=== PATIENT | male | born 1965 | race Caucasian/White ===

== ENCOUNTER → 2016-08-14 | Outpatient (CLI) | payer BC ==
[~2016-08-14] MED LIST: ALBU0.8322 IH; ALBU8.5H4 IH; ALPR1T; ALPR1T PO; ASP81CT PO; ATR20T; ATR20T PO; BUDE6HFA IH; CARV10CP PO; CITA40TA19 PO; CLOP75TA; DCS100C; ESCI20TA2; FLUT1DIS27 IH; FURO20TA4 PO; FURO40TA4; HYDR2TAB31 PO; INDO25CA PO; ISM30TCR PO; ISOS30TA74 PO; KCL10CCR; METH-313 PO; METH4TAB PO; METO25TA PO; MTP25TSR; OMEG1CAP51 PO; PHEN-633 PO; PREG150C PO; RABE20TA PO; ROSU20TA14 PO; RT-ALBUINH IH; RT-COMBINH INH; SIMV40TA2 PO; SULF1TAB35 PO; TIOT18CA IH; TRAM-42 PO; TRL300 PO; [UNRECOGNIZED DRUG - OTHER]; metoprolol; ventolin inhaler
== END ==
LOC: RAD 14:58
PROVIDERS: ATTEND Nurse Practitioner Family
DX: R20.0 Anesthesia of skin (principal); R22.43 Localized swelling, mass and lump, lower limb, bilateral
CPT/HCPCS: 93923

== ENCOUNTER 2017-06-11 11:47 | Emergency (ER) | payer BC, OTHER ==
[~2017-06-11] VITALS: Ht 175.3 cm; Wt 97.5 kg
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
[2017-06-11] MEDS ORDERED: CYCL5TAB PO (13:05)
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
[2017-06-11 13:25] VITALS: BP 140/97
== END 2017-06-11 13:25 | disposition home or self-care (01) ==
LOC: EDUNIT# 11:47 → ER 11:49
DX: S16.1XXA Strain of muscle, fascia and tendon at neck level, initial encounter (principal); S43.402A Unspecified sprain of left shoulder joint, initial encounter; J43.9 Emphysema, unspecified; I25.10 Atherosclerotic heart disease of native coronary artery without angina pectoris; I25.2 Old myocardial infarction; E78.00 Pure hypercholesterolemia, unspecified; I10 Essential (primary) hypertension; F17.200 Nicotine dependence, unspecified, uncomplicated; Z90.89 Acquired absence of other organs; Z95.1 Presence of aortocoronary bypass graft; Z79.82 Long term (current) use of aspirin; V85.6XXA Passenger of special construction vehicle injured in nontraffic accident, initial encounter; Y92.410 Unspecified street and highway as the place of occurrence of the external cause
CPT/HCPCS: 70450; 71010; 72125; 73030; 99283

== ENCOUNTER 2017-07-05 23:51 | Inpatient (IN) | payer OTHER ==
[~2017-07-05] VITALS: Ht 177.8 cm; Wt 102.1 kg
[~2017-07-05 23:51] MED LIST changes: +CYCL5TAB PO
--- OUTSIDE RECORDS SUMMARY | 2017-07-05 23:58 | XMS REPORT ---
Author Author JOSE ANTONIO BRADY eClinicalWorks Address Unknown Phone Unavailable Care Team Providers Care Manager Purchasing Name Role Phone JOSE ANTONIO BRADY CP Unavailable Allergies, Adverse Reactions, Alerts Substance Reaction Event Type Xanax XR Self Admitted Abuse Drug Allergy Oxycodone HCl Failed narcotics contract Drug Allergy Benzodiazepines Failed narcotics contract Non Drug Allergy Problems Problem Type Condition Code Onset Dates Condition Status Assessment Essential hypertension I10 Active Problem Midline low back pain with right-sided sciatica M54.41 Active Problem CAD (coronary artery disease) I25.10 Active Problem Essential hypertension I10 Active Assessment Exertional dyspnea R06.09 Active Assessment CAD (coronary artery disease) I25.10 Active Problem Hyperlipemia E78.5 Active Assessment Chest pain, unspecified type R07.9 Active Medications Medication Code System Code Instructions Start Date End Date Status Dosage Combivent Respimat [facility] [address]-05 20-100 mcg/actuation Inhalation 3 times a day October 28, 2014 1 puff Aspirin Low Dose [facility] [address]-94 November 22, 2011 by Oral route Celebrex [facility] 66218046427 200 MG Orally Once a day 1 capsule Viibryd [facility] [address]-35 40 MG Once a day, through PALS October 28, 2014 1 tablet AccuNeb ND 0 0.083% May 19, 2012 3 mL by Inhalation route 4 times per day Lopressor [facility] [address]-70 25 Orally Twice a day May 25, 2015 0.5 Cyclobenzaprine HCl [facility] 30078478559 10 MG Orally Three times a day 1 tablet Gabapentin [facility] 13200770735 300 MG TAKE ONE CAPSULE BY MOUTH THREE TIMES DAILY Viagra [facility] 36050914319 50 MG Once a day 1 tablet by Oral route 1 time per day Flomax [facility] 56766444637 0.4 MG Orally Once a day 1 capsule 30 minutes after the same meal each day Ventolin HFA [facility] [address]-91 90 mcg/actuation October 28, 2014 inhale 2 puffs by Inhalation route 4 times per day PRN Meloxicam [facility] 71644202828 15 MG TAKE ONE TABLET BY MOUTH ONCE DAILY Spiriva NDC 0 18 mcg 1 ea inhaled once a day October 28, 2014 1 ea by Inhalation route 1 time per day Advair Delmisus [facility] [address]-63 500-50 mcg/dose October 28, 2014 1 puffs by Inhalation route 2 times per day Crestor [facility] [address]-75 40 mg November 20, 2013 take 1 tablet by Oral route at bedtime 1 time per day Procedures Procedure Coding System Code Date COMPREHEN METABOLIC PANEL CPT-4 28441 May 23, 2016 LIPID PANEL CPT-4 99404 May 23, 2016 MEASURE BLOOD OXYGEN LEVEL CPT-4 27355 May 23, 2016 VENIPUNCT, ROUTINE* CPT-4 03616 May 23, 2016 Office Visit, Est Pt., Level 4 CPT-4 03940 May 23, 2016 Vital Signs Date/Time: May 23, 2016 Cardiac Monitoring Heart Rate 88 bpm Weight 212 lbs Height 70 in BMI 30.42 Index Oximetry 98 % Blood Pressure Diastolic 76 mmHg Blood Pressure Systolic 124 mmHg Results Name Result Date Reference Range Unit Abnormality Flag CMP ----Calcium, Serum 9.1 48831440 8.7-10.2 mg/dL ----Carbon Dioxide, Total 25 [id number] 18-29 mmol/L ----ALT (SGPT) 28 75134009 0-44 IU/L ----Creatinine, Serum 0.88 98577574 0.76-1.27 mg/dL ----AST (SGOT) 24 [id number] 0-40 IU/L ----eGFR If NonAfricn Am 98 [id number] >59 mL/min/1.73 ----Alkaline Phosphatase, S 70 34226035 39-117 IU/L ----eGFR If Africn Am 113 61259960 >59 mL/min/1.73 ----Bilirubin, Total 0.5 25993598 0.0-1.2 mg/dL ----BUN/Creatinine Ratio 24 20160523 9-20 H ----A/G Ratio 1.8 58589953 1.1-2.5 ----Sodium, Serum 141 56697173 134-144 mmol/L ----Globulin, Total 2.3 84212929 1.5-4.5 g/dL ----Potassium, Serum 4.2 63211421 3.5-5.2 mmol/L ----Glucose, Serum 88 38086812 65-99 mg/dL ----Chloride, Serum 100 00090881 97-108 mmol/L ----Albumin, Serum 4.2 99179720 3.5-5.5 g/dL ----BUN 21 [id number] 6-24 mg/dL ----Protein, Total, Serum 6.5 19355611 6.0-8.5 g/dL Lexiscan Stress Nuclear Test ROUTINE VENIPUNCTURE LIPID PANEL ----VLDL Cholesterol Adriano 24 83378629 5-40 mg/dL ----LDL Cholesterol Calc 130 74916953 0-99 mg/dL H ----Triglycerides 119 44045353 0-149 mg/dL ----HDL Cholesterol 42 41490005 >39 mg/dL ----Cholesterol, Total 196 40093578 100-199 mg/dL Echo 2D Summary Purpose eClinicalWorks Submission
--- OUTSIDE RECORDS SUMMARY | 2017-07-05 23:58 | XMS REPORT ---
Author RAKAN Gresham Organization e[employer] Address Unknown Phone Unavailable Care Team Providers Care Online Program Coordinator Name Role Phone RAKAN AYALA CP Unavailable Allergies, Adverse Reactions, Alerts Substance Reaction Event Type Xanax XR Self Admitted Abuse Drug Allergy Oxycodone HCl Failed narcotics contract Drug Allergy Benzodiazepines Failed narcotics contract Non Drug Allergy Problems Problem Type Condition Code Onset Dates Condition Status Problem Insomnia, unspecified 780.52 Active Problem Pain in soft tissues of limb 729.5 Active Problem Special screening for malignant neoplasm of prostate V76.44 Active Problem Special screening for malignant neoplasms, colon V76.51 Active Problem Dysfunction of Eustachian tube 381.81 Active Problem Nonsuppurative otitis media, not specified as acute or chronic 381.4 Active Problem Esophageal reflux 530.81 Active Problem Dysphagia, unspecified 787.20 Active Problem Heartburn 787.1 Active Problem Pain in joint, site unspecified 719.40 Active Problem Nausea alone 787.02 Active Problem Other chronic pain 338.29 Active Problem Major depressive disorder, recurrent episode, unspecified 296.30 Active Problem Nondependent cannabis abuse, 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 Active Problem Unspecified hearing loss 389.9 Active Problem Acute sinusitis, unspecified 461.9 Active Problem Hyperlipemia E78.5 Active Problem Wheezing 786.07 Active Problem Cough 786.2 Active Problem 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 Problem CAD (coronary artery disease) I25.10 Active Problem Major depressive disorder, recurrent episode, in full remission 296.36 Active Problem Chest pain, unspecified 786.50 Active Problem Need for prophylactic vaccination and inoculation, Influenza V04.81 Active Problem Counseling on substance use and abuse V65.42 Active Problem Other dysfunctions of sleep stages or arousal from sleep 307.47 Active Problem Dyspepsia and other specified disorders of function of stomach 536.8 Active Problem Posttraumatic stress disorder 309.81 Active Problem Other, mixed, or unspecified nondependent drug abuse, unspecified 305.90 Active Problem Unspecified sleep apnea 780.57 Active Problem Abdominal pain, unspecified site 789.00 Active Problem Other dyspnea and respiratory abnormalities 786.09 Active Problem Influenza with other respiratory manifestations 487.1 Active Problem Acute mucoid otitis media 381.02 Active Assessment Sciatica, unspecified side M54.30 Active Problem Spasm of muscle 728.85 Active Assessment Low back pain M54.5 Active Problem Unspecified epilepsy without mention of intractable epilepsy 345.90 Active Problem Mild cognitive impairment, so stated 331.83 Active Problem Acute bronchitis 466.0 Active Medications Medication Code System Code Instructions Start Date End Date Status Dosage Viagra [facility] [address]-53 50 MG Once a day February 09, 2014 1 tablet by Oral route 1 time per day Flomax [facility] [address]-64 0.4 MG Orally Once a day 1 capsule 30 minutes after the same meal each day Indomethacin [facility] [address]-41 50 MG Orally 4 times a day 1 capsule with food Ventolin HFA [facility] [address]-59 90 mcg/actuation October 28, 2014 inhale 2 puffs by Inhalation route 4 times per day PRN Lopressor [facility] [address]-06 25 Orally Twice a day May 25, 2015 0.5 Viibryd [facility] [address]-04 40 MG Once a day, through PALS October 28, 2014 1 tablet Spiriva NDC 0 18 mcg 1 ea inhaled once a day October 28, 2014 1 ea by Inhalation route 1 time per day Combivent Respimat [facility] [address]-71 20-100 mcg/actuation Inhalation 3 times a day October 28, 2014 1 puff Meloxicam [facility] [address]-04 15 MG Orally Once a day Jul 11, 2015 1 tablet Cyclobenzaprine HCl [facility] [address]-81 10 MG Orally 2 times a day Jul 11, 2015 1 tablet Advair Diskus [facility] [address]-20 500-50 mcg/dose October 28, 2014 1 puffs by Inhalation route 2 times per day Gabapentin [facility] [address]-40 300 MG Orally Three times a day Jul 11, 2015 1 capsule AccuNeb NDC 0 0.083% May 19, 2012 3 mL by Inhalation route 4 times per day Aspirin Low Dose [facility] [address]-68 November 22, 2011 by Oral route Crestor [facility] [address]-13 40 mg November 20, 2013 take 1 tablet by Oral route at bedtime 1 time per day Procedures Procedure Coding System Code Date TORADOL (IM) 60 MG/2ML (UP TO 15 MG) CPT-4 J1885 Jul 11, 2015 THER/PROPH/DIAG INJ, SC/IM CPT-4 76841 Jul 11, 2015 Office Visit, Est Pt., Level 3 CPT-4 36461 Jul 11, 2015 Vital Signs Date/Time: Jul 11, 2015 Temperature 97.1 F Weight 204 lbs Height 70 in BMI 29.27 Index Blood Pressure Diastolic 90 mmHg Blood Pressure Systolic 142 mmHg Cardiac Monitoring Heart Rate 76 bpm Results No Known Results Summary Purpose eClinicalWorks Submission
--- OUTSIDE RECORDS SUMMARY | 2017-07-05 23:58 | XMS REPORT ---
Author Author RAKAN AYALA [facility] Address [address] [place] [address] Care Team Providers Care Photo Mask Pattern Generator Name Role Phone RAKAN AYALA Unavailable PROBLEMS Type Condition ICD9-CM Code PHQ21-YC Code Onset Dates Condition Status SNOMED Code Problem CAD (coronary artery disease) I25.10 Active 03810725 Problem Polyneuropathy G62.9 Active 70301405 Problem Cellulitis of left arm L03.114 Active 34656372729972963 Problem Midline low back pain with right-sided sciatica M54.41 Active 850132941 Problem Hyperlipemia E78.5 Active 91185060 Problem COPD (chronic obstructive pulmonary disease) with acute bronchitis J44.0 Active 877543176462644 Problem Essential hypertension I10 Active 65284640 ALLERGIES Unknown Allergies SOCIAL HISTORY No smoking Hx information available PLAN OF CARE VITAL SIGNS MEDICATIONS Unknown Medications RESULTS No Results PROCEDURES No Known procedures IMMUNIZATIONS No Known Immunizations
--- OUTSIDE RECORDS SUMMARY | 2017-07-05 23:58 | XMS REPORT ---
Author RAKAN Gresham Organization [employer] Address Unknown Phone Unavailable Care Team Providers Care Sock Examiner Name Role Phone RAKAN AYALA CP Unavailable [...] Problem Acute mucoid otitis media 381.02 Active Problem Spasm of muscle 728.85 Active Assessment Arthritis M19.90 Active Problem Unspecified epilepsy without mention of intractable epilepsy 345.90 Active Problem Mild cognitive impairment, so stated 331.83 Active Problem Acute bronchitis 466.0 Active Medications Medication Code System Code Instructions Start Date End Date Status Dosage Indomethacin [facility] [address]-42 50 MG Orally 4 times a day 1 capsule with food Combivent Respimat [facility] [address]-72 20-100 mcg/actuation Inhalation 3 times a day October 28, 2014 1 puff Advair Diskus [facility] [address]-61 500-50 mcg/dose October 28, 2014 1 puffs by Inhalation route 2 times per day Lopressor [facility] [address]-61 25 Orally Twice a day May 25, 2015 0.5 Ventolin HFA [facility] [address]-04 90 mcg/actuation October 28, 2014 inhale 2 puffs by Inhalation route 4 times per day PRN Spiriva NDC 0 18 mcg 1 ea inhaled once a day October 28, 2014 1 ea by Inhalation route 1 time per day Diclofenac Sodium [facility] [address]-14 75 MG Orally Twice a day Jun 10, 2015 Oct 08, 2015 1 tablet Aspirin Low Dose [facility] [address]-52 November 22, 2011 by Oral route Viibryd [facility] [address]-28 40 mg October 28, 2014 take 1 tablet (40 mg) by oral route once daily with food AccuNeb NDC 0 0.083% May 19, 2012 3 mL by Inhalation route 4 times per day Viagra [facility] [address]-29 50 MG Once a day February 09, 2014 1 tablet by Oral route 1 time per day Flomax [facility] [address]-45 0.4 MG Orally Once a day 1 capsule 30 minutes after the same meal each day Crestor [facility] [address]-86 40 mg November 20, 2013 take 1 tablet by Oral route at bedtime 1 time per day Procedures Procedure Coding System Code Date Office Visit, Est Pt., Level 3 CPT-4 89887 Jun 10, 2015 Vital Signs Date/Time: Jun 10, 2015 Temperature 98.0 F Weight 198 lbs Height 70 in BMI 28.41 Index Blood Pressure Diastolic 74 mmHg Blood Pressure Systolic 132 mmHg Cardiac Monitoring Heart Rate 78 bpm Results No Known Results Summary Purpose eClinicalWorks Submission
--- OUTSIDE RECORDS SUMMARY | 2017-07-05 23:59 | XMS REPORT ---
Author Author SIMI MAI eClinicalWorks Address Unknown Phone Unavailable Care Team Providers Care Electric Motor Winder Name Role Phone SIMI MAI CP Unavailable Allergies, Adverse Reactions, Alerts Substance Reaction Event Type Xanax XR Self Admitted Abuse Drug Allergy Oxycodone HCl Failed narcotics contract Drug Allergy Benzodiazepines Failed narcotics contract Non Drug Allergy Problems Problem Type Condition Code Onset Dates Condition Status Problem Special screening for malignant neoplasms, colon V76.51 Active Problem Insomnia, unspecified 780.52 Active Problem Dysfunction of Eustachian tube 381.81 Active Problem Special screening for malignant neoplasm of prostate V76.44 Active Problem Nonsuppurative otitis media, not specified as acute or chronic 381.4 Active Problem Esophageal reflux 530.81 Active Problem Dysphagia, unspecified 787.20 Active Problem Heartburn 787.1 Active Problem Nausea alone 787.02 Active Problem Other chronic pain 338.29 Active Problem Major depressive disorder, recurrent episode, unspecified 296.30 Active Problem Nondependent cannabis abuse, 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 Active Problem Major depressive disorder, recurrent episode, in full remission 296.36 Active Problem Acute sinusitis, unspecified 461.9 Active Problem Need for prophylactic vaccination and inoculation, Influenza V04.81 Active Problem Unspecified hearing loss 389.9 Active Problem CAD (coronary artery disease) I25.10 Active Problem Hyperlipemia E78.5 Active Problem Other dyspnea and respiratory abnormalities 786.09 Active Problem Cough 786.2 Active Problem Midline low back pain with right-sided sciatica M54.41 Active Problem 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 Problem Other dysfunctions of sleep stages or arousal from sleep 307.47 Active Problem Chest pain, unspecified 786.50 Active Problem Wheezing 786.07 Active Problem Counseling on substance use and abuse V65.42 Active Problem Other, mixed, or unspecified nondependent drug abuse, unspecified 305.90 Active Problem Unspecified sleep apnea 780.57 Active Problem Pain in soft tissues of limb 729.5 Active Problem Mild cognitive impairment, so stated 331.83 Active Problem Influenza with other respiratory manifestations 487.1 Active Problem Acute mucoid otitis media 381.02 Active Problem Dyspepsia and other specified disorders of function of stomach 536.8 Active Problem Posttraumatic stress disorder 309.81 Active Assessment Upper respiratory tract infection, unspecified type 465.9 Active Problem Unspecified epilepsy without mention of intractable epilepsy 345.90 Active Problem Abdominal pain, unspecified site 789.00 Active Problem Pain in joint, site unspecified 719.40 Active Problem Acute bronchitis 466.0 Active Problem Spasm of muscle 728.85 Active Medications Medication Code System Code Instructions Start Date End Date Status Dosage Viagra [facility] [address]-26 50 MG Once a day February 09, 2014 1 tablet by Oral route 1 time per day Lopressor [facility] [address]-08 25 Orally Twice a day May 25, 2015 0.5 Combivent Respimat [facility] [address]-38 20-100 mcg/actuation Inhalation 3 times a day October 28, 2014 1 puff AccuNeb [facility] 0 0.083% May 19, 2012 3 mL by Inhalation route 4 times per day Albuterol Sulfate HFA [facility] [address]-34 not defined Crestor [facility] [address]-37 40 mg November 20, 2013 take 1 tablet by Oral route at bedtime 1 time per day Flomax [facility] 63261015362 0.4 MG Orally Once a day 1 capsule 30 minutes after the same meal each day Celebrex [facility] 18060244758 200 MG Orally Once a day 1 capsule Advair Diskus [facility] [address]-27 500-50 mcg/dose October 28, 2014 1 puffs by Inhalation route 2 times per day Spiriva [facility] 0 18 mcg 1 ea inhaled once a day October 28, 2014 1 ea by Inhalation route 1 time per day Gabapentin [facility] [address]-26 300 MG Orally Three times a day Jul 11, 2015 1 capsule Meloxicam [facility] [address]-94 15 MG Orally Once a day Jul 11, 2015 1 tablet Azithromycin [facility] [address]-65 250 MG Orally Once a day Aug 23, 2015 Aug 28, 2015 2 tablets on the first day, then 1 tablet daily for 4 days Viibryd [facility] [address]-98 40 MG Once a day, through PALS October 28, 2014 1 tablet Cyclobenzaprine HCl [facility] [address]-92 10 MG Orally 2 times a day Jul 11, 2015 1 tablet Aspirin Low Dose [facility] [address]-67 November 22, 2011 by Oral route Ventolin HFA [facility] [address]-37 90 mcg/actuation October 28, 2014 inhale 2 puffs by Inhalation route 4 times per day PRN Procedures Procedure Coding System Code Date Office Visit, Est Pt., Level 3 CPT-4 46891 Aug 23, 2015 Vital Signs Date/Time: Aug 23, 2015 Temperature 97.7 F Weight 204.7 lbs Height 70 in BMI 29.37 Index Blood Pressure Diastolic 80 mmHg Blood Pressure Systolic 114 mmHg Cardiac Monitoring Heart Rate 100 bpm Results No Known Results Summary Purpose eClinicalWorks Submission
--- OUTSIDE RECORDS SUMMARY | 2017-07-05 23:59 | XMS REPORT ---
Author Author LYNN TONG Organization [employer] Address Unknown Phone Unavailable Care Team Providers Care Ecommerce Analyst Name Role Phone LYNN TONG CP Unavailable Allergies, Adverse Reactions, Alerts Substance Reaction Event Type Xanax XR Self Admitted Abuse Drug Allergy Oxycodone HCl Failed narcotics contract Drug Allergy Benzodiazepines Failed narcotics contract Non Drug Allergy Problems Problem Type Condition Code Onset Dates Condition Status Problem Essential hypertension I10 Active Problem Midline low back pain with right-sided sciatica M54.41 Active Problem Cellulitis of left arm L03.114 Active Assessment Cellulitis of left arm L03.114 Active Problem CAD (coronary artery disease) I25.10 Active Problem Hyperlipemia E78.5 Active Medications Medication Code System Code Instructions Start Date End Date Status Dosage Combivent Respimat [facility] [address]-71 20-100 mcg/actuation Inhalation 3 times a day October 28, 2014 1 puff Aspirin Low Dose [facility] [address]-68 November 22, 2011 by Oral route Cyclobenzaprine HCl [facility] 97110387019 10 MG Orally Three times a day 1 tablet Bactrim DS [facility] [address]-67 800-160 MG Orally Twice a day Jun 15, 2016 Jun 25, 2016 1 tablet Meloxicam [facility] 80739276272 15 MG TAKE ONE TABLET BY MOUTH ONCE DAILY Crestor [facility] [address]-89 40 mg November 20, 2013 take 1 tablet by Oral route at bedtime 1 time per day Gabapentin [facility] 83081203642 300 MG TAKE ONE CAPSULE BY MOUTH THREE TIMES DAILY Celebrex [facility] 28967912605 200 MG Orally Once a day 1 capsule Viagra [facility] 05969986677 50 MG Once a day 1 tablet by Oral route 1 time per day PredniSONE [facility] [address]-17 20 mg Orally Once a day Jun 15, 2016 Jun 20, 2016 2 tablet AccuNeb [place] 0 0.083% May 19, 2012 3 mL by Inhalation route 4 times per day Advair Diskus [facility] [address]-44 500-50 mcg/dose October 28, 2014 1 puffs by Inhalation route 2 times per day Ventolin HFA [facility] [address]-95 90 mcg/actuation October 28, 2014 inhale 2 puffs by Inhalation route 4 times per day PRN Flomax [facility] 41905975835 0.4 MG Orally Once a day 1 capsule 30 minutes after the same meal each day Lopressor [facility] [address]-87 25 Orally Twice a day May 25, 2015 0.5 Spiriva [place] 0 18 mcg 1 ea inhaled once a day October 28, 2014 1 ea by Inhalation route 1 time per day Viibryd [facility] [address]-50 40 MG Once a day, through PALS October 28, 2014 1 tablet Procedures Procedure Coding System Code Date Office Visit, Est Pt., Level 3 CPT-4 65496 Jun 15, 2016 Vital Signs Date/Time: Jun 15, 2016 Cardiac Monitoring Heart Rate 98 bpm Weight 228.2 lbs Height 70 in BMI 32.74 Index Blood Pressure Diastolic 86 mmHg Blood Pressure Systolic 138 mmHg Results No Known Results Summary Purpose eClinicalWorks Submission
--- OUTSIDE RECORDS SUMMARY | 2017-07-05 23:59 | XMS REPORT ---
Author Author RAKAN AYALA [facility] Address [address] [place] [address] Care Team Providers Care Database Marketing Manager Name Role Phone RAKAN AYALA Unavailable PROBLEMS Type Condition ICD9-CM Code [id number] Code Onset Dates Condition Status SNOMED Code Problem CAD (coronary artery disease) I25.10 Active 46022883 Problem Polyneuropathy G62.9 Active 11467008 Problem Cellulitis of left arm L03.114 Active 74722295936096724 Problem Midline low back pain with right-sided sciatica M54.41 Active 582952349 Problem Hyperlipemia E78.5 Active 38518116 Problem COPD (chronic obstructive pulmonary disease) with acute bronchitis J44.0 Active 833473464177703 Problem Essential hypertension I10 Active 72429066 ALLERGIES Substance Reaction Event Type Date Status Xanax XR Self Admitted Abuse Drug Allergy Sep, Active Oxycodone HCl Failed narcotics contract Drug Allergy Sep, Active Benzodiazepines Failed narcotics contract Non Drug Allergy Sep, Active SOCIAL HISTORY Never Assessed PLAN OF CARE Activity Details Follow Up 4 Weeks Reason: VITAL SIGNS Height 70 in 2016-09-24 Weight 225.3 lbs 2016-09-24 Temperature 98.3 degrees Fahrenheit 2016-09-24 Heart Rate 90 bpm 2016-09-24 Respiratory Rate 20 2016-09-24 BMI 32.32 kg/m2 2016-09-24 Blood pressure systolic 136 mmHg 2016-09-24 Blood pressure diastolic 84 mmHg 2016-09-24 MEDICATIONS Medication Instructions Dosage Frequency Start Date End Date Duration Status Combivent Respimat 20-100 mcg/actuation Inhalation 3 times a day 1 puff 8h Oct, Active Cyclobenzaprine HCl 10 mg Orally Three times a day 1 tablet 8h 30 Active Aspirin Low Dose by Oral route Nov, Active Spiriva 18 mcg 1 ea by Inhalation route 1 time per day Oct, Active Meloxicam 15 MG 1 tablet 24h 30 Active Viibryd 40 MG 1 tablet Oct, Active Gabapentin 400 MG Orally 3 times a day 1 capsule 8h 30 Active Lopressor 25 Orally Twice a day 0.5 12h 14 May, 2015 30 day(s) Active Celebrex 200 mg Orally Once a day 1 capsule 24h 90 Active Viagra 100 MG Orally Once a day 1 tablet by Oral route 1 time per day 24h 10 Active Neurontin 600 MG Orally Three times a day 1 tablet 8h 13 Sep, 2016 30 day(s) Active Ventolin HFA 90 mcg/actuation inhale 2 puffs by Inhalation route 4 times per day PRN Oct, Active AccuNeb 0.083% 3 mL by Inhalation route 4 times per day 08 May, 2012 Active Crestor 40 mg 1 tablet 24h Nov, Active Flomax 0.4 MG Orally Once a day 1 capsule 30 minutes after the same meal each day 24h 30 Active RESULTS No Results PROCEDURES No Known procedures IMMUNIZATIONS No Known Immunizations MEDICAL (GENERAL) HISTORY Type Description Date Medical History 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 Medical History CAD Medical History Acid reflux Medical History Hyperlipidemia Medical History Halex rigidous Medical History seizures--EEG 11/2011 Medical History Chronic Pain-backaches Medical History Depression Medical History Arthritis Surgical History Tonsillectomy at age 3 Surgical History Back surgery 1990 & 1993 Surgical History heart cath w/ stent placed LAD 2004 Surgical History orthopedic surgery for toe crush injury Surgical History open heart, CABG 2008 Hospitalization History surgeries Hospitalization History kidney stone [facility] Hospitalization History Herniated disc/Sciatic Nerve Pain 06/2015
--- OUTSIDE RECORDS SUMMARY | 2017-07-05 23:59 | XMS REPORT ---
Author Author RAKAN AYALA Organization [facility] Address [address] [place] [address] Care Team Providers Care Supervisor Knitting Name Role Phone RAKAN AYALA Unavailable PROBLEMS Type Condition ICD9-CM Code [id number] Code Onset Dates Condition Status SNOMED Code Problem CAD (coronary artery disease) I25.10 Active 49587801 Problem Polyneuropathy G62.9 Active 01535070 Problem Cellulitis of left arm L03.114 Active 53217075507904348 Problem Midline low back pain with right-sided sciatica M54.41 Active 440524484 Problem Hyperlipemia E78.5 Active 75621648 Problem COPD (chronic obstructive pulmonary disease) with acute bronchitis J44.0 Active 710159408363386 Problem Essential hypertension I10 Active 54027847 ALLERGIES No Information SOCIAL HISTORY Never Assessed PLAN OF CARE VITAL SIGNS MEDICATIONS Unknown [...] crush injury Surgical History open heart, CABG 2009 Hospitalization History surgeries Hospitalization History kidney stone [facility] Hospitalization History Herniated disc/Sciatic Nerve Pain 06/2015
--- OUTSIDE RECORDS SUMMARY | 2017-07-05 23:59 | XMS REPORT ---
Author Author RAKAN AYALA Organization [facility] Address [address] [place] [address] Care Team Providers Care Osteopathic Physician Name Role Phone RAKAN AYALA Unavailable PROBLEMS Type Condition ICD9-CM Code [id number] Code Onset Dates Condition Status SNOMED Code Problem CAD (coronary artery disease) I25.10 Active 09438783 Problem Polyneuropathy G62.9 Active 26770453 Problem Cellulitis of left arm L03.114 Active 93782065555962283 Problem Midline low back pain with right-sided sciatica M54.41 Active 485065433 Problem Hyperlipemia E78.5 Active 88318216 Problem COPD (chronic obstructive pulmonary disease) with acute bronchitis J44.0 Active 832063006878350 Problem Essential hypertension I10 Active 89325891 ALLERGIES No Information SOCIAL HISTORY Never Assessed PLAN OF CARE VITAL SIGNS MEDICATIONS Medication Instructions Dosage Frequency Start Date End Date Duration Status Viibryd 40 MG 1 tablet Oct, Active RESULTS No Results PROCEDURES No Known [...]
--- OUTSIDE RECORDS SUMMARY | 2017-07-05 23:59 | XMS REPORT ---
Author Author RAKAN AYALA [facility] eClinicalWorks Address Unknown Phone Unavailable Care Team Providers Care Curtain Mender Name Role Phone RAKAN AYALA CP Unavailable Allergies No Known Allergies Problems Problem Type Condition ICD-9 Code Onset Dates Condition Status Problem Other, mixed, or unspecified nondependent drug abuse, unspecified 305.90 Active Problem Dyspepsia and other specified disorders of function of stomach 536.8 Active Problem Insomnia, unspecified 780.52 Active Problem Pain in soft tissues of limb 729.5 Active Problem Special screening for malignant neoplasms, colon V76.51 Active Problem Special screening for malignant neoplasm of prostate V76.44 Active Problem Dysfunction of Eustachian tube 381.81 Active Problem Nonsuppurative otitis media, not specified as acute or chronic 381.4 Active Problem Esophageal reflux 530.81 Active Problem Spasm of muscle 728.85 Active Problem Dysphagia, unspecified 787.20 Active Problem Unspecified epilepsy without mention of intractable epilepsy 345.90 Active Problem Heartburn 787.1 Active Problem Pain in joint, site unspecified 719.40 Active Problem Nondependent cannabis abuse, 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 Active Problem Other chronic pain 338.29 Active Problem Counseling on substance use and abuse V65.42 Active Problem Other dysfunctions of sleep stages or arousal from sleep 307.47 Active Problem Major depressive disorder, recurrent episode, in full remission 296.36 Active Problem Major depressive disorder, recurrent episode, unspecified 296.30 Active Problem Wheezing 786.07 Active Problem Nausea alone 787.02 Active Problem Unspecified hearing loss 389.9 Active Problem Acute sinusitis, unspecified 461.9 Active Problem Chest pain, unspecified 786.50 Active Problem Need for prophylactic vaccination and inoculation, Influenza V04.81 Active Problem Abdominal pain, unspecified site 789.00 Active Problem Other dyspnea and respiratory abnormalities 786.09 Active Problem Influenza with other respiratory manifestations 487.1 Active Problem Acute mucoid otitis media 381.02 Active Problem 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
--- OUTSIDE RECORDS SUMMARY | 2017-07-05 23:59 | XMS REPORT ---
Author RAKAN Gresham Organization eClinical[employer] Address Unknown Phone Unavailable Care Team Providers Care Marine Driller Name Role Phone RAKAN AYALA CP Unavailable Allergies No Known Allergies Problems Problem Type Condition Code Onset Dates Condition Status Problem COPD (chronic obstructive pulmonary disease) with acute bronchitis J44.0 Active Problem Essential hypertension I10 Active Problem Cellulitis of left arm L03.114 Active Problem Hyperlipemia E78.5 Active Problem Midline low back pain with right-sided sciatica M54.41 Active Problem CAD (coronary artery disease) I25.10 Active Medications Medication Code System Code Instructions Start Date End Date Status Dosage Gabapentin [facility] 22617329107 300 MG TAKE ONE CAPSULE BY MOUTH THREE TIMES DAILY Results No Known Results Summary Purpose eClinicalWorks Submission
[2017-07-06] VITALS (7 sets, daily range): BP systolic 117–141; BP diastolic 73–83
--- OUTSIDE RECORDS SUMMARY | 2017-07-06 | XMS REPORT ---
Author RAKAN Gresham Organization [employer] Address Unknown Phone Unavailable Care Team Providers Care Retail Salesman Name Role Phone RAKAN AYALA CP Unavailable [...] abnormalities 786.09 Active Problem Cough 786.2 Active Assessment Polyneuropathy G62.9 Active Problem Midline low back pain with [...] Problem Posttraumatic stress disorder 309.81 Active Assessment Bilateral low back pain with sciatica, sciatica laterality unspecified M54.40 Active Problem Unspecified epilepsy without mention of intractable epilepsy 345.90 Active Problem Abdominal pain, unspecified site 789.00 Active Problem Pain in joint, site unspecified 719.40 Active Problem Acute bronchitis 466.0 Active Problem Spasm of muscle 728.85 Active Medications Medication Code System Code Instructions Start Date End Date Status Dosage Celebrex [facility] 96482426542 200 MG Orally Once a day 1 capsule Lopressor [facility] [address]-75 25 Orally Twice a day May 25, 2015 0.5 Spiriva [facility] 0 18 mcg 1 ea inhaled once a day October 28, 2014 1 ea by Inhalation route 1 time per day Cyclobenzaprine HCl [facility] [address]-22 10 MG Orally Three times a day AugJanuary 07, 2016 1 tablet Advair Diskus [facility] [address]-93 500-50 mcg/dose October 28, 2014 1 puffs by Inhalation route 2 times per day Viagra [facility] [address]-48 50 MG Once a day February 09, 2014 1 tablet by Oral route 1 time per day AccuNeb [facility] 0 0.083% May 19, 2012 3 mL by Inhalation route 4 times per day Gabapentin [facility] 71562304243 300 MG Orally Three times a day 1 capsule Aspirin Low Dose [facility] [address]-81 November 22, 2011 by Oral route Crestor [facility] [address]-06 40 mg November 20, 2013 take 1 tablet by Oral route at bedtime 1 time per day Combivent Respimat [facility] [address]-40 20-100 mcg/actuation Inhalation 3 times a day October 28, 2014 1 puff Ventolin HFA [facility] [address]-67 90 mcg/actuation October 28, 2014 inhale 2 puffs by Inhalation route 4 times per day PRN Meloxicam [facility] 37159871752 15 MG Orally Once a day 1 tablet Viibryd [facility] [address]-13 40 MG Once a day, through PALS October 28, 2014 1 tablet Cyclobenzaprine HCl [facility] [address]-87 10 MG Orally 2 times a day Jul 11, 2015 1 tablet Flomax [facility] 81599378798 0.4 MG Orally Once a day 1 capsule 30 minutes after the same meal each day Procedures Procedure Coding System Code Date Office Visit, Est Pt., Level 3 CPT-4 43101 Sep 09, 2015 Vital Signs Date/Time: Sep 09, 2015 Temperature 98.1 F Weight 203.2 lbs Height 70 in BMI 29.15 Index Blood Pressure Diastolic 78 mmHg Blood Pressure Systolic 128 mmHg Cardiac Monitoring Heart Rate 96 bpm Results No Known Results Summary Purpose eClinicalWorks Submission
--- OUTSIDE RECORDS SUMMARY | 2017-07-06 | XMS REPORT ---
Author Author ROSITA JASSO Organization eClinicalWorks Address Unknown Phone Unavailable Care Team Providers Care Video Camera Operator Name Role Phone ROSITA JASSO CP Unavailable Allergies, Adverse Reactions, Alerts Substance [...] dysfunction with inhibited sexual excitement 302.72 Active Assessment COPD (chronic obstructive pulmonary disease) J44.9 Active Problem CAD (coronary artery disease) I25.10 [...] Acute mucoid otitis media 381.02 Active Assessment Hyperlipemia E78.5 Active Problem Spasm of muscle 728.85 Active Assessment CAD (coronary artery disease) I25.10 Active Problem Unspecified epilepsy without mention of intractable epilepsy 345.90 Active Problem Mild cognitive impairment, so stated 331.83 Active Problem Acute bronchitis 466.0 Active Medications Medication Code System Code Instructions Start Date End Date Status Dosage Viagra [facility] [address]-73 50 MG Once a day February 09, 2014 1 tablet by Oral route 1 time per day Flomax [facility] [address]-43 0.4 MG Orally Once a day 1 capsule 30 minutes after the same meal each day Indomethacin [facility] [address]-60 50 MG Orally 4 times a day 1 capsule with food Advair Diskus [facility] [address]-12 500-50 mcg/dose October 28, 2014 1 puffs by Inhalation route 2 times per day [place] [facility] [address]-19 7.5-325 MG Orally every 6 hrs May 11, 2015 1 tablet as needed Lopressor [facility] [address]-81 25 Orally Twice a day May 25, 2015 0.5 Viibryd [facility] [address]-33 40 mg October 28, 2014 take 1 tablet (40 mg) by oral route once daily with food AccuNeb [facility] 0 0.083% May 19, 2012 3 mL by Inhalation route 4 times per day Crestor [facility] [address]-42 40 mg November 20, 2013 take 1 tablet by Oral route at bedtime 1 time per day Celebrex [facility] [address]-10 200 MG Orally Once a day May 04, 2015 1 capsule Ventolin HFA [facility] [address]-92 90 mcg/actuation October 28, 2014 inhale 2 puffs by Inhalation route 4 times per day PRN Combivent Respimat [facility] [address]-43 20-100 mcg/actuation Inhalation 3 times a day October 28, 2014 1 puff Chantix [facility] [address]-89 1 MG Orally Twice a day May 11, 2015 November 07, 2015 1 tablet Aspirin Low Dose [facility] [address]-15 November 22, 2011 by Oral route Spiriva [facility] 0 18 mcg 1 ea inhaled once a day October 28, 2014 1 ea by Inhalation route 1 time per day Procedures Procedure Coding System Code Date Office Visit, Est Pt., Level 4 CPT-4 70158 May 25, 2015 ELECTROCARDIOGRAM, TRACING CPT-4 17983 May 25, 2015 MEASURE BLOOD OXYGEN LEVEL CPT-4 00138 May 25, 2015 Vital Signs Date/Time: May 25, 2015 Cardiac Monitoring Heart Rate 84 bpm Weight 198 lbs Height 70 in BMI 28.41 Index Oximetry 98 % Blood Pressure Diastolic 88 mmHg Blood Pressure Systolic 120 mmHg Results Name Result Date Reference Range Unit Abnormality Flag EKG, TRACING (IN-HOUSE) Summary Purpose eClinicalWorks Submission
--- OUTSIDE RECORDS SUMMARY | 2017-07-06 | XMS REPORT ---
Author Author RAKAN AYALA [facility] eClinicalWorks Address Unknown Phone Unavailable Care Team Providers Care Catalogue Librarian Name Role Phone RAKAN AYALA CP Unavailable [...]
--- OUTSIDE RECORDS SUMMARY | 2017-07-06 | XMS REPORT ---
Author Author RAKAN AYALA [facility] eClinicalWorks Address Unknown Phone Unavailable Care Team Providers Care Knitted Goods Shaper Name Role Phone RAKAN AYALA CP Unavailable Allergies, Adverse Reactions, Alerts Substance Reaction Event Type Xanax XR Self Admitted Abuse Drug Allergy Oxycodone HCl Failed narcotics contract Drug Allergy Benzodiazepines Failed narcotics contract Non Drug Allergy Problems Problem Type Condition Code Onset Dates Condition Status Problem Other, [...] with inhibited sexual excitement 302.72 Active Assessment Arthritis 716.90 Active Problem Cough 786.2 Active Problem Mild cognitive impairment, so stated 331.83 Active Problem Acute bronchitis 466.0 Active Problem Posttraumatic stress disorder 309.81 Active Problem Unspecified sleep apnea 780.57 Active Medications Medication Code System Code Instructions Start Date End Date Status Dosage Aspirin Low Dose [facility] [address]-53 November 22, 2011 by Oral route Celebrex [facility] [address]-27 200 MG Orally Once a day May 04, 2015 1 capsule Crestor [facility] [address]-28 40 mg November 20, 2013 take 1 tablet by Oral route at bedtime 1 time per day Indomethacin [facility] [address]-78 50 MG Orally 4 times a day 1 capsule with food AccuNeb NDC 0 0.083% May 19, 2012 3 mL by Inhalation route 4 times per day [place] [facility] [address]-92 7.5-325 MG Orally every 6 hrs May 11, 2015 1 tablet as needed Viibryd [facility] [address]-55 40 mg October 28, 2014 take 1 tablet (40 mg) by oral route once daily with food Advair Diskus [facility] [address]-78 500-50 mcg/dose October 28, 2014 1 puffs by Inhalation route 2 times per day Ventolin HFA [facility] [address]-32 90 mcg/actuation October 28, 2014 inhale 2 puffs by Inhalation route 4 times per day PRN Viagra [facility] [address]-33 50 MG Once a day February 09, 2014 1 tablet by Oral route 1 time per day Combivent Respimat [facility] [address]-43 20-100 mcg/actuation Inhalation 3 times a day October 28, 2014 1 puff Chantix [facility] [address]-93 1 MG Orally Twice a day May 11, 2015 November 07, 2015 1 tablet Flomax [facility] [address]-68 0.4 MG Orally Once a day 1 capsule 30 minutes after the same meal each day Spiriva ND 0 18 mcg 1 ea inhaled once a day October 28, 2014 1 ea by Inhalation route 1 time per day Procedures Procedure Coding System Code Date No Charge CPT-4 49777 May 11, 2015 Office Visit, Est Pt., Level 3 CPT-4 30162 May 11, 2015 Vital Signs Date/Time: May 11, 2015 Temperature 98.6 F Weight 200 lbs Height 70 in BMI 28.69 Index Blood Pressure Diastolic 85 mmHg Blood Pressure Systolic 112 mmHg Cardiac Monitoring Heart Rate 92 bpm Results No Known Results Summary Purpose eClinicalWorks Submission
--- OUTSIDE RECORDS SUMMARY | 2017-07-06 | XMS REPORT ---
Author Author RAKAN AYALA Organization [facility] Address [address] [place] [address] Care Team Providers Care Deputy Clerk Of Superior Court Name Role Phone RAKAN AYALA Unavailable PROBLEMS Type Condition ICD9-CM Code SZH56-AY Code Onset Dates Condition Status SNOMED Code Problem CAD (coronary artery disease) I25.10 Active 35379752 Problem Polyneuropathy G62.9 Active 78608656 Problem Cellulitis of left arm L03.114 Active 56048048960157487 Problem Midline low back pain with right-sided sciatica M54.41 Active 265285499 Problem Hyperlipemia E78.5 Active 58103064 Problem COPD (chronic obstructive pulmonary disease) with acute bronchitis J44.0 Active 418099913284783 Problem Essential hypertension I10 Active 87707448 ALLERGIES No Information SOCIAL HISTORY Never Assessed [...]
--- OUTSIDE RECORDS SUMMARY | 2017-07-06 | XMS REPORT ---
Author SIMI Sotelo eClinicalWorks Address Unknown Phone Unavailable Care Team Providers Care Vp Respiratory Name Role Phone SIMI MAI CP Unavailable [...] Acute mucoid otitis media 381.02 Active Assessment Knee swelling, right M25.461 Active Problem Spasm of muscle 728.85 Active Assessment Right knee pain M25.561 Active Problem Unspecified epilepsy without mention of intractable epilepsy 345.90 Active Problem Mild cognitive impairment, so stated 331.83 Active Problem Acute bronchitis 466.0 Active Medications Medication Code System Code Instructions Start Date End Date Status Dosage Cyclobenzaprine HCl [facility] [address]-20 10 MG Orally 2 times a day Jul 11, 2015 1 tablet Flomax [facility] [address]-14 0.4 MG Orally Once a day 1 capsule 30 minutes after the same meal each day Indomethacin [facility] [address]-14 50 MG Orally 4 times a day 1 capsule with food Aspirin Low Dose [facility] [address]-38 November 22, 2011 by Oral route Spiriva NDC 0 18 mcg 1 ea inhaled once a day October 28, 2014 1 ea by Inhalation route 1 time per day Lopressor [facility] [address]-11 25 Orally Twice a day May 25, 2015 0.5 Gabapentin [facility] [address]-53 300 MG Orally Three times a day Jul 11, 2015 1 capsule Combivent Respimat [facility] [address]-49 20-100 mcg/actuation Inhalation 3 times a day October 28, 2014 1 puff AccuNeb NDC 0 0.083% May 19, 2012 3 mL by Inhalation route 4 times per day Ventolin HFA [facility] [address]-41 90 mcg/actuation October 28, 2014 inhale 2 puffs by Inhalation route 4 times per day PRN Advair Diskus [facility] [address]-44 500-50 mcg/dose October 28, 2014 1 puffs by Inhalation route 2 times per day Viibryd [facility] [address]-03 40 MG Once a day, through PALS October 28, 2014 1 tablet Meloxicam [facility] [address]-31 15 MG Orally Once a day Jul 11, 2015 1 tablet Viagra [facility] [address]-42 50 MG Once a day February 09, 2014 1 tablet by Oral route 1 time per day Crestor [facility] [address]-92 40 mg November 20, 2013 take 1 tablet by Oral route at bedtime 1 time per day Procedures Procedure Coding System Code Date THER/PROPH/DIAG INJ, SC/IM CPT-4 04728 Jul 21, 2015 Office Visit, Est Pt., Level 3 CPT-4 16716 Jul 21, 2015 TORADOL (IM) 60 MG/2ML (UP TO 15 MG) CPT-4 J1885 Jul 21, 2015 Vital Signs Date/Time: Jul 21, 2015 Temperature 98.3 F Weight 205.6 lbs Height 70 in BMI 29.50 Index Blood Pressure Diastolic 90 mmHg Blood Pressure Systolic 120 mmHg Cardiac Monitoring Heart Rate 108 bpm Results No Known Results Summary Purpose eClinicalWorks Submission
--- OUTSIDE RECORDS SUMMARY | 2017-07-06 00:01 | XMS REPORT ---
Author Author RAKAN AYALA [facility] eClinicalWorks Address Unknown Phone Unavailable Care Team Providers Care Seamer Operator Name Role Phone RAKAN AYALA CP Unavailable Allergies No Known Allergies Problems Problem Type Condition Code Onset Dates Condition Status Problem Special screening for malignant neoplasm of prostate V76.44 Active Problem Special screening for malignant neoplasms, colon V76.51 Active Problem Nonsuppurative otitis media, not specified as acute or chronic 381.4 Active Problem Dysfunction of Eustachian tube 381.81 Active Problem Esophageal reflux 530.81 Active Problem Dysphagia, unspecified 787.20 Active Problem Heartburn 787.1 Active Problem Nausea alone 787.02 Active Problem Major depressive disorder, recurrent episode, unspecified 296.30 Active Problem Nondependent cannabis abuse, 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 Active Problem Major depressive disorder, recurrent episode, in full remission 296.36 Active Problem Acute sinusitis, unspecified 461.9 Active Problem 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 Problem Unspecified hearing loss 389.9 Active Problem Chest pain, unspecified 786.50 Active Problem Need for prophylactic vaccination and inoculation, Influenza V04.81 Active Problem Midline low back pain with right-sided sciatica M54.41 Active Problem CAD (coronary artery disease) I25.10 Active Problem Acute mucoid otitis media 381.02 Active Problem Other dyspnea and respiratory abnormalities 786.09 Active Problem Essential hypertension I10 Active Problem Cough 786.2 Active Problem Counseling on substance use and abuse V65.42 Active Problem Other dysfunctions of sleep stages or arousal from sleep 307.47 Active Problem Hyperlipemia E78.5 Active Problem Wheezing 786.07 Active Problem Pain in soft tissues of limb 729.5 Active Problem Mild cognitive impairment, so stated 331.83 Active Problem Insomnia, unspecified 780.52 Active Problem Acute bronchitis 466.0 Active Problem Dyspepsia and other specified disorders of function of stomach 536.8 Active Problem Posttraumatic stress disorder 309.81 Active Problem Other, mixed, or unspecified nondependent drug abuse, unspecified 305.90 Active Problem Unspecified sleep apnea 780.57 Active Problem Abdominal pain, unspecified site 789.00 Active Problem Pain in joint, site unspecified 719.40 Active Problem Influenza with other respiratory manifestations 487.1 Active Problem Other chronic pain 338.29 Active Problem Spasm of muscle 728.85 Active Problem Unspecified epilepsy without mention of intractable epilepsy 345.90 Active Medications Medication Code System Code Instructions Start Date End Date Status Dosage Cyclobenzaprine HCl [facility] [id number] 10 MG Orally Three times a day 1 tablet Results No Known Results Summary Purpose eClinicalWorks Submission
--- OUTSIDE RECORDS SUMMARY | 2017-07-06 00:01 | XMS REPORT ---
Author MICHAEL Hobbs [facility] eClinicalWorks Address Unknown Phone Unavailable Care Team Providers Care Shipfitter Name Role Phone MICHAEL GARCES CP Unavailable Allergies, Adverse Reactions, Alerts Substance [...] Problem Posttraumatic stress disorder 309.81 Active Assessment Midline low back pain with right-sided sciatica M54.41 Active Problem Unspecified epilepsy without mention of intractable epilepsy 345.90 Active Problem Abdominal pain, unspecified site 789.00 Active Problem Pain in joint, site unspecified 719.40 Active Problem Acute bronchitis 466.0 Active Problem Spasm of muscle 728.85 Active Medications Medication Code System Code Instructions Start Date End Date Status Dosage Viibryd [facility] [address]-95 40 MG Once a day, through PALS October 28, 2014 1 tablet Viagra [facility] [address]-87 50 MG Once a day February 09, 2014 1 tablet by Oral route 1 time per day Spiriva NDC 0 18 mcg 1 ea inhaled once a day October 28, 2014 1 ea by Inhalation route 1 time per day Lopressor [facility] [address]-13 25 Orally Twice a day May 25, 2015 0.5 Advair Diskus [facility] [address]-44 500-50 mcg/dose October 28, 2014 1 puffs by Inhalation route 2 times per day Cyclobenzaprine HCl [facility] [address]-22 10 MG Orally 2 times a day Jul 11, 2015 1 tablet Ventolin HFA [facility] [address]-64 90 mcg/actuation October 28, 2014 inhale 2 puffs by Inhalation route 4 times per day PRN Flomax [facility] [address]-37 0.4 MG Orally Once a day 1 capsule 30 minutes after the same meal each day Crestor [facility] [address]-82 40 mg November 20, 2013 take 1 tablet by Oral route at bedtime 1 time per day AccuNeb NDC 0 0.083% May 19, 2012 3 mL by Inhalation route 4 times per day Combivent Respimat [facility] [address]-91 20-100 mcg/actuation Inhalation 3 times a day October 28, 2014 1 puff Meloxicam [facility] [address]-99 15 MG Orally Once a day Jul 11, 2015 1 tablet Gabapentin [facility] [address]-08 300 MG Orally Three times a day Jul 11, 2015 1 capsule Aspirin Low Dose [facility] [address]-61 November 22, 2011 by Oral route Procedures Procedure Coding System Code Date TORADOL (IM) 60 MG/2ML (UP TO 15 MG) CPT-4 J1885 Jul 25, 2015 THER/PROPH/DIAG INJ, SC/IM CPT-4 07940 Jul 25, 2015 Office Visit, Est Pt., Level 3 CPT-4 46766 Jul 25, 2015 DEPO MEDROL 40 MG/ML CPT-4 J1030 Jul 25, 2015 DEXAMETHASONE 4MG/ML (PER 1 MG) CPT-4 J1100 Jul 25, 2015 Vital Signs Date/Time: Jul 25, 2015 Temperature 97.8 F Weight 206.8 lbs Height 70 in BMI 29.67 Index Blood Pressure Diastolic 80 mmHg Blood Pressure Systolic 114 mmHg Cardiac Monitoring Heart Rate 100 bpm Results No Known Results Summary Purpose eClinicalWorks Submission
--- OUTSIDE RECORDS SUMMARY | 2017-07-06 00:01 | XMS REPORT ---
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
--- OUTSIDE RECORDS SUMMARY | 2017-07-06 00:01 | XMS REPORT ---
Author Author ANAHI WHITESIDE Organization eClinicalWorks Address Unknown Phone Unavailable Care Team Providers Care Radar Operator Name Role Phone ANAHI WHITESIDE CP Unavailable Allergies, Adverse Reactions, Alerts Substance [...] Problem Spasm of muscle 728.85 Active Assessment Upper respiratory tract infection, unspecified upper respiratory infection J06.9 Active Problem Unspecified epilepsy without mention of intractable epilepsy 345.90 Active Problem Mild cognitive impairment, so stated 331.83 Active Problem Acute bronchitis 466.0 Active Medications Medication Code System Code Instructions Start Date End Date Status Dosage Viagra [facility] [address]-93 50 MG Once a day February 09, 2014 1 tablet by Oral route 1 time per day Celebrex [facility] [address]-02 200 MG Orally Once a day May 04, 2015 1 capsule Spiriva NDC 0 18 mcg 1 ea inhaled once a day October 28, 2014 1 ea by Inhalation route 1 time per day Crestor [facility] [address]-07 40 mg November 20, 2013 take 1 tablet by Oral route at bedtime 1 time per day Combivent Respimat [facility] [address]-76 20-100 mcg/actuation Inhalation 3 times a day October 28, 2014 1 puff Flomax [facility] [address]-58 0.4 MG Orally Once a day 1 capsule 30 minutes after the same meal each day Indomethacin [facility] [address]-11 50 MG Orally 4 times a day 1 capsule with food Viibryd [facility] [address]-85 40 mg October 28, 2014 take 1 tablet (40 mg) by oral route once daily with food Advair Diskus [facility] [address]-23 500-50 mcg/dose October 28, 2014 1 puffs by Inhalation route 2 times per day Ventolin HFA [facility] [address]-69 90 mcg/actuation October 28, 2014 inhale 2 puffs by Inhalation route 4 times per day PRN AccuNeb NDC 0 0.083% May 19, 2012 3 mL by Inhalation route 4 times per day Lopressor [facility] [address]-57 25 Orally Twice a day May 25, 2015 0.5 Chantix [facility] [address]-00 1 MG Orally Twice a day May 11, 2015 November 07, 2015 1 tablet Edcouch [facility] [address]-58 7.5-325 MG Orally every 6 hrs May 11, 2015 1 tablet as needed Aspirin Low Dose [facility] [address]-63 November 22, 2011 by Oral route Procedures Procedure Coding System Code Date Office Visit, Est Pt., Level 3 CPT-4 58526 May 25, 2015 INFLUENZA ASSAY W/OPTIC CPT-4 54498 May 25, 2015 Vital Signs Date/Time: May 25, 2015 Temperature 98.9 F Weight 199.0 lbs Height 70 in BMI 28.55 Index Blood Pressure Diastolic 78 mmHg Blood Pressure Systolic 128 mmHg Cardiac Monitoring Heart Rate 80 bpm Results Name Result Date Reference Range Unit Abnormality Flag INFLUENZA A & B (IN HOUSE) Summary Purpose eClinicalWorks Submission
--- OUTSIDE RECORDS SUMMARY | 2017-07-06 00:01 | XMS REPORT ---
Author Author RAKAN AYALA [facility] eClinicalWorks Address Unknown Phone Unavailable Care Team Providers Care Cash Grain Grower Name Role Phone RAKAN AYALA CP Unavailable [...] Instructions Start Date End Date Status Dosage Flomax [facility] [address]-02 0.4 MG Orally Once a day 1 capsule 30 minutes after the same meal each day Results No Known Results Summary Purpose eClinicalWorks Submission
--- OUTSIDE RECORDS SUMMARY | 2017-07-06 00:02 | XMS REPORT ---
Author Author RAKAN AYALA [facility] eClinicalWorks Address Unknown Phone Unavailable Care Team Providers Care Wardrobe Manager Name Role Phone RAKAN AYALA CP Unavailable [...]
--- OUTSIDE RECORDS SUMMARY | 2017-07-06 00:02 | XMS REPORT ---
Author Author RAKAN AYALA [facility] eClinicalWorks Address Unknown Phone Unavailable Care Team Providers Care Product Safety Technical Assistant Name Role Phone RAKAN AYALA CP Unavailable Allergies, Adverse Reactions, Alerts Substance Reaction Event Type Xanax XR Self Admitted Abuse Drug Allergy Oxycodone HCl Failed narcotics contract Drug Allergy Benzodiazepines Failed narcotics contract Non Drug Allergy Problems Problem Type Condition ICD-9 Code Onset [...] Start Date End Date Status Dosage Indomethacin [facility] [address]-10 50 MG Orally 4 times a day 1 capsule with food Crestor [facility] [address]-60 40 mg November 20, 2013 take 1 tablet by Oral route at bedtime 1 time per day AccuNeb NDC 0 0.083% May 19, 2012 3 mL by Inhalation route 4 times per day Advair Diskus [facility] [address]-30 500-50 mcg/dose October 28, 2014 1 puffs by Inhalation route 2 times per day Viibryd [facility] [address]-38 40 mg October 28, 2014 take 1 tablet (40 mg) by oral route once daily with food Ventolin HFA [facility] [address]-03 90 mcg/actuation October 28, 2014 inhale 2 puffs by Inhalation route 4 times per day PRN Combivent Respimat [facility] [address]-04 20-100 mcg/actuation Inhalation 3 times a day October 28, 2014 1 puff Aspirin Low Dose [facility] [address]-56 November 22, 2011 by Oral route [place] [facility] [address]-36 5-325 MG Orally every 6 hrs Apr 06, 2015 1 tablet as needed Coreg CR [facility] [address]-07 10 mg Sep 04, 2013 Take 1 Capsule by Oral route 1 time per day Spiriva NDC 0 18 mcg 1 ea inhaled once a day October 28, 2014 1 ea by Inhalation route 1 time per day Viagra [facility] [address]-87 50 MG Once a day February 09, 2014 1 tablet by Oral route 1 time per day Flomax [facility] [address]-95 0.4 MG Orally Once a day 1 capsule 30 minutes after the same meal each day Procedures Procedure Coding System Code Date Office Visit, Est Pt., Level 3 CPT-4 04583 Apr 06, 2015 Vital Signs Date/Time: Apr 06, 2015 Temperature 97.8 F Weight 203.2 lbs Height 70 in BMI 29.15 Index Blood Pressure Diastolic 82 mmHg Blood Pressure Systolic 112 mmHg Cardiac Monitoring Heart Rate 80 bpm Results No Known Results Summary Purpose eClinicalWorks Submission
--- OUTSIDE RECORDS SUMMARY | 2017-07-06 00:02 | XMS REPORT ---
Author Author RAKAN AYALA [facility] eClinicalWorks Address Unknown Phone Unavailable Care Team Providers Care Braille Translator Name Role Phone RAKAN AYALA CP Unavailable [...] apnea 780.57 Active Medications No Known Medications Procedures Procedure Coding System Code Date ASSAY THYROID STIM HORMONE CPT-4 62702 Apr 25, 2015 COMPREHEN METABOLIC PANEL CPT-4 66953 Apr 25, 2015 LIPID PANEL CPT-4 05109 Apr 25, 2015 VENIPUNCT, ROUTINE* CPT-4 38975 Apr 25, 2015 Results Name Result Date Reference Range Unit Abnormality Flag ROUTINE VENIPUNCTURE Summary Purpose eClinicalWorks Submission
--- OUTSIDE RECORDS SUMMARY | 2017-07-06 00:02 | XMS REPORT ---
Author Author RAKAN AYALA [facility] Address [address] [place] [address] Care Team Providers Care Dermatology Procedural Physician Name Role Phone RAKAN AYALA Unavailable PROBLEMS Type Condition ICD9-CM Code GLF99-NP Code Onset Dates Condition Status SNOMED Code Problem Hyperlipemia E78.5 Active 94507009 Problem Polyneuropathy G62.9 Active 93282854 Problem Cellulitis of left arm L03.114 Active 22534789449262050 Problem Midline low back pain with right-sided sciatica M54.41 Active 085318124 Problem CAD (coronary artery disease) I25.10 Active 08655556 Problem COPD (chronic obstructive pulmonary disease) with acute bronchitis J44.0 Active 673357466390319 Problem Essential hypertension I10 Active 83558040 ALLERGIES Substance Reaction Event Type Date Status Xanax XR Self Admitted Abuse Drug Allergy Jul, Active Oxycodone HCl Failed narcotics contract Drug Allergy Jul, Active Benzodiazepines Failed narcotics contract Non Drug Allergy Jul, Active SOCIAL HISTORY No smoking Hx information available PLAN OF CARE Activity Details Follow Up 4 Weeks Reason:neuropathy VITAL SIGNS Height 70 in 2016-07-27 Weight 220.2 lbs 2016-07-27 Temperature 98.9 degrees Fahrenheit 2016-07-27 Heart Rate 88 bpm 2016-07-27 Respiratory Rate 20 2016-07-27 BMI 31.59 kg/m2 2016-07-27 Blood pressure systolic 132 mmHg 2016-07-27 Blood pressure diastolic 88 mmHg 2016-07-27 MEDICATIONS Medication Instructions Dosage Frequency Start Date End Date Duration Status Lopressor 25 Orally Twice a day 0.5 12h 14 May, 2015 30 day(s) Active Meloxicam 15 MG 1 tablet 24h 30 Active Viagra 100 MG Orally Once a day 1 tablet by Oral route 1 time per day 24h 10 Active Crestor 40 mg 1 tablet 24h 11 Nov, 2013 Active Cyclobenzaprine HCl 10 mg Orally Three times a day 1 tablet 8h 30 Active Ventolin HFA 90 mcg/actuation inhale 2 puffs by Inhalation route 4 times per day PRN Oct, Active Viibryd 40 MG 1 tablet Oct, Active AccuNeb 0.083% 3 mL by Inhalation route 4 times per day May, Active Gabapentin 400 MG Orally 3 times a day 1 capsule 8h 30 Active Flomax 0.4 MG Orally Once a day 1 capsule 30 minutes after the same meal each day 24h 30 Active Combivent Respimat 20-100 mcg/actuation Inhalation 3 times a day 1 puff 8h Oct, Active Celebrex 200 mg Orally Once a day 1 capsule 24h 90 Active Aspirin Low Dose by Oral route Nov, Active Spiriva 18 mcg 1 ea by Inhalation route 1 time per day Oct, Active RESULTS No Results PROCEDURES Procedure Date Ordered Related Diagnosis Body Site Office Visit, Est Pt., Level 3 Jul 27, 2016 IMMUNIZATIONS No Known Immunizations
--- OUTSIDE RECORDS SUMMARY | 2017-07-06 00:08 | XMS REPORT | Continuity of Care Document ---
Author Author [facility] Address Unknown Phone Unavailable Allergies Active Description Code Type Severity Reaction Onset Reported/Identified Relationship to Patient Clinical Status Yes tramadol [id number] Drug Allergy Unknown N/A 07/04/2009 Yes oxycodone [id number] Drug Allergy Mild N/A 07/14/2009 Yes oxycodone Drug Allergy N/A N/A 10/14/2009 Yes oxycodone Drug Allergy 10/14/2009 Yes acetaminophen-oxycodone Drug Allergy 04/03/2011 Yes Benzodiazepines Drug Allergy N/A N/A 04/21/2012 Yes Benzodiazepines Drug Allergy 04/21/2012 Yes Xanax XR 1 mg tablet extended release 24 hr Drug Allergy N/A N/A 12/08/2012 Yes Xanax XR 1 mg tablet extended release 24 hr Drug Allergy 12/08/2012 Yes oxycodone [id number] Drug Allergy Mild NAUSEA 01/31/2015 Yes No Known Drug Allergies [id number] Drug Allergy Unknown N/ A 07/06/2015 Medications Problems Date Dx Coded Attending Type Code Diagnosis Diagnosed By 10/12/2008 RIKA CHURCH DO 272.4 HYPERLIPIDEMIA 10/12/2008 GONZALEZ CHURCH DOA K 300.00 anxiety 10/12/2008 RIKA CHURCH DO 414.01 CORONARY ARTERY STENOSIS MULTI-VESSEL 10/12/2008 RIKA CHURCH DO K 465.9 Upper Respiratory Infection Acute 10/12/2008 RIKA CHURCH DO K 786.2 Cough 10/12/2008 GONZALEZ CHURCH DOA Cinthya V58.69 taking high-risk medication 10/12/2008 RIKA CHURCH DO K 272.4 HYPERLIPIDEMIA 10/12/2008 GONZALEZ CHURCH DOA K 300.00 anxiety 10/12/2008 GONZALEZ CHURCH DOA K 414.01 CORONARY ARTERY STENOSIS MULTI-VESSEL 10/12/2008 GONZALEZ CHURCH DOA K 465.9 Upper Respiratory Infection Acute 10/12/2008 GONZALEZ CHURCH DOA K 786.2 Cough 10/12/2008 GONZALEZ CHURCH DOA Cinthya V58.69 taking high-risk medication 10/12/2008 DAMARISYON MENDOZA DO F 272.4 HYPERLIPIDEMIA 10/12/2008 DAMARISYON MENDOZA DO F 300.00 anxiety 10/12/2008 GERSON YON STODDARD F 414.01 CORONARY ARTERY STENOSIS MULTI-VESSEL 10/12/2008 DAMARISYON MENDOZA DO F 465.9 Upper Respiratory Infection Acute 10/12/2008 YON NIETO DO F 786.2 Cough 10/12/2008 YON NIETO DO V58.69 taking high-risk medication 10/12/2008 CHURCH DO RIKA K 272.4 HYPERLIPIDEMIA 10/12/2008 CHURCH DO RIKA K 300.00 anxiety 10/12/2008 CHURCH DO RIKA K 414.01 CORONARY ARTERY STENOSIS MULTI-VESSEL 10/12/2008 CHURCH DO RIKA K 465.9 Upper Respiratory Infection Acute 10/12/2008 LYNNETTE STODDARD RIKA K 786.2 Cough 10/12/2008 CHURCH GONZALEZ STODDARDA K V58.69 taking high-risk medication 10/12/2008 YON NIETO DO 272.4 HYPERLIPIDEMIA 10/12/2008 YON NIETO DO 300.00 anxiety 10/12/2008 DAMARISYON MENDOZA DO F 414.01 CORONARY ARTERY STENOSIS MULTI-VESSEL 10/12/2008 YON NIETO DO F 465.9 Upper Respiratory Infection Acute 10/12/2008 YON NIETO DO 786.2 Cough 10/12/2008 DAMARISYON MENDOZA DO V58.69 taking high-risk medication 10/12/2008 272.4 HYPERLIPIDEMIA 10/12/2008 300.00 anxiety 10/12/2008 414.01 CORONARY ARTERY STENOSIS MULTI-VESSEL 10/12/2008 465.9 Upper Respiratory Infection Acute 10/12/2008 786.2 Cough 10/12/2008 V58.69 taking high-risk medication 10/12/2008 272.4 HYPERLIPIDEMIA 10/12/2008 300.00 anxiety 10/12/2008 414.01 CORONARY ARTERY STENOSIS MULTI-VESSEL 10/12/2008 465.9 Upper Respiratory Infection Acute 10/12/2008 786.2 Cough 10/12/2008 V58.69 taking high-risk medication 10/12/2008 272.4 HYPERLIPIDEMIA 10/12/2008 300.00 anxiety 10/12/2008 414.01 CORONARY ARTERY STENOSIS MULTI-VESSEL 10/12/2008 465.9 Upper Respiratory Infection Acute 10/12/2008 786.2 Cough 10/12/2008 V58.69 taking high-risk medication 10/12/2008 272.4 HYPERLIPIDEMIA 10/12/2008 300.00 anxiety 10/12/2008 414.01 CORONARY ARTERY STENOSIS MULTI-VESSEL 10/12/2008 465.9 Upper Respiratory Infection Acute 10/12/2008 786.2 Cough 10/12/2008 V58.69 taking high-risk medication 10/12/2008 272.4 HYPERLIPIDEMIA 10/12/2008 300.00 anxiety 10/12/2008 414.01 CORONARY ARTERY STENOSIS MULTI-VESSEL 10/12/2008 465.9 Upper Respiratory Infection Acute 10/12/2008 786.2 Cough 10/12/2008 V58.69 taking high-risk medication 10/12/2008 272.4 HYPERLIPIDEMIA 10/12/2008 300.00 anxiety 10/12/2008 414.01 CORONARY ARTERY STENOSIS MULTI-VESSEL 10/12/2008 465.9 Upper Respiratory Infection Acute 10/12/2008 786.2 Cough 10/12/2008 V58.69 taking high-risk medication 10/12/2008 CHURCH DO, RIKA K 272.4 HYPERLIPIDEMIA 10/12/2008 CHURCH DO, RIKA K 300.00 anxiety 10/12/2008 CHURCH DO, RIKA K 414.01 CORONARY ARTERY STENOSIS MULTI-VESSEL 10/12/2008 CHURCH DO, RIKA K 465.9 Upper Respiratory Infection Acute 10/12/2008 CHURCH DO, RIKA K 786.2 Cough 10/12/2008 CHURCH DO, RIKA K V58.69 taking high-risk medication 10/12/2008 CHURCH DO, RIKA K 272.4 HYPERLIPIDEMIA 10/12/2008 CHURCH DO, RIKA K 300.00 anxiety 10/12/2008 CHURCH DO, RIKA K 414.01 CORONARY ARTERY STENOSIS MULTI-VESSEL 10/12/2008 CHURCH DO, RIKA K 465.9 Upper Respiratory Infection Acute 10/12/2008 CHURCH DO, RIKA K 786.2 Cough 10/12/2008 CHURCH DO, RIKA K V58.69 taking high-risk medication 10/12/2008 CHURCH DO, RIKA K 272.4 HYPERLIPIDEMIA 10/12/2008 CHURCH DO, RIKA K 300.00 anxiety 10/12/2008 CHURCH DO, RIKA K 414.01 CORONARY ARTERY STENOSIS MULTI-VESSEL 10/12/2008 CHURCH DO, RIKA K 465.9 Upper Respiratory Infection Acute 10/12/2008 CHURCH DO, RIKA K 786.2 Cough 10/12/2008 CHURCH DO, RIKA K V58.69 taking high-risk medication 10/12/2008 CHURCH DO, RIKA K 272.4 HYPERLIPIDEMIA 10/12/2008 CHURCH DO, RIKA K 300.00 anxiety 10/12/2008 CHURCH DO, RIKA K 414.01 CORONARY ARTERY STENOSIS MULTI-VESSEL 10/12/2008 CHURCH DO, RIKA K 465.9 Upper Respiratory Infection Acute 10/12/2008 CHURCH DO, RIKA K 786.2 Cough 10/12/2008 CHURCH DO, RIKA K V58.69 taking high-risk medication 10/12/2008 CHURCH DO, RIKA K 272.4 HYPERLIPIDEMIA 10/12/2008 CHURCH DO, RIKA K 300.00 anxiety 10/12/2008 CHURCH DO, RIKA K 414.01 CORONARY ARTERY STENOSIS MULTI-VESSEL 10/12/2008 CHURCH DO, RIKA K 465.9 Upper Respiratory Infection Acute 10/12/2008 CHURCH DO, RIKA K 786.2 Cough 10/12/2008 CHURCH DO, RIKA K V58.69 taking high-risk medication 10/12/2008 BRAVO CASHERO MANAGER FINANCE, CLARISSE N 272.4 HYPERLIPIDEMIA 10/12/2008 BRAVO CASHERO MANAGER FINANCE, CLARISSE N 300.00 anxiety 10/12/2008 BRAVO CASHERO MANAGER FINANCE, CLARISSE N 414.01 CORONARY ARTERY STENOSIS MULTI- VESSEL 10/12/2008 BRAVO CASHJIGNA MANAGER FINANCE, CLARISSE N 465.9 Upper Respiratory Infection Acute 10/12/2008 BRAVO CASHDANIELLE BENITO APRNCY N 786.2 Cough 10/12/2008 BRAVO CASHERO MANAGER FINANCE, CLARISSE N V58.69 taking high-risk medication 10/12/2008 CHURCH DO, RIKA K 272.4 HYPERLIPIDEMIA 10/12/2008 CHURCH DO, RIKA K 300.00 anxiety 10/12/2008 CHURCH DO, RIKA K 414.01 CORONARY ARTERY STENOSIS MULTI-VESSEL 10/12/2008 CHURCH DO, RIKA K 465.9 Upper Respiratory Infection Acute 10/12/2008 CHURCH DO, RIKA K 786.2 Cough 10/12/2008 CHURCH DO, RIKA K V58.69 taking high-risk medication 10/12/2008 CHURCH DO, RIKA K 272.4 HYPERLIPIDEMIA 10/12/2008 CHURCH DO, RIKA K 300.00 anxiety 10/12/2008 CHURCH DO, RIKA K 414.01 CORONARY ARTERY STENOSIS MULTI-VESSEL 10/12/2008 CHURCH DO, RIKA K 465.9 Upper Respiratory Infection Acute 10/12/2008 CHURCH DO, RIKA K 786.2 Cough 10/12/2008 CHURCH DO, RIKA K V58.69 taking high-risk medication 10/12/2008 CHURCH DO, RIKA K 272.4 HYPERLIPIDEMIA 10/12/2008 CHURCH DO, RIKA K 300.00 anxiety 10/12/2008 CHURCH DO, RIKA K 414.01 CORONARY ARTERY STENOSIS MULTI-VESSEL 10/12/2008 CHURCH DO, RIKA K 465.9 Upper Respiratory Infection Acute 10/12/2008 CHURCH DO, RIKA K 786.2 Cough 10/12/2008 CHURCH DO, RIKA K V58.69 taking high-risk medication 10/12/2008 CHURCH DO, RIKA K 272.4 HYPERLIPIDEMIA 10/12/2008 CHURCH DO, RIKA K 300.00 anxiety 10/12/2008 CHURCH DO, RIKA K 414.01 CORONARY ARTERY STENOSIS MULTI-VESSEL 10/12/2008 CHURCH DO, RIKA K 465.9 Upper Respiratory Infection Acute 10/12/2008 CHURCH DO, RIKA K 786.2 Cough 10/12/2008 CHURCH DO, RIKA K V58.69 taking high-risk medication 10/12/2008 CHURCH DO, RIKA K 272.4 HYPERLIPIDEMIA 10/12/2008 CHURCH DO, RIKA K 300.00 anxiety 10/12/2008 CHURCH DO, RIKA K 414.01 CORONARY ARTERY STENOSIS MULTI-VESSEL 10/12/2008 CHURCH DO, RIKA K 465.9 Upper Respiratory Infection Acute 10/12/2008 CHURCH DO, RIKA K 786.2 Cough 10/12/2008 CHURCH DO, RIKA K V58.69 taking high-risk medication 10/12/2008 ECHO MANAGER FINANCE, MATHEUS R 272.4 HYPERLIPIDEMIA 10/12/2008 ECHO MANAGER FINANCE, MATHEUS R 300.00 anxiety 10/12/2008 ECHO MANAGER FINANCE, MATHEUS R 414.01 CORONARY ARTERY STENOSIS MULTI-VESSEL 10/12/2008 ECHO MANAGER FINANCE, MATHEUS R 465.9 Upper Respiratory Infection Acute 10/12/2008 ECHO MANAGER FINANCE, MATHEUS R 786.2 Cough 10/12/2008 ECHO MANAGER FINANCE, MATHEUS R V58.69 taking high-risk medication 10/12/2008 CHURCH DO, RIKA K 272.4 HYPERLIPIDEMIA 10/12/2008 CHURCH DO, RIKA K 300.00 anxiety 10/12/2008 CHURCH DO, RIKA K 414.01 CORONARY ARTERY STENOSIS MULTI-VESSEL 10/12/2008 CHURCH DO, RIKA K 465.9 Upper Respiratory Infection Acute 10/12/2008 CHURCH DO, RIKA K 786.2 Cough 10/12/2008 CHURCH DO, RIKA K V58.69 taking high-risk medication 10/12/2008 ECHO MANAGER FINANCE, MATHEUS R 272.4 HYPERLIPIDEMIA 10/12/2008 ECHO MANAGER FINANCE, MATHUES R 300.00 anxiety 10/12/2008 ECHO MANAGER FINANCE, MATHEUS R 414.01 CORONARY ARTERY STENOSIS MULTI-VESSEL 10/12/2008 ECHO MANAGER FINANCE, MATHEUS R 465.9 Upper Respiratory Infection Acute 10/12/2008 ECHO MANAGER FINANCE, MATHEUS R 786.2 Cough 10/12/2008 ECHO MANAGER FINANCE, MATHEUS R V58.69 taking high-risk medication 10/12/2008 CHURCH DO, RIKA K 272.4 HYPERLIPIDEMIA 10/12/2008 CHURCH DO, RIKA K 300.00 anxiety 10/12/2008 CHURCH DO, RIKA K 414.01 CORONARY ARTERY STENOSIS MULTI-VESSEL 10/12/2008 CHURCH DO, RIKA K 465.9 Upper Respiratory Infection Acute 10/12/2008 CHURCH DO, RIKA K 786.2 Cough 10/12/2008 CHURCH DO, RIKA K V58.69 taking high-risk medication 10/12/2008 ROSALVA MANAGER FINANCE, LINH S 272.4 HYPERLIPIDEMIA 10/12/2008 ROSALVA MANAGER FINANCE, LINH S 300.00 anxiety 10/12/2008 ROSALVA MANAGER FINANCE, LINH S 414.01 CORONARY ARTERY STENOSIS MULTI-VESSEL 10/12/2008 ROSALVA MANAGER FINANCE, LINH S 465.9 Upper Respiratory Infection Acute 10/12/2008 ROSALVA MANAGER FINANCE, LINH S 786.2 Cough 10/12/2008 ROSALVA MANAGER FINANCE, LINH S V58.69 taking high-risk medication 12/15/2008 CHURCH DO, RIKA K 492.8 EMPHYSEMA OTHER 12/15/2008 CHURCH DO, RIKA K 492.8 EMPHYSEMA OTHER 12/15/2008 YON NIETO DO 492.8 EMPHYSEMA OTHER 12/15/2008 CHURCH DO, RIKA K 492.8 Emphysema Other 12/15/2008 YON NIETO DO F 492.8 Emphysema Other 12/15/2008 492.8 Emphysema Other 12/15/2008 492.8 Emphysema Other 12/15/2008 492.8 Emphysema Other 12/15/2008 492.8 Emphysema Other 12/15/2008 492.8 Emphysema Other 12/15/2008 492.8 Emphysema Other 12/15/2008 CHURCH DO, RIKA K 492.8 Emphysema Other 12/15/2008 CHURCH DO, RIKA K 492.8 Emphysema Other 12/15/2008 CHURCH DO, RIKA K 492.8 Emphysema Other 12/15/2008 CHURCH DO, RIKA K 492.8 Emphysema Other 12/15/2008 CHURCH DO, RIKA K 492.8 Emphysema Other 12/15/2008 CLARISSE BAH APRN 492.8 Emphysema Other 12/15/2008 CHURCH DO, RIKA K 492.8 Emphysema Other 12/15/2008 CHURCH DO, RIKA K 492.8 Emphysema Other 12/15/2008 CHURCH DO, RIKA K 492.8 Emphysema Other 12/15/2008 CHURCH DO, RIKA K 492.8 Emphysema Other 12/15/2008 CHURCH DO, RIKA K 492.8 Emphysema Other 12/15/2008 ECHO LIZARRAGAN, MATHEUS R 492.8 Emphysema Other 12/15/2008 CHURCH DO, RIKA K 492.8 Emphysema Other 12/15/2008 ECHO MANAGER FINANCE, MATHEUS R 492.8 Emphysema Other 12/15/2008 CHURCH DO, RIKA K 492.8 Emphysema Other 12/15/2008 LINH BLACKWELL APRN 492.8 Emphysema Other 05/03/2009 CHURCH DO, RIKA K 307.40 NONORGANIC SLEEP DISORDERS 05/03/2009 CHURCH DO, RIKA K 307.40 NONORGANIC SLEEP DISORDERS 05/03/2009 YON NIETO DO 307.40 NONORGANIC SLEEP DISORDERS 05/03/2009 CHURCH DO, RIKA K 307.40 NONORGANIC SLEEP DISORDERS 05/03/2009 YON NIETO DO 307.40 NONORGANIC SLEEP DISORDERS 05/03/2009 307.40 NONORGANIC SLEEP DISORDERS 05/03/2009 307.40 NONORGANIC SLEEP DISORDERS 05/03/2009 307.40 NONORGANIC SLEEP DISORDERS 05/03/2009 307.40 NONORGANIC SLEEP DISORDERS 05/03/2009 307.40 NONORGANIC SLEEP DISORDERS 05/03/2009 307.40 NONORGANIC SLEEP DISORDERS 05/03/2009 CHURCH DO, RIKA K 307.40 NONORGANIC SLEEP DISORDERS 05/03/2009 CHURCH DO, RIKA K 307.40 NONORGANIC SLEEP DISORDERS 05/03/2009 CHURCH DO, RIKA K 307.40 NONORGANIC SLEEP DISORDERS 05/03/2009 CUHRCH DO, RIKA K 307.40 NONORGANIC SLEEP DISORDERS 05/03/2009 CHURCH DO, RIKA K 307.40 NONORGANIC SLEEP DISORDERS 05/03/2009 CLARISSE BAH APRN N 307.40 NONORGANIC SLEEP DISORDERS 05/03/2009 CHURCH DO, RIKA K 307.40 NONORGANIC SLEEP DISORDERS 05/03/2009 CHURCH DO, RIKA K 307.40 NONORGANIC SLEEP DISORDERS 05/03/2009 CHURCH DO, RIKA K 307.40 NONORGANIC SLEEP DISORDERS 05/03/2009 CHURCH DO, RIKA K 307.40 NONORGANIC SLEEP DISORDERS 05/03/2009 CHURCH DO, RIKA K 307.40 NONORGANIC SLEEP DISORDERS 05/03/2009 ECHO SWEENEY MATHEUS R 307.40 NONORGANIC SLEEP DISORDERS 05/03/2009 CHURCH DO, RIKA K 307.40 NONORGANIC SLEEP DISORDERS 05/03/2009 ECHO SWEENEY MATHEUS R 307.40 NONORGANIC SLEEP DISORDERS 05/03/2009 CHURCH DO, RIKA K 307.40 NONORGANIC SLEEP DISORDERS 05/03/2009 LINH BLACKWELL APRN 307.40 NONORGANIC SLEEP DISORDERS 05/27/2009 CHURCH DO, RIKA K 788.64 Urinary Hesitancy 05/27/2009 CHURCH DO, RIKA K 788.64 Urinary Hesitancy 05/27/2009 YON NIETO DO F 788.64 Urinary Hesitancy 05/27/2009 CHURCH DO, RIKA K 788.64 Urinary Hesitancy 05/27/2009 YON NIETO DO F 788.64 Urinary Hesitancy 05/27/2009 788.64 Urinary Hesitancy 05/27/2009 788.64 Urinary Hesitancy 05/27/2009 788.64 Urinary Hesitancy 05/27/2009 788.64 Urinary Hesitancy 05/27/2009 788.64 Urinary Hesitancy 05/27/2009 788.64 Urinary Hesitancy 05/27/2009 CHURCH DO, RIKA K 788.64 Urinary Hesitancy 05/27/2009 CHURCH DO, RIKA K 788.64 Urinary Hesitancy 05/27/2009 CHURCH DO, RIKA K 788.64 Urinary Hesitancy 05/27/2009 CHURCH DO, RIKA K 788.64 Urinary Hesitancy 05/27/2009 CHURCH DO, RIKA K 788.64 Urinary Hesitancy 05/27/2009 SHELLY SOTELO APRN, CLARISSE N 788.64 Urinary Hesitancy 05/27/2009 CHURCH DO, RIKA K 788.64 Urinary Hesitancy 05/27/2009 CHURCH DO, RIKA K 788.64 Urinary Hesitancy 05/27/2009 CHURCH DO, RIKA K 788.64 Urinary Hesitancy 05/27/2009 CHURCH DO, RIKA K 788.64 Urinary Hesitancy 05/27/2009 CHURCH DO, RIKA K 788.64 Urinary Hesitancy 05/27/2009 ECHO MANAGER FINANCE, MATHEUS R 788.64 Urinary Hesitancy 05/27/2009 CHURCH DO, RIKA K 788.64 Urinary Hesitancy 05/27/2009 ECHO MANAGER FINANCE, MATHEUS R 788.64 Urinary Hesitancy 05/27/2009 CHURCH DO, RIKA K 788.64 Urinary Hesitancy 05/27/2009 ROSALVA SWEENEY, LINH S 788.64 Urinary Hesitancy 07/14/2009 CHURCH DO, RIKA K V15.82 OTHER SPECIFIED PERSONAL HISTORY PRESENTING HAZARDS TO HEALTH, HISTORY OF TOBACCO USE 07/14/2009 CHURCH DO, RIKA K V15.82 OTHER SPECIFIED PERSONAL HISTORY PRESENTING HAZARDS TO HEALTH, HISTORY OF TOBACCO USE 07/14/2009 YON NIETO DO V15.82 OTHER SPECIFIED PERSONAL HISTORY PRESENTING HAZARDS TO HEALTH, HISTORY OF TOBACCO USE 07/14/2009 CHURCH DO, RIKA K V15.82 OTHER SPECIFIED PERSONAL HISTORY PRESENTING HAZARDS TO HEALTH, HISTORY OF TOBACCO USE 07/14/2009 YON NIETO DO V15.82 OTHER SPECIFIED PERSONAL HISTORY PRESENTING HAZARDS TO HEALTH, HISTORY OF TOBACCO USE 07/14/2009 V15.82 OTHER SPECIFIED PERSONAL HISTORY PRESENTING HAZARDS TO HEALTH, HISTORY OF TOBACCO USE 07/14/2009 V15.82 OTHER SPECIFIED PERSONAL HISTORY PRESENTING HAZARDS TO HEALTH, HISTORY OF TOBACCO USE 07/14/2009 V15.82 OTHER SPECIFIED PERSONAL HISTORY PRESENTING HAZARDS TO HEALTH, HISTORY OF TOBACCO USE 07/14/2009 V15.82 OTHER SPECIFIED PERSONAL HISTORY PRESENTING HAZARDS TO HEALTH, HISTORY OF TOBACCO USE 07/14/2009 V15.82 OTHER SPECIFIED PERSONAL HISTORY PRESENTING HAZARDS TO HEALTH, HISTORY OF TOBACCO USE 07/14/2009 V15.82 OTHER SPECIFIED PERSONAL HISTORY PRESENTING HAZARDS TO HEALTH, HISTORY OF TOBACCO USE 07/14/2009 CHURCH DO, RIKA K V15.82 OTHER SPECIFIED PERSONAL HISTORY PRESENTING HAZARDS TO HEALTH, HISTORY OF TOBACCO USE 07/14/2009 CHURCH DO, RIKA K V15.82 OTHER SPECIFIED PERSONAL HISTORY PRESENTING HAZARDS TO HEALTH, HISTORY OF TOBACCO USE 07/14/2009 CHURCH DO, RIKA K V15.82 OTHER SPECIFIED PERSONAL HISTORY PRESENTING HAZARDS TO HEALTH, HISTORY OF TOBACCO USE 07/14/2009 CHURCH DO, RIKA K V15.82 OTHER SPECIFIED PERSONAL HISTORY PRESENTING HAZARDS TO HEALTH, HISTORY OF TOBACCO USE 07/14/2009 CHURCH DO, RIKA K V15.82 OTHER SPECIFIED PERSONAL HISTORY PRESENTING HAZARDS TO HEALTH, HISTORY OF TOBACCO USE 07/14/2009 CLARISSE BAH APRN V15.82 OTHER SPECIFIED PERSONAL HISTORY PRESENTING HAZARDS TO HEALTH, HISTORY OF TOBACCO USE 07/14/2009 CHURCH DO, RIKA K V15.82 OTHER SPECIFIED PERSONAL HISTORY PRESENTING HAZARDS TO HEALTH, HISTORY OF TOBACCO USE 07/14/2009 CHURCH DO, RIKA K V15.82 OTHER SPECIFIED PERSONAL HISTORY PRESENTING HAZARDS TO HEALTH, HISTORY OF TOBACCO USE 07/14/2009 CHURCH DO, RIKA K V15.82 OTHER SPECIFIED PERSONAL HISTORY PRESENTING HAZARDS TO HEALTH, HISTORY OF TOBACCO USE 07/14/2009 CHURCH DO, RIKA K V15.82 OTHER SPECIFIED PERSONAL HISTORY PRESENTING HAZARDS TO HEALTH, HISTORY OF TOBACCO USE 07/14/2009 CHURCH DO, RIKA K V15.82 OTHER SPECIFIED PERSONAL HISTORY PRESENTING HAZARDS TO HEALTH, HISTORY OF TOBACCO USE 07/14/2009 DARLENE DODGE APRNINA R V15.82 OTHER SPECIFIED PERSONAL HISTORY PRESENTING HAZARDS TO HEALTH, HISTORY OF TOBACCO USE 07/14/2009 CHURCH DO, RIKA K V15.82 OTHER SPECIFIED PERSONAL HISTORY PRESENTING HAZARDS TO HEALTH, HISTORY OF TOBACCO USE 07/14/2009 ECHO SWEENEY MATHEUS R V15.82 OTHER SPECIFIED PERSONAL HISTORY PRESENTING HAZARDS TO HEALTH, HISTORY OF TOBACCO USE 07/14/2009 CHRUCH DO, RIKA K V15.82 OTHER SPECIFIED PERSONAL HISTORY PRESENTING HAZARDS TO HEALTH, HISTORY OF TOBACCO USE 07/14/2009 LINH BLACKWELL APRN V15.82 OTHER SPECIFIED PERSONAL HISTORY PRESENTING HAZARDS TO HEALTH, HISTORY OF TOBACCO USE 10/14/2009 CHURCH DO, IRKA K 780.99 ANHEDONIA 10/14/2009 CHURCH DO, RIKA K 780.99 ANHEDONIA 10/14/2009 WERREJI DOYON F 780.99 ANHEDONIA 10/14/2009 CHURCH DO, RIKA K 780.99 ANHEDONIA 10/14/2009 WERDER DO, YON F 780.99 ANHEDONIA 10/14/2009 780.99 ANHEDONIA 10/14/2009 780.99 ANHEDONIA 10/14/2009 780.99 ANHEDONIA 10/14/2009 780.99 ANHEDONIA 10/14/2009 780.99 ANHEDONIA 10/14/2009 780.99 ANHEDONIA 10/14/2009 CHURCH DO, RIKA K 780.99 ANHEDONIA 10/14/2009 CHURCH DO, RIKA K 780.99 ANHEDONIA 10/14/2009 CHURCH DO, RIKA K 780.99 ANHEDONIA 10/14/2009 CHURCH DO, RIKA K 780.99 ANHEDONIA 10/14/2009 CHURCH DO, RIKA K 780.99 ANHEDONIA 10/14/2009 CLARISSE BAH APRN N 780.99 ANHEDONIA 10/14/2009 CHURCH DO, RIKA K 780.99 ANHEDONIA 10/14/2009 CHURCH DO, IRKA K 780.99 ANHEDONIA 10/14/2009 CHURCH DO, RIKA K 780.99 ANHEDONIA 10/14/2009 CHURCH DO, RIKA K 780.99 ANHEDONIA 10/14/2009 CHURCH DO, RIKA K 780.99 ANHEDONIA 10/14/2009 ECHO MANAGER FINANCE, MATHEUS R 780.99 ANHEDONIA 10/14/2009 CHURCH DO, RIKA K 780.99 ANHEDONIA 10/14/2009 ECHO MANAGER FINANCE, MATHEUS R 780.99 ANHEDONIA 10/14/2009 CHURCH DO, RIKA K 780.99 ANHEDONIA 10/14/2009 LINH BLACKWELL APRN S 780.99 ANHEDONIA 10/28/2009 CHURCH DO, RIKA K 311 MO DEPRESS NOS 10/28/2009 CHURCH DO, RIKA K 311 MO DEPRESS NOS 10/28/2009 YON NIETO DO F 311 MO DEPRESS NOS 10/28/2009 CHURCH DO, RIKA K 311 MO DEPRESS NOS 10/28/2009 WERDER DO, YON F 311 MO DEPRESS NOS 10/28/2009 311 MO DEPRESS NOS 10/28/2009 311 MO DEPRESS NOS 10/28/2009 311 MO DEPRESS NOS 10/28/2009 311 MO DEPRESS NOS 10/28/2009 311 MO DEPRESS NOS 10/28/2009 311 MO DEPRESS NOS 10/28/2009 CHURCH DO, RIKA K 311 MO DEPRESS NOS 10/28/2009 CHURCH DO, RIKA K 311 MO DEPRESS NOS 10/28/2009 CHURCH DO, RIKA K 311 MO DEPRESS NOS 10/28/2009 CHURCH DO, RIKA K 311 MO DEPRESS NOS 10/28/2009 CHURCH DO, RIKA K 311 MO DEPRESS NOS 10/28/2009 CLARISSE BAH APRN 311 MO DEPRESS NOS 10/28/2009 CHURCH DO, RIKA K 311 MO DEPRESS NOS 10/28/2009 CHURCH DO, RIKA K 311 MO DEPRESS NOS 10/28/2009 CHURCH DO, RIKA K 311 MO DEPRESS NOS 10/28/2009 CHURCH DO, RIKA K 311 MO DEPRESS NOS 10/28/2009 CHURCH DO, RIKA K 311 MO DEPRESS NOS 10/28/2009 ECHO MANAGER FINANCE, MATHEUS R 311 MO DEPRESS NOS 10/28/2009 CHURCH DO, RIKA K 311 MO DEPRESS NOS 10/28/2009 ECHO MANAGER FINANCE, MATHEUS R 311 MO DEPRESS NOS 10/28/2009 CHURCH DO, RIKA K 311 MO DEPRESS NOS 10/28/2009 LINH BLACKWELL APRN S 311 MO DEPRESS NOS 12/16/2009 CHURCH DO, RIKA K 780.8 GENERALIZED HYPERHIDROSIS 12/16/2009 CHURCH DO, RIKA K 786.05 Shortness Of Breath 12/16/2009 CHURCH DO, RIKA K 780.8 GENERALIZED HYPERHIDROSIS 12/16/2009 CHURCH DO, RIKA K 786.05 Shortness Of Breath 12/16/2009 WERDER DO, YON F 780.8 GENERALIZED HYPERHIDROSIS 12/16/2009 WERDER DO, YON F 786.05 Shortness Of Breath 12/16/2009 CHURCH DO, RIKA K 780.8 GENERALIZED HYPERHIDROSIS 12/16/2009 CHURCH DO, RIKA K 786.05 Shortness Of Breath 12/16/2009 WERDER DO, YON F 780.8 GENERALIZED HYPERHIDROSIS 12/16/2009 WERDER DO, YON Anju 786.05 Shortness Of Breath 12/16/2009 780.8 GENERALIZED HYPERHIDROSIS 12/16/2009 786.05 Shortness Of Breath 12/16/2009 780.8 GENERALIZED HYPERHIDROSIS 12/16/2009 786.05 Shortness Of Breath 12/16/2009 780.8 GENERALIZED HYPERHIDROSIS 12/16/2009 786.05 Shortness Of Breath 12/16/2009 780.8 GENERALIZED HYPERHIDROSIS 12/16/2009 786.05 Shortness Of Breath 12/16/2009 780.8 GENERALIZED HYPERHIDROSIS 12/16/2009 786.05 Shortness Of Breath 12/16/2009 780.8 GENERALIZED HYPERHIDROSIS 12/16/2009 786.05 Shortness Of Breath 12/16/2009 CHURCH DO, RIKA K 780.8 GENERALIZED HYPERHIDROSIS 12/16/2009 CHURCH DO, RIKA K 786.05 Shortness Of Breath 12/16/2009 CHURCH DO, RIKA K 780.8 GENERALIZED HYPERHIDROSIS 12/16/2009 CHURCH DO, RIKA K 786.05 Shortness Of Breath 12/16/2009 CHURCH DO, RIKA K 780.8 GENERALIZED HYPERHIDROSIS 12/16/2009 CHURCH DO, RIKA K 786.05 Shortness Of Breath 12/16/2009 CHURCH DO, RIKA K 780.8 GENERALIZED HYPERHIDROSIS 12/16/2009 CHURCH DO, RIKA K 786.05 Shortness Of Breath 12/16/2009 CHURCH DO, RIKA K 780.8 GENERALIZED HYPERHIDROSIS 12/16/2009 CHURCH DO, RIKA K 786.05 Shortness Of Breath 12/16/2009 BRAVO CASHJIGNA MANAGER FINANCE, CLARISSE N 780.8 GENERALIZED HYPERHIDROSIS 12/16/2009 BRAVO CASHERO MANAGER FINANCE, CLARISSE N 786.05 Shortness Of Breath 12/16/2009 CHURCH DO, RIKA K 780.8 GENERALIZED HYPERHIDROSIS 12/16/2009 CHURCH DO, RIKA K 786.05 Shortness Of Breath 12/16/2009 CHURCH DO, RIKA K 780.8 GENERALIZED HYPERHIDROSIS 12/16/2009 CHURCH DO, RIKA K 786.05 Shortness Of Breath 12/16/2009 CHURCH DO, RIKA K 780.8 GENERALIZED HYPERHIDROSIS 12/16/2009 CHURCH DO, RIKA K 786.05 Shortness Of Breath 12/16/2009 CHURCH DO, RIKA K 780.8 GENERALIZED HYPERHIDROSIS 12/16/2009 CHURCH DO, RIKA K 786.05 Shortness Of Breath 12/16/2009 CHURCH DO, RIKA K 780.8 GENERALIZED HYPERHIDROSIS 12/16/2009 CHURCH DO, RIKA K 786.05 Shortness Of Breath 12/16/2009 ECHO MANAGER FINANCE, MATHEUS R 780.8 GENERALIZED HYPERHIDROSIS 12/16/2009 ECHO MANAGER FINANCE, MATHEUS R 786.05 Shortness Of Breath 12/16/2009 CHURCH DO, RIKA K 780.8 GENERALIZED HYPERHIDROSIS 12/16/2009 CHURCH DO, RIKA K 786.05 Shortness Of Breath 12/16/2009 ECHO MANAGER FINANCE, MATHEUS R 780.8 GENERALIZED HYPERHIDROSIS 12/16/2009 ECHO MANAGER FINANCE, MATHEUS R 786.05 Shortness Of Breath 12/16/2009 CHURCH DO, RIKA K 780.8 GENERALIZED HYPERHIDROSIS 12/16/2009 CHURCH DO, RIKA K 786.05 Shortness Of Breath 12/16/2009 ROSALVA MANAGER FINANCE, LIHN S 780.8 GENERALIZED HYPERHIDROSIS 12/16/2009 ROSALVA MANAGER FINANCE, LINH S 786.05 Shortness Of Breath 01/04/2010 LYNNETTE DO, RIKA K 300.02 AN GEN ANXIETY 01/04/2010 CHURCH DORIKA K 300.02 AN GEN ANXIETY 01/04/2010 YON NIETO DO 300.02 AN GEN ANXIETY 01/04/2010 CHURCH DORIKA K 300.02 AN GEN ANXIETY 01/04/2010 YON NIETO DO 300.02 AN GEN ANXIETY 01/04/2010 300.02 AN GEN ANXIETY 01/04/2010 300.02 AN GEN ANXIETY 01/04/2010 300.02 AN GEN ANXIETY 01/04/2010 300.02 AN GEN ANXIETY 01/04/2010 300.02 AN GEN ANXIETY 01/04/2010 300.02 AN GEN ANXIETY 01/04/2010 CHURCH DORIKA K 300.02 AN GEN ANXIETY 01/04/2010 CHURCH DORIKA K 300.02 AN GEN ANXIETY 01/04/2010 CHURCH DORIKA K 300.02 AN GEN ANXIETY 01/04/2010 CHURCH DORIKA K 300.02 AN GEN ANXIETY 01/04/2010 CHURCH DO, RIKA K 300.02 AN GEN ANXIETY 01/04/2010 SHELLY SOTELO MANAGER FINANCE, CLARISSE N 300.02 AN GEN ANXIETY 01/04/2010 CHURCH DO, RIKA K 300.02 AN GEN ANXIETY 01/04/2010 CHURCH DO, RIKA K 300.02 AN GEN ANXIETY 01/04/2010 CHURCH DO, RIKA K 300.02 AN GEN ANXIETY 01/04/2010 CHURCH DO, RIKA K 300.02 AN GEN ANXIETY 01/04/2010 CHURCH DO, RIKA K 300.02 AN GEN ANXIETY 01/04/2010 ECHO MANAGER FINANCE, MATHEUS R 300.02 AN GEN ANXIETY 01/04/2010 CHURCH DO, RIKA K 300.02 AN GEN ANXIETY 01/04/2010 ECHO MANAGER FINANCE, MATHEUS R 300.02 AN GEN ANXIETY 01/04/2010 CHURCH DO, RIKA K 300.02 AN GEN ANXIETY 01/04/2010 LINH BLACKWELL APRN S 300.02 AN GEN ANXIETY 03/02/2010 CHURCH DO, RIKA K 709.9 Skin Lesions 03/02/2010 CHURCH DO, RIKA K 709.9 Skin Lesions 03/02/2010 WERGOMEZ MENDOZA DOEN F 709.9 Skin Lesions 03/02/2010 CHURCH DO, RIKA K 709.9 Skin Lesions 03/02/2010 GERSON DOGOMEZEN F 709.9 Skin Lesions 03/02/2010 709.9 Skin Lesions 03/02/2010 709.9 Skin Lesions 03/02/2010 709.9 Skin Lesions 03/02/2010 709.9 Skin Lesions 03/02/2010 709.9 Skin Lesions 03/02/2010 709.9 Skin Lesions 03/02/2010 CHURCH DO, RIKA K 709.9 Skin Lesions 03/02/2010 CHURCH DO, RIKA K 709.9 Skin Lesions 03/02/2010 CHURCH DO, RIKA K 709.9 Skin Lesions 03/02/2010 CHURCH DO, RIKA K 709.9 Skin Lesions 03/02/2010 CHURCH DO, RIKA K 709.9 Skin Lesions 03/02/2010 SHELLY SOTELO APRN, CLARISSE N 709.9 Skin Lesions 03/02/2010 CHURCH DO, RIKA K 709.9 Skin Lesions 03/02/2010 CHURCH DO, RIKA K 709.9 Skin Lesions 03/02/2010 CHURCH DO, RIKA K 709.9 Skin Lesions 03/02/2010 CHURCH DO, RIKA K 709.9 Skin Lesions 03/02/2010 CHURCH DO, RIKA K 709.9 Skin Lesions 03/02/2010 ECHO MANAGER FINANCE, MATHEUS R 709.9 Skin Lesions 03/02/2010 CHURCH DO, RIKA K 709.9 Skin Lesions 03/02/2010 ECHO MANAGER FINANCE, MATHEUS R 709.9 Skin Lesions 03/02/2010 CHURCH DO, RIKA K 709.9 Skin Lesions 03/02/2010 ROSALVA MANAGER FINANCE, LINH S 709.9 Skin Lesions 05/03/2010 CHURCH DO, RIKA K V68.1 Visit For: Issue Repeat Prescription 05/03/2010 CHURCH DO, RIKA K V68.1 Visit For: Issue Repeat Prescription 05/03/2010 YON NIETO DO V68.1 Visit For: Issue Repeat Prescription 05/03/2010 CHURCH DO, RIKA K V68.1 Visit For: Issue Repeat Prescription 05/03/2010 YON NIETO DO F V68.1 Visit For: Issue Repeat Prescription 05/03/2010 V68.1 Visit For: Issue Repeat Prescription 05/03/2010 V68.1 Visit For: Issue Repeat Prescription 05/03/2010 V68.1 Visit For: Issue Repeat Prescription 05/03/2010 V68.1 Visit For: Issue Repeat Prescription 05/03/2010 V68.1 Visit For: Issue Repeat Prescription 05/03/2010 V68.1 Visit For: Issue Repeat Prescription 05/03/2010 CHURCH DO, RIKA K V68.1 Visit For: Issue Repeat Prescription 05/03/2010 CHURCH DO, RIKA K V68.1 Visit For: Issue Repeat Prescription 05/03/2010 CHURCH DO, RIKA K V68.1 Visit For: Issue Repeat Prescription 05/03/2010 CHURCH DO, RIKA K V68.1 Visit For: Issue Repeat Prescription 05/03/2010 CHURCH DO, RIKA K V68.1 Visit For: Issue Repeat Prescription 05/03/2010 CLARISSE BAH APRN V68.1 Visit For: Issue Repeat Prescription 05/03/2010 CHURCH DO, RIKA K V68.1 Visit For: Issue Repeat Prescription 05/03/2010 CHURCH DO, RIKA K V68.1 Visit For: Issue Repeat Prescription 05/03/2010 CHURCH DO, RIKA K V68.1 Visit For: Issue Repeat Prescription 05/03/2010 CHURCH DO, RIKA K V68.1 Visit For: Issue Repeat Prescription 05/03/2010 CHURCH DO, RIKA K V68.1 Visit For: Issue Repeat Prescription 05/03/2010 ECHO SWEENEY, MATHEUS R V68.1 Visit For: Issue Repeat Prescription 05/03/2010 CHURCH DO, RIKA K V68.1 Visit For: Issue Repeat Prescription 05/03/2010 ECHO SWEENEY, MATHEUS R V68.1 Visit For: Issue Repeat Prescription 05/03/2010 CHURCH DO, RIKA K V68.1 Visit For: Issue Repeat Prescription 05/03/2010 LINH BLACKWELL APRN V68.1 Visit For: Issue Repeat Prescription 05/19/2010 CHURCH DO, RIKA K 724.2 Lower Back Pain 05/19/2010 CHURCH DO, RIKA K 729.5 Pain In Limb 05/19/2010 CHURCH DO, RIKA K 724.2 Lower Back Pain 05/19/2010 CHURCH DO, RIKA K 729.5 Pain In Limb 05/19/2010 WERREJI DOGOMEZEN F 724.2 Lower Back Pain 05/19/2010 GOMEZ NIETO DOEN F 729.5 Pain In Limb 05/19/2010 CHURCH DO, RIKA K 724.2 Lower Back Pain 05/19/2010 CHURCH DO, RIKA K 729.5 Pain In Limb 05/19/2010 GOMEZ NIETO DOEN F 724.2 Lower Back Pain 05/19/2010 WERDER DO, YON F 729.5 Pain In Limb 05/19/2010 724.2 Lower Back Pain 05/19/2010 729.5 Pain In Limb 05/19/2010 724.2 Lower Back Pain 05/19/2010 729.5 Pain In Limb 05/19/2010 724.2 Lower Back Pain 05/19/2010 729.5 Pain In Limb 05/19/2010 724.2 Lower Back Pain 05/19/2010 729.5 Pain In Limb 05/19/2010 724.2 Lower Back Pain 05/19/2010 729.5 Pain In Limb 05/19/2010 724.2 Lower Back Pain 05/19/2010 729.5 Pain In Limb 05/19/2010 CHURCH DO, RIKA K 724.2 Lower Back Pain 05/19/2010 CHURCH DO, RIKA K 729.5 Pain In Limb 05/19/2010 CHURCH DO, RIKA K 724.2 Lower Back Pain 05/19/2010 CHURCH DO, RIKA K 729.5 Pain In Limb 05/19/2010 CHURCH DO, RIKA K 724.2 Lower Back Pain 05/19/2010 CHURCH DO, RIKA K 729.5 Pain In Limb 05/19/2010 CHURCH DO, RIKA K 724.2 Lower Back Pain 05/19/2010 CHURCH DO, RIKA K 729.5 Pain In Limb 05/19/2010 CHURCH DO, RIKA K 724.2 Lower Back Pain 05/19/2010 CHURCH DO, RIKA K 729.5 Pain In Limb 05/19/2010 CLARISSE BAH APRN N 724.2 Lower Back Pain 05/19/2010 CLARISSE BAH APRN N 729.5 Pain In Limb 05/19/2010 CHURCH DO, RIKA K 724.2 Lower Back Pain 05/19/2010 CHURCH DO, RIKA K 729.5 Pain In Limb 05/19/2010 CHURCH DO, RIKA K 724.2 Lower Back Pain 05/19/2010 CHURCH DO, RIKA K 729.5 Pain In Limb 05/19/2010 CHURCH DO, RIKA K 724.2 Lower Back Pain 05/19/2010 CHURCH DO, RIKA K 729.5 Pain In Limb 05/19/2010 CHURCH DO, RIKA K 724.2 Lower Back Pain 05/19/2010 CHURCH DO, RIKA K 729.5 Pain In Limb 05/19/2010 CHURCH DO, RIKA K 724.2 Lower Back Pain 05/19/2010 CHURCH DO, RIKA K 729.5 Pain In Limb 05/19/2010 ECHO MANAGER FINANCE, MATHEUS R 724.2 Lower Back Pain 05/19/2010 ECHO MANAGER FINANCE, MATHEUS R 729.5 Pain In Limb 05/19/2010 CHURCH DO, RIKA K 724.2 Lower Back Pain 05/19/2010 CHURCH DO, RIKA K 729.5 Pain In Limb 05/19/2010 ECHO MANAGER FINANCE, MATHEUS R 724.2 Lower Back Pain 05/19/2010 ECHO MANAGER FINANCE, MATHEUS R 729.5 Pain In Limb 05/19/2010 CHURCH DO, RIKA K 724.2 Lower Back Pain 05/19/2010 CHURCH DO, RIKA K 729.5 Pain In Limb 05/19/2010 ROSALVA MANAGER FINANCE, LINH S 724.2 Lower Back Pain 05/19/2010 ROSALVA MANAGER FINANCE, LINH S 729.5 Pain In Limb 07/05/2010 CHURCH DO, RIKA K 294.9 OR COG DIS NOS 07/05/2010 CHURCH DO, RIKA K 294.9 OR COG DIS NOS 07/05/2010 WERDER DO YON F 294.9 OR COG DIS NOS 07/05/2010 CHURCH DO, RIKA K 294.9 OR COG DIS NOS 07/05/2010 WERDER DO, YON F 294.9 OR COG DIS NOS 07/05/2010 294.9 OR COG DIS NOS 07/05/2010 294.9 OR COG DIS NOS 07/05/2010 294.9 OR COG DIS NOS 07/05/2010 294.9 OR COG DIS NOS 07/05/2010 294.9 OR COG DIS NOS 07/05/2010 294.9 OR COG DIS NOS 07/05/2010 CHURCH DO, RIKA K 294.9 OR COG DIS NOS 07/05/2010 CHURCH DO, RIKA K 294.9 OR COG DIS NOS 07/05/2010 CHURCH DO, RIKA K 294.9 OR COG DIS NOS 07/05/2010 CHURCH DO, RIKA K 294.9 OR COG DIS NOS 07/05/2010 CHURCH DO, RIKA K 294.9 OR COG DIS NOS 07/05/2010 CLARISSE BAH APRN N 294.9 OR COG DIS NOS 07/05/2010 CHURCH DO, RIKA K 294.9 OR COG DIS NOS 07/05/2010 CHURCH DO, RIKA K 294.9 OR COG DIS NOS 07/05/2010 CHURCH DO, RIKA K 294.9 OR COG DIS NOS 07/05/2010 CHURCH DO, RIKA K 294.9 OR COG DIS NOS 07/05/2010 CHURCH DO, RIKA K 294.9 OR COG DIS NOS 07/05/2010 ECHO MANAGER FINANCE, MATHEUS R 294.9 OR COG DIS NOS 07/05/2010 CHURCH DO, RIKA K 294.9 OR COG DIS NOS 07/05/2010 ECHO MANAGER FINANCE, MATHEUS R 294.9 OR COG DIS NOS 07/05/2010 CHURCH DO, RIKA K 294.9 OR COG DIS NOS 07/05/2010 ROSALVA MANAGER FINANCE, LINH S 294.9 OR COG DIS NOS 07/19/2010 CHURCH DO, RIKA K 496 CHRONIC OBSTRUCTIVE PULMONARY DISEASE 07/19/2010 CHURCH DO, RIKA K 496 CHRONIC OBSTRUCTIVE PULMONARY DISEASE 07/19/2010 WERDER DO, YON F 496 CHRONIC OBSTRUCTIVE PULMONARY DISEASE 07/19/2010 CHURCH DO, RIKA K 496 CHRONIC OBSTRUCTIVE PULMONARY DISEASE 07/19/2010 WERDER DO, YON F 496 CHRONIC OBSTRUCTIVE PULMONARY DISEASE 07/19/2010 496 CHRONIC OBSTRUCTIVE PULMONARY DISEASE 07/19/2010 496 CHRONIC OBSTRUCTIVE PULMONARY DISEASE 07/19/2010 496 CHRONIC OBSTRUCTIVE PULMONARY DISEASE 07/19/2010 496 CHRONIC OBSTRUCTIVE PULMONARY DISEASE 07/19/2010 496 CHRONIC OBSTRUCTIVE PULMONARY DISEASE 07/19/2010 496 CHRONIC OBSTRUCTIVE PULMONARY DISEASE 07/19/2010 CHURCH DO, RIKA K 496 CHRONIC OBSTRUCTIVE PULMONARY DISEASE 07/19/2010 CHURCH DO, RIKA K 496 CHRONIC OBSTRUCTIVE PULMONARY DISEASE 07/19/2010 CHURCH DO, RIKA K 496 CHRONIC OBSTRUCTIVE PULMONARY DISEASE 07/19/2010 CHURCH DO, RIKA K 496 CHRONIC OBSTRUCTIVE PULMONARY DISEASE 07/19/2010 CHURCH DO, RIKA K 496 CHRONIC OBSTRUCTIVE PULMONARY DISEASE 07/19/2010 CLARISSE BAH APRN N 496 CHRONIC OBSTRUCTIVE PULMONARY DISEASE 07/19/2010 CHURCH DO, RIKA K 496 CHRONIC OBSTRUCTIVE PULMONARY DISEASE 07/19/2010 CHURCH DO, RIKA K 496 CHRONIC OBSTRUCTIVE PULMONARY DISEASE 07/19/2010 CHURCH DO, RIKA K 496 CHRONIC OBSTRUCTIVE PULMONARY DISEASE 07/19/2010 CHURCH DO, RIKA K 496 CHRONIC OBSTRUCTIVE PULMONARY DISEASE 07/19/2010 CHURCH DO, RIKA K 496 CHRONIC OBSTRUCTIVE PULMONARY DISEASE 07/19/2010 ECHO MANAGER FINANCEDARLENEMATHEUS R 496 CHRONIC OBSTRUCTIVE PULMONARY DISEASE 07/19/2010 CHURCH DO, RIKA K 496 CHRONIC OBSTRUCTIVE PULMONARY DISEASE 07/19/2010 ECHO MANAGER FINANCE MATHEUS R 496 CHRONIC OBSTRUCTIVE PULMONARY DISEASE 07/19/2010 CHURCH DO, RIKA K 496 CHRONIC OBSTRUCTIVE PULMONARY DISEASE 07/19/2010 LINH BLACKWELL APRN S 496 CHRONIC OBSTRUCTIVE PULMONARY DISEASE 09/20/2010 CHURCH DO, RIKA K 401.1 HYPERTENSION, BENIGN ESSENTIAL 09/20/2010 CHURCH DO, RIKA K 401.1 HYPERTENSION, BENIGN ESSENTIAL 09/20/2010 WERDER DO, YON F 401.1 HYPERTENSION, BENIGN ESSENTIAL 09/20/2010 CHURCH DO, RIKA K 401.1 HYPERTENSION, BENIGN ESSENTIAL 09/20/2010 WERDER DO, YON F 401.1 HYPERTENSION, BENIGN ESSENTIAL 09/20/2010 401.1 HYPERTENSION, BENIGN ESSENTIAL 09/20/2010 401.1 HYPERTENSION, BENIGN ESSENTIAL 09/20/2010 401.1 HYPERTENSION, BENIGN ESSENTIAL 09/20/2010 401.1 HYPERTENSION, BENIGN ESSENTIAL 09/20/2010 401.1 HYPERTENSION, BENIGN ESSENTIAL 09/20/2010 401.1 HYPERTENSION, BENIGN ESSENTIAL 09/20/2010 CHURCH DO, RIKA K 401.1 HYPERTENSION, BENIGN ESSENTIAL 09/20/2010 CHURCH DO, RIKA K 401.1 HYPERTENSION, BENIGN ESSENTIAL 09/20/2010 CHURCH DO, RIKA K 401.1 HYPERTENSION, BENIGN ESSENTIAL 09/20/2010 CHURCH DO, RIKA K 401.1 HYPERTENSION, BENIGN ESSENTIAL 09/20/2010 CHURCH DO, RIKA K 401.1 HYPERTENSION, BENIGN ESSENTIAL 09/20/2010 CLARISSE BAH APRN N 401.1 HYPERTENSION, BENIGN ESSENTIAL 09/20/2010 CHURCH DO, RIKA K 401.1 HYPERTENSION, BENIGN ESSENTIAL 09/20/2010 CHURCH DO, RIKA K 401.1 HYPERTENSION, BENIGN ESSENTIAL 09/20/2010 CHURCH DO, RIKA K 401.1 HYPERTENSION, BENIGN ESSENTIAL 09/20/2010 CHURCH DO, RIKA K 401.1 HYPERTENSION, BENIGN ESSENTIAL 09/20/2010 CHURCH DO, RIKA K 401.1 HYPERTENSION, BENIGN ESSENTIAL 09/20/2010 ECHO SWEENEY, MATHEUS R 401.1 HYPERTENSION, BENIGN ESSENTIAL 09/20/2010 CHURCH DO, RIKA K 401.1 HYPERTENSION, BENIGN ESSENTIAL 09/20/2010 ECHO LIZARRAGAN, MATHEUS R 401.1 HYPERTENSION, BENIGN ESSENTIAL 09/20/2010 CHURCH DO, RIKA K 401.1 HYPERTENSION, BENIGN ESSENTIAL 09/20/2010 LINH BLACKWELL APRN 401.1 HYPERTENSION, BENIGN ESSENTIAL 10/20/2010 CHURCH DO, RIKA K 780.39 Convulsions [as Sx] 10/20/2010 CHURCH DO, RIKA K 780.39 Convulsions [as Sx] 10/20/2010 WERDER DO, YON F 780.39 Convulsions [as Sx] 10/20/2010 CHURCH DO, RIKA K 780.39 Convulsions [as Sx] 10/20/2010 WERDER DO, YON F 780.39 Convulsions [as Sx] 10/20/2010 780.39 Convulsions [as Sx] 10/20/2010 780.39 Convulsions [as Sx] 10/20/2010 780.39 Convulsions [as Sx] 10/20/2010 780.39 Convulsions [as Sx] 10/20/2010 780.39 Convulsions [as Sx] 10/20/2010 780.39 Convulsions [as Sx] 10/20/2010 CHURCH DO, RIKA K 780.39 Convulsions [as Sx] 10/20/2010 CHURCH DO, RIKA K 780.39 Convulsions [as Sx] 10/20/2010 CHURCH DO, RIKA K 780.39 Convulsions [as Sx] 10/20/2010 CHURCH DO, RIKA K 780.39 Convulsions [as Sx] 10/20/2010 CHURCH DO, RIKA K 780.39 Convulsions [as Sx] 10/20/2010 CLARISSE BAH APRN 780.39 Convulsions [as Sx] 10/20/2010 CHURCH DO, RIKA K 780.39 Convulsions [as Sx] 10/20/2010 CHURCH DO, RIKA K 780.39 Convulsions [as Sx] 10/20/2010 CHURCH DO, RIKA K 780.39 Convulsions [as Sx] 10/20/2010 CHURCH DO, RIKA K 780.39 Convulsions [as Sx] 10/20/2010 CHURCH DO, RIKA K 780.39 Convulsions [as Sx] 10/20/2010 MATHEUS DODGE APRN 780.39 Convulsions [as Sx] 10/20/2010 CHURCH DO, RIKA K 780.39 Convulsions [as Sx] 10/20/2010 MATHEUS DODGE APRN 780.39 Convulsions [as Sx] 10/20/2010 CHURCH DO, RIKA K 780.39 Convulsions [as Sx] 10/20/2010 ROSALVA MANAGER FINANCE, LINH S 780.39 Convulsions [as Sx] 04/18/2011 CHURCH DO, RIKA K 296.32 MO DEPRESSIVE RECURRENT MODERATE 04/18/2011 CHURCH DO, RIKA K 296.32 MO DEPRESSIVE RECURRENT MODERATE 04/18/2011 WERDER DOGOMEZEN F 296.32 MO DEPRESSIVE RECURRENT MODERATE 04/18/2011 CHURCH DO, RIKA K 296.32 MO DEPRESSIVE RECURRENT MODERATE 04/18/2011 WERDER DO, YON F 296.32 MO DEPRESSIVE RECURRENT MODERATE 04/18/2011 296.32 MO DEPRESSIVE RECURRENT MODERATE 04/18/2011 296.32 MO DEPRESSIVE RECURRENT MODERATE 04/18/2011 296.32 MO DEPRESSIVE RECURRENT MODERATE 04/18/2011 296.32 MO DEPRESSIVE RECURRENT MODERATE 04/18/2011 296.32 MO DEPRESSIVE RECURRENT MODERATE 04/18/2011 296.32 MO DEPRESSIVE RECURRENT MODERATE 04/18/2011 CHURCH DO, RIKA K 296.32 MO DEPRESSIVE RECURRENT MODERATE 04/18/2011 CHURCH DO, RIKA K 296.32 MO DEPRESSIVE RECURRENT MODERATE 04/18/2011 CHURCH DO, RIKA K 296.32 MO DEPRESSIVE RECURRENT MODERATE 04/18/2011 CHURCH DO, RIKA K 296.32 MO DEPRESSIVE RECURRENT MODERATE 04/18/2011 CHURCH DO, RIKA K 296.32 MO DEPRESSIVE RECURRENT MODERATE 04/18/2011 SHELLY SOTELO APRN CLARISSE N 296.32 MO DEPRESSIVE RECURRENT MODERATE 04/18/2011 CHURCH DO, RIKA K 296.32 MO DEPRESSIVE RECURRENT MODERATE 04/18/2011 CHURCH DO, RIKA K 296.32 MO DEPRESSIVE RECURRENT MODERATE 04/18/2011 CHURCH DO, RIKA K 296.32 MO DEPRESSIVE RECURRENT MODERATE 04/18/2011 CHURCH DO, RIKA K 296.32 MO DEPRESSIVE RECURRENT MODERATE 04/18/2011 CHURCH DO, RIKA K 296.32 MO DEPRESSIVE RECURRENT MODERATE 04/18/2011 ECHO MANAGER FINANCE, MATHEUS R 296.32 MO DEPRESSIVE RECURRENT MODERATE 04/18/2011 CHURCH DO, RIKA K 296.32 MO DEPRESSIVE RECURRENT MODERATE 04/18/2011 ECHO MANAGER FINANCE, MATHEUS R 296.32 MO DEPRESSIVE RECURRENT MODERATE 04/18/2011 CHURCH DO, RIKA K 296.32 MO DEPRESSIVE RECURRENT MODERATE 04/18/2011 ROSALVA LIZARRAGAN, LINH S 296.32 MO DEPRESSIVE RECURRENT MODERATE 04/25/2011 CHURCH DO, RIKA K 296.90 Episodic Mood Disorders 04/25/2011 CHURCH DO, RIKA K 414.00 CAD 04/25/2011 RIKA CHURCH DO V45.81 POSTSURGICAL AORTOCORONARY BYPASS STATUS 04/25/2011 RIKA CHURCH DO K 296.90 Episodic Mood Disorders 04/25/2011 RIKA CHURCH DO K 414.00 CAD 04/25/2011 RIKA CHURCH DO K V45.81 POSTSURGICAL AORTOCORONARY BYPASS STATUS 04/25/2011 YON NIETO DO F 296.90 Episodic Mood Disorders 04/25/2011 YON NIETO DO F 414.00 CAD 04/25/2011 YON NIETO DO F V45.81 POSTSURGICAL AORTOCORONARY BYPASS STATUS 04/25/2011 RIKA CHURCH DO K 296.90 Episodic Mood Disorders 04/25/2011 RIKA CHURCH DO K 414.00 CAD 04/25/2011 RIKA CHURCH DO K V45.81 POSTSURGICAL AORTOCORONARY BYPASS STATUS 04/25/2011 YON NIETO DO F 296.90 Episodic Mood Disorders 04/25/2011 YON NIETO DO F 414.00 CAD 04/25/2011 YON NIETO DO F V45.81 POSTSURGICAL AORTOCORONARY BYPASS STATUS 04/25/2011 296.90 Episodic Mood Disorders 04/25/2011 414.00 CAD 04/25/2011 V45.81 POSTSURGICAL AORTOCORONARY BYPASS STATUS 04/25/2011 296.90 Episodic Mood Disorders 04/25/2011 414.00 CAD 04/25/2011 V45.81 POSTSURGICAL AORTOCORONARY BYPASS STATUS 04/25/2011 296.90 Episodic Mood Disorders 04/25/2011 414.00 CAD 04/25/2011 V45.81 POSTSURGICAL AORTOCORONARY BYPASS STATUS 04/25/2011 296.90 Episodic Mood Disorders 04/25/2011 414.00 CAD 04/25/2011 V45.81 POSTSURGICAL AORTOCORONARY BYPASS STATUS 04/25/2011 296.90 Episodic Mood Disorders 04/25/2011 414.00 CAD 04/25/2011 V45.81 POSTSURGICAL AORTOCORONARY BYPASS STATUS 04/25/2011 296.90 Episodic Mood Disorders 04/25/2011 414.00 CAD 04/25/2011 V45.81 POSTSURGICAL AORTOCORONARY BYPASS STATUS 04/25/2011 RIKA CHURCH DO 296.90 Episodic Mood Disorders 04/25/2011 CHURCH DO, RIKA K 414.00 CAD 04/25/2011 CHURCH DO, RIKA K V45.81 POSTSURGICAL AORTOCORONARY BYPASS STATUS 04/25/2011 CHURCH DO, RIKA K 296.90 Episodic Mood Disorders 04/25/2011 CHURCH DO, RIKA K 414.00 CAD 04/25/2011 CHURCH DO, RIKA K V45.81 POSTSURGICAL AORTOCORONARY BYPASS STATUS 04/25/2011 CHURCH DO, RIKA K 296.90 Episodic Mood Disorders 04/25/2011 CHURCH DO, RIKA K 414.00 CAD 04/25/2011 CHURCH DO, RIKA K V45.81 POSTSURGICAL AORTOCORONARY BYPASS STATUS 04/25/2011 CHURCH DO, RIKA K 296.90 Episodic Mood Disorders 04/25/2011 CHURCH DO, RIKA K 414.00 CAD 04/25/2011 CHURCH DO, RIKA K V45.81 POSTSURGICAL AORTOCORONARY BYPASS STATUS 04/25/2011 CHURCH DO, RIKA K 296.90 Episodic Mood Disorders 04/25/2011 CHURCH DO, RIKA K 414.00 CAD 04/25/2011 CHURCH DO, RIKA K V45.81 POSTSURGICAL AORTOCORONARY BYPASS STATUS 04/25/2011 SHELLY SOTELO APRN CLARISSE N 296.90 Episodic Mood Disorders 04/25/2011 DANIELLE BAH APRNCY N 414.00 CAD 04/25/2011 BRAVOROBERTO SOTELO APRN CLARISSE N V45.81 POSTSURGICAL AORTOCORONARY BYPASS STATUS 04/25/2011 CHURCH DO, RIKA K 296.90 Episodic Mood Disorders 04/25/2011 CHURCH DO, RIKA K 414.00 CAD 04/25/2011 CHURCH DO, RIKA K V45.81 POSTSURGICAL AORTOCORONARY BYPASS STATUS 04/25/2011 CHURCH DO, RIKA K 296.90 Episodic Mood Disorders 04/25/2011 CHURCH DO, RIKA K 414.00 CAD 04/25/2011 CHURCH DO, RIKA K V45.81 POSTSURGICAL AORTOCORONARY BYPASS STATUS 04/25/2011 CHURCH DO, RIKA K 296.90 Episodic Mood Disorders 04/25/2011 CHURCH DO, RIKA K 414.00 CAD 04/25/2011 CHURCH DO, RIKA K V45.81 POSTSURGICAL AORTOCORONARY BYPASS STATUS 04/25/2011 CHURCH DO, RIKA K 296.90 Episodic Mood Disorders 04/25/2011 CHURCH DO, RIKA K 414.00 CAD 04/25/2011 CHURCH DO, RIKA K V45.81 POSTSURGICAL AORTOCORONARY BYPASS STATUS 04/25/2011 CHURCH DO, RIKA K 296.90 Episodic Mood Disorders 04/25/2011 CHURCH DO, RIKA K 414.00 CAD 04/25/2011 CHURCH DO, RIKA K V45.81 POSTSURGICAL AORTOCORONARY BYPASS STATUS 04/25/2011 ECHO MANAGER FINANCE, MATHEUS R 296.90 Episodic Mood Disorders 04/25/2011 ECHO MANAGER FINANCE, MATHEUS R 414.00 CAD 04/25/2011 ECHO MANAGER FINANCE, MATHEUS R V45.81 POSTSURGICAL AORTOCORONARY BYPASS STATUS 04/25/2011 CHURCH DO, RIKA K 296.90 Episodic Mood Disorders 04/25/2011 CHURCH DO, RIKA K 414.00 CAD 04/25/2011 CHURCH DO, RIKA K V45.81 POSTSURGICAL AORTOCORONARY BYPASS STATUS 04/25/2011 ECHO MANAGER FINANCE, MTAHEUS R 296.90 Episodic Mood Disorders 04/25/2011 ECHO MANAGER FINANCE, MATHEUS R 414.00 CAD 04/25/2011 ECHO MANAGER FINANCE, MATHEUS R V45.81 POSTSURGICAL AORTOCORONARY BYPASS STATUS 04/25/2011 CHURCH DO, RIKA K 296.90 Episodic Mood Disorders 04/25/2011 CHURCH DO, RIKA K 414.00 CAD 04/25/2011 CHURCH DO, RIKA K V45.81 POSTSURGICAL AORTOCORONARY BYPASS STATUS 04/25/2011 ROSALVA MANAGER FINANCE, LINH S 296.90 Episodic Mood Disorders 04/25/2011 ROSALVA LIZARRAGAN, LINH S 414.00 CAD 04/25/2011 ROSALVA MANAGER FINANCE, LINH S V45.81 POSTSURGICAL AORTOCORONARY BYPASS STATUS 10/29/2011 CHURCH DO RIKA K 296.30 MO DEPRESSIVE RECURRENT UNSPECIFIED 10/29/2011 GONZALEZ CHURCH DOA K 296.30 MO DEPRESSIVE RECURRENT UNSPECIFIED 10/29/2011 YON NIETO DO 296.30 MO DEPRESSIVE RECURRENT UNSPECIFIED 10/29/2011 CHURCH DOGONZALEZA K 296.30 MO DEPRESSIVE RECURRENT UNSPECIFIED 10/29/2011 YON NIETO DO 296.30 MO DEPRESSIVE RECURRENT UNSPECIFIED 10/29/2011 296.30 MO DEPRESSIVE RECURRENT UNSPECIFIED 10/29/2011 296.30 MO DEPRESSIVE RECURRENT UNSPECIFIED 10/29/2011 296.30 MO DEPRESSIVE RECURRENT UNSPECIFIED 10/29/2011 296.30 MO DEPRESSIVE RECURRENT UNSPECIFIED 10/29/2011 296.30 MO DEPRESSIVE RECURRENT UNSPECIFIED 10/29/2011 296.30 MO DEPRESSIVE RECURRENT UNSPECIFIED 10/29/2011 CHURCH DO, RIKA K 296.30 MO DEPRESSIVE RECURRENT UNSPECIFIED 10/29/2011 CHURCH DO, RIKA K 296.30 MO DEPRESSIVE RECURRENT UNSPECIFIED 10/29/2011 CHURCH DO, RIKA K 296.30 MO DEPRESSIVE RECURRENT UNSPECIFIED 10/29/2011 CHURCH DO, RIKA K 296.30 MO DEPRESSIVE RECURRENT UNSPECIFIED 10/29/2011 CHURCH DO, RIKA K 296.30 MO DEPRESSIVE RECURRENT UNSPECIFIED 10/29/2011 CLARISSE BAH APRN 296.30 MO DEPRESSIVE RECURRENT UNSPECIFIED 10/29/2011 CHURCH DO, RIKA K 296.30 MO DEPRESSIVE RECURRENT UNSPECIFIED 10/29/2011 CHURCH DO, RIKA K 296.30 MO DEPRESSIVE RECURRENT UNSPECIFIED 10/29/2011 CHURCH DO, RIKA K 296.30 MO DEPRESSIVE RECURRENT UNSPECIFIED 10/29/2011 CHURCH DO, RIKA K 296.30 MO DEPRESSIVE RECURRENT UNSPECIFIED 10/29/2011 CHURCH DO, RIKA K 296.30 MO DEPRESSIVE RECURRENT UNSPECIFIED 10/29/2011 ECHO SWEENEY, MATHEUS R 296.30 MO DEPRESSIVE RECURRENT UNSPECIFIED 10/29/2011 CHURCH DO, RIKA K 296.30 MO DEPRESSIVE RECURRENT UNSPECIFIED 10/29/2011 ECHO LIZARRAGAN, MATHEUS R 296.30 MO DEPRESSIVE RECURRENT UNSPECIFIED 10/29/2011 CHURCH DO, RIKA K 296.30 MO DEPRESSIVE RECURRENT UNSPECIFIED 10/29/2011 ROSALVA SWEENEY LINH S 296.30 MO DEPRESSIVE RECURRENT UNSPECIFIED 11/08/2011 CHURCH DO, RIKA K 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 11/08/2011 CHURCH DO, RIKA K 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 11/08/2011 YON NIETO DO 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 11/08/2011 CHURCH DO, RIKA K 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 11/08/2011 YON NIETO DO 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 11/08/2011 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 11/08/2011 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 11/08/2011 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 11/08/2011 CHURCH DO, RIKA K 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 11/08/2011 CHURCH DO, RIKA K 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 11/08/2011 CHURCH DO, RIKA K 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 11/08/2011 ECHO SWEENEY, MATHEUS R 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 11/08/2011 CHURCH DO, RIKA K 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 11/08/2011 ECHO LIZARRAGAN, MATHEUS R 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 11/08/2011 CHURCH DO, RIKA K 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 11/08/2011 LINH BLACKWELL APRN 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 11/22/2011 CHURCH DO, RIKA K 331.83 Cognitive Functions Current Level Impaired 11/22/2011 LYNNETTE DORIKA K 331.83 Cognitive Functions Current Level Impaired 11/22/2011 WERDER DO, YON F 331.83 Cognitive Functions Current Level Impaired 11/22/2011 CHURCH DO, RIKA K 331.83 Cognitive Functions Current Level Impaired 11/22/2011 YON NIETO DO F 331.83 Cognitive Functions Current Level Impaired 11/22/2011 331.83 Cognitive Functions Current Level Impaired 11/22/2011 331.83 Cognitive Functions Current Level Impaired 11/22/2011 331.83 Cognitive Functions Current Level Impaired 11/22/2011 331.83 Cognitive Functions Current Level Impaired 11/22/2011 331.83 Cognitive Functions Current Level Impaired 11/22/2011 331.83 Cognitive Functions Current Level Impaired 11/22/2011 CHURCH DO, RIKA K 331.83 Cognitive Functions Current Level Impaired 11/22/2011 CHURCH DO, RIKA K 331.83 Cognitive Functions Current Level Impaired 11/22/2011 CHURCH DO, RIKA K 331.83 Cognitive Functions Current Level Impaired 11/22/2011 CHURCH DO, RIKA K 331.83 Cognitive Functions Current Level Impaired 11/22/2011 CHURCH DO, RIKA K 331.83 Cognitive Functions Current Level Impaired 11/22/2011 CLARISSE BAH APRN 331.83 Cognitive Functions Current Level Impaired 11/22/2011 CHURCH DO, RIKA K 331.83 Cognitive Functions Current Level Impaired 11/22/2011 CHURCH DO, RIKA K 331.83 Cognitive Functions Current Level Impaired 11/22/2011 CHURCH DO, RIKA K 331.83 Cognitive Functions Current Level Impaired 11/22/2011 CHURCH DO, RIKA K 331.83 Cognitive Functions Current Level Impaired 11/22/2011 CHURCH DO, RIKA K 331.83 Cognitive Functions Current Level Impaired 11/22/2011 DARLENE DODGE APRNINA R 331.83 Cognitive Functions Current Level Impaired 11/22/2011 CHURCH DO, RIKA K 331.83 Cognitive Functions Current Level Impaired 11/22/2011 ECHO SWEENEY MATHEUS R 331.83 Cognitive Functions Current Level Impaired 11/22/2011 CHURCH DO, RIKA K 331.83 Cognitive Functions Current Level Impaired 11/22/2011 LINH BLACKWELL APRN 331.83 Cognitive Functions Current Level Impaired 12/21/2011 CHURCH DO, RIKA K 345.90 SEIZURE DISORDER 12/21/2011 CHURCH DO, RIKA K 345.90 SEIZURE DISORDER 12/21/2011 YON NIETO DO F 345.90 SEIZURE DISORDER 12/21/2011 CHURCH DO, RIKA K 345.90 SEIZURE DISORDER 12/21/2011 YON NIETO DO 345.90 SEIZURE DISORDER 12/21/2011 345.90 SEIZURE DISORDER 12/21/2011 345.90 SEIZURE DISORDER 12/21/2011 345.90 SEIZURE DISORDER 12/21/2011 345.90 SEIZURE DISORDER 12/21/2011 345.90 SEIZURE DISORDER 12/21/2011 345.90 SEIZURE DISORDER 12/21/2011 CHURCH DO, RIKA K 345.90 SEIZURE DISORDER 12/21/2011 CHURCH DO, RIKA K 345.90 SEIZURE DISORDER 12/21/2011 CHURCH DO, RIKA K 345.90 SEIZURE DISORDER 12/21/2011 CHURCH DO, RIKA K 345.90 SEIZURE DISORDER 12/21/2011 CHURCH DO, RIKA K 345.90 SEIZURE DISORDER 12/21/2011 CLARISSE BAH APRN 345.90 SEIZURE DISORDER 12/21/2011 CHURCH DO, RIKA K 345.90 SEIZURE DISORDER 12/21/2011 CHURCH DO, RIKA K 345.90 SEIZURE DISORDER 12/21/2011 CHURCH DO, RIKA K 345.90 SEIZURE DISORDER 12/21/2011 CHURCH DO, RIKA K 345.90 SEIZURE DISORDER 12/21/2011 CHURCH DO, RIKA K 345.90 SEIZURE DISORDER 12/21/2011 ECHO MANAGER FINANCE, MATHEUS R 345.90 SEIZURE DISORDER 12/21/2011 CHURCH DO, RIKA K 345.90 SEIZURE DISORDER 12/21/2011 ECHO MANAGER FINANCE, MATHEUS R 345.90 SEIZURE DISORDER 12/21/2011 CHURCH DO, RIKA K 345.90 SEIZURE DISORDER 12/21/2011 LINH BLACKWELL APRN 345.90 SEIZURE DISORDER 01/16/2012 CHURCH DO, RIKA K 307.47 SI DYSSOMNIA NOS 01/16/2012 CHURCH DO, RIKA K 307.47 SI DYSSOMNIA NOS 01/16/2012 YON NIETO DO 307.47 SI DYSSOMNIA NOS 01/16/2012 CHURCH DO, RIKA K 307.47 SI DYSSOMNIA NOS 01/16/2012 YON NIETO DO 307.47 SI DYSSOMNIA NOS 01/16/2012 307.47 SI DYSSOMNIA NOS 01/16/2012 307.47 SI DYSSOMNIA NOS 01/16/2012 307.47 SI DYSSOMNIA NOS 01/16/2012 307.47 SI DYSSOMNIA NOS 01/16/2012 307.47 SI DYSSOMNIA NOS 01/16/2012 307.47 SI DYSSOMNIA NOS 01/16/2012 CHURCH DO, RIKA K 307.47 SI DYSSOMNIA NOS 01/16/2012 CHURCH DO, RIKA K 307.47 SI DYSSOMNIA NOS 01/16/2012 CHURCH DO, RIKA K 307.47 SI DYSSOMNIA NOS 01/16/2012 CHURCH DO, RIKA K 307.47 SI DYSSOMNIA NOS 01/16/2012 CHURCH DO, RIKA K 307.47 SI DYSSOMNIA NOS 01/16/2012 CLARISSE BAH APRN N 307.47 SI DYSSOMNIA NOS 01/16/2012 CHURCH DO, RIKA K 307.47 SI DYSSOMNIA NOS 01/16/2012 CHURCH DO, RIKA K 307.47 SI DYSSOMNIA NOS 01/16/2012 CHURCH DO, RIKA K 307.47 SI DYSSOMNIA NOS 01/16/2012 CHURCH DO, RIKA K 307.47 SI DYSSOMNIA NOS 01/16/2012 CHURCH DO, RIKA K 307.47 SI DYSSOMNIA NOS 01/16/2012 ECHO MANAGER FINANCE, MATHEUS R 307.47 SI DYSSOMNIA NOS 01/16/2012 CHURCH DO, RIKA K 307.47 SI DYSSOMNIA NOS 01/16/2012 ECHO MANAGER FINANCE, MATHEUS R 307.47 SI DYSSOMNIA NOS 01/16/2012 CHURCH DO, RIKA K 307.47 SI DYSSOMNIA NOS 01/16/2012 LINH BLACKWELL APRN S 307.47 SI DYSSOMNIA NOS 02/04/2012 CHURCH DO, RIKA K 530.81 GERD 02/04/2012 CHURCH DO, RIKA K 787.1 Heartburn 02/04/2012 CHURCH DO, RIKA K 787.20 Dysphagia, Unspecified 02/04/2012 CHURCH DO, RIKA K 530.81 GERD 02/04/2012 CHURCH DO, RIKA K 787.1 Heartburn 02/04/2012 CHURCH DO, RIKA K 787.20 Dysphagia, Unspecified 02/04/2012 WERREJI DOYON F 530.81 GERD 02/04/2012 WERDER DOYON F 787.1 Heartburn 02/04/2012 WERDER DO, YON F 787.20 Dysphagia, Unspecified 02/04/2012 CHURCH DO, RIKA K 530.81 GERD 02/04/2012 CHURCH DO, RIKA K 787.1 Heartburn 02/04/2012 CHURCH DO, RIKA K 787.20 Dysphagia, Unspecified 02/04/2012 WERDER DO, YON F 530.81 GERD 02/04/2012 WERDER DO, YON F 787.1 Heartburn 02/04/2012 WERDER DO, YON F 787.20 Dysphagia, Unspecified 02/04/2012 530.81 GERD 02/04/2012 787.1 Heartburn 02/04/2012 787.20 Dysphagia, Unspecified 02/04/2012 530.81 GERD 02/04/2012 787.1 Heartburn 02/04/2012 787.20 Dysphagia, Unspecified 02/04/2012 530.81 GERD 02/04/2012 787.1 Heartburn 02/04/2012 787.20 Dysphagia, Unspecified 02/04/2012 530.81 GERD 02/04/2012 787.1 Heartburn 02/04/2012 787.20 Dysphagia, Unspecified 02/04/2012 530.81 GERD 02/04/2012 787.1 Heartburn 02/04/2012 787.20 Dysphagia, Unspecified 02/04/2012 530.81 GERD 02/04/2012 787.1 Heartburn 02/04/2012 787.20 Dysphagia, Unspecified 02/04/2012 CHURCH DO, RIKA K 530.81 GERD 02/04/2012 CHURCH DO, RIKA K 787.1 Heartburn 02/04/2012 CHURCH DO, RIKA K 787.20 Dysphagia, Unspecified 02/04/2012 CHURCH DO, RIKA K 530.81 GERD 02/04/2012 CHURCH DO, RIKA K 787.1 Heartburn 02/04/2012 CHURCH DO, RIKA K 787.20 Dysphagia, Unspecified 02/04/2012 CHURCH DO, RIKA K 530.81 GERD 02/04/2012 CHURCH DO, RIKA K 787.1 Heartburn 02/04/2012 CHURCH DO, RIKA K 787.20 Dysphagia, Unspecified 02/04/2012 CHURCH DO, RIKA K 530.81 GERD 02/04/2012 CHURCH DO, RIKA K 787.1 Heartburn 02/04/2012 CHURCH DO, RIKA K 787.20 Dysphagia, Unspecified 02/04/2012 CHURCH DO, RIKA K 530.81 GERD 02/04/2012 CHURCH DO, RIKA K 787.1 Heartburn 02/04/2012 CHURCH DO, RIKA K 787.20 Dysphagia, Unspecified 02/04/2012 SHELLY SOTELO MANAGER FINANCE, CLARISSE N 530.81 GERD 02/04/2012 BRAVOROBERTO SOTELO MANAGER FINANCE, CLARISSE N 787.1 Heartburn 02/04/2012 BRAVO HARRIETTAERO MANAGER FINANCE, CLARISSE N 787.20 Dysphagia, Unspecified 02/04/2012 CHURCH DO, RIKA K 530.81 GERD 02/04/2012 CHURCH DO, RIKA K 787.1 Heartburn 02/04/2012 CHURCH DO, RIKA K 787.20 Dysphagia, Unspecified 02/04/2012 CHURCH DO, RIKA K 530.81 GERD 02/04/2012 HCURCH DO, RIKA K 787.1 Heartburn 02/04/2012 CHURCH DO, RIKA K 787.20 Dysphagia, Unspecified 02/04/2012 CHURCH DO, RIKA K 530.81 GERD 02/04/2012 CHURCH DO, RIKA K 787.1 Heartburn 02/04/2012 CHURCH DO, RIKA K 787.20 Dysphagia, Unspecified 02/04/2012 CHURCH DO, RIKA K 530.81 GERD 02/04/2012 CHURCH DO, RIKA K 787.1 Heartburn 02/04/2012 CHURCH DO, RIKA K 787.20 Dysphagia, Unspecified 02/04/2012 CHURCH DO, RIKA K 530.81 GERD 02/04/2012 CHURCH DO, RIKA K 787.1 Heartburn 02/04/2012 CHURCH DO, RIKA K 787.20 Dysphagia, Unspecified 02/04/2012 ECHO MANAGER FINANCE, MATHEUS R 530.81 GERD 02/04/2012 ECHO MANAGER FINANCE, MATHEUS R 787.1 Heartburn 02/04/2012 ECHO MANAGER FINANCE, MATHEUS R 787.20 Dysphagia, Unspecified 02/04/2012 CHURCH DO, RIKA K 530.81 GERD 02/04/2012 CHURCH DO, RIKA K 787.1 Heartburn 02/04/2012 CHURCH DO, RIKA K 787.20 Dysphagia, Unspecified 02/04/2012 ECHO MANAGER FINANCE, MATHEUS R 530.81 GERD 02/04/2012 ECHO MANAGER FINANCE, MATHEUS R 787.1 Heartburn 02/04/2012 ECHO MANAGER FINANCE, MATHEUS R 787.20 Dysphagia, Unspecified 02/04/2012 CHURCH DO, RIKA K 530.81 GERD 02/04/2012 CHURCH DO, RIKA K 787.1 Heartburn 02/04/2012 CHURCH DO, RIKA K 787.20 Dysphagia, Unspecified 02/04/2012 ROSALVA MANAGER FINANCE, LINH S 530.81 GERD 02/04/2012 ROSALVA MANAGER FINANCE, LINH S 787.1 Heartburn 02/04/2012 ROSALVA MANAGER FINANCE, LINH S 787.20 Dysphagia, Unspecified 04/21/2012 CHURCH DO RIKA K 305.20 NONDEPENDENT CANNABIS ABUSE UNSPECIFIED USE 04/21/2012 CHURCH DO RIKA K 338.29 OTHER CHRONIC PAIN 04/21/2012 CHURCH DO RIKA K 461.9 Sinusitis Acute 04/21/2012 CHURCH DO RIKA K 719.40 PAIN IN JOINT SITE UNSPECIFIED 04/21/2012 CHURCH DO, RIKA K 305.20 NONDEPENDENT CANNABIS ABUSE UNSPECIFIED USE 04/21/2012 CHURCH DO, RIKA K 338.29 OTHER CHRONIC PAIN 04/21/2012 CHURCH DO RIKA K 461.9 Sinusitis Acute 04/21/2012 CHURCH DO, RIKA K 719.40 PAIN IN JOINT SITE UNSPECIFIED 04/21/2012 YON NIETO DO F 305.20 NONDEPENDENT CANNABIS ABUSE UNSPECIFIED USE 04/21/2012 YON NIETO DO F 338.29 OTHER CHRONIC PAIN 04/21/2012 YON NIETO DO F 461.9 Sinusitis Acute 04/21/2012 YON NIETO DO F 719.40 PAIN IN JOINT SITE UNSPECIFIED 04/21/2012 CHURCH DO RIKA K 305.20 NONDEPENDENT CANNABIS ABUSE UNSPECIFIED USE 04/21/2012 CHURCH DO RIKA K 338.29 OTHER CHRONIC PAIN 04/21/2012 CHURCH DO RIKA K 461.9 Sinusitis Acute 04/21/2012 CHURCH DO RIKA K 719.40 Pain In Joint Site Unspecified 04/21/2012 YON NIETO DO F 305.20 NONDEPENDENT CANNABIS ABUSE UNSPECIFIED USE 04/21/2012 GERSON STODDARD YON F 338.29 OTHER CHRONIC PAIN 04/21/2012 GERSON STODDARD YON F 461.9 Sinusitis Acute 04/21/2012 GERSON YON STODDARD F 719.40 Pain In Joint Site Unspecified 04/21/2012 305.20 NONDEPENDENT CANNABIS ABUSE UNSPECIFIED USE 04/21/2012 338.29 OTHER CHRONIC PAIN 04/21/2012 461.9 Sinusitis Acute 04/21/2012 719.40 Pain In Joint Site Unspecified 04/21/2012 305.20 NONDEPENDENT CANNABIS ABUSE UNSPECIFIED USE 04/21/2012 338.29 OTHER CHRONIC PAIN 04/21/2012 461.9 Sinusitis Acute 04/21/2012 719.40 Pain In Joint Site Unspecified 04/21/2012 305.20 NONDEPENDENT CANNABIS ABUSE UNSPECIFIED USE 04/21/2012 338.29 OTHER CHRONIC PAIN 04/21/2012 461.9 Sinusitis Acute 04/21/2012 719.40 Pain In Joint Site Unspecified 04/21/2012 305.20 NONDEPENDENT CANNABIS ABUSE UNSPECIFIED USE 04/21/2012 338.29 OTHER CHRONIC PAIN 04/21/2012 461.9 Sinusitis Acute 04/21/2012 719.40 Pain In Joint Site Unspecified 04/21/2012 305.20 NONDEPENDENT CANNABIS ABUSE UNSPECIFIED USE 04/21/2012 338.29 OTHER CHRONIC PAIN 04/21/2012 461.9 Sinusitis Acute 04/21/2012 719.40 Pain In Joint Site Unspecified 04/21/2012 305.20 NONDEPENDENT CANNABIS ABUSE UNSPECIFIED USE 04/21/2012 338.29 OTHER CHRONIC PAIN 04/21/2012 461.9 Sinusitis Acute 04/21/2012 719.40 Pain In Joint Site Unspecified 04/21/2012 LYNNETTE STODDARD RIKA K 305.20 NONDEPENDENT CANNABIS ABUSE UNSPECIFIED USE 04/21/2012 GONZALEZ CHURCH DOA K 338.29 OTHER CHRONIC PAIN 04/21/2012 GONZALEZ CHURCH DOA K 461.9 Sinusitis Acute 04/21/2012 LYNNETTE STODDARD RIKA K 719.40 Pain In Joint Site Unspecified 04/21/2012 LYNNETTE STODDARD RIKA K 305.20 NONDEPENDENT CANNABIS ABUSE UNSPECIFIED USE 04/21/2012 CHURCH DO, RIKA K 338.29 OTHER CHRONIC PAIN 04/21/2012 CHURCH DO, RIKA K 461.9 Sinusitis Acute 04/21/2012 CHURCH DO, RIKA K 719.40 Pain In Joint Site Unspecified 04/21/2012 CHURCH DO, RIKA K 305.20 NONDEPENDENT CANNABIS ABUSE UNSPECIFIED USE 04/21/2012 CHURCH DO, RIKA K 338.29 OTHER CHRONIC PAIN 04/21/2012 CHURCH DO, RIKA K 461.9 Sinusitis Acute 04/21/2012 CHURCH DO, RIKA K 719.40 Pain In Joint Site Unspecified 04/21/2012 CHURCH DO, RIKA K 305.20 NONDEPENDENT CANNABIS ABUSE UNSPECIFIED USE 04/21/2012 CHURCH DO, RIKA K 338.29 OTHER CHRONIC PAIN 04/21/2012 CHURCH DO, RIKA K 461.9 Sinusitis Acute 04/21/2012 CHURCH DO, RIKA K 719.40 Pain In Joint Site Unspecified 04/21/2012 CHURCH DO, RIKA K 305.20 NONDEPENDENT CANNABIS ABUSE UNSPECIFIED USE 04/21/2012 CHURCH DO, RIKA K 338.29 OTHER CHRONIC PAIN 04/21/2012 CHURCH DO, RIKA K 461.9 Sinusitis Acute 04/21/2012 CHURCH DO, RIKA K 719.40 Pain In Joint Site Unspecified 04/21/2012 CLARISSE BAH APRN N 305.20 NONDEPENDENT CANNABIS ABUSE UNSPECIFIED USE 04/21/2012 CLARISSE BAH APRN N 338.29 OTHER CHRONIC PAIN 04/21/2012 CLARISSE BAH APRN N 461.9 Sinusitis Acute 04/21/2012 CLARISSE BAH APRN N 719.40 Pain In Joint Site Unspecified 04/21/2012 CHURCH DO, RIKA K 305.20 NONDEPENDENT CANNABIS ABUSE UNSPECIFIED USE 04/21/2012 CHURCH DO, RIKA K 338.29 OTHER CHRONIC PAIN 04/21/2012 CHURCH DO, RIKA K 461.9 Sinusitis Acute 04/21/2012 CHURCH DO, RIKA K 719.40 Pain In Joint Site Unspecified 04/21/2012 CHURCH DO, RIKA K 305.20 NONDEPENDENT CANNABIS ABUSE UNSPECIFIED USE 04/21/2012 CHURCH DO, RIKA K 338.29 OTHER CHRONIC PAIN 04/21/2012 CHURCH DO, RIKA K 461.9 Sinusitis Acute 04/21/2012 CHURCH DO, RIKA K 719.40 Pain In Joint Site Unspecified 04/21/2012 CHURCH DO, RIKA K 305.20 NONDEPENDENT CANNABIS ABUSE UNSPECIFIED USE 04/21/2012 CHURCH DO, RIKA K 338.29 OTHER CHRONIC PAIN 04/21/2012 CHURCH DO RIKA K 461.9 Sinusitis Acute 04/21/2012 CHURCH DO, RIKA K 719.40 Pain In Joint Site Unspecified 04/21/2012 CHURCH DO, RIKA K 305.20 NONDEPENDENT CANNABIS ABUSE UNSPECIFIED USE 04/21/2012 CHURCH DO, RIKA K 338.29 OTHER CHRONIC PAIN 04/21/2012 CHURCH DO, RIKA K 461.9 Sinusitis Acute 04/21/2012 CHURCH DO, RIKA K 719.40 Pain In Joint Site Unspecified 04/21/2012 CHURCH DO, RIKA K 305.20 NONDEPENDENT CANNABIS ABUSE UNSPECIFIED USE 04/21/2012 CHURCH DO RIKA K 338.29 OTHER CHRONIC PAIN 04/21/2012 CHURCH DO, RIKA K 461.9 Sinusitis Acute 04/21/2012 CHURCH DO, RIKA K 719.40 Pain In Joint Site Unspecified 04/21/2012 ECHO MANAGER FINANCE, MATHEUS R 305.20 NONDEPENDENT CANNABIS ABUSE UNSPECIFIED USE 04/21/2012 ECHO MANAGER FINANCE, MATHEUS R 338.29 OTHER CHRONIC PAIN 04/21/2012 ECHO MANAGER FINANCE, MATHEUS R 461.9 Sinusitis Acute 04/21/2012 ECHO MANAGER FINANCE, MATHEUS R 719.40 Pain In Joint Site Unspecified 04/21/2012 CHURCH DO RIKA K 305.20 NONDEPENDENT CANNABIS ABUSE UNSPECIFIED USE 04/21/2012 CHURCH DO, RIKA K 338.29 OTHER CHRONIC PAIN 04/21/2012 CHURHC DO, RIKA K 461.9 Sinusitis Acute 04/21/2012 CHURCH DO, RIKA K 719.40 Pain In Joint Site Unspecified 04/21/2012 ECHO MANAGER FINANCE, MATHEUS R 305.20 NONDEPENDENT CANNABIS ABUSE UNSPECIFIED USE 04/21/2012 ECHO MANAGER FINANCE, MATHEUS R 338.29 OTHER CHRONIC PAIN 04/21/2012 ECHO MANAGER FINANCE, MATHEUS R 461.9 Sinusitis Acute 04/21/2012 ECHO MANAGER FINANCE, MATHEUS R 719.40 Pain In Joint Site Unspecified 04/21/2012 CHURCH DO, RIKA K 305.20 NONDEPENDENT CANNABIS ABUSE UNSPECIFIED USE 04/21/2012 CHURCH DO, RIKA K 338.29 OTHER CHRONIC PAIN 04/21/2012 CHURCH DO, RIKA K 461.9 Sinusitis Acute 04/21/2012 CHURCH DO, RIKA K 719.40 Pain In Joint Site Unspecified 04/21/2012 ROSALVA MANAGER FINANCE, LINH S 305.20 NONDEPENDENT CANNABIS ABUSE UNSPECIFIED USE 04/21/2012 ROSALVA MANAGER FINANCE, LINH S 338.29 OTHER CHRONIC PAIN 04/21/2012 ROSALVA MANAGER FINANCE, LINH S 461.9 Sinusitis Acute 04/21/2012 ROSALVA MANAGER FINANCE, LINH S 719.40 Pain In Joint Site Unspecified 05/19/2012 CHURCH DO, RIKA K 389.9 HEARING LOSS 05/19/2012 CHURCH DO, RIKA K 389.9 HEARING LOSS 05/19/2012 YON NIETO DO F 389.9 HEARING LOSS 05/19/2012 CHURCH DO, RIKA K 389.9 Hearing Loss 05/19/2012 YON NIETO DO F 389.9 Hearing Loss 05/19/2012 389.9 Hearing Loss 05/19/2012 389.9 Hearing Loss 05/19/2012 389.9 Hearing Loss 05/19/2012 389.9 Hearing Loss 05/19/2012 389.9 Hearing Loss 05/19/2012 389.9 Hearing Loss 05/19/2012 CHURCH DO, RIKA K 389.9 Hearing Loss 05/19/2012 CHURCH DO, RIKA K 389.9 Hearing Loss 05/19/2012 CHURCH DO, RIKA K 389.9 Hearing Loss 05/19/2012 CHURCH DO, RIKA K 389.9 Hearing Loss 05/19/2012 CHURCH DO, RIKA K 389.9 Hearing Loss 05/19/2012 CLARISSE BAH APRN N 389.9 Hearing Loss 05/19/2012 CHURCH DO, RIKA K 389.9 Hearing Loss 05/19/2012 CHURCH DO, RIKA K 389.9 Hearing Loss 05/19/2012 CHURCH DO, RIKA K 389.9 Hearing Loss 05/19/2012 CHURCH DO, RIKA K 389.9 Hearing Loss 05/19/2012 CHURCH DO, RIKA K 389.9 Hearing Loss 05/19/2012 ECHO LIZARRAGAN, MATHEUS R 389.9 Hearing Loss 05/19/2012 CHURCH DO, RIKA K 389.9 Hearing Loss 05/19/2012 ECHO LIZARRAGAN, MATHEUS R 389.9 Hearing Loss 05/19/2012 CHURCH DO, RIKA K 389.9 Hearing Loss 05/19/2012 CLEO BLACKWELL APRNA S 389.9 Hearing Loss 05/23/2012 CHURCH DO, RIKA K 309.81 AN PTSD 05/23/2012 CHURCH DO, RIKA K 309.81 AN PTSD 05/23/2012 GERSON DOGOMEZEN F 309.81 AN PTSD 05/23/2012 CHURCH DO, RIKA K 309.81 AN PTSD 05/23/2012 GERSON DO, YON F 309.81 AN PTSD 05/23/2012 309.81 AN PTSD 05/23/2012 309.81 AN PTSD 05/23/2012 309.81 AN PTSD 05/23/2012 309.81 AN PTSD 05/23/2012 309.81 AN PTSD 05/23/2012 309.81 AN PTSD 05/23/2012 CHURCH DO, RIKA K 309.81 AN PTSD 05/23/2012 CHURCH DO, RIKA K 309.81 AN PTSD 05/23/2012 CHURCH DO, RIKA K 309.81 AN PTSD 05/23/2012 CHURCH DO, RIKA K 309.81 AN PTSD 05/23/2012 CHURCH DO, RIKA K 309.81 AN PTSD 05/23/2012 CLARISSE BAH APRN 309.81 AN PTSD 05/23/2012 CHURCH DO, RIKA K 309.81 AN PTSD 05/23/2012 CHURCH DO, RIKA K 309.81 AN PTSD 05/23/2012 CHURCH DO, RIKA K 309.81 AN PTSD 05/23/2012 CHURCH DO, RIKA K 309.81 AN PTSD 05/23/2012 CHURCH DO, RIKA K 309.81 AN PTSD 05/23/2012 ECHO SWEENEY MATHEUS R 309.81 AN PTSD 05/23/2012 CHURCH DO, RIKA K 309.81 AN PTSD 05/23/2012 ECHO MANAGER FINANCE MATHEUS R 309.81 AN PTSD 05/23/2012 CHURCH DO, RIKA K 309.81 AN PTSD 05/23/2012 LINH BLACKWELL APRN S 309.81 AN PTSD 06/06/2012 CHURCH DO, RIKA K 381.4 OTITIS MEDIA NONSUPPURATIVE SEROUS 06/06/2012 CHURCH DO RIKA K 381.81 EUSTACHIAN TUBE DYSFUNCTION 06/06/2012 CHURCH DOGONZALEZA K 381.4 OTITIS MEDIA NONSUPPURATIVE SEROUS 06/06/2012 CHURCH DO RIKA K 381.81 EUSTACHIAN TUBE DYSFUNCTION 06/06/2012 GERSON STODDARD YON F 381.4 OTITIS MEDIA NONSUPPURATIVE SEROUS 06/06/2012 YON NIETO DO F 381.81 EUSTACHIAN TUBE DYSFUNCTION 06/06/2012 CHURCH DOGONZALEZA K 381.4 Otitis Media Nonsuppurative Serous 06/06/2012 GONZALEZ CHURCH DOA K 381.81 Eustachian Tube Dysfunction 06/06/2012 GERSON STODDARD YON F 381.4 Otitis Media Nonsuppurative Serous 06/06/2012 YON NIETO DO F 381.81 Eustachian Tube Dysfunction 06/06/2012 381.4 Otitis Media Nonsuppurative Serous 06/06/2012 381.81 Eustachian Tube Dysfunction 06/06/2012 381.4 Otitis Media Nonsuppurative Serous 06/06/2012 381.81 Eustachian Tube Dysfunction 06/06/2012 381.4 Otitis Media Nonsuppurative Serous 06/06/2012 381.81 Eustachian Tube Dysfunction 06/06/2012 381.4 Otitis Media Nonsuppurative Serous 06/06/2012 381.81 Eustachian Tube Dysfunction 06/06/2012 381.4 Otitis Media Nonsuppurative Serous 06/06/2012 381.81 Eustachian Tube Dysfunction 06/06/2012 381.4 Otitis Media Nonsuppurative Serous 06/06/2012 381.81 Eustachian Tube Dysfunction 06/06/2012 CHURCH DO RIKA K 381.4 Otitis Media Nonsuppurative Serous 06/06/2012 CHURCH GONZALEZ STODDARDA K 381.81 Eustachian Tube Dysfunction 06/06/2012 CHURCH DO RIKA K 381.4 Otitis Media Nonsuppurative Serous 06/06/2012 CHURCH GONZALEZ STODDARDA K 381.81 Eustachian Tube Dysfunction 06/06/2012 CHURCH GONZALEZ STODDARDA K 381.4 Otitis Media Nonsuppurative Serous 06/06/2012 CHURCH DO, RIKA K 381.81 Eustachian Tube Dysfunction 06/06/2012 CHURCH DO, RIKA K 381.4 Otitis Media Nonsuppurative Serous 06/06/2012 CHURCH DO, RIKA K 381.81 Eustachian Tube Dysfunction 06/06/2012 CHURCH DO, RIKA K 381.4 Otitis Media Nonsuppurative Serous 06/06/2012 CHURCH DO, RIKA K 381.81 Eustachian Tube Dysfunction 06/06/2012 SHELLY SOTELO MANAGER FINANCE, CLARISSE N 381.4 Otitis Media Nonsuppurative Serous 06/06/2012 BRAVO CASHERO MANAGER FINANCE, CLARISSE N 381.81 Eustachian Tube Dysfunction 06/06/2012 CHURCH DO, RIKA K 381.4 Otitis Media Nonsuppurative Serous 06/06/2012 CHURCH DO, RIKA K 381.81 Eustachian Tube Dysfunction 06/06/2012 CHURCH DO, RIKA K 381.4 Otitis Media Nonsuppurative Serous 06/06/2012 CHURCH DO, RIKA K 381.81 Eustachian Tube Dysfunction 06/06/2012 CHURCH DO, RIKA K 381.4 Otitis Media Nonsuppurative Serous 06/06/2012 CHURCH DO, RIKA K 381.81 Eustachian Tube Dysfunction 06/06/2012 CHURCH DO, RIKA K 381.4 Otitis Media Nonsuppurative Serous 06/06/2012 CHURCH DO, RIKA K 381.81 Eustachian Tube Dysfunction 06/06/2012 CHURCH DO, RIKA K 381.4 Otitis Media Nonsuppurative Serous 06/06/2012 CHURCH DO, RIKA K 381.81 Eustachian Tube Dysfunction 06/06/2012 ECHO MANAGER FINANCE, MATHEUS R 381.4 Otitis Media Nonsuppurative Serous 06/06/2012 ECHO MANAGER FINANCE, MATHEUS R 381.81 Eustachian Tube Dysfunction 06/06/2012 CHURCH DO, RIKA K 381.4 Otitis Media Nonsuppurative Serous 06/06/2012 CHURCH DO, RIKA K 381.81 Eustachian Tube Dysfunction 06/06/2012 ECHO MANAGER FINANCE, MATHEUS R 381.4 Otitis Media Nonsuppurative Serous 06/06/2012 ECHO MANAGER FINANCE, MATHEUS R 381.81 Eustachian Tube Dysfunction 06/06/2012 CHURCH DO, RIKA K 381.4 Otitis Media Nonsuppurative Serous 06/06/2012 CHURCH DO, RIKA K 381.81 Eustachian Tube Dysfunction 06/06/2012 LINH BLACKWELL APRN S 381.4 Otitis Media Nonsuppurative Serous 06/06/2012 LINH BLACKWELL APRN S 381.81 Eustachian Tube Dysfunction 08/23/2012 YON NIETO DO F 780.57 SLEEP APNEA 08/23/2012 LYNNETTE STODDARD RIKA K 780.57 SLEEP APNEA 08/23/2012 YON NIETO DO F 780.57 SLEEP APNEA 08/23/2012 780.57 SLEEP APNEA 08/23/2012 780.57 SLEEP APNEA 08/23/2012 780.57 SLEEP APNEA 08/23/2012 780.57 SLEEP APNEA 08/23/2012 780.57 SLEEP APNEA 08/23/2012 780.57 SLEEP APNEA 08/23/2012 CHURCH DO RIKA K 780.57 SLEEP APNEA 08/23/2012 CHURCH DO RIKA K 780.57 SLEEP APNEA 08/23/2012 LYNNETTE STODDARD RIKA K 780.57 SLEEP APNEA 08/23/2012 CHURCH DO RIKA K 780.57 SLEEP APNEA 08/23/2012 CHURCH DO, RIKA K 780.57 SLEEP APNEA 08/23/2012 CLARISSE BAH APRN 780.57 SLEEP APNEA 08/23/2012 CHURCH DO RIKA K 780.57 SLEEP APNEA 08/23/2012 CHURCH DO, RIKA K 780.57 SLEEP APNEA 08/23/2012 CHURCH DO, RIKA K 780.57 SLEEP APNEA 08/23/2012 CHURCH DO RIKA K 780.57 SLEEP APNEA 08/23/2012 CHURCH DO RIKA K 780.57 SLEEP APNEA 08/23/2012 ECHO MANAGER FINANCE, MATHEUS R 780.57 SLEEP APNEA 08/23/2012 CHURCH DO, RIKA K 780.57 SLEEP APNEA 08/23/2012 ECHO MANAGER FINANCE, MATHEUS R 780.57 SLEEP APNEA 08/23/2012 CHURCH DO RIKA K 780.57 SLEEP APNEA 08/23/2012 LINH BLACKWELL APRN S 780.57 SLEEP APNEA 09/25/2012 CHURCH DO RIKA K 302.72 PSYCHOSEXUAL DYSFUNCTION WITH INHIBITED SEXUAL EXCITEMENT 09/25/2012 YON NIETO DO 302.72 PSYCHOSEXUAL DYSFUNCTION WITH INHIBITED SEXUAL EXCITEMENT 09/25/2012 302.72 PSYCHOSEXUAL DYSFUNCTION WITH INHIBITED SEXUAL EXCITEMENT 09/25/2012 302.72 PSYCHOSEXUAL DYSFUNCTION WITH INHIBITED SEXUAL EXCITEMENT 09/25/2012 302.72 PSYCHOSEXUAL DYSFUNCTION WITH INHIBITED SEXUAL EXCITEMENT 09/25/2012 302.72 PSYCHOSEXUAL DYSFUNCTION WITH INHIBITED SEXUAL EXCITEMENT 09/25/2012 302.72 PSYCHOSEXUAL DYSFUNCTION WITH INHIBITED SEXUAL EXCITEMENT 09/25/2012 302.72 PSYCHOSEXUAL DYSFUNCTION WITH INHIBITED SEXUAL EXCITEMENT 09/25/2012 CHURCH DO, RIKA K 302.72 PSYCHOSEXUAL DYSFUNCTION WITH INHIBITED SEXUAL EXCITEMENT 09/25/2012 CHURCH DO, RIKA K 302.72 PSYCHOSEXUAL DYSFUNCTION WITH INHIBITED SEXUAL EXCITEMENT 09/25/2012 CHURCH DO, RIKA K 302.72 PSYCHOSEXUAL DYSFUNCTION WITH INHIBITED SEXUAL EXCITEMENT 09/25/2012 CHURCH DO, RIKA K 302.72 PSYCHOSEXUAL DYSFUNCTION WITH INHIBITED SEXUAL EXCITEMENT 09/25/2012 CHURCH DO, RIKA K 302.72 PSYCHOSEXUAL DYSFUNCTION WITH INHIBITED SEXUAL EXCITEMENT 09/25/2012 CLARISSE BAH APRN 302.72 PSYCHOSEXUAL DYSFUNCTION WITH INHIBITED SEXUAL EXCITEMENT 09/25/2012 CHURCH DO, RIKA K 302.72 PSYCHOSEXUAL DYSFUNCTION WITH INHIBITED SEXUAL EXCITEMENT 09/25/2012 CHURCH DO, RIKA K 302.72 PSYCHOSEXUAL DYSFUNCTION WITH INHIBITED SEXUAL EXCITEMENT 09/25/2012 CHURCH DO, RIKA K 302.72 PSYCHOSEXUAL DYSFUNCTION WITH INHIBITED SEXUAL EXCITEMENT 09/25/2012 CHURCH DO, RIKA K 302.72 PSYCHOSEXUAL DYSFUNCTION WITH INHIBITED SEXUAL EXCITEMENT 09/25/2012 CHURCH DO, RIKA K 302.72 PSYCHOSEXUAL DYSFUNCTION WITH INHIBITED SEXUAL EXCITEMENT 09/25/2012 MATHEUS DODGE APRN R 302.72 PSYCHOSEXUAL DYSFUNCTION WITH INHIBITED SEXUAL EXCITEMENT 09/25/2012 CHURCH DO, RIKA K 302.72 PSYCHOSEXUAL DYSFUNCTION WITH INHIBITED SEXUAL EXCITEMENT 09/25/2012 MATHEUS DODGE APRN R 302.72 PSYCHOSEXUAL DYSFUNCTION WITH INHIBITED SEXUAL EXCITEMENT 09/25/2012 CHURCH DO, RIKA K 302.72 PSYCHOSEXUAL DYSFUNCTION WITH INHIBITED SEXUAL EXCITEMENT 09/25/2012 LINH BLACKWELL APRN 302.72 PSYCHOSEXUAL DYSFUNCTION WITH INHIBITED SEXUAL EXCITEMENT 11/24/2012 296.36 MO DEPRESSIVE RECURRENT IN FULL REMISSION 11/24/2012 296.36 MO DEPRESSIVE RECURRENT IN FULL REMISSION 11/24/2012 296.36 MO DEPRESSIVE RECURRENT IN FULL REMISSION 11/24/2012 296.36 MO DEPRESSIVE RECURRENT IN FULL REMISSION 11/24/2012 296.36 MO DEPRESSIVE RECURRENT IN FULL REMISSION 11/24/2012 296.36 MO DEPRESSIVE RECURRENT IN FULL REMISSION 11/24/2012 CHURCH DO RIKA K 296.36 MO DEPRESSIVE RECURRENT IN FULL REMISSION 11/24/2012 CHURCH DO, RIKA K 296.36 MO DEPRESSIVE RECURRENT IN FULL REMISSION 11/24/2012 CHURCH DO, RIKA K 296.36 MO DEPRESSIVE RECURRENT IN FULL REMISSION 11/24/2012 CHURCH DO, RIKA K 296.36 MO DEPRESSIVE RECURRENT IN FULL REMISSION 11/24/2012 CHURCH DO, RIKA K 296.36 MO DEPRESSIVE RECURRENT IN FULL REMISSION 11/24/2012 CLARISSE BAH APRN 296.36 MO DEPRESSIVE RECURRENT IN FULL REMISSION 11/24/2012 CHURCH DO RIKA K 296.36 MO DEPRESSIVE RECURRENT IN FULL REMISSION 11/24/2012 CHURCH DO, RIKA K 296.36 MO DEPRESSIVE RECURRENT IN FULL REMISSION 11/24/2012 CHURCH DO RIKA K 296.36 MO DEPRESSIVE RECURRENT IN FULL REMISSION 11/24/2012 CHURCH DO RIKA K 296.36 MO DEPRESSIVE RECURRENT IN FULL REMISSION 11/24/2012 CHURCH DO, RIKA K 296.36 MO DEPRESSIVE RECURRENT IN FULL REMISSION 11/24/2012 DARLENE DODGE APRNINA R 296.36 MO DEPRESSIVE RECURRENT IN FULL REMISSION 11/24/2012 CHURCH DO RIKA K 296.36 MO DEPRESSIVE RECURRENT IN FULL REMISSION 11/24/2012 ECHO SWEENEY, MATHEUS R 296.36 MO DEPRESSIVE RECURRENT IN FULL REMISSION 11/24/2012 CHURCH DO RIKA K 296.36 MO DEPRESSIVE RECURRENT IN FULL REMISSION 11/24/2012 LINH BLACKWELL APRN S 296.36 MO DEPRESSIVE RECURRENT IN FULL REMISSION 12/08/2012 305.90 OTHER MIXED OR UNSPECIFIED DRUG ABUSE UNSPECIFIED USE 12/08/2012 305.90 OTHER MIXED OR UNSPECIFIED DRUG ABUSE UNSPECIFIED USE 12/08/2012 305.90 OTHER MIXED OR UNSPECIFIED DRUG ABUSE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
[2017-07-06] MEDS ORDERED: RT-ALBUTEROL/IPRATROPIUM 3 ML (DUONEB) VIAL INH ONE (02:00)
[2017-07-06] MEDS ORDERED: NS IV 1000 ML 1,000 ML IV ONE (02:00)
--- NOTE | 2017-07-06 02:09 | ED Respiratory ---
General Chief Complaint: Respiratory Problems Stated Complaint: SOB,LUNGS HURT Nursing Triage Note: The pt reports some SOB and pain when breathing. Also reports having a "cold" since June 10 this year. Source: patient Exam Limitations: no limitations History of Present Illness Time seen by provider: 01:45 Initial Comments Here with increasing shortness of air over the last few days and having an illness either diarrheal or respiratory for the last several weeks. Reports fever and chills. Breathing has worsened recently and feels tight in the chest overall. Denies specific chest pain just reports chest tightness. Vomiting and diarrhea have resolved. Timing/Duration: week, getting worse Severity: moderate Prior Episodes/Possible Cause: occasional episodes Modifying Factors: Worse With Activity, Improves With Rest Associated Symptoms: No chest pain/soreness, cough, fever/chills, nasal congestion, nasal drainage, shortness of breath, wheezing Allergies and Home Medications Allergies Coded Allergies: No Known Drug Allergies (Unverified , 07/06/15) Home Medications Albuterol Sulfate 1 Puff Puff, 2 PUFF IH QID PRN, (Reported) NEEDED FOR SHORTNESS OF BREATH Albuterol Sulfate 2.5 Mg/3 Ml Solution, 2.5 MG IH TID PRN, (Reported) NEEDED FOR WHEEZING Albuterol/Ipratropium 1 Puff Puff, 1 PUFF INH QID, (Reported) Aspirin 81 Mg Chew, 81 MG PO DAILY, (Reported) Budesonide/Formoterol Fumarate 10.2 Gm Hfa.aer.ad, 2 PUFF IH BID, (Reported) Cyclobenzaprine HCl 5 Mg Tablet, 5 MG PO TID PRN for PAIN-MODERATE TO SEVERE, # 20 Prescribed by: LAURA SÁNCHEZ on 06/11/17 1305 Fluticasone/Salmeterol 1 Disk Inhp, 1 PUFF IH BID, (Reported) Indomethacin 25 Mg Capsule, 25 MG PO TID, (Reported) Methocarbamol 750 Mg Tablet, 750 MG PO BID, #20 Prescribed by: LUIS CARLOS BOYKIN on 07/06/15 0523 Methylprednisolone 4 Mg Tab.ds.pk, 4 MG PO UD, #1 Prescribed by: LUIS CARLOS BOYKIN on 07/06/15 0523 Rosuvastatin Calcium 20 Mg Tablet, 20 MG PO HS, (Reported) Tiotropium Angier 18 Mcg Cap.w.dev, 1 CAP IH DAILY, (Reported) Tramadol HCl 50 Mg Tablet, 50 MG PO Q4H, #20 Prescribed by: LUIS CARLOS BOYKIN on 07/06/15 0557 [metoprolol] , (Reported) [vibride] , (Reported) Constitutional: see HPI, chills, fever EENTM: see HPI Respiratory: see HPI, cough, short of breath, wheezing Cardiovascular: no symptoms reported Gastrointestinal: No abdominal pain, diarrhea, No nausea, No vomiting Genitourinary: no symptoms reported Musculoskeletal: no symptoms reported Skin: no symptoms reported All Other Systems Reviewed Negative Unless Noted: Yes Past Oorrtng-Lydhow-Qapdqh Hx Patient Social History Alcohol Use: Occasionally Uses Recreational Drug Use: Yes (occasional marijuana) Smoking Status: Never a Smoker Recent Foreign Travel: No Contact w/Someone Who Travel: No Recent Infectious Disease Expo: No Recent Hopitalizations: Yes (NUMEROUS) Immunizations Up To Date Tetanus Booster (TDap): Unknown Surgeries History of Surgeries: Yes (BACK SURGERY) Surgeries: CABG, Orthopedic, Tonsillectomy Respiratory History of Respiratory Disorde: Yes Respiratory Disorders: COPD, Emphysema Cardiovascular History of Cardiac Disorders: Yes (CABG) Cardiac Disorders: Coronary Artery Disease, Heart Attack, High Cholesterol, Hypertension Neurological History of Neurological Disord: No Reproductive System Hx Reproductive Disorders: No Sexually Transmitted Disease: Yes (GENITAL HERPES) Gastrointestinal History of Gastrointestinal Di: No Musculoskeletal History of Musculoskeletal Dis: Yes (SCIATICA, CHRONIC FOOT PAIN ) Musculoskeletal Disorders: Arthritis, Chronic Back Pain Endocrine History of Endocrine Disorders: No Cancer History of Cancer: No Psychosocial History of Psychiatric Problem: No Integumentary History of Skin or Integumenta: No Blood Transfusions History of Blood Disorders: No Reviewed Nursing Assessment Reviewed/Agree w Nursing PMH: Yes Family Medical History Significant Family History: No Pertinent Family Hx Physical Exam Vital Signs Vital Sign - Last 12Hours 07/06/17 00:29 Temp 98.1 Pulse 106 Resp 22 B/P (MAP) 139/83 Pulse Ox 97 O2 Delivery Room Air Capillary Refill : Less Than 3 Seconds General Appearance: WD/WN, no apparent distress HEENT: PERRL/EOMI, pharynx normal Neck: full range of motion, supple Respiratory: no accessory muscle use, decreased breath sounds, wheezing, expiration Cardiovascular: no murmur, tachycardia Gastrointestinal: non tender, soft Extremities: non-tender, normal inspection Neurologic/Psychiatric: alert, oriented x 3 Skin: normal color, warm/dry Progress/Results/Core Measures Suspected Sepsis Recent Fever Within 48 Hours: Yes Infection Criteria Present: Suspected New Infection New/Unexplained Altered Menta: No Sepsis Screen: Possible Sepsis Risk Sepsis Diagnosis: SIRS Temperature:98.1 Pulse: 106 Respiratory Rate: 22 Laboratory Tests 07/06/17 02:57: White Blood Count 18.6H Blood Pressure 139 /83 Mean: 101 Laboratory Tests 07/06/17 02:57: Creatinine 0.81, Platelet Count 241, Total Bilirubin 0.4 Results/Orders Lab Results Laboratory Tests Test 07/06/17 02:57 Range/Units White Blood Count 18.6 H 4.3-11.0 10^3/uL Red Blood Count 4.46 4.35-5.85 10^6/uL Hemoglobin 14.2 13.3-17.7 G/DL Hematocrit 42 40-54 % Mean Corpuscular Volume 93 80-99 FL Mean Corpuscular Hemoglobin 32 25-34 PG Mean Corpuscular Hemoglobin Concent 34 32-36 G/DL Red Cell Distribution Width 13.5 10.0-14.5 % Platelet Count 241 130-400 10^3/uL Mean Platelet Volume 9.1 7.4-10.4 FL Neutrophils (%) (Auto) 83 H 42-75 % Lymphocytes (%) (Auto) 9 L 12-44 % Monocytes (%) (Auto) 8 0-12 % Eosinophils (%) (Auto) 0 0-10 % Basophils (%) (Auto) 0 0-10 % Neutrophils # (Auto) 15.4 H 1.8-7.8 X 10^3 Lymphocytes # (Auto) 1.6 1.0-4.0 X 10^3 Monocytes # (Auto) 1.4 H 0.0-1.0 X 10^3 Eosinophils # (Auto) 0.1 0.0-0.3 10^3/uL Basophils # (Auto) 0.0 0.0-0.1 10^3/uL Neutrophils % (Manual) 84 % Lymphocytes % (Manual) 10 % Monocytes % (Manual) 5 % Eosinophils % (Manual) 1 % Blood Morphology Comment NORMAL Sodium Level 138 135-145 MMOL/L Potassium Level 4.3 3.6-5.0 MMOL/L Chloride Level 103 98-107 MMOL/L Carbon Dioxide Level 24 21-32 MMOL/L Anion Gap 11 5-14 MMOL/L Blood Urea Nitrogen 20 H 7-18 MG/DL Creatinine 0.81 0.60-1.30 MG/DL Estimat Glomerular Filtration Rate > 60 BUN/Creatinine Ratio 25 Glucose Level 131 H 70-105 MG/DL Calcium Level 9.8 8.5-10.1 MG/DL Total Bilirubin 0.4 0.1-1.0 MG/DL Aspartate Amino Transf (AST/SGOT) 20 5-34 U/L Alanine Aminotransferase (ALT/SGPT) 25 0-55 U/L Alkaline Phosphatase 76 40-136 U/L Troponin I < 0.30 <0.30 NG/ML Total Protein 7.6 6.4-8.2 GM/DL Albumin 3.9 3.2-4.5 GM/DL My Orders Orders - HAMZAH MARTINEZ MD Chest Pa/Lat (2 View) (07/06/17 01:23) Cbc With Automated Diff (07/06/17 02:00) Comprehensive Metabolic Panel (07/06/17 02:00) Troponin I (07/06/17 02:00) Saline Lock/Iv-Start (07/06/17 02:00) Ns Iv 1000 Ml (Sodium Chloride 0.9%) (07/06/17 02:00) Albuterol/Ipra Inhalation Soln (Duoneb I (07/06/17 02:00) Svn Sm Volume Nebulizer Rt-Rfs (07/06/17 02:00) Manual Differential (07/06/17 02:57) Lactic Acid Analyzer (07/06/17 04:08) Blood Culture (07/06/17 04:08) Ceftriaxone Injection (Rocephin Injectio (07/06/17 04:15) Medications Given in ED Current Medications Medications Dose Ordered Sig/Elizabeth Route Start Time Stop Time Status Last Admin Dose Admin Albuterol/ Ipratropium 3 ml ONCE ONCE INH 07/06/17 02:00 07/06/17 02:02 DC 07/06/17 02:08 3 ML Sodium Chloride 1,000 ml @ 0 mls/hr Q0M ONCE IV 07/06/17 02:00 07/06/17 02:02 DC 07/06/17 02:58 1,000 MLS/HR Vital Signs/I&O Vital Sign - Last 12Hours 07/06/17 07/06/17 00:29 02:08 Temp 98.1 Pulse 106 Resp 22 B/P (MAP) 139/83 Pulse Ox 97 94 O2 Delivery Room Air Room Air Capillary Refill : Less Than 3 Seconds Blood Pressure Mean: 101 Progress Note : Progress Note Seen and evaluated. EKG and chest x-ray ordered. IV, labs, normal saline 1 L bolus and DuoNeb ordered. Monitor patient. Improved somewhat after DuoNeb. 0400: Labs noted to be significantly elevated with white blood cell count. There is question of retrocardiac pneumonia. Given the patient's diarrhea and respiratory distress as well as the need for oxygen currently, inpatient treatment is indicated. This was discussed with the patient and family who agree. I did discuss the case with Dr. Pilar Gardiner at [phone] and she accepts patient for admission, inpatient status. Blood cultures and lactic acid have been ordered and we will initiate Rocephin treatment for Rocephin and azithromycin community acquired pneumonia protocol. Patient is on O2 to keep sats greater than 92 percent. We will initiate RT mat protocol. ECG Initial ECG Impression Date: Jul 06, 2017 Initial ECG Impression Time: 01:09 Initial ECG Rate: 106 Diagnostic Imaging Diagonstic Imaging: Xray Plain Films/CT/US/NM/MRI: chest Comments Left lower lobe pneumonia. Reviewed: Reviewed by Me Departure Communication (Admissions) Time/Spoke to Admitting Phy: 04:08 Impression Impression: Primary Impression: Left lower lobe pneumonia Qualified Codes: J18.1 - Lobar pneumonia, unspecified organism Disposition: ADMITTED INPATIENT Condition: Stable Admissions Decision to Admit Reason: Admit from ER (General) Decision to Admit/Date: Jul 06, 2017 Time/Decision to Admit Time: 04:08 Departure-Patient Inst. Referrals: [facility] [place] (PCP/Family) Primary Care Physician HAMZAH MARTINEZ MD Jul 06, 2017 02:09
[2017-07-06 03:11] LABS: BASOPHILS % (AUTO) 0 % (0-10); EOSINOPHILS # (AUTO) 0.1 10^3/uL (0.0-0.3); EOSINOPHILS % (AUTO) 0 % (0-10); LYMPHOCYTES # (AUTO) 1.6 X 10^3 (1.0-4.0); LYMPHOCYTES % (AUTO) 9 % (12-44); MEAN CORPUSCULAR HEMOGLOBIN 32 PG (25-34); MEAN CORPUSCULAR HGB CONC 34 G/DL (32-36); MEAN CORPUSCULAR VOLUME 93 FL (80-99); MEAN PLATELET VOLUME 9.1 FL (7.4-10.4); MONOCYTES # (AUTO) 1.4 X 10^3 (0.0-1.0); MONOCYTES % (AUTO) 8 % (0-12); NEUTROPHILS # (AUTO) 15.4 X 10^3 (1.8-7.8); NEUTROPHILS % (AUTO) 83 % (42-75); PLATELET COUNT 241 10^3/uL (130-400); RED BLOOD COUNT 4.46 10^6/uL (4.35-5.85); RED CELL DISTRIBUTION WIDTH 13.5 % (10.0-14.5); WHITE BLOOD COUNT 18.6 10^3/uL (4.3-11.0)
[2017-07-06 03:28] LABS: ALANINE AMINOTRANSFERASE 25 U/L (0-55); ALBUMIN 3.9 GM/DL (3.2-4.5); ANION GAP 11 MMOL/L (5-14); ASPARTATE AMINO TRANSFERASE 20 U/L (5-34); BILIRUBIN,TOTAL 0.4 MG/DL (0.1-1.0); BLOOD UREA NITROGEN 20 MG/DL (7-18); BUN/CREATININE RATIO 25; CALCIUM 9.8 MG/DL (8.5-10.1); CARBON DIOXIDE 24 MMOL/L (21-32); CHLORIDE 103 MMOL/L (98-107); CREATININE SERUM 0.81 MG/DL (0.60-1.30); GFR ESTIMATED > 60; GLUCOSE 131 MG/DL (70-105); POTASSIUM 4.3 MMOL/L (3.6-5.0); SODIUM 138 MMOL/L (135-145); TOTAL PROTEIN 7.6 GM/DL (6.4-8.2)
[2017-07-06 03:29] LABS: EOSINOPHILS % (MANUAL) 1 %; LYMPHOCYTES % (MANUAL) 10 %; NEUTROPHILS % (MANUAL) 84 %
[2017-07-06 03:34] LABS: TROPONIN I < 0.30 NG/ML (<0.30)
[2017-07-06] MEDS ORDERED: cefTRIAXone INJECTION 1,000 MG in NS (IVPB) 50 ML IV ONE (04:15)
--- OUTSIDE RECORDS SUMMARY | 2017-07-06 05:01 | XMS REPORT | Continuity of Care Document ---
Author Author [facility] Address Unknown Phone Unavailable Allergies Active Description Code Type Severity Reaction Onset Reported/Identified Relationship to Patient Clinical Status Yes tramadol [id number] Drug Allergy Unknown N/A 07/04/2009 Yes oxycodone [id number] Drug Allergy Mild N/A 07/14/2009 Yes oxycodone [...] 24 hr Drug Allergy 12/08/2012 Yes oxycodone [id number] Drug Allergy Mild NAUSEA 01/31/2015 Yes No Known Drug Allergies [id number] Drug Allergy Unknown N/ A 07/06/2015 Medications [...] V58.69 taking high-risk medication 10/12/2008 BRAVO CASHERO SURGICAL SCRUB TECHNICIAN, CLARISSE N 272.4 HYPERLIPIDEMIA 10/12/2008 BRAVO CASHERO SURGICAL SCRUB TECHNICIAN, CLARISSE N 300.00 anxiety 10/12/2008 BRAVO CASHERO SURGICAL SCRUB TECHNICIAN, CLARISSE N 414.01 CORONARY ARTERY STENOSIS MULTI- VESSEL 10/12/2008 BRAVO CASHJIGNA SURGICAL SCRUB TECHNICIAN, CLARISSE N 465.9 Upper Respiratory Infection Acute 10/12/2008 BRAVO CASHDANIELLE BENITO APRNCY N 786.2 Cough 10/12/2008 BRAVO CASHERO SURGICAL SCRUB TECHNICIAN, CLARISSE N V58.69 taking high-risk medication 10/12/2008 [...] K V58.69 taking high-risk medication 10/12/2008 ECHO SURGICAL SCRUB TECHNICIAN, MATHEUS R 272.4 HYPERLIPIDEMIA 10/12/2008 ECHO SURGICAL SCRUB TECHNICIAN, MATHEUS R 300.00 anxiety 10/12/2008 ECHO SURGICAL SCRUB TECHNICIAN, MATHEUS R 414.01 CORONARY ARTERY STENOSIS MULTI-VESSEL 10/12/2008 ECHO SURGICAL SCRUB TECHNICIAN, MATHEUS R 465.9 Upper Respiratory Infection Acute 10/12/2008 ECHO SURGICAL SCRUB TECHNICIAN, MATHEUS R 786.2 Cough 10/12/2008 ECHO SURGICAL SCRUB TECHNICIAN, MATHEUS R V58.69 taking high-risk medication 10/12/2008 CHURCH DO, RIKA K 272.4 HYPERLIPIDEMIA 10/12/2008 CHURCH DO, RIKA K 300.00 anxiety 10/12/2008 CHURCH DO, RIKA K 414.01 CORONARY ARTERY STENOSIS MULTI-VESSEL 10/12/2008 CHURCH DO, RIKA K 465.9 Upper Respiratory Infection Acute 10/12/2008 CHURCH DO, RIKA K 786.2 Cough 10/12/2008 CHURCH DO, RIKA K V58.69 taking high-risk medication 10/12/2008 ECHO SURGICAL SCRUB TECHNICIAN, MATHEUS R 272.4 HYPERLIPIDEMIA 10/12/2008 ECHO SURGICAL SCRUB TECHNICIAN, MATHEUS R 300.00 anxiety 10/12/2008 ECHO SURGICAL SCRUB TECHNICIAN, MATHEUS R 414.01 CORONARY ARTERY STENOSIS MULTI-VESSEL 10/12/2008 ECHO SURGICAL SCRUB TECHNICIAN, MATHEUS R 465.9 Upper Respiratory Infection Acute 10/12/2008 ECHO SURGICAL SCRUB TECHNICIAN, MATHEUS R 786.2 Cough 10/12/2008 ECHO SURGICAL SCRUB TECHNICIAN, MATHEUS R V58.69 taking high-risk medication 10/12/2008 CHURCH DO, RIKA K 272.4 HYPERLIPIDEMIA 10/12/2008 CHURCH DO, RIKA K 300.00 anxiety 10/12/2008 CHURCH DO, RIKA K 414.01 CORONARY ARTERY STENOSIS MULTI-VESSEL 10/12/2008 CHURCH DO, RIKA K 465.9 Upper Respiratory Infection Acute 10/12/2008 CHURCH DO, RIKA K 786.2 Cough 10/12/2008 CHURCH DO, RIKA K V58.69 taking high-risk medication 10/12/2008 ROASLVA SURGICAL SCRUB TECHNICIAN, LINH S 272.4 HYPERLIPIDEMIA 10/12/2008 ROSALVA SURGICAL SCRUB TECHNICIAN, LINH S 300.00 anxiety 10/12/2008 ROSALVA SURGICAL SCRUB TECHNICIAN, LINH S 414.01 CORONARY ARTERY STENOSIS MULTI-VESSEL 10/12/2008 ROSALVA SURGICAL SCRUB TECHNICIAN, LINH S 465.9 Upper Respiratory Infection Acute 10/12/2008 ROSALVA SURGICAL SCRUB TECHNICIAN, LINH S 786.2 Cough 10/12/2008 ROSALVA SURGICAL SCRUB TECHNICIAN, LINH S V58.69 taking high-risk medication 12/15/2008 CHURCH DO, RIKA K 492.8 EMPHYSEMA OTHER 12/15/2008 CHURCH DO, RIKA K 492.8 EMPHYSEMA OTHER 12/15/2008 YON NIETO DO 492.8 EMPHYSEMA OTHER 12/15/2008 CUHRCH DO, RIKA K 492.8 Emphysema Other 12/15/2008 [...] RIKA K 492.8 Emphysema Other 12/15/2008 ECHO SURGICAL SCRUB TECHNICIAN, MATHEUS R 492.8 Emphysema Other 12/15/2008 CHURCH [...] RIKA K 788.64 Urinary Hesitancy 05/27/2009 ECHO SURGICAL SCRUB TECHNICIAN, MATHEUS R 788.64 Urinary Hesitancy 05/27/2009 CHURCH DO, RIKA K 788.64 Urinary Hesitancy 05/27/2009 ECHO SURGICAL SCRUB TECHNICIAN, MATHEUS R 788.64 Urinary Hesitancy 05/27/2009 CHURCH [...] HISTORY OF TOBACCO USE 10/14/2009 CHURCH DO, RIKA K 780.99 ANHEDONIA [...] DO, RIKA K 780.99 ANHEDONIA 10/14/2009 ECHO SURGICAL SCRUB TECHNICIAN, MATHEUS R 780.99 ANHEDONIA 10/14/2009 CHURCH DO, RIKA K 780.99 ANHEDONIA 10/14/2009 ECHO SURGICAL SCRUB TECHNICIAN, MATHEUS R 780.99 ANHEDONIA 10/14/2009 CHURCH DO, [...] K 311 MO DEPRESS NOS 10/28/2009 ECHO SURGICAL SCRUB TECHNICIAN, MATHEUS R 311 MO DEPRESS NOS 10/28/2009 CHURCH DO, RIKA K 311 MO DEPRESS NOS 10/28/2009 ECHO SURGICAL SCRUB TECHNICIAN, AMTHEUS R 311 MO DEPRESS NOS 10/28/2009 CHURCH [...] 786.05 Shortness Of Breath 12/16/2009 BRAVO CASHJIGNA SURGICAL SCRUB TECHNICIAN, CLARISSE N 780.8 GENERALIZED HYPERHIDROSIS 12/16/2009 BRAVO CASHERO SURGICAL SCRUB TECHNICIAN, CLARISSE N 786.05 Shortness Of Breath 12/16/2009 [...] K 786.05 Shortness Of Breath 12/16/2009 ECHO SURGICAL SCRUB TECHNICIAN, MATHEUS R 780.8 GENERALIZED HYPERHIDROSIS 12/16/2009 ECHO SURGICAL SCRUB TECHNICIAN, MATHEUS R 786.05 Shortness Of Breath 12/16/2009 CHURCH DO, RIKA K 780.8 GENERALIZED HYPERHIDROSIS 12/16/2009 CHURCH DO, RIKA K 786.05 Shortness Of Breath 12/16/2009 ECHO SURGICAL SCRUB TECHNICIAN, MATHEUS R 780.8 GENERALIZED HYPERHIDROSIS 12/16/2009 ECHO SURGICAL SCRUB TECHNICIAN, MATHEUS R 786.05 Shortness Of Breath 12/16/2009 CHURCH DO, RIKA K 780.8 GENERALIZED HYPERHIDROSIS 12/16/2009 CHURCH DO, RIKA K 786.05 Shortness Of Breath 12/16/2009 ROSALVA SURGICAL SCRUB TECHNICIAN, LINH S 780.8 GENERALIZED HYPERHIDROSIS 12/16/2009 ROSALVA SURGICAL SCRUB TECHNICIAN, LINH S 786.05 Shortness Of Breath 01/04/2010 [...] K 300.02 AN GEN ANXIETY 01/04/2010 CHURCH DOIRKA K 300.02 AN GEN ANXIETY 01/04/2010 CHURCH DORIKA K 300.02 AN GEN ANXIETY 01/04/2010 CHURCH DO, RIKA K 300.02 AN GEN ANXIETY 01/04/2010 SHELLY SOTELO SURGICAL SCRUB TECHNICIAN, CLARISSE N 300.02 AN GEN ANXIETY 01/04/2010 CHURCH DO, RIKA K 300.02 AN GEN ANXIETY 01/04/2010 CHURCH DO, RIKA K 300.02 AN GEN ANXIETY 01/04/2010 CHURCH DO, RIKA K 300.02 AN GEN ANXIETY 01/04/2010 CHURCH DO, RIKA K 300.02 AN GEN ANXIETY 01/04/2010 CHURCH DO, RIKA K 300.02 AN GEN ANXIETY 01/04/2010 ECHO SURGICAL SCRUB TECHNICIAN, MATHEUS R 300.02 AN GEN ANXIETY 01/04/2010 CHURCH DO, RIKA K 300.02 AN GEN ANXIETY 01/04/2010 ECHO SURGICAL SCRUB TECHNICIAN, MATHEUS R 300.02 AN GEN ANXIETY 01/04/2010 [...] RIKA K 709.9 Skin Lesions 03/02/2010 ECHO SURGICAL SCRUB TECHNICIAN, MATHEUS R 709.9 Skin Lesions 03/02/2010 CHURCH DO, RIKA K 709.9 Skin Lesions 03/02/2010 ECHO SURGICAL SCRUB TECHNICIAN, MATHEUS R 709.9 Skin Lesions 03/02/2010 CHURCH DO, RIKA K 709.9 Skin Lesions 03/02/2010 ROSALVA SURGICAL SCRUB TECHNICIAN, LINH S 709.9 Skin Lesions 05/03/2010 CHURCH [...] APRN N 724.2 Lower Back Pain 05/19/2010 CLRAISSE BAH APRN N 729.5 Pain In Limb [...] K 729.5 Pain In Limb 05/19/2010 ECHO SURGICAL SCRUB TECHNICIAN, MATHEUS R 724.2 Lower Back Pain 05/19/2010 ECHO SURGICAL SCRUB TECHNICIAN, MATHEUS R 729.5 Pain In Limb 05/19/2010 CHURCH DO, RIKA K 724.2 Lower Back Pain 05/19/2010 CHURCH DO, RIKA K 729.5 Pain In Limb 05/19/2010 ECHO SURGICAL SCRUB TECHNICIAN, MATHEUS R 724.2 Lower Back Pain 05/19/2010 ECHO SURGICAL SCRUB TECHNICIAN, MATHEUS R 729.5 Pain In Limb 05/19/2010 CHURCH DO, RIKA K 724.2 Lower Back Pain 05/19/2010 CHURCH DO, RIKA K 729.5 Pain In Limb 05/19/2010 ROSALVA SURGICAL SCRUB TECHNICIAN, LINH S 724.2 Lower Back Pain 05/19/2010 ROSALVA SURGICAL SCRUB TECHNICIAN, LINH S 729.5 Pain In Limb 07/05/2010 [...] 294.9 OR COG DIS NOS 07/05/2010 ECHO SURGICAL SCRUB TECHNICIAN, MATHEUS R 294.9 OR COG DIS NOS 07/05/2010 CHURCH DO, RIKA K 294.9 OR COG DIS NOS 07/05/2010 ECHO SURGICAL SCRUB TECHNICIAN, MATHEUS R 294.9 OR COG DIS NOS 07/05/2010 CHURCH DO, RIKA K 294.9 OR COG DIS NOS 07/05/2010 ROSALVA SURGICAL SCRUB TECHNICIAN, LINH S 294.9 OR COG DIS NOS [...] 496 CHRONIC OBSTRUCTIVE PULMONARY DISEASE 07/19/2010 ECHO SURGICAL SCRUB TECHNICIANDARLENEMATHEUS R 496 CHRONIC OBSTRUCTIVE PULMONARY DISEASE 07/19/2010 CHURCH DO, RIKA K 496 CHRONIC OBSTRUCTIVE PULMONARY DISEASE 07/19/2010 ECHO SURGICAL SCRUB TECHNICIAN MATHEUS R 496 CHRONIC OBSTRUCTIVE PULMONARY DISEASE [...] RIKA K 401.1 HYPERTENSION, BENIGN ESSENTIAL 09/20/2010 CUHRCH DO, RIKA K 401.1 HYPERTENSION, BENIGN ESSENTIAL [...] K 780.39 Convulsions [as Sx] 10/20/2010 ROSALVA SURGICAL SCRUB TECHNICIAN, LINH S 780.39 Convulsions [as Sx] 04/18/2011 [...] 296.32 MO DEPRESSIVE RECURRENT MODERATE 04/18/2011 ECHO SURGICAL SCRUB TECHNICIAN, MATHEUS R 296.32 MO DEPRESSIVE RECURRENT MODERATE 04/18/2011 CHURCH DO, RIKA K 296.32 MO DEPRESSIVE RECURRENT MODERATE 04/18/2011 ECHO SURGICAL SCRUB TECHNICIAN, MATHEUS R 296.32 MO DEPRESSIVE RECURRENT MODERATE [...] V45.81 POSTSURGICAL AORTOCORONARY BYPASS STATUS 04/25/2011 ECHO SURGICAL SCRUB TECHNICIAN, MATHEUS R 296.90 Episodic Mood Disorders 04/25/2011 ECHO SURGICAL SCRUB TECHNICIAN, MATHEUS R 414.00 CAD 04/25/2011 ECHO SURGICAL SCRUB TECHNICIAN, MATHEUS R V45.81 POSTSURGICAL AORTOCORONARY BYPASS STATUS 04/25/2011 CHURCH DO, RIKA K 296.90 Episodic Mood Disorders 04/25/2011 CHURCH DO, RIKA K 414.00 CAD 04/25/2011 CHURCH DO, RIKA K V45.81 POSTSURGICAL AORTOCORONARY BYPASS STATUS 04/25/2011 ECHO SURGICAL SCRUB TECHNICIAN, MATHEUS R 296.90 Episodic Mood Disorders 04/25/2011 ECHO SURGICAL SCRUB TECHNICIAN, MATHEUS R 414.00 CAD 04/25/2011 ECHO SURGICAL SCRUB TECHNICIAN, MATHEUS R V45.81 POSTSURGICAL AORTOCORONARY BYPASS STATUS 04/25/2011 CHURCH DO, RIKA K 296.90 Episodic Mood Disorders 04/25/2011 CHURCH DO, RIKA K 414.00 CAD 04/25/2011 CHURCH DO, RIKA K V45.81 POSTSURGICAL AORTOCORONARY BYPASS STATUS 04/25/2011 ROSALVA SURGICAL SCRUB TECHNICIAN, LINH S 296.90 Episodic Mood Disorders 04/25/2011 ROSALVA LIZARRAGAN, LINH S 414.00 CAD 04/25/2011 ROSALVA SURGICAL SCRUB TECHNICIAN, LINH S V45.81 POSTSURGICAL AORTOCORONARY BYPASS STATUS [...] DO, RIKA K 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 11/08/2011 CEHO LIZARRAGAN, MATHEUS R 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 11/08/2011 [...] 331.83 Cognitive Functions Current Level Impaired 11/22/2011 LIHN BLACKWELL APRN 331.83 Cognitive Functions Current Level [...] RIKA K 345.90 SEIZURE DISORDER 12/21/2011 ECHO SURGICAL SCRUB TECHNICIAN, MATHEUS R 345.90 SEIZURE DISORDER 12/21/2011 CHURCH DO, RIKA K 345.90 SEIZURE DISORDER 12/21/2011 ECHO SURGICAL SCRUB TECHNICIAN, MATHEUS R 345.90 SEIZURE DISORDER 12/21/2011 CHURCH [...] K 307.47 SI DYSSOMNIA NOS 01/16/2012 ECHO SURGICAL SCRUB TECHNICIAN, MATHEUS R 307.47 SI DYSSOMNIA NOS 01/16/2012 CHURCH DO, RIKA K 307.47 SI DYSSOMNIA NOS 01/16/2012 ECHO SURGICAL SCRUB TECHNICIAN, MATHEUS R 307.47 SI DYSSOMNIA NOS 01/16/2012 [...] K 787.20 Dysphagia, Unspecified 02/04/2012 SHELLY SOTELO SURGICAL SCRUB TECHNICIAN, CLARISSE N 530.81 GERD 02/04/2012 BRAVOROBERTO SOTELO SURGICAL SCRUB TECHNICIAN, CLARISSE N 787.1 Heartburn 02/04/2012 BRAVO MASSAPEQUA PARKERO SURGICAL SCRUB TECHNICIAN, CLARISSE N 787.20 Dysphagia, Unspecified 02/04/2012 CHURCH [...] RIKA K 787.20 Dysphagia, Unspecified 02/04/2012 ECHO SURGICAL SCRUB TECHNICIAN, MATHEUS R 530.81 GERD 02/04/2012 ECHO SURGICAL SCRUB TECHNICIAN, MATHEUS R 787.1 Heartburn 02/04/2012 ECHO SURGICAL SCRUB TECHNICIAN, MATHEUS R 787.20 Dysphagia, Unspecified 02/04/2012 CHURCH DO, RIKA K 530.81 GERD 02/04/2012 CHURCH DO, RIKA K 787.1 Heartburn 02/04/2012 CHURCH DO, RIKA K 787.20 Dysphagia, Unspecified 02/04/2012 ECHO SURGICAL SCRUB TECHNICIAN, MATHEUS R 530.81 GERD 02/04/2012 ECHO SURGICAL SCRUB TECHNICIAN, MATHEUS R 787.1 Heartburn 02/04/2012 ECHO SURGICAL SCRUB TECHNICIAN, MATHEUS R 787.20 Dysphagia, Unspecified 02/04/2012 CHURCH DO, RIKA K 530.81 GERD 02/04/2012 CHURCH DO, RIKA K 787.1 Heartburn 02/04/2012 CHURCH DO, RIKA K 787.20 Dysphagia, Unspecified 02/04/2012 ROSALVA SURGICAL SCRUB TECHNICIAN, LINH S 530.81 GERD 02/04/2012 ROSALVA SURGICAL SCRUB TECHNICIAN, LINH S 787.1 Heartburn 02/04/2012 ROSALVA SURGICAL SCRUB TECHNICIAN, LINH S 787.20 Dysphagia, Unspecified 04/21/2012 CHURCH [...] In Joint Site Unspecified 04/21/2012 CHURCH DO, RKIA K 305.20 NONDEPENDENT CANNABIS ABUSE UNSPECIFIED USE [...] Pain In Joint Site Unspecified 04/21/2012 ECHO SURGICAL SCRUB TECHNICIAN, MATHEUS R 305.20 NONDEPENDENT CANNABIS ABUSE UNSPECIFIED USE 04/21/2012 ECHO SURGICAL SCRUB TECHNICIAN, MATHEUS R 338.29 OTHER CHRONIC PAIN 04/21/2012 ECHO SURGICAL SCRUB TECHNICIAN, MATHEUS R 461.9 Sinusitis Acute 04/21/2012 ECHO SURGICAL SCRUB TECHNICIAN, MATHEUS R 719.40 Pain In Joint Site Unspecified 04/21/2012 CHURCH DO RIKA K 305.20 NONDEPENDENT CANNABIS ABUSE UNSPECIFIED USE 04/21/2012 CHURCH DO, RIKA K 338.29 OTHER CHRONIC PAIN 04/21/2012 CHURCH DO, RIKA K 461.9 Sinusitis Acute 04/21/2012 CHURCH DO, RIKA K 719.40 Pain In Joint Site Unspecified 04/21/2012 ECHO SURGICAL SCRUB TECHNICIAN, MATHEUS R 305.20 NONDEPENDENT CANNABIS ABUSE UNSPECIFIED USE 04/21/2012 ECHO SURGICAL SCRUB TECHNICIAN, MATHEUS R 338.29 OTHER CHRONIC PAIN 04/21/2012 ECHO SURGICAL SCRUB TECHNICIAN, MATHEUS R 461.9 Sinusitis Acute 04/21/2012 ECHO SURGICAL SCRUB TECHNICIAN, MATHEUS R 719.40 Pain In Joint Site Unspecified 04/21/2012 CHURCH DO, RIKA K 305.20 NONDEPENDENT CANNABIS ABUSE UNSPECIFIED USE 04/21/2012 CHURCH DO, RIKA K 338.29 OTHER CHRONIC PAIN 04/21/2012 CHURCH DO, RIKA K 461.9 Sinusitis Acute 04/21/2012 CHURCH DO, RIKA K 719.40 Pain In Joint Site Unspecified 04/21/2012 ROSALVA SURGICAL SCRUB TECHNICIAN, LINH S 305.20 NONDEPENDENT CANNABIS ABUSE UNSPECIFIED USE 04/21/2012 ROSALVA SURGICAL SCRUB TECHNICIAN, LINH S 338.29 OTHER CHRONIC PAIN 04/21/2012 ROSALVA SURGICAL SCRUB TECHNICIAN, LINH S 461.9 Sinusitis Acute 04/21/2012 ROSALVA SURGICAL SCRUB TECHNICIAN, LINH S 719.40 Pain In Joint Site [...] RIKA K 309.81 AN PTSD 05/23/2012 ECHO SURGICAL SCRUB TECHNICIAN MATHEUS R 309.81 AN PTSD 05/23/2012 CHURCH [...] 381.81 Eustachian Tube Dysfunction 06/06/2012 SHELLY SOTELO SURGICAL SCRUB TECHNICIAN, CLARISSE N 381.4 Otitis Media Nonsuppurative Serous 06/06/2012 BRAVO CASHERO SURGICAL SCRUB TECHNICIAN, CLARISSE N 381.81 Eustachian Tube Dysfunction 06/06/2012 [...] K 381.81 Eustachian Tube Dysfunction 06/06/2012 ECHO SURGICAL SCRUB TECHNICIAN, MATHEUS R 381.4 Otitis Media Nonsuppurative Serous 06/06/2012 ECHO SURGICAL SCRUB TECHNICIAN, MATHEUS R 381.81 Eustachian Tube Dysfunction 06/06/2012 CHURCH DO, RIKA K 381.4 Otitis Media Nonsuppurative Serous 06/06/2012 CHURCH DO, RIKA K 381.81 Eustachian Tube Dysfunction 06/06/2012 ECHO SURGICAL SCRUB TECHNICIAN, MATHEUS R 381.4 Otitis Media Nonsuppurative Serous 06/06/2012 ECHO SURGICAL SCRUB TECHNICIAN, MATHEUS R 381.81 Eustachian Tube Dysfunction 06/06/2012 [...] K 780.57 SLEEP APNEA 08/23/2012 CHURCH DO RIAK K 780.57 SLEEP APNEA 08/23/2012 CHURCH DO, RIKA K 780.57 SLEEP APNEA 08/23/2012 CLARISSE BAH APRN 780.57 SLEEP APNEA 08/23/2012 CHURCH DO RIKA K 780.57 SLEEP APNEA 08/23/2012 CHURCH DO, RIKA K 780.57 SLEEP APNEA 08/23/2012 CHURCH DO, RIKA K 780.57 SLEEP APNEA 08/23/2012 CHURCH DO RIKA K 780.57 SLEEP APNEA 08/23/2012 CHURCH DO RIKA K 780.57 SLEEP APNEA 08/23/2012 ECHO SURGICAL SCRUB TECHNICIAN, MATHEUS R 780.57 SLEEP APNEA 08/23/2012 CHURCH DO, RIKA K 780.57 SLEEP APNEA 08/23/2012 ECHO SURGICAL SCRUB TECHNICIAN, MATHEUS R 780.57 SLEEP APNEA 08/23/2012 CHURCH [...] RIKA K 786.07 WHEEZING 01/12/2013 SHELLY SOTELO SURGICAL SCRUB TECHNICIANCLARISSE Phillips N 786.07 WHEEZING 01/12/2013 CHURCH DO, [...] K 786.50 CHEST PAIN 03/18/2013 CHURCH DO, IRKA K 786.50 CHEST PAIN 03/18/2013 CHURCH DO, [...] FACCP CCDS Ot 414.01 CORONARY ATHEROSCLEROSIS OF [place] CORON 03/31/2013 LOUISA RUIZ FACC, RONDA FACP [...] OF ASPIRIN 03/31/2013 RONDA ARREOLA MD, [facility] V58.69 OT MED,LT,CURRENT USE [...] 728.85 SPASM OF MUSCLE 04/22/2013 BRAVO CASHERO SURGICAL SCRUB TECHNICIAN, CLARISSE N 466.0 BRONCHITIS, ACUTE 04/22/2013 BRAVO CASHERO SURGICAL SCRUB TECHNICIAN, CLARISSE N 728.85 SPASM OF MUSCLE 04/22/2013 [...] K 728.85 SPASM OF MUSCLE 04/22/2013 ECHO SURGICAL SCRUB TECHNICIAN, MATHEUS R 466.0 BRONCHITIS, ACUTE 04/22/2013 ECHO SURGICAL SCRUB TECHNICIAN, MATHEUS R 728.85 SPASM OF MUSCLE 04/22/2013 CHURCH DO, RIKA K 466.0 BRONCHITIS, ACUTE 04/22/2013 CHURCH DO, RIKA K 728.85 SPASM OF MUSCLE 04/22/2013 ECHO SURGICAL SCRUB TECHNICIAN, MATHEUS R 466.0 BRONCHITIS, ACUTE 04/22/2013 ECHO SURGICAL SCRUB TECHNICIAN, MATHEUS R 728.85 SPASM OF MUSCLE 04/22/2013 CHURCH DO, RIKA K 466.0 BRONCHITIS, ACUTE 04/22/2013 CHURCH DO, RIKA K 728.85 SPASM OF MUSCLE 04/22/2013 ROSALVA SURGICAL SCRUB TECHNICIAN, LINH S 466.0 BRONCHITIS, ACUTE 04/22/2013 ROSALVA SURGICAL SCRUB TECHNICIAN, LINH S 728.85 SPASM OF MUSCLE 06/15/2013 [...] V65.42 COUNSELING - SMOKING CESSATION 06/15/2013 ECHO SURGICAL SCRUB TECHNICIAN MATHEUS R V65.42 COUNSELING - SMOKING CESSATION [...] 789.00 ABDOMINAL PAIN UNSPECIFIED SITE 09/10/2013 ECHO SURGICAL SCRUB TECHNICIAN, MATHEUS R 487.1 INFLUENZA WITH OTHER RESPIRATORY MANIFESTATIONS 09/10/2013 ECHO SURGICAL SCRUB TECHNICIAN, MATHEUS R 789.00 ABDOMINAL PAIN UNSPECIFIED SITE 09/10/2013 CHURCH DO, RIKA K 487.1 INFLUENZA WITH OTHER RESPIRATORY MANIFESTATIONS 09/10/2013 CHURCH DO, RIKA K 789.00 ABDOMINAL PAIN UNSPECIFIED SITE 09/10/2013 ECHO SURGICAL SCRUB TECHNICIAN, MATHEUS R 487.1 INFLUENZA WITH OTHER RESPIRATORY MANIFESTATIONS 09/10/2013 ECHO SURGICAL SCRUB TECHNICIAN, MATHEUS R 789.00 ABDOMINAL PAIN UNSPECIFIED SITE 09/10/2013 CHURCH DO, RIKA K 487.1 INFLUENZA WITH OTHER RESPIRATORY MANIFESTATIONS 09/10/2013 CHURCH DO, RIKA K 789.00 ABDOMINAL PAIN UNSPECIFIED SITE 09/10/2013 ROSALVA SWEENEY, LINH S 487.1 INFLUENZA WITH OTHER RESPIRATORY MANIFESTATIONS 09/10/2013 ROSALVA SURGICAL SCRUB TECHNICIAN, LINH S 789.00 ABDOMINAL PAIN UNSPECIFIED SITE 12/04/2013 CHURCH DO, RIKA K 466.0 BRONCHITIS, ACUTE 12/04/2013 CHURCH DO, RIKA K 466.0 BRONCHITIS, ACUTE 12/04/2013 ECHO SURGICAL SCRUB TECHNICIAN, MATHEUS R 466.0 BRONCHITIS, ACUTE 12/04/2013 CHURCH DO, RIKA K 466.0 BRONCHITIS, ACUTE 12/04/2013 ECHO SURGICAL SCRUB TECHNICIAN, MATHEUS R 466.0 BRONCHITIS, ACUTE 12/04/2013 CHURCH DO, RIKA K 466.0 BRONCHITIS, ACUTE 12/04/2013 ROSALVA SURGICAL SCRUB TECHNICIAN, LINH S 466.0 BRONCHITIS, ACUTE 12/07/2013 CHURCH DO, RIKA K 729.5 PAIN IN LIMB 12/07/2013 CHURCH DO, RIKA K 780.52 INSOMNIA UNSPECIFIED 12/07/2013 CHURCH DO, RIKA K V76.44 SCREENING FOR MALIGNANT NEOPLASMS OF THE PROSTATE 12/07/2013 CHURCH DO, RIKA K V76.51 COLON CANCER SCREENING 12/07/2013 ECHO SURGICAL SCRUB TECHNICIAN, MATHEUS R 729.5 PAIN IN LIMB 12/07/2013 ECHO SURGICAL SCRUB TECHNICIAN, MATHEUS R 780.52 INSOMNIA UNSPECIFIED 12/07/2013 ECHO SURGICAL SCRUB TECHNICIAN, MATHEUS R V76.44 SCREENING FOR MALIGNANT NEOPLASMS OF THE PROSTATE 12/07/2013 ECHO SURGICAL SCRUB TECHNICIAN, MATHEUS R V76.51 COLON CANCER SCREENING 12/07/2013 CHURCH DO, RIKA K 729.5 PAIN IN LIMB 12/07/2013 CHURCH DO, RIKA K 780.52 INSOMNIA UNSPECIFIED 12/07/2013 CHURCH DO, RIKA K V76.44 SCREENING FOR MALIGNANT NEOPLASMS OF THE PROSTATE 12/07/2013 CHURCH DO, RIKA K V76.51 COLON CANCER SCREENING 12/07/2013 ECHO SURGICAL SCRUB TECHNICIAN, MATHEUS R 729.5 PAIN IN LIMB 12/07/2013 ECHO SURGICAL SCRUB TECHNICIAN, MATHEUS R 780.52 INSOMNIA UNSPECIFIED 12/07/2013 ECHO SURGICAL SCRUB TECHNICIAN, MATHEUS R V76.44 SCREENING FOR MALIGNANT NEOPLASMS OF THE PROSTATE 12/07/2013 ECHO SURGICAL SCRUB TECHNICIAN, MATHEUS R V76.51 COLON CANCER SCREENING 12/07/2013 [...] LINH S 780.52 INSOMNIA UNSPECIFIED 12/07/2013 ROSALVA SURGICAL SCRUB TECHNICIAN, LINH S V76.44 SCREENING FOR MALIGNANT NEOPLASMS OF THE PROSTATE 12/07/2013 ROSALVA SWEENEY LINH S V76.51 COLON CANCER SCREENING 12/22/2013 ECHO LIZARRAGAN, MATHEUS R 786.09 RESPIRATORY ABNORMALITY OTHER 12/22/2013 ECHO LIZARRAGAN, MATHEUS R 786.2 COUGH 12/22/2013 CHURCH DO, RIKA K 786.09 RESPIRATORY ABNORMALITY OTHER 12/22/2013 CHURCH DO, RIKA K 786.2 COUGH 12/22/2013 ECHO LIZARRAGAN, MATHEUS R 786.09 RESPIRATORY ABNORMALITY OTHER 12/22/2013 ECHO SURGICAL SCRUB TECHNICIAN, MATHEUS R 786.2 COUGH 12/22/2013 CHURCH DO, [...] GATES PA, CARLENE M Ot V58.69 01/31/2015 ROSALINO RUIZ, CARLENE Vasquez Ot 729.5 PAIN IN LIMB 01/31/2015 ROSALINO RUIZ, CARLENE Vasquez Ot 845.00 SPRAIN OF ANKLE NOS [...] 07/06/2015 Ot V58.66 07/06/2015 Ot V58.69 07/06/2015 OKDY DORMAN, CARLENE M Ot 272.4 07/06/2015 OKDY PA, CARLENE M Ot 401.1 07/06/2015 KODY [...] DISEASE 05/24/2016 Ot 414.01 CORONARY ATHEROSCLEROSIS OF [place] CORON 05/24/2016 Ot 416.8 CHR PULMON HEART DIS NEC 05/24/2016 Ot 424.0 MITRAL VALVE DISORDER 05/24/2016 Ot 786.50 CHEST PAIN NOS 05/24/2016 Ot V45.81 AORTOCORONARY BYPASS 05/24/2016 Ot V58.66 LONG-TERM (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 05/24/2016 Ot V58.69 OTH MED,LT,CURRENT USE 05/24/2016 CARLENE ORTA Ot 272.4 HYPERLIPIDEMIA NEC/NOS 05/24/2016 CARLENE ORTA Ot 401.1 BENIGN HYPERTENSION 05/24/2016 CARLENE ORTA Ot 414.01 CORONARY ATHEROSCLEROSIS OF [place] CORON 05/24/2016 CARLENE ORTA Ot 496 CHR [...] DISEASE 05/29/2016 Ot 414.01 CORONARY ATHEROSCLEROSIS OF [place] CORON 05/29/2016 Ot 416.8 CHR PULMON HEART DIS NEC 05/29/2016 Ot 424.0 MITRAL VALVE DISORDER 05/29/2016 Ot 786.50 CHEST PAIN NOS 05/29/2016 Ot V45.81 AORTOCORONARY BYPASS 05/29/2016 Ot V58.66 LONG-TERM (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 05/29/2016 Ot V58.69 OTH MED,LT,CURRENT USE 05/29/2016 CARLENE ORTA Ot 272.4 HYPERLIPIDEMIA NEC/NOS 05/29/2016 CARLENE ORTA Ot 401.1 BENIGN HYPERTENSION 05/29/2016 CARLENE ORTA Ot 414.01 CORONARY ATHEROSCLEROSIS OF [place] CORON 05/29/2016 CARLENE ORTA Ot 496 CHR [...] DISEASE 05/29/2016 Ot 414.01 CORONARY ATHEROSCLEROSIS OF [place] CORON 05/29/2016 Ot 416.8 CHR PULMON HEART DIS NEC 05/29/2016 Ot 424.0 MITRAL VALVE DISORDER 05/29/2016 Ot 786.50 CHEST PAIN NOS 05/29/2016 Ot V45.81 AORTOCORONARY BYPASS 05/29/2016 Ot V58.66 LONG-TERM (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 05/29/2016 Ot V58.69 OTH MED,LT,CURRENT USE 05/29/2016 CARLENE ORTA Ot 272.4 HYPERLIPIDEMIA NEC/NOS 05/29/2016 CARLENE ORTA Ot 401.1 BENIGN HYPERTENSION 05/29/2016 CARLENE ORTA Ot 414.01 CORONARY ATHEROSCLEROSIS OF [place] CORON 05/29/2016 CARLENE ORTA Ot 496 CHR [...] DISEASE 05/30/2016 Ot 414.01 CORONARY ATHEROSCLEROSIS OF [place] CORON 05/30/2016 Ot 416.8 CHR PULMON HEART DIS NEC 05/30/2016 Ot 424.0 MITRAL VALVE DISORDER 05/30/2016 Ot 786.50 CHEST PAIN NOS 05/30/2016 Ot V45.81 AORTOCORONARY BYPASS 05/30/2016 Ot V58.66 LONG-TERM (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 05/30/2016 Ot V58.69 OTH MED,LT,CURRENT USE 05/30/2016 CARLENE ORTA Ot 272.4 HYPERLIPIDEMIA NEC/NOS 05/30/2016 CARLENE ORTA Ot 401.1 BENIGN HYPERTENSION 05/30/2016 CARLENE ORTA Ot 414.01 CORONARY ATHEROSCLEROSIS OF [place] CORON 05/30/2016 CARLENE ORTA Ot 496 CHR AIRWAY OBSTRUCT NEC 05/30/2016 CARLENE ORTA Ot 530.81 ESOPHAGEAL REFLUX 05/30/2016 CARLENE ORTA Ot V58.69 OTH MED,LT,CURRENT USE 05/30/2016 BAIMA, JOSE ANTONIO L QUALITY ASSURANCE LAB TECHNICIAN Ot R07.9 CHEST PAIN, UNSPECIFIED 06/05/2016 BAIMA, JOSE ANTONIO L QUALITY ASSURANCE LAB TECHNICIAN Ot R07.9 CHEST PAIN, UNSPECIFIED 06/06/2016 BAIMA, JOSE ANTONIO L QUALITY ASSURANCE LAB TECHNICIAN Ot R07.9 CHEST PAIN, UNSPECIFIED 06/06/2016 BAIMA, JOSE ANTONIO L QUALITY ASSURANCE LAB TECHNICIAN Ot R07.9 CHEST PAIN, UNSPECIFIED 06/13/2016 BAIMA, JOSE ANTONIO L QUALITY ASSURANCE LAB TECHNICIAN Ot R07.9 CHEST PAIN, UNSPECIFIED 08/15/2016 BAIMA, JOSE ANTONIO L QUALITY ASSURANCE LAB TECHNICIAN Ot R20.0 ANESTHESIA OF SKIN 08/15/2016 BAIMA, JOSE ANTONIO L QUALITY ASSURANCE LAB TECHNICIAN Ot R22.43 LOCALIZED SWELLING, MASS AND LUMP, [...] DISEASE 08/30/2016 Ot 414.01 CORONARY ATHEROSCLEROSIS OF [place] CORON 08/30/2016 Ot 416.8 CHR PULMON HEART DIS NEC 08/30/2016 Ot 424.0 MITRAL VALVE DISORDER 08/30/2016 Ot 786.50 CHEST PAIN NOS 08/30/2016 Ot V45.81 AORTOCORONARY BYPASS 08/30/2016 Ot V58.66 LONG-TERM (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 08/30/2016 Ot V58.69 OTH MED,LT,CURRENT USE 08/30/2016 CARLENE ORTA Ot 272.4 HYPERLIPIDEMIA NEC/NOS 08/30/2016 CARLENE ORTA Ot 401.1 BENIGN HYPERTENSION 08/30/2016 CARLENE ORTA Ot 414.01 CORONARY ATHEROSCLEROSIS OF [place] CORON 08/30/2016 CARLENE ORTA Ot 496 CHR AIRWAY OBSTRUCT NEC 08/30/2016 CARLENE ORTA Ot 530.81 ESOPHAGEAL REFLUX 08/30/2016 CARLENE ORTA Ot V58.69 OTH MED,LT,CURRENT USE 08/30/2016 BAIMA, JOSE ANTONIO L QUALITY ASSURANCE LAB TECHNICIAN Ot R07.9 CHEST PAIN, UNSPECIFIED 08/30/2016 BAIMA, JOSE ANTONIO L QUALITY ASSURANCE LAB TECHNICIAN Ot R07.9 CHEST PAIN, UNSPECIFIED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
[2017-07-06] MEDS ORDERED: NS IV 1000 ML 1,000 ML ONE (05:11)
[2017-07-06] MEDS ORDERED: HYDROcodone/APAP 5 MG/325 MG (LORTAB) TAB PO ONE (05:30)
[2017-07-06] MEDS ORDERED: AZITHROMYCIN 500 MG/NS 250 ML IVPB IV ONE ×2 (06:15)
[2017-07-06] MEDS ORDERED: NS IV 1000 ML 1,000 ML IV SCH (06:15)
[2017-07-06] MEDS ORDERED: ONDANSETRON 4 MG/2 ML (SDV) Z0FRAN IV PRN (06:15)
[2017-07-06] MEDS ORDERED: CATHETER FLUSH 10 ML SYR IV PRN (06:15)
[2017-07-06] MEDS: morphine INJ 4 MG/ML 1 ML (VIAL/SYRINGE) IVP PRN ×3 (07:13→13:54)
[2017-07-06] MEDS ORDERED: INFLUENZA TRIvalent 2017-2018 0.5 ML/45 MCG SYR IM ONE (08:00)
[2017-07-06] MEDS ORDERED: RT-ALBUTEROL/IPRATROPIUM 3 ML (DUONEB) VIAL INH PRN (08:45)
--- NOTE | 2017-07-06 10:04 | Diagnostic Imaging Report ---
INDICATION: Shortness of breath. COMPARISON: 06/11/2017. FINDINGS: Sternal wires are midline. There is partial atelectasis in the left lower lobe. There is flattening of the diaphragms and chronic air trapping. The heart size is within normal limits. Sternal wires are midline. No overt vascular congestion. IMPRESSION: Mild left basilar atelectasis with chronic COPD. Dictated by: Dictated on workstation # [id number]
[2017-07-06] MEDS: RT-ALBUTEROL/IPRATROPIUM 3 ML (DUONEB) VIAL INH SCH ×4 (10:39→22:21)
[2017-07-06] MEDS: CATHETER FLUSH 10 ML SYR IV SCH ×2 (14:40→22:48)
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
[2017-07-06] MEDS: IBUPROFEN 800 MG (MOTRIN) TAB PO PRN (15:40)
[2017-07-06] MEDS: methylPREDNISolone 40 MG/ML (Solu-MEDROL) VIAL IV SCH ×2 (15:40→22:48)
[2017-07-06] MEDS: HYDROcodone/APAP 5 MG/325 MG (LORTAB) TAB PO PRN ×2 (15:40→21:14)
[2017-07-06] MEDS ORDERED: ROSUVASTATIN 20 MG (CRESTOR) TABLET PO SCH (21:00)
[2017-07-07] MEDS: RT-ALBUTEROL/IPRATROPIUM 3 ML (DUONEB) VIAL INH SCH ×4 (02:24→14:13)
[2017-07-07] MEDS: IBUPROFEN 800 MG (MOTRIN) TAB PO PRN (02:34)
[2017-07-07 04:15] VITALS: BP 135/58
[2017-07-07] MEDS ORDERED: cefTRIAXone INJECTION 1,000 MG in NS (IVPB) 50 ML IV SCH (05:00)
[2017-07-07] MEDS: CATHETER FLUSH 10 ML SYR IV SCH ×2 (05:53→10:35)
[2017-07-07] MEDS: methylPREDNISolone 40 MG/ML (Solu-MEDROL) VIAL IV SCH ×2 (05:53→12:26)
[2017-07-07 05:57] LABS: MEAN PLATELET VOLUME 8.9 FL (7.4-10.4); RED BLOOD COUNT 3.96 10^6/uL (4.35-5.85); RED CELL DISTRIBUTION WIDTH 13.3 % (10.0-14.5); WHITE BLOOD COUNT 16.1 10^3/uL (4.3-11.0)
[2017-07-07 06:19] LABS: ANION GAP 9 MMOL/L (5-14); BLOOD UREA NITROGEN 15 MG/DL (7-18); BUN/CREATININE RATIO 21; CALCIUM 8.8 MG/DL (8.5-10.1); CARBON DIOXIDE 23 MMOL/L (21-32); CHLORIDE 105 MMOL/L (98-107); CREATININE SERUM 0.72 MG/DL (0.60-1.30); GFR ESTIMATED > 60; GLUCOSE 171 MG/DL (70-105); POTASSIUM 3.9 MMOL/L (3.6-5.0); SODIUM 137 MMOL/L (135-145)
[2017-07-07 08:00] VITALS: BP 108/58
[2017-07-07] MEDS ORDERED: AZITHROMYCIN 250 MG TAB (ZITHROMAX) PO SCH (09:00)
[2017-07-07] MEDS ORDERED: HYDR-3820 PO (11:40)
[2017-07-07] MEDS ORDERED: TIZA4TAB3 PO (11:40)
[2017-07-07] MEDS ORDERED: GABA600T2 PO (11:40)
[2017-07-07] MEDS ORDERED: CYCL10TA9 PO (11:40)
[2017-07-07] MEDS ORDERED: CELE-63 PO (11:40)
[2017-07-07] MEDS ORDERED: MELO15TA39 PO (11:40)
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
[2017-07-07] MEDS ORDERED: VILA40TA PO (11:56)
[2017-07-07] MEDS ORDERED: METO-333 PO (11:56)
[2017-07-07] MEDS ORDERED: ROSU40TA20 PO (11:56)
[2017-07-07] MEDS ORDERED: TAMS0.4C2 PO (11:59)
[2017-07-07] MEDS ORDERED: ASPI-983 PO (11:59)
[2017-07-07] MEDS ORDERED: PRD20T PO (12:34)
[2017-07-07] MEDS ORDERED: AZIT250T12 PO (12:37)
[2017-07-07] MEDS ORDERED: CEFP200T2 PO (12:39)
--- NOTE | 2017-07-07 14:40 | Discharge Instructions ---
Discharge [facility] Discharge Medications New, Converted or Re-Newed RX: Transmitted to Pharmacy New Medications: Azithromycin (Azithromycin) 250 Mg Tablet 250 MG PO DAILY for 5 Days, #5 TAB Cefpodoxime Proxetil (Cefpodoxime Proxetil) 200 Mg Tablet 200 MG PO BID for 7 Days, #14 TAB Prednisone (Prednisone) 20 Mg Tab 40 MG PO DAILY for 5 Days, #10 TAB Continued Medications: Aspirin (Aspirin EC) 81 Mg Tablet.dr 81 MG PO DAILY, TAB Celecoxib (Celecoxib) 200 Mg Capsule 200 MG PO DAILY Cyclobenzaprine HCl (Cyclobenzaprine HCl) 10 Mg Tablet 10 MG PO TID LAST FILLED 05/06/17 #90 Gabapentin (Gabapentin) 600 Mg Tablet 1200 MG PO TID TAKES 2 (600 MG) TABLETS Hydrocodone/Acetaminophen (Hydrocodon-Acetaminophn 10-325) 1 Each Tablet 1 TAB PO Q6H PRN for PAIN-MODERATE Metoprolol Tartrate (Metoprolol Tartrate) 25 Mg Tablet 12.5 MG PO BID TAKES 1/2 OF A (25 MG) TABLET / LAST FILLED 01/17/17 #30 Rosuvastatin Calcium (Rosuvastatin Calcium) 40 Mg Tablet 40 MG PO HS LAST FILLED 01/17/17 #30 Tamsulosin HCl (Tamsulosin HCl) 0.4 Mg Cap.er.24h 0.4 MG PO DAILY LAST FILLED 04/08/17 #30 Tizanidine HCl (Tizanidine HCl) 4 Mg Tablet 4 MG PO TID PRN for MUSCLE SPASMS Vilazodone Hydrochloride (Viibryd) 40 Mg Tablet 40 MG PO DAILY, TAB Discontinued Medications: Meloxicam (Meloxicam) 15 Mg Tablet 15 MG PO DAILY Patient Instructions Goal/Follow Up Appt: A [facility] NURSE WILL CALL YOU ON SATURDAY WITH AN APPOINTMENT WITH [facility] FOR HOSPITAL FOLLOW UP. Patient Instructions: PLEASE TAKE ALL ANTIBIOTICS AND STEROIDS PRESCRIBED. STOP SMOKING ENTIRELY THIS IS CONTINUING TO WORSEN YOUR LUNG FUNCTION. DO NOT TAKE BOTH CELECOXIB (CELEBREX) AND MELOXICAM - THESE ARE BOTH ANTI-INFLAMMATORIES AND CAN HURT YOUR KIDNEYS WHEN TAKEN TOGETHER. Return to [facility] For: FEVER, SHORTNESS OF BREATH Activity & Diet Discharge Diet: No Restrictions Activity as Tolerated: Yes Orders-Post D/C & Referrals Pneu Vac Indicated: Yes Copy Copies To 1: KAYLA GREGORY APRN, MD Jul 07, 2017 11:43 am
[2017-07-07 15:05] VITALS: BP 108/58
== END 2017-07-07 15:05 | disposition home or self-care (01) | DRG 872 ==
LOC: EDUNIT# 23:51 → ER 23:53 → 4TH 07-06 04:08
PROVIDERS: ADMIT Pediatrics; ATTEND Pediatrics
DX: A41.9 Sepsis, unspecified organism (principal); J43.9 Emphysema, unspecified; I25.10 Atherosclerotic heart disease of native coronary artery without angina pectoris; E78.00 Pure hypercholesterolemia, unspecified; I10 Essential (primary) hypertension; F17.210 Nicotine dependence, cigarettes, uncomplicated; G89.29 Other chronic pain; Z95.1 Presence of aortocoronary bypass graft
CPT/HCPCS: 36415; 71020; 80048; 80053; 80306; 83605; 84484; 85007; 85027; 87040; 94640; 94760

== ENCOUNTER 2018-04-25 14:03 | Inpatient (IN) | payer OTHER ==
[~2018-04-25] VITALS: Ht 175.3 cm; Wt 98.4 kg
[~2018-04-25 14:03] MED LIST changes: +ASPI-983 PO; +AZIT250T12 PO; +CEFP200T2 PO; +CELE-63 PO; +CYCL10TA9 PO; +GABA600T2 PO; +HYDR-3820 PO; +MELO15TA39 PO; +METO-333 PO; +PRD20T PO; +ROSU40TA22 PO; +TAMS0.4C2 PO; +TIZA4TAB3 PO; +VILA40TA PO
--- OUTSIDE RECORDS SUMMARY | 2018-04-25 14:08 | XMS REPORT ---
Author Author RAKAN AYALA Organization [facility] Address [address] [place] [address] Care Team Providers Care Bank Vault Custodian Name Role Phone RAKAN AYALA Unavailable PROBLEMS Type Condition ICD9-CM Code FIP59-RP Code Onset Dates Condition Status SNOMED Code Problem Essential hypertension I10 Active 56077438 Problem Cellulitis of left arm L03.114 Active [id number] Problem COPD (chronic obstructive pulmonary disease) with acute bronchitis J44.0 Active [id number] Problem CAD (coronary artery disease) I25.10 Active 02097530 Problem Hyperlipemia E78.5 Active 25646239 Problem Midline low back pain with right-sided sciatica M54.41 Active 040503025 Problem COPD (chronic obstructive pulmonary disease) J44.9 Active 77510441 Problem Panlobular emphysema J43.1 Active 8794623 Problem Nocturnal leg cramps G47.62 Active 796005121 Problem Polyneuropathy G62.9 Active 60701813 Problem Neuropathy G62.9 Active 979613662 Problem Arthritis M19.90 Active 4256629 ALLERGIES No Information ENCOUNTERS Encounter Location Date Diagnosis [place] [id number] [address] Jun, [facility] [id number] [place] [address] 00291- 8125 Apr, Arthritis M19.90 [facility] [address] [place] [address] 98697- 7541 Mar, Boil, leg L02.429 ; Back muscle spasm M62.830 and Muscle spasms of both lower extremities M62.838 [facility] [address], [place] [address] 79[address] Feb, [facility] [id number] [place] [address] 66897- 6152 Feb, [place] [address] [address] [id number] [place] [address] 61906- 9658 Jan, Arthritis M19.90 [place] [address] [id number] [place] [address] 35249- 0421 December, Right leg swelling M79.89 ; Left leg swelling M79.89 ; CAD ( coronary artery disease) I25.10 ; Essential hypertension I10 ; Bilateral leg numbness R20.0 and Exertional dyspnea R06.09 [place] [address] [id number] [place] [address] 46567- 2996 Oct, [place] [address] [id number] [place] [address] 43302- 3596 Oct, [place] [address] [id number] [place] [address] 26535- 8391 Sep, Pain in right hip M25.551 ; Pain in left hip M25.552 and Suprapubic pain R10.2 [place] [address] [id number] [place] [address] 04758- 7079 Sep, Midline low back pain with right-sided sciatica M54.41 [place] [address] [id number] [place] [address] 79288- 3766 Aug, Midline low back pain with right-sided sciatica M54.41 and Arthritis M19.90 [place] [address] [id number] [place] [address] 84140- 7032 Jul, Impingement syndrome, shoulder, left M75.42 and Sprain of ligament of cervical spine region S13.4XXA [place] [address] [id number] [place] [address] 69332- 6520 Jul, COPD (chronic obstructive pulmonary disease) J44.9 [place] [address] [place] [id number] [place] [address] 76041- 4444 Jul, [place] [address] [place] [id number] [place] [address]- 7207 Jul, [facility] [id number] [place] [address] 73400- 6996 Jun, Elbow pain, right M25.521 ; Pain of left clavicle M89.8X1 ; Panlobular emphysema J43.1 and Encounter for immunization Z23 [facility] [address] [id number] Jun, [facility] [address] 55537- 8326 Jun, Clavicle pain M89.8X1 [place] [address] 08398- 7982 Jun, [place] [address] 83452- 8005 May, Neuropathy G62.9 ; Arthritis M19.90 and Nocturnal leg cramps G47.62 [facility] JENNY CLIFFORDE [id number] [place] [address] Apr [facility] [id number] [place] [address] 38105- 0100 December, [facility] [id number] [place] [address] 17308 -0141 Nov, Gastroenteritis and colitis, viral A08.4 [facility] [address] [id number] [place] [address] 81841- 0339 Oct, [facility] [id number] [place] [address] 59276- 5591 Sep, [facility] [address] 79276- 4290 Sep, Low back pain M54.5 and Other chronic pain G89.29 [facility] [address] [place] [id number] [place] [address] 68573- 1321 Sep, [facility] [address] [address] [id number] [place] [address] 04628- 5059 Aug, [place] [address] 12695- 4879 Jul, Vision changes H53.9 and Polyneuropathy G62.9 [place] [address] 71677- 1083 Jun, [place] [address] 89251- 2166 Jun, Left leg swelling M79.89 ; Right leg swelling M79.89 ; Bilateral leg numbness R20.0 ; CAD (coronary artery disease) I25.10 ; Essential hypertension I10 and Exertional dyspnea R06.09 [facility] [place] [address] 05243 -3936 Jun, Cellulitis of left arm L03.114 [place] [address] 07481- 3861 Jun, [place] [address] [place] [id number] [place] [address] 47234- 9446 May, Chest pain, unspecified type R07.9 ; Exertional dyspnea R06.09 ; CAD (coronary artery disease) I25.10 and Essential hypertension I10 [facility] [place] [address] [id number] [place] [address] 11412 -4563 December, Acute right-sided low back pain without sciatica M54.5 [place] [address] [place] [id number] [place] [address] 20405- 2411 Sep, Low back pain M54.5 [place] [address] 11102- 4748 Aug, Bilateral low back pain with sciatica, sciatica laterality unspecified M54.40 and Polyneuropathy G62.9 [place] [address] [place] [id number] [place] [address] 27425- 5905 Aug, Upper respiratory tract infection, unspecified type 465.9 [place] [address] [place] [id number] [place] [address] 98033- 2734 14 Jul, 2015 Midline low back pain with right-sided sciatica M54.41 [place] [address] [place] [id number] [place] [address] 04707- 2308 10 Jul, 2015 Right knee pain M25.561 and Knee swelling, right M25.461 [place] [address] [place] [id number] [place] [address] 30197- 4137 30 Jun, 2015 Low back pain M54.5 and Sciatica, unspecified side M54.30 [place] [address] [place] [id number] [place] [address] 40017- 3584 30 May, 2015 Arthritis M19.90 [place] [address] [place] [id number] [place] [address] 80333- 0876 14 May, 2015 Upper respiratory tract infection, unspecified upper respiratory infection J06.9 [place] [address] [id number] [place] [address] 43471- 2993 14 May, 2015 CAD (coronary artery disease) I25.10 ; Hyperlipemia E78.5 and COPD (chronic obstructive pulmonary disease) J44.9 [place] [address] [place] [id number] [place] [address] 51970- 3433 30 Apr, 2015 Arthritis 716.90 [place] [address] [place] [id number] [place] [address] 70404- 6491 Apr, [place] [address] [place] [id number] [place] [address] 45530- 5748 Apr, [place] [address] [place] [id number] [place] [address] 81832- 2962 14 Apr, 2015 [place] [address] [place] [id number] [place] [address] 85593- 2596 14 Apr, 2015 Hypertension 401.9 and Hyperlipidemia 272.4 [place] [address] [place] [id number] [place] [address] 62967- 2912 14 Apr, 2015 [facility] [address] [facility] [id number] [place] [address]- 6466 14 Apr, 2015 Hypertension 401.9 and Hyperlipidemia 272.4 [facility] [address] [id number] [place] [address]- 3496 08 Apr, 2015 [facility] [address] [facility] [id number] [place] [address]- 5203 Mar, Arthritis 716.90 [facility] [address] [id number] [place] [address]- 2657 Feb, [facility] [address] [id number] [place] [address], [place] [address]- 8663 Nov, [facility] [address] [facility] [id number] [place] [address]- 7689 Nov, [facility] [address] [place] [id number] [place] [address]- 6134 Oct, [facility] [address] [facility] [id number] [place] [address]- 3377 Oct, [facility] [address] [facility] [id number] [place] [address]- 3535 Jul, [facility] [address] [facility] [id number] [place] [address]- 1904 Jul, [facility] [address] [facility] [id number] [place] [address]- 4467 Jun, [facility] [address] [facility] [id number] [address]- 8734 Jun, [facility] [place] [facility] [address] [facility] [id number] [place] [address]- 2088 Jun, [facility] [place] [facility] [address] [facility] [id number] [place] 6221 Jun, [facility] [address] [facility] [id number] [address]- 3906 May, [facility] [place] [facility] [address] [id number] [place] [address]- 0738 May, [facility] [place] [facility] [address] [id number] [place] [address]- 5159 May, [facility] [place] [facility] [address] [id number] [place] [address]- 8244 May, [facility] [place] [facility] [address] [id number] [place] [address]- 5891 May, [facility] [place] [facility] [address] [id number] [place] [address]- 8313 Mar, [facility] [place] [facility] [address] [id number] [place] [address]- 8155 Mar, [facility] [place] [facility] [address] [id number] [place] [address]- 7013 Mar, [facility] [place] [facility] [address] [id number] [place] [address]- 4419 Mar, [facility] [place] [facility] [address] [id number] [place] [address]- 9223 Feb, [facility] [place] [facility] [address] [id number] [place] [address]- 1225 Feb, [facility] [place] [facility] [address] [id number] [place] [address]- 9630 Feb, [facility] [place] [facility] [address] [id number] [place] [address]- 0358 Feb, [facility] [place] [facility] [address] [id number] [place] [address]- 2522 Feb, [facility] [place] [facility] [address] [id number] [place] [address]- 1006 Feb, [facility] [place] [facility] [address] [id number] [place] [address]- 9470 Feb, [facility] [place] [facility] [address] [id number] [place] [address]- 5010 December, [facility] [place] [facility] [address] [id number] [place] [address]- 8222 December, [facility] [place] [facility] [address] [id number] [place] [address]- 0535 December, [facility] [place] [facility] [address] [id number] [place] [address]- 7387 December, [facility] [place] [facility] [address] [id number] [place] [address]- 0175 December, [facility] [place] [facility] [address] [id number] [place] [address]- 8900 December, [facility] [place] [facility] [address] [id number] [place] [address]- 7405 December, [facility] [place] [facility] [address] [id number] [place] [address]- 7170 December, [facility] [place] [facility] [address] [id number] [place] [address]- 8793 December, [facility] [place] [facility] [address] [id number] [place] [address]- 2768 December, [facility] [place] [facility] [address] [id number] [place] [address]- 3301 December, [facility] [place] [facility] [address] [id number] [place] [address]- 5114 Nov, [facility] [place] [facility] [address] [id number] [place] [address]- 8119 Nov, [facility] [place] [facility] [address] [id number] [place] [address]- 5511 Nov, [facility] [place] [facility] [address] [id number] [place] [address]- 9494 Nov, [facility] [place] [facility] [address] [id number] [place] [address]- 0790 Nov, [facility] [place] [facility] [address] [id number] [place] [address]- 4823 21 Nov, 2013 [facility] [place] [facility] [address] [id number] [place] [address]- 9065 21 Nov, 2013 [facility] [place] [facility] [address] [id number] [place] [address]- 8676 18 Nov, 2013 [facility] [place] [facility] [address] [id number] [place] [address]- 7156 15 Nov, 2013 [facility] [place] [facility] [address] [id number] [place] [address]- 5413 15 Nov, 2013 [facility] [place] [facility] [address] [id number] [place] [address]- 6936 14 Nov, 2013 [facility] [place] [facility] [address] [id number] [place] [address]- 5885 14 Nov, 2013 [facility] [place] [facility] [address] [id number] [place] [address]- 9684 11 Nov, 2013 [facility] [address] [id number] [place] [address]- 3160 11 Nov, 2013 [facility] [place] [facility] [address] [id number] [place] [address]- 5584 10 Oct, 2013 [facility] [place] [facility] [address] [id number] [place] [address]- 7302 10 Oct, 2013 [facility] [place] [facility] [address] [id number] [place] [address]- 7965 10 Oct, 2013 [facility] [place] [facility] [address] [id number] [place] [address]- 1361 10 Oct, 2013 [facility] [place] [facility] [address] [id number] [place] [address]- 7792 07 Oct, 2013 [facility] [place] [facility] [address] [id number] [place] [address]- 2316 07 Oct, 2013 [facility] [place] [facility] [address] [id number] [place] [address]- 1117 Oct, [facility] [place] [facility] [address] [id number] [place] [address]- 1404 Oct, [facility] [place] [facility] [address] [id number] [place] [address]- 2483 Oct, [facility] [place] [facility] [address] [id number] [place] [address]- 1148 Oct, [facility] [place] [facility] [address] [id number] [place] [address]- 9141 Oct, [facility] [place] [facility] [address] [id number] [place] [address]- 1257 Sep, [facility] [place] [facility] [address] [id number] [place] [address]- 0388 Sep, [facility] [place] [facility] [address] [id number] [place] [address]- 8854 Sep, [facility] [place] [facility] [address] [id number] [place] [address]- 1021 Sep, [facility] [place] [facility] [address] [id number] [place] [address]- 4062 Aug, [facility] [place] [facility] [address] [id number] [place] [address]- 8572 Aug, [facility] [place] [facility] [address] [id number] [place] [address]- 1798 Aug, [facility] [place] [facility] [address] [id number] [place] [address]- 2794 Aug, [facility] [place] [facility] [address] [id number] [place] [address]- 8086 Aug, [facility] [place] [facility] [address] [id number] [place] [address]- 5062 Aug, [facility] [place] [facility] [address] [id number] [place] [address]- 8935 Aug, [facility] [place] [facility] [address] [id number] [place] [address]- 9589 Aug, [facility] [address] [id number] [place] [address]- 3724 Jul, [facility] [place] [facility] [address] [id number] [place] 0905 Jul, [facility] [address] [id number] [place] [address]- 4487 Jul, [facility] [place] [facility] [address] [id number] [place] [address]- 6631 Jul, [facility] [address] [id number] [place] [address]- 1086 Jul, [facility] [place] [facility] [address] [id number] [place] [address]- 1875 Jul, [facility] [address] [id number] [place] [address]- 8120 Jun, [facility] [place] [facility] [address] [id number] [place] [address]- 3829 Jun, [facility] [place] [facility] [address] [id number] [place] [address]- 2634 Jun, [facility] [place] [facility] [address] [facility] [id number] [place] [address]- 3651 Jun, [facility] [place] [facility] [address] [id number] [place] [address]- 1383 May, [facility] [place] [facility] [address] [id number] [place] [address]- 7911 May, [facility] [place] [facility] [address] [id number] [place] [address]- 2684 02 May, 2013 [facility] [place] [facility] [address] [id number] [place] [address]- 5857 30 Apr, 2013 [facility] [place] [facility] [address] [id number] [place] [address]- 8446 24 Apr, 2013 [facility] [place] [facility] [address] [id number] [place] [address]- 2136 Apr, [facility] [address] [id number] [place] [address]- 8376 Apr, [facility] [address] [id number] [place] [address] 2544 Apr, [facility] [address] [id number] [place] [address]- 5341 Mar, [facility] [address] [id number] [place] [address]- 2750 Mar, [facility] [address] [id number] [place] [address]- 4980 Mar, [facility] [address] [id number] [place] [address]- 6861 Mar, [facility] [address] [id number] [place] [address]- 9139 Feb, [facility] [address] [id number] [place] [address]- 9345 Jan, [facility] [address] [id number] [place] [address]- 6143 December, [facility] [address] [id number] [place] [address]- 7000 December, [facility] [address] [id number] [place] [address]- 3144 December, [facility] [address] [id number] [place] [address]- 3596 December, [facility] [place] [facility] [address] [id number] [place] [address]- 4236 December, [facility] [address] [id number] [place] [address]- 2546 December, [facility] [address] [id number], [place] [address]- 2034 December, [facility] [address] [id number] [place] [address]- 1359 29 Nov, 2012 [facility] [address] [id number] [place] [address]- 6939 25 Nov, 2012 [facility] [address] [id number] [place] [address]- 6237 16 Nov, 2012 [facility] [address] [id number] [place] [address]- 5538 15 Nov, 2012 [facility] [address] [id number] [place] [address] 15 Nov, 2012 [facility] [address] [id number] [place] [address] 14 Oct, 2012 [facility] [address] [facility] [id number] [place] [address] Oct, [facility] [address] [id number] [place] [address] 07 Oct, 2012 [facility] [address] [id number] [place] [address] 04 Oct, 2012 [facility] [address] [facility] [id number] [place] [address] 20 Sep, 2012 [facility] [address] [id number] [place] [address] 14 Sep, 2012 [facility] [place] [facility] [address] [id number] [place] [address] 14 Sep, 2012 [facility] [place] [facility] [address] [id number] [place] [address] Sep, [facility] [place] [facility] [address] [id number] [place] [address] 08 Sep, 2012 [facility] [place] [facility] [address] [facility] [id number] [address] Sep, [facility] [place] [facility] [address] [id number] [place] [address] Aug, [facility] [address] [id number] [place] [address] Aug, [facility] [place] [facility] [address] [id number] [place] [address] Aug, [facility] [address] [id number] [place] [address] Aug, [facility] [address] [id number] [place] [address] Aug, [facility] [address] [id number] [place] [address] Jul, [facility] [address] [id number] [place] [address] Jul, [facility] [address] [id number] [place] [address] Jul, [facility] [address] [id number] [place] [address] Jul, [facility] [address] [id number] [place] [address] Jul, [facility] [address] [id number] [place] [address] Jul, [facility] [address] [id number] [place] [address] Jul, [facility] [place] [facility] [address] [id number] [place] [address] Jul, [facility] [place] [facility] [address] [id number] [place] [address] Jun, [facility] [place] [facility] [address] [id number] [place] [address] Jun, [facility] [place] [facility] [address] [id number], [place] [address] Jun, [facility] [place] [facility] [address] [id number] [place] [address] Jun, [facility] [place] [facility] [address] [id number] [place] [address] Jun, [facility] [place] [facility] [address] [facility] [id number] [place] [address] Jun, [facility] [place] [facility] [address] [id number], [place] [address] Jun, [facility] [place] [facility] [address] [id number] [place] [address] Jun, [facility] [place] [facility] [address] [id number] [place] [address]- [address] Jun, [facility] [place] [facility] [address] [id number], [place] [address] Jun, [facility] [place] [facility] [address] [id number], [place] [address] Jun, [facility] [place] [facility] [address] [id number], [place] [address] Jun, [facility] [place] [facility] [address] [id number][place] [address] Jun, [facility] [place] [facility] [address] [id number], [place] [address] Jun, [facility] [place] [facility] [address] [id number], [place] [address] Jun, [facility] [place] [facility] [address] [id number], [place] [address] Jun, [facility] [place] [facility] [address] [facility] [id number], [place] [address] May, [facility] [place] [facility] [address] [id number], [place] [address] May, [facility] [place] [facility] [address] [id number] [place] [address] 12 May, 2012 [facility] [place] [facility] [address] [id number] [place] [address] May, [facility] [place] [facility] [address] [id number] [place] [address]- [address] 08 May, 2012 [facility] [place] [facility] [address] [id number] [place] [address] 02 May, 2012 [facility] [place] [facility] [address] [id number] [place] [address]- [address] 28 Apr, 2012 [facility] [place] [facility] [address] [id number] [place] [address]- [address] 27 Apr, 2012 [facility] [place] [facility] [address] [id number] [place] [address] 15 Apr, 2012 [facility] [place] [facility] [address] [id number] [place] [address] 11 Apr, 2012 [facility] [place] [facility] [address] [id number] [place] [address] 10 Apr, 2012 [facility] [place] [facility] [address] [id number] [place] [address] 29 Mar, 2012 [facility] [place] [facility] [address] [id number] [place] [address] Mar, [facility] [place] [facility] [address] [id number] [place] [address] 2547 Mar, [facility] [place] [facility] [address] [id number] [place] [address] Mar, [facility] [place] [facility] [address] [id number] [place] [address] Mar, [facility] [place] [facility] [address] [id number] [place] [address] Mar, [facility] [place] [facility] [address] [id number] [place] [address]100 Mar, [facility] [place] [facility] [address] [id number] [place] [address] Feb, [facility] [place] [facility] [address] [id number] [place] [address] Feb, [facility] [place] [facility] [address] [id number] [place] [address] 48[address] Feb, [facility] [place] [facility] [address] [id number] [place] [address] Feb, [facility] [place] [facility] [address] [id number] [place] [address] Jan, [facility] [place] [facility] [address] [id number] [place] [address] Jan, [facility] [place] [facility] [address] [id number] [place] [address] Jan, [facility] [place] [facility] [address] [id number] [place] [address] 4027 Jan, [facility] [place] [facility] [address] [id number] [place] [address] 1053 Jan, [facility] [place] [facility] [address] [id number] [place] [address]- 07[address] Jan, [facility] [place] [facility] [address] [id number] [place] [address] 37[address] December, [facility] [place] [facility] [address] [id number] [place] [address] 4[address] December, [facility] [place] [facility] [address] [id number] [place] [address] 8[address] December, [facility] [place] [facility] [address] [id number] [place] [address]6 December, [facility] [place] [facility] [address] [id number] [place] [address]- 289[address] December, [facility] [place] [facility] [address] [id number] [place] [address]- 70[address] December, [facility] [address] [id number] [place] [address] 98[address] December, [facility] [place] [facility] [address] [id number] [place] [address] Nov, [facility] [address] [id number] [place] [address] 4689 Nov, [facility] [place] [facility] [address] [id number] [place] [address] Nov, [facility] [address] [id number] [place] [address] 16[address] Nov, [facility] [place] [facility] [address] [id number] [place] [address] 67[address] Nov, [facility] [address] [id number] [place] [address] Nov, [facility] [place] [facility] [address] [id number] [place] [address]- 6397 Nov, [facility] [address] [id number] [place] [address]147 Oct, [facility] [place] [facility] [address] [facility] [id number] [place] [address] Oct, [facility] [place] [facility] [address] [id number] [place] [address] 2764 Oct, [facility] [place] [facility] [address] [facility] [id number] [place] [address] Oct, [facility] [place] [facility] [address] [id number] [place] [address] 0604 Sep, [facility] [place] [facility] [address] [id number] [place] [address] 6137 Sep, [facility] [place] [facility] [address] [id number] [place] [address]- [address] 14 Sep, 2011 [facility] [place] [facility] [address] [id number] [place] [address]- [address]36 07 Sep, 2011 [facility] [place] [facility] [address] [id number] [place] [address]- 5046 Sep, [facility] [place] [facility] [address] [id number] [place] [address]- 4626 Sep, [facility] [place] [facility] [address] [id number] [place] [address]- [address]256 Sep, [facility] [address] [id number] [place] [address]- 2295 Aug, [facility] [place] [facility] [address] [id number] [place] [address] 7704 Aug, [facility] [address] [id number] [place] [address]- [address]64 Aug, [facility] [address] [id number] [place] [address]- 8573 Jul, [facility] [place] [facility] [address] [id number] [place] [address]- 7040 Jul, [facility] [place] [facility] [address] [id number] [place] [address]- 6067 Jul, [facility] [place] [facility] [address] [id number] [place] [address]- [address] Jul, [facility] [place] [facility] [address] [id number] [place] [address]- 6495 Jul, [facility] [place] [facility] [address] [id number] [place] [address]- [address]336 Jul, [facility] [place] [facility] [address] [id number] [place] [address]- 7207 Jun, [facility] [place] [facility] [address] [id number] [place] [address]- 1076 Jun, [facility] [place] [facility] [address] [id number] [address]- [address]70 14 May, 2011 [facility] [address] [id number] [place] [address]- 1172 10 May, 2011 [facility] [place] [facility] [address] [id number] [place] [address]- 9985 14 Apr, 2011 [facility] [place] [facility] [address] [id number] [place] [address]- 9807 11 Oct, 2010 [facility] [place] [facility] [address] [id number] [place] [address]- 5917 22 Jul, 2010 [facility] [place] [facility] [address] [id number] [place] [address]- 3259 14 Jul, 2010 [facility] [place] [facility] [address] [id number] [place] [address]- 6423 08 Jul, 2010 [facility] [place] [facility] [address] [id number] [place] [address]- 2234 24 Jun, 2010 [facility] [place] [facility] [address] [id number] [place] [address]- 4329 15 Jun, 2010 [facility] [place] [facility] [address] [id number] [place] [address]- 0578 09 Jun, 2010 [facility] [place] [facility] [address] [id number] [place] [address]- 3903 11 May, 2010 [facility] [place] [facility] [address] [id number], [place] [address] 15 Jan, 2010 [facility] [place] [facility] [address] [id number], [place] [address]- [address] December, [facility] [place] [facility] [address] [id number] [place] [address]- [address] 29 Jul, 2009 [facility] [place] [facility] [address] [id number] [place] [address]- 6309 17 Jul, 2009 [facility] [place] [facility] [address] [id number] [place] [address] Jul, [facility] [place] [facility] [address] [facility] [id number] [place] [address]- [address] May, [facility] [address] [facility] [id number] [place] [address]- 6921 May, [facility] [address] [facility] [id number] [place] [address] 4061 May, IMMUNIZATIONS No Known Immunizations SOCIAL HISTORY Never Assessed REASON FOR VISIT Medication question PLAN OF CARE VITAL SIGNS MEDICATIONS Unknown Medications RESULTS No Results PROCEDURES No Known procedures INSTRUCTIONS MEDICATIONS ADMINISTERED No Known Medications MEDICAL (GENERAL) HISTORY Type Description Date Medical [...] History surgeries Hospitalization History kidney stone ER Hospitalization History Herniated disc/Sciatic Nerve Pain 06/2015 Hospitalization History sepsis, Acute bacterial exac of bronchitis-[facility]
--- OUTSIDE RECORDS SUMMARY | 2018-04-25 14:09 | XMS REPORT ---
Author Author DANNI CHING [facility] [address] Address [address] [place] [address] Care Team Providers Care Wood Floor Layer Name Role Phone DANNI CHING Unavailable PROBLEMS Type Condition ICD9-CM Code SIX17-DY Code Onset Dates Condition Status SNOMED Code Problem Essential hypertension I10 Active 10052735 Problem Cellulitis of left arm L03.114 Active [id number] Problem COPD (chronic obstructive pulmonary disease) with acute bronchitis J44.0 Active 242617057107123 Problem CAD (coronary artery disease) I25.10 Active 74803268 Problem Hyperlipemia E78.5 Active 61388685 Problem Midline low back pain with right-sided sciatica M54.41 Active 111022258 Problem COPD (chronic obstructive pulmonary disease) J44.9 Active 11691106 Problem Panlobular emphysema J43.1 Active 7286414 Problem Nocturnal leg cramps G47.62 Active 566615830 Problem Polyneuropathy G62.9 Active 79549384 Problem Neuropathy G62.9 Active 413686908 Problem Arthritis M19.90 Active 8557383 ALLERGIES No Information ENCOUNTERS Encounter Location Date Diagnosis [facility] [address] [address] Jun, [facility] [id number] [place] [address] 98414- 3026 Apr, [facility] [id number] [place] [address] 48348- 4348 Mar, Boil, leg L02.429 ; Back muscle spasm M62.830 and Muscle spasms of both lower extremities M62.838 [facility] [address], [place] [address] Feb, [facility] [id number] [place] [address] 56257- 5510 Feb, [place] [id number] [place] [address] 75097- 3004 Jan, Arthritis M19.90 [facility] [place] [id number] [place] [address] 71939- 7885 December, Right leg swelling M79.89 ; Left leg swelling M79.89 ; CAD ( coronary artery disease) I25.10 ; Essential hypertension I10 ; Bilateral leg numbness R20.0 and Exertional dyspnea R06.09 [place] [id number] [place] [address] 88243- 1326 Oct, [place] [id number] [place] [address] 28978- 0375 Oct, [place] [id number] [place] [address] 56089- 9076 Sep, Pain in right hip M25.551 ; Pain in left hip M25.552 and Suprapubic pain R10.2 [place] [id number] [place] [address] 73936- 1756 Sep, Midline low back pain with right-sided sciatica M54.41 [facility] [id number] [place] [address] 41301- 2954 Aug, Midline low back pain with right-sided sciatica M54.41 and Arthritis M19.90 [facility] [id number] [place] [address] 58873- 4688 Jul, Impingement syndrome, shoulder, left M75.42 and Sprain of ligament of cervical spine region S13.4XXA [place] [id number] [place] [address] 23195- 6829 Jul, COPD (chronic obstructive pulmonary disease) J44.9 [place] [id number] [place] [address] 98334- 0221 Jul, [place] [address] [place] [address] Jul, [facility] [id number] [place] [address] 97279- 3740 Jun, Elbow pain, right M25.521 ; Pain of left clavicle M89.8X1 ; Panlobular emphysema J43.1 and Encounter for immunization Z23 [facility] [address] [id number] Jun, [facility] [address] 95926- 1226 Jun, Clavicle pain M89.8X1 [place] [address] 80764- 7385 Jun, [place] [address] 65180- 3745 May, Neuropathy G62.9 ; Arthritis M19.90 and Nocturnal leg cramps G47.62 [facility] [id number] [place] [address] [facility] [address] 18912- 4182 December, [facility] [id number] [place] [address] 20762 -3520 Nov, Gastroenteritis and colitis, viral A08.4 [facility] [id number] [place] [address] 72048- 4828 Oct, [facility] [id number] [place] [address] 41198- 5259 Sep, [facility] [address] 57175- 7409 Sep, Low back pain M54.5 and Other chronic pain G89.29 [facility] [id number] [place] [address] 42469- 5851 Sep, [facility] [id number] [place] [address] 19331- 0441 Aug, [place] [address] 49058- 9426 Jul, Vision changes H53.9 and Polyneuropathy G62.9 [place] [address] 78514- 8232 Jun, [place] [address] 00963- 1998 Jun, Left leg swelling M79.89 ; Right leg swelling M79.89 ; Bilateral leg numbness R20.0 ; CAD (coronary artery disease) I25.10 ; Essential hypertension I10 and Exertional dyspnea R06.09 [facility] [place] [id number] [place] [address] 94221 -1341 Jun, Cellulitis of left arm L03.114 [place] [address] 07988- 7780 Jun, [place] [id number] [place] [address] 31385- 3532 May, Chest pain, unspecified type R07.9 ; Exertional dyspnea R06.09 ; CAD (coronary artery disease) I25.10 and Essential hypertension I10 [facility] [place] [id number] [place] [address] 63846 -4061 December, Acute right-sided low back pain without sciatica M54.5 [facility] [id number] [place] [address] 03499- 5994 Sep, Low back pain M54.5 [place] [address] 75329- 7894 Aug, Bilateral low back pain with sciatica, sciatica laterality unspecified M54.40 and Polyneuropathy G62.9 [facility] [place] [id number] [place] [address] 60268- 2644 Aug, Upper respiratory tract infection, unspecified type 465.9 [facility] [id number] [place] [address] 65057- 1565 14 Jul, 2015 Midline low back pain with right-sided sciatica M54.41 [place] [id number] [place] [address] 50953- 3754 10 Jul, 2015 Right knee pain M25.561 and Knee swelling, right M25.461 [place] [id number] [place] [address] 39338- 6933 30 Jun, 2015 Low back pain M54.5 and Sciatica, unspecified side M54.30 [place] [address] 28351- 5016 30 May, 2015 Arthritis M19.90 [facility] [id number] [place] [address] 78821- 7816 May, Upper respiratory tract infection, unspecified upper respiratory infection J06.9 [place] [id number] [place] [address] 15925- 4762 14 May, 2015 CAD (coronary artery disease) I25.10 ; Hyperlipemia E78.5 and COPD (chronic obstructive pulmonary disease) J44.9 [place] [id number] [place] [address] 70772- 6302 30 Apr, 2015 Arthritis 716.90 [place] [id number] [place] [address] 61477- 7102 Apr, [place] [id number] [place] [address] 71565- 1179 Apr, [place] [id number] [place] [address] 70756- 5526 14 Apr, 2015 [place] [id number] [place] [address] 70383- 1708 14 Apr, 2015 Hypertension 401.9 and Hyperlipidemia 272.4 [place] [id number] [place] [address] 71847- 6065 Apr, [facility] [address] [facility] [id number] [place] [address]- 0273 14 Apr, 2015 Hypertension 401.9 and Hyperlipidemia 272.4 [facility] [address] [id number] [place] [address]- 7510 08 Apr, 2015 [facility] [address] [facility] [id number] [place] [address]- 9627 Mar, Arthritis 716.90 [facility] [place] [facility] [address] [id number] [place] [address]- 2524 Feb, [facility] [address] [facility] [id number] [place] [address], [place] [address]- 7758 Nov, [facility] [address] [facility] [id number] [place] [address]- 1911 Nov, [facility] [id number] [place] [address]- 7763 Oct, [facility] [address] [facility] [id number] [place] [address]- 0101 Oct, [facility] [id number] [place] [address]- 2868 Jul, [facility] [address] [facility] [id number] [place] [address]- 6701 Jul, [facility] [place] [facility] [id number] [place] [address]- 4555 Jun, [facility] [place] [facility] [address] [facility] [id number] [address]- 4600 Jun, [facility] [place] [facility] [address] [facility] [id number] [place] [address]- 1185 Jun, [facility] [place] [facility] [address] [facility] [id number] [place] 0115 Jun, [facility] [address] [facility] [id number], [place] [address]- 4992 May, [facility] [place] [facility] [address] [id number] [place] [address]- 4806 May, [facility] [place] [facility] [address] [id number] [place] [address]- 2298 May, [facility] [place] [facility] [address] [id number] [place] 1662 May, [facility] [place] [facility] [address] [id number] [place] [address]- 0216 May, [facility] [place] [facility] [address] [id number] [place] [address]- 7453 Mar, [facility] [place] [facility] [address] [id number] [place] [address]- 6257 Mar, [facility] [place] [facility] [address] [id number] [place] [address]- 8993 Mar, [facility] [place] [facility] [address] [id number] [place] [address]- 6644 Mar, [facility] [place] [facility] [address] [id number] [place] [address]- 7429 Feb, [facility] [place] [facility] [address] [id number] [place] [address]- 9789 Feb, [facility] [place] [facility] [address] [id number] [place] [address]- 3255 Feb, [facility] [place] [facility] [address] [id number] [place] [address]- 0597 Feb, [facility] [place] [facility] [address] [id number] [place] [address]- 5711 Feb, [facility] [place] [facility] [address] [id number] [place] [address]- 8935 Feb, [facility] [place] [facility] [address] [id number] [place] [address]- 3217 Feb, [facility] [place] [facility] [address] [id number] [place] [address]- 1030 December, [facility] [place] [facility] [address] [id number] [place] [address]- 0225 December, [facility] [place] [facility] [address] [id number] [place] [address]- 2599 December, [facility] [place] [facility] [address] [id number] [place] [address]- 9749 December, [facility] [place] [facility] [address] [id number] [place] [address]- 3950 December, [facility] [place] [facility] [address] [id number] [place] [address]- 7905 December, [facility] [place] [facility] [address] [id number] [place] [address]- 7868 December, [facility] [place] [facility] [address] [id number] [place] [address]- 4467 December, [facility] [place] [facility] [address] [id number] [place] [address]- 4995 December, [facility] [place] [facility] [address] [id number] [place] [address]- 3375 December, [facility] [place] [facility] [address] [id number] [place] [address]- 2807 December, [facility] [place] [facility] [address] [id number] [place] [address]- 3935 Nov, [facility] [place] [facility] [address] [id number] [place] [address]- 0393 Nov, [facility] [place] [facility] [address] [id number] [place] [address]- 1939 Nov, [facility] [place] [facility] [address] [id number] [place] [address]- 3431 Nov, [facility] [place] [facility] [address] [id number] [place] [address]- 4500 Nov, [facility] [place] [facility] [address] [id number] [place] [address]- 3197 21 Nov, 2013 [facility] [address] [id number] [place] [address]- 6724 21 Nov, 2013 [facility] [place] [facility] [address] [id number] [place] [address]- 9896 18 Nov, 2013 [facility] [address] [id number] [place] [address]- 1916 15 Nov, 2013 [facility] [place] [facility] [address] [id number] [place] [address]- 9624 15 Nov, 2013 [facility] [address] [id number] [place] [address]- 5378 14 Nov, 2013 [facility] [place] [facility] [address] [id number] [place] [address]- 3942 14 Nov, 2013 [facility] [place] [facility] [address] [id number] [place] [address]- 6615 11 Nov, 2013 [facility] [address] [id number] [place] [address]- 0921 11 Nov, 2013 [facility] [place] [facility] [address] [id number] [place] [address]- 3647 10 Oct, 2013 [facility] [address] [id number] [place] [address]- 7160 10 Oct, 2013 [facility] [place] [facility] [address] [id number] [place] [address]- 3927 10 Oct, 2013 [facility] [place] [facility] [address] [id number] [place] [address]- 7401 10 Oct, 2013 [facility] [place] [facility] [address] [id number] [place] [address]- 9907 07 Oct, 2013 [facility] [place] [facility] [address] [id number] [place] [address]- 5572 07 Oct, 2013 [facility] [place] [facility] [address] [id number] [place] [address]- 9659 Oct, [facility] [place] [facility] [address] [id number] [place] [address]- 5612 Oct, [facility] [place] [facility] [address] [id number] [place] [address]- 2497 Oct, [facility] [place] [facility] [address] [id number] [place] [address]- 2019 Oct, [facility] [place] [facility] [address] [id number] [place] [address]- 7295 Oct, [facility] [place] [facility] [address] [id number] [place] [address]- 9668 Sep, [facility] [place] [facility] [address] [id number] [place] [address]- 3690 Sep, [facility] [place] [facility] [address] [id number] [place] [address]- 6305 Sep, [facility] [place] [facility] [address] [id number] [place] [address]- 3542 Sep, [facility] [place] [facility] [address] [id number] [place] [address]- 8791 Aug, [facility] [place] [facility] [address] [id number] [place] [address]- 2240 Aug, [facility] [place] [facility] [address] [id number] [place] [address]- 9114 Aug, [facility] [place] [facility] [address] [id number] [place] [address]- 1987 Aug, [facility] [place] [facility] [address] [id number] [place] [address]- 0160 Aug, [facility] [place] [facility] [address] [id number] [place] [address]- 2057 Aug, [facility] [place] [facility] [address] [id number] [place] [address]- 7667 Aug, [facility] [place] [facility] [address] [id number] [place] [address]- 4645 Aug, [facility] [address] [id number] [place] [address]- 8105 Jul, [facility] [place] [facility] [address] [id number] [place] 3055 Jul, [facility] [address] [id number] [place] [address]- 4362 Jul, [facility] [place] [facility] [address] [id number] [place] [address]- 1569 Jul, [facility] [address] [id number] [place] [address]- 5632 Jul, [facility] [place] [facility] [address] [id number] [place] [address]- 0920 Jul, [facility] [address] [id number] [place] [address]- 3524 Jun, [facility] [place] [facility] [address] [id number] [place] [address]- 7564 Jun, [facility] [place] [facility] [address] [id number] [place] [address]- 8150 Jun, [facility] [place] [facility] [address] [facility] [id number] [place] [address]- 8876 Jun, [facility] [place] [facility] [address] [id number] [place] [address]- 3900 May, [facility] [place] [facility] [address] [id number] [place] [address]- 6712 May, [facility] [place] [facility] [address] [id number] [place] [address]- 0613 02 May, 2013 [facility] [place] [facility] [address] [id number] [place] [address]- 0975 30 Apr, 2013 [facility] [place] [facility] [address] [id number], [place] [address]- 6920 Apr, [facility] [place] [facility] [address] [id number] [place] [address]- 3963 Apr, [facility] [address] [id number] [place] [address]- 7907 Apr, [facility] [address] [id number] [place] [address] 2544 Apr, [facility] [address] [id number] [place] [address]- 6531 Mar, [facility] [address] [id number] [place] [address]- 5766 Mar, [facility] [address] [id number] [place] [address]- 9795 Mar, [facility] [address] [id number] [place] [address]- 3206 Mar, [facility] [address] [id number] [place] [address]- 7841 Feb, [facility] [address] [id number] [place] [address]- 6603 Jan, [facility] [address] [id number] [place] [address]- 8969 December, [facility] [address] [id number] [place] [address]- 0253 December, [facility] [address] [id number] [place] [address]- 5899 December, [facility] [address] [id number] [place] [address]- 7496 December, [facility] [place] [facility] [address] [id number] [place] [address]- 6396 December, [facility] [address] [id number] [place] [address]- 9289 December, [facility] [address] [id number] [place] [address]- 7625 December, [facility] [address] [id number] [place] [address]- 4564 29 Nov, 2012 [facility] [address] [id number] [place] 1271 25 Nov, 2012 [facility] [address] [id number] [place] [address]- 5906 16 Nov, 2012 [facility] [place] [facility] [address] [id number] [place] [address] 15 Nov, 2012 [facility] [address] [id number] [place] [address] 15 Nov, 2012 [facility] [address] [id number] [place] [address] 14 Oct, 2012 [facility] [address] [id number] [place] [address] Oct, [facility] [place] [facility] [address] [id number] [place] [address] 07 Oct, 2012 [facility] [address] [id number] [place] [address] 04 Oct, 2012 [facility] [address] [facility] [id number] [place] [address] 20 Sep, 2012 [facility] [address] [id number], [place] [address] 14 Sep, 2012 [facility] [place] [facility] [address] [id number] [place] [address] 14 Sep, 2012 [facility] [place] [facility] [address] [id number] [place] [address] 11 Sep, 2012 [facility] [place] [facility] [address] [id number] [place] [address] 08 Sep, 2012 [facility] [place] [facility] [address] [facility] [id number][place] [address] Sep, [facility] [place] [facility] [address] [id number] [place] [address] Aug, [facility] [address] [id number] [place] [address] Aug, [facility] [place] [facility] [address] [id number] [place] [address] Aug, [facility] [address] [id number] [place] [address] Aug, [facility] [place] [facility] [address] [id number] [place] [address] 69[address] Aug, [facility] [place] [facility] [address] [id number] [place] [address]- [address] Jul, [facility] [address] [id number] [place] Jul, [facility] [address] [id number] [place] [address] Jul, [facility] [address] [id number] [place] [address]141 Jul, [facility] [address] [id number] [place] [address] Jul, [facility] [place] [facility] [address] [id number] [place] [address] Jul, [facility] [place] [facility] [address] [id number] [place] [address] Jul, [facility] [place] [facility] [address] [id number] [place] [address] Jul, [facility] [place] [facility] [address] [id number] [place] [address]- 8877 Jun, [facility] [place] [facility] [address] [id number] [place] [address] Jun, [facility] [place] [facility] [address] [id number] [place] [address]- [address] Jun, [facility] [place] [facility] [address] [id number] [place] [address]- [address] Jun, [facility] [place] [facility] [address] [id number] [place] [address]140 Jun, [facility] [place] [facility] [address] [facility] [id number] [place] [address]- [address] Jun, [facility] [place] [facility] [address] [id number] [place] [address]- 3820 Jun, [facility] [place] [facility] [address] [id number] [place] [address]- [address] Jun, [facility] [place] [facility] [address] [id number] [place] [address]- 8394 Jun, [facility] [place] [facility] [address] [id number] [place] [address]- [address]161 Jun, [facility] [place] [facility] [address] [id number], [place] [address] Jun, [facility] [place] [facility] [address] [id number], [place] [address] Jun, [facility] [place] [facility] [address] [id number], [place] [address]- [address] Jun, [facility] [place] [facility] [address] [id number], [place] [address] Jun, [facility] [place] [facility] [address] [id number], [place] [address]- [address] Jun, [facility] [place] [facility] [address] [id number], [place] [address] Jun, [facility] [place] [facility] [address] [facility] [id number], [place] [address] May, [facility] [place] [facility] [address] [id number], [place] [address] May, [facility] [place] [facility] [address] [id number] [place] [address]- 8635 12 May, 2012 [facility] [place] [facility] [address] [id number] [place] [address]- [address]168 May, [facility] [place] [facility] [address] [id number] [place] [address]- [address] 08 May, 2012 [facility] [place] [facility] [address] [id number] [place] [address] 02 May, 2012 [facility] [place] [facility] [address] [id number] [place] [address] 28 Apr, 2012 [facility] [place] [facility] [address] [id number] [place] [address] 27 Apr, 2012 [facility] [place] [facility] [address] [id number] [place] [address] 9118 15 Apr, 2012 [facility] [place] [facility] [address] [id number] [place] [address] 2858 11 Apr, 2012 [facility] [place] [facility] [address] [id number] [place] [address] 2398 10 Apr, 2012 [facility] [place] [facility] [address] [id number] [place] [address] 29 Mar, 2012 [facility] [place] [facility] [address] [id number] [place] [address] 2769 29 Mar, 2012 [facility] [place] [facility] [address] [id number] [place] [address] 2541 Mar, [facility] [place] [facility] [address] [id number] [place] [address] 0468 Mar, [facility] [place] [facility] [address] [id number] [place] [address] 8759 Mar, [facility] [place] [facility] [address] [id number] [place] [address] Mar, [facility] [place] [facility] [address] [id number] [place] [address] 3885 Mar, [facility] [place] [facility] [address] [id number] [place] [address] 64[address] Feb, [facility] [place] [facility] [address] [id number] [place] [address]270 Feb, [facility] [place] [facility] [address] [id number] [place] [address] Feb, [facility] [place] [facility] [address] [id number] [place] [address] 0[address] Feb, [facility] [place] [facility] [address] [id number] [place] [address] Jan, [facility] [place] [facility] [address] [id number] [place] [address] 4146 Jan, [facility] [place] [facility] [address] [id number] [place] [address] 7784 Jan, [facility] [place] [facility] [address] [id number] [place] [address] 2093 Jan, [facility] [place] [facility] [address] [id number] [place] [address] Jan, [facility] [place] [facility] [address] [id number] [place] [address] 6688 Jan, [facility] [place] [facility] [address] [id number] [place] [address] 8918 December, [facility] [place] [facility] [address] [id number] [place] [address] 6827 December, [facility] [place] [facility] [address] [id number] [place] [address]- 62[address] December, [facility] [place] [facility] [address] [id number] [place] [address] 7732 December, [facility] [place] [facility] [address] [id number] [place] [address]- 4220 December, [facility] [place] [facility] [address] [id number] [place] [address] 4100 December, [facility] [address] [id number] [place] [address] 4048 December, [facility] [address] [id number] [place] [address] 30 Nov, 2011 [facility] [address] [id number] [place] [address] 6212 Nov, [facility] [place] [facility] [address] [id number] [place] [address] 8406 Nov, [facility] [address] [id number] [place] [address]- 4233 Nov, [facility] [address] [id number] [place] [address] 4512 Nov, [facility] [id number] [place] [address] Nov, [facility] [place] [facility] [address] [id number] [place] [address] 3706 Nov, [facility] [address] [id number] [place] [address] 8040 Oct, [facility] [place] [facility] [address] [id number] [place] [address] 0841 Oct, [facility] [address] [id number] [place] [address] 2775 Oct, [facility] [place] [facility] [address] [facility] [id number] [place] [address] 9091 Oct, [facility] [place] [facility] [address] [id number] [place] [address] 2805 Sep, [facility] [place] [facility] [address] [id number] [place] [address] 5693 Sep, [facility] [place] [facility] [address] [facility] [id number] [place] [address] 0514 14 Sep, 2011 [facility] [place] [facility] [address] [id number] [place] [address] 2804 07 Sep, 2011 [facility] [place] [facility] [address] [id number] [place] [address]- 9166 Sep, [facility] [place] [facility] [address] [id number] [place] [address]- 9776 06 Sep, 2011 [facility] [place] [facility] [address] [id number] [place] [address] 9036 Sep, [facility] [place] [facility] [address] [id number] [place] [address]- 2069 Aug, [facility] [place] [facility] [address] [id number] [place] [address] 6323 Aug, [facility] [address] [id number] [place] [address]- 3985 Aug, [facility] [address] [id number] [place] [address]- [address]235 Jul, [facility] [place] [facility] [address] [id number] [place] [address]- 8413 Jul, [facility] [place] [facility] [address] [id number] [place] [address]- 5558 Jul, [facility] [place] [facility] [address] [id number] [place] [address]- 1669 Jul, [facility] [place] [facility] [address] [id number] [place] [address]- 7413 Jul, [facility] [place] [facility] [address] [id number] [place] [address]- 1594 Jul, [facility] [place] [facility] [address] [id number] [place] [address]- 6203 Jun, [facility] [place] [facility] [address] [id number] [place] [address]- 0891 Jun, [facility] [place] [facility] [address] [id number], [place] [address] 8780 14 May, 2011 [facility] [place] [facility] [address] [id number] [place] [address]- 7116 10 May, 2011 [facility] [place] [facility] [address] [id number] [place] [address] 14 Apr, 2011 [facility] [place] [facility] [address] [id number] [place] [address]- 9976 11 Oct, 2010 [facility] [place] [facility] [address] [id number] [place] [address]- 8967 22 Jul, 2010 [facility] [place] [facility] [address] [id number] [place] [address]- 3911 14 Jul, 2010 [facility] [place] [facility] [address] [id number] [place] [address]- 7234 08 Jul, 2010 [facility] [place] [facility] [address] [id number] [place] [address]- 1899 24 Jun, 2010 [facility] [place] [facility] [address] [id number] [place] [address]- 8338 15 Jun, 2010 [facility] [place] [facility] [address] [id number] [place] [address]- 8914 Jun, [facility] [place] [facility] [address] [id number] [place] [address]- 4089 May, [facility] [place] [facility] [address] [id number], [place] [address] 0972 15 Jan, 2010 [facility] [place] [facility] [address] [id number] [place] [address]- 3091 December, [facility] [place] [facility] [address] [id number] [place] [address] 29 Jul, 2009 [facility] [place] [facility] [address] [id number] [place] [address]- 8998 17 Jul, 2009 [facility] [place] [facility] [address] [id number] [place] [address]- 7954 Jul, [facility] [place] [facility] [address] [facility] [id number] [place] [address] May, [facility] [address] [facility] [id number] [place] [address] May, [facility] [address] [facility] [id number] [place] [address]- [address]24 May, IMMUNIZATIONS No Known Immunizations SOCIAL HISTORY Never Assessed REASON FOR VISIT PALS IN-[place] PLAN OF CARE VITAL SIGNS MEDICATIONS Unknown [...] Hospitalization History sepsis, Acute bacterial exac of bronchitis-[facility]
--- OUTSIDE RECORDS SUMMARY | 2018-04-25 14:10 | XMS REPORT ---
Author Author RAKAN AYALA Organization [facility] Address [address] [place] [address] Care Team Providers Care [employer] Name Role Phone RAKAN AYALA Unavailable PROBLEMS Type Condition ICD9-CM Code BHG29-MF Code Onset Dates Condition Status SNOMED Code Problem Essential hypertension I10 Active 83972031 Problem Cellulitis of left arm L03.114 Active 99335371230999211 Problem COPD (chronic obstructive pulmonary disease) with acute bronchitis J44.0 Active 147390273730475 Problem CAD (coronary artery disease) I25.10 Active 49251819 Problem Hyperlipemia E78.5 Active 15122936 Problem Midline low back pain with right-sided sciatica M54.41 Active 349066268 Problem COPD (chronic obstructive pulmonary disease) J44.9 Active 90830324 Problem Panlobular emphysema J43.1 Active 1992802 Problem Nocturnal leg cramps G47.62 Active 154354722 Problem Polyneuropathy G62.9 Active 32652717 Problem Neuropathy G62.9 Active 145503416 Problem Arthritis M19.90 Active 5611236 ALLERGIES Substance Reaction Event Type Date Status Xanax XR Self Admitted Abuse Drug Allergy Jan, Active Oxycodone HCl Failed narcotics contract Drug Allergy Jan, Active Benzodiazepines Failed narcotics contract Non Drug Allergy Jan, Active ENCOUNTERS Encounter Location Date Diagnosis [facility] [id number] [address] Jun, [facility] [address], [place] [address] Apr, [facility] [address], [place] [address] Mar, Boil, leg L02.429 ; Back muscle spasm M62.830 and Muscle spasms of both lower extremities M62.838 [facility] [id number] [place] [address] 22858- 7476 Feb, [place] [address] [address]- 8610 Feb, [place] [id number] [place] [address] 50259- 2639 Jan, Arthritis M19.90 [place] [address] 63572- 1674 December, Right leg swelling M79.89 ; Left leg swelling M79.89 ; CAD ( coronary artery disease) I25.10 ; Essential hypertension I10 ; Bilateral leg numbness R20.0 and Exertional dyspnea R06.09 [place] [id number] [place] [address] 63108- 5987 Oct, [place] [address] 73178- 7559 Oct, [place] [address] 34524- 8023 Sep, Pain in right hip M25.551 ; Pain in left hip M25.552 and Suprapubic pain R10.2 [place] [id number] [place] [address] 16330- 9345 Sep, Midline low back pain with right-sided sciatica M54.41 [place] [id number] [place] [address] 16765- 6406 Aug, Midline low back pain with right-sided sciatica M54.41 and Arthritis M19.90 [place] [id number] [place] [address] 10717- 0218 Jul, Impingement syndrome, shoulder, left M75.42 and Sprain of ligament of cervical spine region S13.4XXA [place] [id number] [place] [address] 09427- 4359 Jul, COPD (chronic obstructive pulmonary disease) J44.9 [facility] [id number] [place] [address] 01786- 3511 Jul, [facility] [address] 43282- 8137 Jul, [facility] [id number] [place] [address] 32561- 1491 Jun, Elbow pain, right M25.521 ; Pain of left clavicle M89.8X1 ; Panlobular emphysema J43.1 and Encounter for immunization Z23 [facility] [id number] [place] [address] [id number] Jun, [facility] [id number] [place] [address] 65404- 7570 Jun, Clavicle pain M89.8X1 [facility] [id number] [place] [address] 68451- 7477 Jun, [facility] [id number] [place] [address] 56787- 0007 May, Neuropathy G62.9 ; Arthritis M19.90 and Nocturnal leg cramps G47.62 [facility] [address] [id number] [place] [address] Apr [facility] [id number] [place] [address] 42009- 5686 December, [facility] [id number] [place] [address] 66160 -4175 Nov, Gastroenteritis and colitis, viral A08.4 [facility] [id number] [place] [address] 51562- 0236 Oct, [facility] [id number] [place] [address] 75091- 1851 Sep, [facility] [id number] [place] [address] 86638- 1986 Sep, Low back pain M54.5 and Other chronic pain G89.29 [place] [id number] [place] [address] 97113- 1618 Sep, [place] [id number] [place] [address] 04357- 3454 Aug, [place] [id number] [place] [address] 17820- 7479 Jul, Vision changes H53.9 and Polyneuropathy G62.9 [place] [id number] [place] [address] 09131- 1593 Jun, [place] [id number] [place] [address] 64542- 3439 Jun, Left leg swelling M79.89 ; Right leg swelling M79.89 ; Bilateral leg numbness R20.0 ; CAD (coronary artery disease) I25.10 ; Essential hypertension I10 and Exertional dyspnea R06.09 [facility] [place] [address] [address]35 Jun, Cellulitis of left arm L03.114 [place] [id number] [place] [address] 94809- 2914 Jun, [place] [id number] [place] [address] 37129- 2447 May, Chest pain, unspecified type R07.9 ; Exertional dyspnea R06.09 ; CAD (coronary artery disease) I25.10 and Essential hypertension I10 [facility] [place] [id number] [place] [address] 30223 -5343 December, Acute right-sided low back pain without sciatica M54.5 [place] [id number] [place] [address] 47917- 9486 Sep, Low back pain M54.5 [place] [id number] [place] [address] 56814- 2748 Aug, Bilateral low back pain with sciatica, sciatica laterality unspecified M54.40 and Polyneuropathy G62.9 [place] [id number] [place] [address] 01106- 9065 12 Aug, 2015 Upper respiratory tract infection, unspecified type 465.9 [facility] [id number] [place] [address] 32988- 5703 14 Jul, 2015 Midline low back pain with right-sided sciatica M54.41 [place] [id number] [place] [address] 00194- 9933 Jul, Right knee pain M25.561 and Knee swelling, right M25.461 [place] [address] 32798- 4901 30 Jun, 2015 Low back pain M54.5 and Sciatica, unspecified side M54.30 [place] [id number] [place] [address] 56873- 6145 30 May, 2015 Arthritis M19.90 [place] [id number] [place] [address] 88370- 3729 May, Upper respiratory tract infection, unspecified upper respiratory infection J06.9 [place] [id number] [place] [address] 33531- 4275 14 May, 2015 CAD (coronary artery disease) I25.10 ; Hyperlipemia E78.5 and COPD (chronic obstructive pulmonary disease) J44.9 [place] [id number] [place] [address] 34688- 0991 30 Apr, 2015 Arthritis 716.90 [place] [id number] [place] [address] 04938- 3901 Apr, [place] [id number] [place] [address] 84413- 4459 Apr, [place] [id number] [place] [address] 02382- 4456 14 Apr, 2015 [place] [id number] [place] [address] 88816- 6090 14 Apr, 2015 Hypertension 401.9 and Hyperlipidemia 272.4 [facility] [place] [address] [facility] [id number] [place] [address] 65174- 7812 14 Apr, 2015 [facility] [address] [place] [address] 39277- 6775 14 Apr, 2015 Hypertension 401.9 and Hyperlipidemia 272.4 [facility] [place] [id number] [place] [address] 14958- 6192 08 Apr, 2015 [facility] [id number] [place] [address] 69218- 9425 Mar, Arthritis 716.90 [facility] [place] [id number] [place] [address] 41223- 4735 Feb, [facility] [place] [id number] [place] [address] 67487- 1409 Nov, [facility] [place] [id number] [place] [address] 46819- 7795 Nov, [facility] [place] [address] [place] [address] 48202- 3722 Oct, [facility] [place] [id number] [place] [address] 16792- 2629 Oct, [facility] [place] [address] [address]- 8030 Jul, [facility] [place] [address] [address]- 1365 Jul, [facility] [address], [place] [address]- 0865 Jun, [facility] [id number] [place] [address] 75557- 6720 Jun, [facility] [address], [place] [address]- 1246 Jun, [facility] [address] [place] [address] 93272- 7916 Jun, [facility] [place] [facility] [address] [id number] [place] [address]- 4473 May, [facility] [place] [facility] [address] [id number] [place] [address]- 2952 May, [facility] [place] [facility] [address] [id number] [place] 5023 May, [facility] [place] [facility] [address] [id number] [place] 1451 May, [facility] [place] [facility] [address] [id number] [place] [address]- 7331 May, [facility] [place] [facility] [address] [id number] [place] [address]- 0927 Mar, [facility] [place] [facility] [address] [id number] [place] [address]- 7390 Mar, [facility] [place] [facility] [address] [id number] [place] [address]- 8896 Mar, [facility] [place] [facility] [address] [id number] [place] [address]- 5208 Mar, [facility] [place] [facility] [address] [id number] [place] [address]- 6418 Feb, [facility] [place] [facility] [address] [id number] [place] [address]- 5047 Feb, [facility] [place] [facility] [address] [id number] [place] [address]- 3640 Feb, [facility] [place] [facility] [address] [id number] [place] [address]- 9068 Feb, [facility] [place] [facility] [address] [id number] [place] [address]- 6029 Feb, [facility] [place] [facility] [address] [id number] [place] [address]- 8263 Feb, [facility] [place] [facility] [address] [id number] [place] [address]- 5296 Feb, [facility] [address] [id number] [place] [address]- 7823 December, [facility] [address] [id number] [place] [address]- 8950 December, [facility] [address] [id number] [place] [address]- 2509 December, [facility] [address] [id number] [place] [address]- 4234 December, [facility] [address] [id number] [place] [address]- 0174 December, [facility] [address] [id number] [place] [address]- 0133 December, [facility] [address] [id number] [place] [address]- 7470 December, [facility] [address] [id number] [place] [address]- 9474 December, [facility] [address] [id number] [place] [address]- 9837 December, [facility] [address] [id number] [place] [address]- 3185 December, [facility] [address] [id number] [place] [address]- 9338 December, [facility] [address] [id number] [place] [address]- 8821 Nov, [facility] [place] [facility] [address] [id number] [place] [address]- 4435 Nov, [facility] [place] [facility] [address] [id number] [place] [address]- 8535 Nov, [facility] [address] [id number] [place] [address]- 9874 Nov, [facility] [place] [facility] [address] [id number] [place] [address]- 8140 Nov, [facility] [place] [facility] [address] [id number] [place] [address]- 8589 Nov, [facility] [place] [facility] [address] [id number] [place] [address]- 1766 Nov, [facility] [place] [facility] [address] [id number] [place] [address]- 1756 18 Nov, 2013 [facility] [place] [facility] [address] [id number] [place] [address]- 4824 Nov, [facility] [place] [facility] [address] [id number] [place] [address]- 3956 Nov, [facility] [place] [facility] [address] [id number] [place] [address]- 8220 Nov, [facility] [place] [facility] [address] [id number] [place] [address]- 7222 Nov, [facility] [place] [facility] [address] [id number] [place] [address]- 0463 Nov, [facility] [place] [facility] [address] [id number] [place] [address]- 5690 Nov, [facility] [place] [facility] [address] [id number] [place] [address]- 7393 10 Oct, 2013 [facility] [place] [facility] [address] [id number] [place] [address]- 4663 10 Oct, 2013 [facility] [place] [facility] [address] [id number] [place] [address]- 5862 Oct, [facility] [place] [facility] [address] [id number] [place] [address]- 3103 10 Oct, 2013 [facility] [place] [facility] [address] [id number] [place] [address]- 6467 07 Oct, 2013 [facility] [place] [facility] [address] [id number] [place] [address]- 1725 Oct, [facility] [place] [facility] [address] [id number] [place] [address]- 3240 Oct, [facility] [place] [facility] [address] [id number] [place] [address]- 8550 Oct, [facility] [place] [facility] [address] [id number] [place] [address]- 3683 Oct, [facility] [place] [facility] [address] [id number] [place] [address]- 3528 Oct, [facility] [place] [facility] [address] [id number] [place] [address]- 1167 Oct, [facility] [place] [facility] [address] [id number] [place] [address]- 3052 Sep, [facility] [place] [facility] [address] [id number] [place] [address]- 2294 Sep, [facility] [place] [facility] [address] [id number] [place] [address]- 9133 Sep, [facility] [place] [facility] [address] [id number] [place] [address]- 7854 Sep, [facility] [place] [facility] [address] [id number] [place] [address]- 5233 Aug, [facility] [place] [facility] [address] [id number] [place] [address]- 9649 Aug, [facility] [place] [facility] [address] [id number] [place] [address]- 3771 Aug, [facility] [place] [facility] [address] [id number] [place] [address]- 2261 Aug, [facility] [place] [facility] [address] [id number] [place] [address]- 0047 Aug, [facility] [place] [facility] [address] [id number] [place] [address]- 3534 Aug, [facility] [place] [facility] [address] [id number] [place] [address]- 5432 Aug, [facility] [place] [facility] [address] [id number] [place] [address]- 4899 Aug, [facility] [place] [facility] [address] [id number] [place] [address]- 6086 Jul, [facility] [place] [facility] [address] [id number] [place] [address]- 3195 Jul, [facility] [place] [facility] [address] [id number] [place] [address]- 1082 Jul, [facility] [place] [facility] [address] [id number] [place] [address]- 6246 Jul, [facility] [place] [facility] [address] [id number] [place] 8654 Jul, [facility] [place] [facility] [address] [id number] [place] [address]- 6983 Jul, [facility] [place] [facility] [address] [id number] [place] [address]- 9344 Jun, [facility] [place] [facility] [address] [id number] [place] [address]- 1267 Jun, [facility] [place] [facility] [address] [id number] [place] [address]- 1591 Jun, [facility] [place] [facility] [address] [id number] [place] [address]- 3121 Jun, [facility] [place] [facility] [address] [id number] [place] [address]- 5211 May, [facility] [place] [facility] [address] [id number] [place] [address]- 2438 May, [facility] [place] [facility] [address] [id number] [place] [address]- 3565 May, [facility] [place] [facility] [address] [id number] [place] [address]- 1746 30 Apr, 2013 [facility] [address] [id number] [place] [address]- 6447 24 Apr, 2013 [facility] [place] [facility] [address] [id number] [place] [address]- 6743 Apr, [facility] [place] [facility] [address] [id number] [place] [address]- 9070 Apr, [facility] [place] [facility] [address] [id number] [place] [address]- 5455 06 Apr, 2013 [facility] [place] [facility] [address] [id number] [place] [address]- 5246 Mar, [facility] [place] [facility] [address] [id number] [place] [address]- 4354 Mar, [facility] [place] [facility] [address] [id number] [place] [address]- 3846 Mar, [facility] [place] [facility] [address] [id number] [place] [address]- 1476 Mar, [facility] [place] [facility] [address] [id number] [place] [address]- 7125 Feb, [facility] [place] [facility] [address] [id number] [place] [address]- 8384 Jan, [facility] [place] [facility] [address] [id number] [place] [address]- 5766 December, [facility] [place] [facility] [address] [id number] [place] [address]- 3711 December, [facility] [place] [facility] [address] [id number] [place] [address]- 9940 December, [facility] [place] [facility] [address] [id number] [place] [address]- 4727 December, [facility] [place] [facility] [address] [id number] [place] [address]- 7156 December, [facility] [place] [facility] [address] [id number] [place] [address]- 4379 December, [facility] [address] [id number] [place] [address]- 0200 December, [facility] [address] [id number] [place] [address]- 0889 29 Nov, 2012 [facility] [address] [id number] [place] [address]- 2688 25 Nov, 2012 [facility] [address] [id number] [place] [address]- 6199 16 Nov, 2012 [facility] [address] [id number] [place] [address]- 4000 15 Nov, 2012 [facility] [address] [id number] [place] [address]- 9435 15 Nov, 2012 [facility] [address] [id number] [place] [address] 14 Oct, 2012 [facility] [address] [id number] [place] [address] 12 Oct, 2012 [facility] [address] [id number] [place] [address] 07 Oct, 2012 [facility] [address] [id number] [place] [address] 9400 04 Oct, 2012 [facility] [address] [id number] [place] [address] 4318 20 Sep, 2012 [facility] [address] [id number] [place] [address] 93[address] 14 Sep, 2012 [facility] [address] [id number] [place] [address] 14 Sep, 2012 [facility] [address] [id number] [place] [address]96 11 Sep, 2012 [facility] [address] [id number] [place] [address] Sep, [facility] [address] [id number] [place] [address] Sep, [facility] [place] [facility] [address] [id number] [place] [address] 79[address] Aug, [facility] [place] [facility] [address] [id number] [place] [address] 2546 Aug, [facility] [place] [facility] [address] [id number] [place] [address] 77[address] Aug, [facility] [place] [facility] [address] [id number] [place] [address] 7342 Aug, [facility] [place] [facility] [address] [id number] [place] [address]- [address]286 Aug, [facility] [place] [facility] [address] [id number] [place] [address] Jul, [facility] [place] [facility] [address] [id number] [place] [address]758 Jul, [facility] [place] [facility] [address] [id number] [place] [address] Jul, [facility] [place] [facility] [address] [id number] [place] [address] 58[address] Jul, [facility] [place] [facility] [address] [id number] [place] [address] Jul, [facility] [place] [facility] [address] [id number], [place] [address] Jul, [facility] [place] [facility] [address] [id number] [place] [address] Jul, [facility] [place] [facility] [address] [id number] [place] [address] 1656 Jul, [facility] [place] [facility] [address] [id number] [place] [address]- 2541 Jun, [facility] [place] [facility] [address] [id number] [place] [address] 30 Jun, 2012 [facility] [place] [facility] [address] [id number] [place] [address]- 7575 28 Jun, 2012 [facility] [place] [facility] [address] [id number] [place] [address]- [address]291 28 Jun, 2012 [facility] [place] [facility] [address] [id number] [place] [address]- 2566 14 Jun, 2012 [facility] [place] [facility] [address] [id number] [place] [address]- [address]129 14 Jun, 2012 [facility] [place] [facility] [address] [id number] [place] [address]- 0068 08 Jun, 2012 [facility] [place] [facility] [address] [id number] [place] [address]- 2860 08 Jun, 2012 [facility] [place] [facility] [address] [id number] [place] [address]- 0925 Jun, [facility] [place] [facility] [address] [id number] [place] [address] Jun, [facility] [place] [facility] [address] [id number] [place] [address] Jun, [facility] [place] [facility] [address] [facility] [id number] [place] [address]- [address]187 Jun, [facility] [place] [facility] [address] [id number] [place] [address]- 72[address] Jun, [facility] [place] [facility] [address] [id number] [place] [address]- 5315 Jun, [facility] [place] [facility] [address] [id number] [place] [address]- [address]205 Jun, [facility] [place] [facility] [address] [id number] [place] [address]- 6151 Jun, [facility] [place] [facility] [address] [id number] [place] [address]- [address] May, [facility] [place] [facility] [address] [id number] [place] [address]- 7024 May, [facility] [place] [facility] [address] [id number] [place] [address]- 7964 May, [facility] [place] [facility] [address] [id number] [place] [address]- 95[address] May, [facility] [place] [facility] [address] [id number] [place] [address]- 270[address] May, [facility] [place] [facility] [address] [id number] [place] [address]- 3980 May, [facility] [place] [facility] [address] [id number] [place] [address]- 3381 28 Apr, 2012 [facility] [place] [facility] [address] [id number] [place] [address]- 5669 27 Apr, 2012 [facility] [place] [facility] [address] [id number] [place] [address] 15 Apr, 2012 [facility] [place] [facility] [address] [id number] [place] [address] 11 Apr, 2012 [facility] [place] [facility] [address] [id number] [place] [address] 10 Apr, 2012 [facility] [place] [facility] [address] [id number] [place] [address] Mar, [facility] [place] [facility] [address] [id number] [place] [address] Mar, [facility] [place] [facility] [address] [id number] [place] [address] Mar, [facility] [place] [facility] [address] [id number] [place] [address] Mar, [facility] [place] [facility] [address] [id number] [place] [address]73 Mar, [facility] [place] [facility] [address] [id number] [place] [address] Mar, [facility] [place] [facility] [address] [id number] [place] [address] Mar, [facility] [place] [facility] [address] [id number] [place] [address] Feb, [facility] [place] [facility] [address] [id number] [place] [address] Feb, [facility] [place] [facility] [address] [id number] [place] [address] Feb, [facility] [place] [facility] [address] [id number] [place] [address] Feb, [facility] [place] [facility] [address] [id number] [place] [address]266 Jan, [facility] [place] [facility] [address] [id number] [place] [address] Jan, [facility] [place] [facility] [address] [id number] [place] [address] Jan, [facility] [place] [facility] [address] [id number] [place] [address] 1673 Jan, [facility] [place] [facility] [address] [id number] [place] [address] Jan, [facility] [place] [facility] [address] [id number] [place] [address] 7434 Jan, [facility] [place] [facility] [address] [id number] [place] [address] December, [facility] [place] [facility] [address] [id number] [place] [address] December, [facility] [place] [facility] [address] [id number] [place] [address] December, [facility] [place] [facility] [address] [id number] [place] [address]14 December, [facility] [place] [facility] [address] [id number] [place] [address] 8948 December, [facility] [address] [id number] [place] [address] December, [facility] [address] [id number] [place] [address] December, [facility] [address] [id number] [place] [address] Nov, [facility] [address] [id number] [place] [address]338 Nov, [facility] [address] [id number] [place] [address]269 Nov, [facility] [address] [id number] [place] [address]35 Nov, [facility] [address] [id number] [place] [address]88 Nov, [facility] [address] [id number] [place] [address] Nov, [facility] [address] [id number] [place] [address] 37[address] Nov, [facility] [address] [id number] [place] [address] 7329 Oct, [facility] [address] [id number] [place] [address] 2028 Oct, [facility] [address] [id number] [place] [address] Oct, [facility] [place] [facility] [address] [id number] [place] [address] Oct, [facility] [address] [id number] [place] [address] Sep[place] [facility] [place] [facility] [address] [id number] [place] [address]71 23 Sep, 2011 [facility] [place] [facility] [address] [id number] [place] [address] 9831 14 Sep, 2011 [facility] [place] [facility] [address] [id number] [place] [address] 1456 07 Sep, 2011 [facility] [place] [facility] [address] [id number] [place] [address]56 Sep, [facility] [place] [facility] [address] [id number] [place] [address] 06 Sep, 2011 [facility] [place] [facility] [address] [id number] [place] [address] 0890 Sep, [facility] [place] [facility] [address] [id number] [place] [address] 7316 Aug, [facility] [place] [facility] [address] [id number] [place] [address]- [address]690 Aug, [facility] [place] [facility] [address] [id number] [place] [address]- 5779 Aug, [facility] [place] [facility] [address] [id number] [place] [address] 4338 Jul, [facility] [place] [facility] [address] [id number] [place] [address]- [address]276 Jul, [facility] [place] [facility] [address] [id number] [place] [address] 8318 Jul, [facility] [place] [facility] [address] [id number] [place] [address] 8408 Jul, [facility] [place] [facility] [address] [id number] [place] [address] 9181 Jul, [facility] [place] [facility] [address] [id number] [place] [address]- 7718 Jul, [facility] [place] [facility] [address] [id number] [place] [address]- 3243 15 Jun, 2011 [facility] [place] [facility] [address] [id number] [place] [address] 2546 03 Jun, 2011 [facility] [address] [id number] [place] [address]153 14 May, 2011 [facility] [address] [id number] [place] [address]- 9566 10 May, 2011 [facility] [address] [id number] [place] [address] 8019 14 Apr, 2011 [facility] [address] [id number] [place] [address]- 4841 11 Oct, 2010 [facility] [address] [id number] [place] [address]- 6721 22 Jul, 2010 [facility] [address] [id number] [place] [address]- 9620 14 Jul, 2010 [facility] [address] [id number] [place] [address]- 2922 08 Jul, 2010 [facility] [address] [id number] [place] [address]- 9904 24 Jun, 2010 [facility] [address] [id number] [place] [address]- 1256 15 Jun, 2010 [facility] [address] [id number] [place] [address]- 0180 09 Jun, 2010 [facility] [address] [id number] [place] [address]- 4514 11 May, 2010 [facility] [address] [id number] [place] [address]- 5685 15 Jan, 2010 [facility] [place] [facility] [address] [id number] [place] [address]- 8104 December, [facility] [place] [facility] [address] [id number] [place] [address]- 4236 29 Jul, 2009 [facility] [address] [id number] [place] [address]- 1706 Jul, [facility] [address] [facility] [id number], [place] [address] Jul, [facility] [address] [facility] [id number], [place] [address] May, [facility] [address] [facility] [id number], [place] [address] May, [facility] [address] [facility] [id number], [place] [address] May, IMMUNIZATIONS No Known Immunizations SOCIAL HISTORY Never Assessed REASON FOR VISIT Pain management (chronic), medication f/u and review CBrumbackRN PLAN OF CARE VITAL SIGNS Height 70 in 2018-02-07 Weight 214.9 lbs 2018-02-07 Temperature 98.9 degrees Fahrenheit 2018-02-07 Heart Rate 86 bpm 2018-02-07 Respiratory Rate 18 2018-02-07 BMI 30.83 kg/m2 2018-02-07 Blood pressure systolic 122 mmHg 2018-02-07 Blood pressure diastolic 82 mmHg 2018-02-07 MEDICATIONS Medication Instructions Dosage Frequency Start Date End Date Duration Status Neurontin 600 MG Orally Three times a day 2 tablets 8h Active Gabapentin 600 MG TAKE 2 TABLETS BY MOUTH THREE TIMES DAILY 30 Active Tizanidine HCl 4 MG TAKE ONE TABLET BY MOUTH THREE TIMES DAILY NEEDED 30 Active Metoprolol Tartrate 25 MG Orally Twice a day 1/2 tablet with food 12h Active Combivent Respimat 20-100 mcg/actuation Inhalation 3 times a day 1 puff 8h Oct, Active Crestor 40 mg 1 tablet 24h Nov, Active Viibryd 40 mg Orally Once a day 1 tablet 24h Oct, 90 days Active Aspirin Low Dose 81 MG Orally Once a day 1 tablet 24h Nov, Active Spiriva 18 mcg 1 ea by Inhalation route 1 time per day Oct, Not-Taking Nabumetone 500 mg Orally Twice a day 1 tablet 12h 30 Active Ventolin HFA 90 mcg/actuation inhale 2 puffs by Inhalation route 4 times per day PRN Oct, Active Cyclobenzaprine HCl 10 MG TAKE ONE TABLET BY MOUTH THREE TIMES DAILY 30 Active RESULTS No Results PROCEDURES No [...] Hospitalization History sepsis, Acute bacterial exac of bronchitis-[facility]
--- OUTSIDE RECORDS SUMMARY | 2018-04-25 14:10 | XMS REPORT ---
Author Author JOSE ANTONIO BRADY [facility] Address [address] [place] [address] Care Team Providers Care Radiological Technician Name Role Phone JOSE ANTONIO BRADY Unavailable PROBLEMS Type Condition ICD9-CM Code ZFN68-RY Code Onset Dates Condition Status SNOMED Code Problem Essential hypertension I10 Active 76742000 Problem Cellulitis of left arm L03.114 Active 69420910401244147 Problem COPD (chronic obstructive pulmonary disease) with acute bronchitis J44.0 Active 372345734221230 Problem CAD (coronary artery disease) I25.10 Active 67711656 Problem Hyperlipemia E78.5 Active 48381524 Problem Midline low back pain with right-sided sciatica M54.41 Active 389753601 Problem COPD (chronic obstructive pulmonary disease) J44.9 Active 86341562 Problem Panlobular emphysema J43.1 Active 6680087 Problem Nocturnal leg cramps G47.62 Active 039683630 Problem Polyneuropathy G62.9 Active 67605532 Problem Neuropathy G62.9 Active 317956757 Problem Arthritis M19.90 Active 0226388 ALLERGIES Substance Reaction Event Type Date Status Xanax XR Self Admitted Abuse Drug Allergy December, Active Oxycodone HCl Failed narcotics contract Drug Allergy December, Active Benzodiazepines Failed narcotics contract Non Drug Allergy December, Active ENCOUNTERS Encounter Location Date Diagnosis [facility] [address] [facility] [id number] [address] Jun, [facility] [address] [id number] [address] Apr, [facility] [address] [id number] [address] 750[address] Mar, Boil, leg L02.429 ; Back muscle spasm M62.830 and Muscle spasms of both lower extremities M62.838 [place] [address] [place] [id number] [place] [address] 52571- 4549 Feb, [place] [address] [address] [id number] [place] [address] 07151- 2162 Feb, [place] [id number] [place] [address] 11413- 5267 Jan, Arthritis M19.90 [place] [address] [address]76- 2544 December, Right leg swelling M79.89 ; Left leg swelling M79.89 ; CAD ( coronary artery disease) I25.10 ; Essential hypertension I10 ; Bilateral leg numbness R20.0 and Exertional dyspnea R06.09 [place] [id number] [place] [address] 09423- 5364 Oct, [place] [id number] [place] [address] 92762- 2625 Oct, [place] [id number] [place] [address] 42938- 6467 Sep, Pain in right hip M25.551 ; Pain in left hip M25.552 and Suprapubic pain R10.2 [place] [id number] [place] [address] 92856- 8409 Sep, Midline low back pain with right-sided sciatica M54.41 [place] [id number] [place] [address] 06057- 8431 Aug, Midline low back pain with right-sided sciatica M54.41 and Arthritis M19.90 [place] [id number] [place] [address] 02713- 9231 Jul, Impingement syndrome, shoulder, left M75.42 and Sprain of ligament of cervical spine region S13.4XXA [place] [id number] [place] [address] 97041- 2481 Jul, COPD (chronic obstructive pulmonary disease) J44.9 [facility] [id number] [place] [address] 48757- 2386 Jul, [facility] [address] 23674- 9900 Jul, [facility] [id number] [place] [address] 61978- 8892 Jun, Elbow pain, right M25.521 ; Pain of left clavicle M89.8X1 ; Panlobular emphysema J43.1 and Encounter for immunization Z23 [facility] [id number] [place] [address] [id number] Jun, [place] [address] 33987- 9616 Jun, Clavicle pain M89.8X1 [place] [id number] [place] [address] 70495- 2926 Jun, [facility] [id number] [place] [address] 44613- 8599 May, Neuropathy G62.9 ; Arthritis M19.90 and Nocturnal leg cramps G47.62 [facility] [address] [id number] [place] [address] Apr [facility] [id number] [place] [address] 78542- 9255 December, [facility] [id number] [place] [address] 82486 -2436 Nov, Gastroenteritis and colitis, viral A08.4 [facility] [id number] [place] [address] 41079- 3548 Oct, [facility] [id number] [place] [address] 78050- 4958 Sep, [facility] [id number] [place] [address] 96358- 6168 Sep, Low back pain M54.5 and Other chronic pain G89.29 [place] [id number] [place] [address] 39465- 5394 Sep, [place] [address] 00610- 5369 Aug, [place] [address] 82009- 1106 Jul, Vision changes H53.9 and Polyneuropathy G62.9 [place] [address] 05553- 2158 Jun, [place] [address] 48493- 2279 Jun, Left leg swelling M79.89 ; Right leg swelling M79.89 ; Bilateral leg numbness R20.0 ; CAD (coronary artery disease) I25.10 ; Essential hypertension I10 and Exertional dyspnea R06.09 [facility] [place] [address] 71914 -7216 Jun, Cellulitis of left arm L03.114 [place] [address] 98341- 7673 Jun, [place] [address] 70932- 1497 May, Chest pain, unspecified type R07.9 ; Exertional dyspnea R06.09 ; CAD (coronary artery disease) I25.10 and Essential hypertension I10 [facility] [place] [id number] [place] [address] 01300 -6015 December, Acute right-sided low back pain without sciatica M54.5 [place] [address] 77356- 0255 Sep, Low back pain M54.5 [place] [address] 87095- 6232 Aug, Bilateral low back pain with sciatica, sciatica laterality unspecified M54.40 and Polyneuropathy G62.9 [place] [id number] [place] [address] 69371- 6664 Aug, Upper respiratory tract infection, unspecified type 465.9 [facility] [id number] [place] [address] 61951- 3431 14 Jul, 2015 Midline low back pain with right-sided sciatica M54.41 [place] [address] 55591- 5589 Jul, Right knee pain M25.561 and Knee swelling, right M25.461 [place] [address] 98527- 8288 Jun, Low back pain M54.5 and Sciatica, unspecified side M54.30 [place] [id number] [place] [address] 32232- 3631 May, Arthritis M19.90 [place] [address] 50487- 3325 May, Upper respiratory tract infection, unspecified upper respiratory infection J06.9 [place] [id number] [place] [address] 42807- 7042 May, CAD (coronary artery disease) I25.10 ; Hyperlipemia E78.5 and COPD (chronic obstructive pulmonary disease) J44.9 [place] [id number] [place] [address] 29866- 8114 30 Apr, 2015 Arthritis 716.90 [place] [id number] [place] [address] 36394- 0186 Apr, [place] [address] 91958- 2015 Apr, [place] [id number] [place] [address] 20684- 7057 Apr, [place] [address] 53564- 4648 14 Apr, 2015 Hypertension 401.9 and Hyperlipidemia 272.4 [facility] [address] [id number] 3888 14 Apr, 2015 [facility] [address] [facility] [id number] [address] 2549 14 Apr, 2015 Hypertension 401.9 and Hyperlipidemia 272.4 [facility] [address] [facility] [id number] [place] [address] 89261- 2037 08 Apr, 2015 [facility] [address] [facility] [id number] [place] [address] 33714- 4315 Mar, Arthritis 716.90 [facility] [address] [facility] [id number] [place] [address] 09160- 5970 Feb, [facility] [address] [place] [address] 25796- 5958 14 Nov, 2014 [facility] [id number] [place] [address] 20623- 5792 Nov, [facility] [address] [address]- 2073 Oct, [facility] [address] [address]- 9105 Oct, [facility] [address] [address]- 1231 Jul, [facility] [id number] 2035 Jul, [facility] [address] [facility] [id number] [place] [address]- 4051 Jun, [facility] [address] [facility] [id number] [address]- 5206 Jun, [facility] [id number] [address]- 0056 Jun, [facility] [address] [address]- 2773 Jun, [facility] [place] [facility] [address] [id number] [place] [address]- 5310 May, [facility] [place] [facility] [address] [id number] [place] [address]- 8865 May, [facility] [place] [facility] [address] [id number] [place] [address]- 5646 May, [facility] [place] [facility] [address] [id number] [place] [address]- 6093 May, [facility] [place] [facility] [address] [id number] [place] [address]- 2260 May, [facility] [place] [facility] [address] [id number] [place] [address]- 2273 Mar, [facility] [place] [facility] [address] [id number] [place] [address]- 1327 Mar, [facility] [place] [facility] [address] [id number] [place] [address]- 3309 Mar, [facility] [place] [facility] [address] [id number] [place] [address]- 6592 Mar, [facility] [place] [facility] [address] [id number] [place] [address]- 5196 Feb, [facility] [place] [facility] [address] [id number] [place] [address]- 5568 Feb, [facility] [place] [facility] [address] [id number] [place] [address]- 5338 Feb, [facility] [place] [facility] [address] [id number] [place] [address]- 9476 Feb, [facility] [place] [facility] [address] [id number] [place] [address]- 9054 Feb, [facility] [place] [facility] [address] [id number] [place] [address]- 9888 Feb, [facility] [place] [facility] [address] [id number] [place] [address]- 5806 Feb, [facility] [place] [facility] [address] [id number] [place] [address]- 0267 December, [facility] [place] [facility] [address] [id number] [place] [address]- 1806 December, [facility] [place] [facility] [address] [id number] [place] [address]- 8386 December, [facility] [place] [facility] [address] [id number] [place] [address]- 4531 December, [facility] [place] [facility] [address] [id number] [place] [address]- 8549 December, [facility] [place] [facility] [address] [id number] [place] [address]- 1399 December, [facility] [place] [facility] [address] [id number] [place] [address]- 1761 December, [facility] [place] [facility] [address] [id number] [place] [address]- 1933 December, [facility] [place] [facility] [address] [id number] [place] [address]- 4383 December, [facility] [place] [facility] [address] [id number] [place] [address]- 3578 December, [facility] [place] [facility] [address] [id number] [place] [address]- 8202 December, [facility] [place] [facility] [address] [id number] [place] [address]- 3453 Nov, [facility] [place] [facility] [address] [id number] [place] [address]- 6346 Nov, [facility] [place] [facility] [address] [id number] [place] [address]- 1707 Nov, [facility] [place] [facility] [address] [id number] [place] [address]- 5475 Nov, [facility] [place] [facility] [address] [id number] [place] [address]- 6719 Nov, [facility] [place] [facility] [address] [id number] [place] [address]- 3047 Nov, [facility] [place] [facility] [address] [id number] [place] [address]- 2291 Nov, [facility] [place] [facility] [address] [id number] [place] [address]- 8101 18 Nov, 2013 [facility] [place] [facility] [address] [id number] [place] [address]- 4295 15 Nov, 2013 [facility] [place] [facility] [address] [id number] [place] [address]- 3462 15 Nov, 2013 [facility] [place] [facility] [address] [id number] [place] [address]- 7181 Nov, [facility] [place] [facility] [address] [id number] [place] [address]- 8601 14 Nov, 2013 [facility] [place] [facility] [address] [id number] [place] [address]- 1545 11 Nov, 2013 [facility] [place] [facility] [address] [id number] [place] [address]- 3190 Nov, [facility] [place] [facility] [address] [id number] [place] [address]- 7520 10 Oct, 2013 [facility] [place] [facility] [address] [id number] [place] [address]- 2968 10 Oct, 2013 [facility] [place] [facility] [address] [id number] [place] [address]- 2574 10 Oct, 2013 [facility] [place] [facility] [address] [id number] [place] [address]- 8374 10 Oct, 2013 [facility] [place] [facility] [address] [id number] [place] [address]- 6922 07 Oct, 2013 [facility] [place] [facility] [address] [id number] [place] [address]- 5948 Oct, [facility] [place] [facility] [address] [id number] [place] [address]- 8860 Oct, [facility] [place] [facility] [address] [id number] [place] 8611 Oct, [facility] [place] [facility] [address] [id number] [place] [address]- 8453 Oct, [facility] [place] [facility] [address] [id number] [place] [address]- 9344 Oct, [facility] [place] [facility] [address] [id number] [place] [address]- 4439 Oct, [facility] [place] [facility] [address] [id number] [place] [address]- 4605 Sep, [facility] [place] [facility] [address] [id number] [place] [address]- 7323 Sep, [facility] [place] [facility] [address] [id number] [place] [address]- 4627 Sep, [facility] [place] [facility] [address] [id number] [place] [address]- 5900 Sep, [facility] [place] [facility] [address] [id number] [place] [address]- 8568 Aug, [facility] [place] [facility] [address] [id number] [place] [address]- 9871 Aug, [facility] [place] [facility] [address] [id number] [place] [address]- 6752 Aug, [facility] [place] [facility] [address] [id number] [place] [address]- 1396 Aug, [facility] [place] [facility] [address] [id number] [place] [address]- 3252 Aug, [facility] [place] [facility] [address] [id number] [place] [address]- 4773 Aug, [facility] [address] [id number] [place] [address]- 3996 Aug, [facility] [place] [facility] [address] [id number] [place] [address]- 0996 Aug, [facility] [place] [facility] [address] [id number] [place] [address]- 7500 Jul, [facility] [place] [facility] [address] [id number] [place] [address]- 0676 Jul, [facility] [address] [id number] [place] [address]- 4947 Jul, [facility] [place] [facility] [address] [id number] [place] [address]- 0648 Jul, [facility] [place] [facility] [address] [facility] [id number] [place] [address]- 0475 Jul, [facility] [place] [facility] [address] [id number] [address]- 4110 Jul, [facility] [place] [facility] [address] [id number] [place] [address]- 8917 Jun, [facility] [place] [facility] [address] [id number] [place] [address]- 3386 Jun, [facility] [place] [facility] [address] [id number] [place] [address]- 2459 Jun, [facility] [place] [facility] [address] [id number] [place] [address]- 4285 Jun, [facility] [place] [facility] [address] [id number] [place] [address]- 0584 May, [facility] [place] [facility] [address] [id number] [place] [address]- 6172 May, [facility] [place] [facility] [address] [facility] [id number] [place] [address]- 7965 May, [facility] [place] [facility] [address] [id number] [place] [address]- 5814 30 Apr, 2013 [facility] [address] [id number] [place] [address]- 6350 24 Apr, 2013 [facility] [place] [facility] [address] [id number] [place] [address]- 5895 20 Apr, 2013 [facility] [address] [id number] [place] [address]- 9101 11 Apr, 2013 [facility] [place] [facility] [address] [id number] [place] [address]- 8999 06 Apr, 2013 [facility] [address] [id number] [place] [address]- 3281 Mar, [facility] [address] [id number] [place] [address]- 3170 Mar, [facility] [address] [id number] [place] [address]- 0155 Mar, [facility] [place] [facility] [address] [id number] [place] [address]- 8591 Mar, [facility] [address] [id number] [place] [address]- 2515 Feb, [facility] [address] [id number] [place] [address]- 8591 Jan, [facility] [address] [id number] [place] [address]- 5704 December, [facility] [place] [facility] [address] [id number] [place] [address]- 1880 December, [facility] [place] [facility] [address] [id number] [place] [address]- 0014 December, [facility] [place] [facility] [address] [id number] [place] [address]- 0884 December, [facility] [place] [facility] [address] [id number] [place] [address]- 3378 December, [facility] [place] [facility] [address] [id number] [place] [address]- 9639 December, [facility] [address] [id number] [place] [address]- 0192 December, [facility] [place] [facility] [address] [id number] [place] [address]- 7243 29 Nov, 2012 [facility] [address] [id number] [place] [address]- 4140 25 Nov, 2012 [facility] [place] [facility] [address] [id number] [place] [address]- 4833 16 Nov, 2012 [facility] [address] [id number] [place] [address]- 4940 15 Nov, 2012 [facility] [address] [id number] [place] [address]- 5010 15 Nov, 2012 [facility] [address] [id number] [place] [address]- 6831 14 Oct, 2012 [facility] [address] [id number] [place] [address]- 3707 12 Oct, 2012 [facility] [address] [id number] [place] [address]- 7325 07 Oct, 2012 [facility] [address] [id number] [place] [address] 04 Oct, 2012 [facility] [place] [facility] [address] [id number] [place] [address] 20 Sep, 2012 [facility] [place] [facility] [address] [id number] [place] [address] 14 Sep, 2012 [facility] [place] [facility] [address] [id number] [place] [address]- 3547 14 Sep, 2012 [facility] [place] [facility] [address] [id number] [place] [address] 11 Sep, 2012 [facility] [place] [facility] [address] [id number] [place] [address] Sep, [facility] [address] [id number] [place] [address] Sep, [facility] [address] [id number] [place] [address]258 Aug, [facility] [address] [id number] [place] [address]351 Aug, [facility] [address] [id number] [place] [address] Aug, [facility] [address] [id number] [place] [address]677 Aug, [facility] [address] [id number] [place] [address]679 Aug, [facility] [address] [id number] [place] [address] Jul, [facility] [address] [id number] [place] [address] 45[address] Jul, [facility] [address] [id number] [place] [address]200 Jul, [facility] [address] [id number] [place] [address]- 286[address] Jul, [facility] [address] [id number] [place] [address]- [address]189 Jul, [facility] [place] [facility] [address] [id number] [place] [address] Jul, [facility] [place] [facility] [address] [id number] [place] [address]- [address] Jul, [facility] [place] [facility] [address] [id number] [place] [address] Jul, [facility] [place] [facility] [address] [id number] [place] [address]- [address]88 Jun, [facility] [place] [facility] [address] [id number] [place] [address]- 8883 30 Jun, 2012 [facility] [place] [facility] [address] [id number] [place] [address]- [address] Jun, [facility] [place] [facility] [address] [id number] [place] [address]- 7947 Jun, [facility] [place] [facility] [address] [id number] [place] [address]- 9837 14 Jun, 2012 [facility] [place] [facility] [address] [id number] [place] [address]- 1778 14 Jun, 2012 [facility] [place] [facility] [address] [id number] [place] [address]- 9826 Jun, [facility] [place] [facility] [address] [id number] [place] [address]- 9318 Jun, [facility] [place] [facility] [address] [id number] [place] [address]- [address] Jun, [facility] [place] [facility] [address] [id number] [place] [address]- 1064 Jun, [facility] [place] [facility] [address] [id number] [place] [address]- [address]777 Jun, [facility] [place] [facility] [address] [id number] [place] [address]- [address]247 Jun, [facility] [place] [facility] [address] [id number] [place] [address]- 3270 Jun, [facility] [place] [facility] [address] [id number] [place] [address]- 0753 Jun, [facility] [place] [facility] [address] [id number] [place] [address]- 1104 Jun, [facility] [place] [facility] [address] [id number] [place] [address]- 9406 Jun, [facility] [place] [facility] [address] [id number] [place] [address]- 39[address] May, [facility] [place] [facility] [address] [id number] [place] [address]- 7720 May, [facility] [place] [facility] [address] [id number] [place] [address]- 9859 May, [facility] [place] [facility] [address] [id number] [place] [address]- 0470 May, [facility] [place] [facility] [address] [id number] [place] [address]- 1846 May, [facility] [place] [facility] [address] [id number] [place] [address]- 0811 May, [facility] [place] [facility] [address] [id number] [place] [address]- 1081 28 Apr, 2012 [facility] [place] [facility] [address] [id number] [place] [address]- 4290 27 Apr, 2012 [facility] [place] [facility] [address] [id number] [place] [address]- 0742 15 Apr, 2012 [facility] [place] [facility] [address] [id number] [place] [address]- 2914 11 Apr, 2012 [facility] [place] [facility] [address] [id number] [place] [address]- 9173 10 Apr, 2012 [facility] [place] [facility] [address] [id number] [place] [address]- [address]307 Mar, [facility] [place] [facility] [address] [id number] [place] [address]- 4614 Mar, [facility] [place] [facility] [address] [id number] [place] [address] Mar, [facility] [place] [facility] [address] [id number] [place] [address] Mar, [facility] [place] [facility] [address] [id number] [place] [address] Mar, [facility] [place] [facility] [address] [id number] [place] [address] Mar, [facility] [place] [facility] [address] [id number] [place] [address] Mar, [facility] [place] [facility] [address] [id number] [place] [address] Feb, [facility] [place] [facility] [address] [id number] [place] [address] Feb, [facility] [place] [facility] [address] [id number] [place] [address] Feb, [facility] [place] [facility] [address] [id number] [place] [address] Feb, [facility] [place] [facility] [address] [id number] [place] [address] Jan, [facility] [place] [facility] [address] [id number] [place] [address] Jan, [facility] [place] [facility] [address] [id number] [place] [address] Jan, [facility] [place] [facility] [address] [id number] [place] [address] Jan, [facility] [place] [facility] [address] [id number] [place] [address] Jan, [facility] [place] [facility] [address] [id number] [place] [address] Jan, [facility] [place] [facility] [address] [id number] [place] [address] December, [facility] [place] [facility] [address] [id number] [place] [address] 69[address] December, [facility] [place] [facility] [address] [id number] [place] [address] December, [facility] [place] [facility] [address] [id number] [place] [address] December, [facility] [place] [facility] [address] [id number] [place] [address] December, [facility] [place] [facility] [address] [id number] [place] [address] December, [facility] [place] [facility] [address] [id number] [place] [address] December, [facility] [place] [facility] [address] [id number] [place] [address] Nov, [facility] [place] [facility] [address] [id number] [place] [address] Nov, [facility] [place] [facility] [address] [id number] [place] [address] Nov, [facility] [place] [facility] [address] [id number] [place] [address] Nov, [facility] [place] [facility] [address] [id number] [place] [address] 1306 Nov, [facility] [place] [facility] [address] [id number] [place] [address] Nov, [facility] [place] [facility] [address] [id number] [place] [address] Nov, [facility] [place] [facility] [address] [id number] [place] [address] Oct, [facility] [place] [facility] [address] [id number] [place] [address] Oct, [facility] [place] [facility] [address] [id number] [place] [address]49 Oct, [facility] [place] [facility] [address] [id number] [place] [address] Oct, [facility] [place] [facility] [address] [id number] [place] [address] Sep, [facility] [place] [facility] [address] [id number] [place] [address] 23 Sep, 2011 [facility] [address] [id number] [place] [address] 14 Sep, 2011 [facility] [address] [id number] [place] [address] 07 Sep, 2011 [facility] [address] [id number] [place] [address] 07 Sep, 2011 [facility] [address] [id number] [place] [address] 06 Sep, 2011 [facility] [address] [id number] [place] [address]- 8786 02 Sep, 2011 [facility] [address] [id number] [place] [address] Aug, [facility] [address] [facility] [id number] [place] [address] Aug, [facility] [address] [facility] [id number] [place] [address] Aug, [facility] [address] [facility] [id number] [place] [address] Jul[facility] [address] [facility] [id number] [place] [address] Jul, [facility] [address] [facility] [id number] [place] [address] Jul, [facility] [place] [facility] [address] [id number] [address] Jul, [facility] [place] [facility] [address] [facility] [id number] [place] [address] Jul, [facility] [place] [facility] [address] [facility] [id number] [place] [address]- [address] 06 Jul, 2011 [facility] [address] [facility] [id number] [place] [address]- [address]64 15 Jun, 2011 [facility] [place] [facility] [address] [id number] [place] [address]- [address] 03 Jun, 2011 [facility] [place] [facility] [address] [id number] [place] [address]- [address]270 14 May, 2011 [facility] [place] [facility] [address] [id number] [place] [address]- 9316 10 May, 2011 [facility] [place] [facility] [address] [id number] [place] [address]- 64[address] 14 Apr, 2011 [facility] [place] [facility] [address] [id number] [place] [address]86 11 Oct, 2010 [facility] [place] [facility] [address] [id number] [place] [address]- 7922 22 Jul, 2010 [facility] [place] [facility] [address] [id number] [place] [address]- [address] 14 Jul, 2010 [facility] [place] [facility] [address] [id number] [place] [address] 56[address] 08 Jul, 2010 [facility] [place] [facility] [address] [id number] [place] [address]- [address] 24 Jun, 2010 [facility] [place] [facility] [address] [id number] [place] [address]- 9559 15 Jun, 2010 [facility] [place] [facility] [address] [id number] [place] [address]- [address]644 09 Jun, 2010 [facility] [place] [facility] [address] [id number] [place] [address]707 11 May, 2010 [facility] [place] [facility] [address] [id number] [place] [address]- [address]55 15 Jan, 2010 [facility] [place] [facility] [address] [id number] [place] [address]- 295[address] December, [facility] [place] [facility] [address] [id number] [place] [address]- 3446 29 Jul, 2009 [facility] [place] [facility] [address] [id number] [place] [address] Jul, [facility] [address] [facility] [id number] [place] [address] Jul, [facility] [address] [facility] [id number] [place] [address] May, [facility] [address] [facility] [id number] [place] [address] May, [facility] [address] [facility] [id number] [address] May, IMMUNIZATIONS No Known Immunizations SOCIAL HISTORY Never Assessed REASON FOR VISIT f/u PLAN OF CARE Activity Details Follow Up 6 Months Reason: VITAL SIGNS Height 70 in 2017-12-18 Weight 216 lbs 2017-12-18 Heart Rate 70 bpm 2017-12-18 Respiratory Rate 18 2017-12-18 Oximetry 95 % 2017-12-18 BMI 30.99 kg/m2 2017-12-18 Blood pressure systolic 122 mmHg 2017-12-18 Blood pressure diastolic 74 mmHg 2017-12-18 MEDICATIONS Medication Instructions Dosage Frequency Start Date End Date Duration Status Nabumetone 500 mg Orally Twice a day 1 tablet 12h 30 Active Spiriva 18 mcg 1 ea by Inhalation route 1 time per day Oct, Not-Taking Viibryd 40 mg Orally Once a day 1 tablet 24h Oct, 90 days Active Neurontin 600 MG Orally Three times a day 2 tablets 8h Active Metoprolol Tartrate 25 MG Orally Twice a day 1/2 tablet with food 12h Active Gabapentin 600 MG TAKE 2 TABLETS BY MOUTH THREE TIMES DAILY 30 Active Tizanidine HCl 4 MG TAKE ONE TABLET BY MOUTH THREE TIMES DAILY NEEDED 30 Active Ventolin HFA 90 mcg/actuation inhale 2 puffs by Inhalation route 4 times per day PRN Oct, Active Aspirin Low Dose 81 MG Orally Once a day 1 tablet 24h Nov, Active Combivent Respimat 20-100 mcg/actuation Inhalation 3 times a day 1 puff 8h Oct, Active Crestor 40 mg 1 tablet 24h Nov, Active Cyclobenzaprine HCl 10 mg Orally Three times a day 1 tablet 8h 30 Active RESULTS No Results PROCEDURES No [...] Hospitalization History sepsis, Acute bacterial exac of bronchitis-[facility]
--- OUTSIDE RECORDS SUMMARY | 2018-04-25 14:11 | XMS REPORT ---
Author Author DANNI CHING [facility] Address [address] [place] [address] Care Team Providers Care Divemaster Name Role Phone DANNI CHING Unavailable PROBLEMS Type Condition ICD9-CM Code NOI70-DY Code Onset Dates Condition Status SNOMED Code Problem Essential hypertension I10 Active 82643200 Problem Cellulitis of left arm L03.114 Active 13327563110402681 Problem COPD (chronic obstructive pulmonary disease) with acute bronchitis J44.0 Active [id number] Problem CAD (coronary artery disease) I25.10 Active 81592934 Problem Hyperlipemia E78.5 Active 57079464 Problem Midline low back pain with right-sided sciatica M54.41 Active 347406416 Problem COPD (chronic obstructive pulmonary disease) J44.9 Active 18857750 Problem Panlobular emphysema J43.1 Active 5460000 Problem Nocturnal leg cramps G47.62 Active 082471463 Problem Polyneuropathy G62.9 Active 25259013 Problem Neuropathy G62.9 Active 603241993 Problem Arthritis M19.90 Active 8468400 ALLERGIES No Information ENCOUNTERS Encounter Location Date Diagnosis [facility] [address] [id number], [place] [address] Jun, [facility] [address], [place] [address] Mar, [facility] [address] [address] Feb, [facility] [address] [address] Feb, [facility] [address] [id number], [place] [address]659 Jan, Arthritis M19.90 [facility] [id number] [place] [address]304- 0949 December, Right leg swelling M79.89 ; Left leg swelling M79.89 ; CAD ( coronary artery disease) I25.10 ; Essential hypertension I10 ; Bilateral leg numbness R20.0 and Exertional dyspnea R06.09 [place] [id number] [place] [address] 34379- 9578 Oct, [place] [address] [address]- 1352 Oct, [place] [address] [address]- 2878 Sep, Pain in right hip M25.551 ; Pain in left hip M25.552 and Suprapubic pain R10.2 [place] [address] [address]- 0488 Sep, Midline low back pain with right-sided sciatica M54.41 [place] [address] [address]85- 8584 Aug, Midline low back pain with right-sided sciatica M54.41 and Arthritis M19.90 [place] [address] 81644- 7109 Jul, Impingement syndrome, shoulder, left M75.42 and Sprain of ligament of cervical spine region S13.4XXA [place] [id number] [place] [address] 85930- 4071 Jul, COPD (chronic obstructive pulmonary disease) J44.9 [place] [id number] [place] [address] 97217- 1699 Jul, [place] [address] 47335- 6136 Jul, [place] [id number] [place] [address] 95985- 3620 Jun, Elbow pain, right M25.521 ; Pain of left clavicle M89.8X1 ; Panlobular emphysema J43.1 and Encounter for immunization Z23 [facility] [address] [id number] Jun, [facility] [address] [address]- 9714 Jun, Clavicle pain M89.8X1 [facility] [address] [address]- 1486 Jun, [place] [address] 12704- 9299 May, Neuropathy G62.9 ; Arthritis M19.90 and Nocturnal leg cramps G47.62 [facility] [address] [id number] [place] [address] Apr [place] [address] [address]- 5530 December, [facility] [id number] [place] [address] 74870 -8657 Nov, Gastroenteritis and colitis, viral A08.4 [place] [address] 44354- 6183 Oct, [facility] [id number] [place] [address] 24354- 8740 Sep, [facility] [address] 39587- 0939 Sep, Low back pain M54.5 and Other chronic pain G89.29 [place] [address] 35709- 1492 Sep, [facility] [address] 82881- 9565 Aug, [facility] [id number] [place] [address] 61845- 8263 Jul, Vision changes H53.9 and Polyneuropathy G62.9 [place] [id number] [place] [address] 86860- 9114 Jun, [place] [address] 08634- 9702 Jun, Left leg swelling M79.89 ; Right leg swelling M79.89 ; Bilateral leg numbness R20.0 ; CAD (coronary artery disease) I25.10 ; Essential hypertension I10 and Exertional dyspnea R06.09 [facility] [id number] [place] [address] 25670 -8[address] Jun, Cellulitis of left arm L03.114 [place] [address] 59[address]- 5926 Jun, [place] [address] 73771- 2855 May, Chest pain, unspecified type R07.9 ; Exertional dyspnea R06.09 ; CAD (coronary artery disease) I25.10 and Essential hypertension I10 [facility] [id number] [place] [address] 78584 -9111 December, Acute right-sided low back pain without sciatica M54.5 [place] [id number] [place] [address] 73400- 3933 Sep, Low back pain M54.5 [place] [address] 98336- 5600 Aug, Bilateral low back pain with sciatica, sciatica laterality unspecified M54.40 and Polyneuropathy G62.9 [place] [address] 68011- 9566 Aug, Upper respiratory tract infection, unspecified type 465.9 [place] [address] 89403- 1436 14 Jul, 2015 Midline low back pain with right-sided sciatica M54.41 [place] [id number] [place] [address] 35233- 0275 10 Jul, 2015 Right knee pain M25.561 and Knee swelling, right M25.461 [facility] [id number] [place] [address] 23410- 7655 30 Jun, 2015 Low back pain M54.5 and Sciatica, unspecified side M54.30 [place] [id number] [place] [address] 10346- 3413 30 May, 2015 Arthritis M19.90 [facility] [id number] [place] [address] 21600- 9021 May, Upper respiratory tract infection, unspecified upper respiratory infection J06.9 [place] [id number] [place] [address] 67973- 5552 14 May, 2015 CAD (coronary artery disease) I25.10 ; Hyperlipemia E78.5 and COPD (chronic obstructive pulmonary disease) J44.9 [place] [id number] [place] [address] 35626- 6365 30 Apr, 2015 Arthritis 716.90 [place] [id number] [place] [address] 63236- 9003 23 Apr, 2015 [facility] [id number] [place] [address] 10114- 7886 21 Apr, 2015 [place] [id number] [place] [address] 56985- 2995 14 Apr, 2015 [facility] [id number] [place] [address] 65751- 2544 14 Apr, 2015 Hypertension 401.9 and Hyperlipidemia 272.4 [place] [id number] [place] [address] 81145- 2545 14 Apr, 2015 [facility] [id number] [place] [address] 99862- 2547 14 Apr, 2015 Hypertension 401.9 and Hyperlipidemia 272.4 [facility] [id number] [place] [address] [place] [address]- 8198 Apr, [facility] [address] [id number] [place] [address]- 9051 Mar, Arthritis 716.90 [facility] [place] [facility] [address] [id number] [place] [address]- 3546 Feb, [facility] [place] [facility] [address] [id number] [place] [address]- 4917 14 Nov, 2014 [facility] [place] [facility] [address] [id number] [place] [address]- 2524 Nov, [facility] [place] [address] [id number] [place] [address], [place] [address]- 5085 Oct, [facility] [place] [facility] [address] [id number] [place] [address]- 0944 Oct, [facility] [address] [facility] [id number] [place] [address], [place] [address]- 3302 Jul, [facility] [address] [id number] [place] [address]- 2044 Jul, [facility] [place] [facility] [address] [facility] [id number] [place] [address]- 6226 Jun, [facility] [address] [facility] [id number] [address]- 9346 Jun, [facility] [place] [facility] [address] [id number] [place] [address]- 7662 Jun, [facility] [place] [facility] [address] [id number] [place] [address]- 9132 Jun, [facility] [place] [facility] [address] [id number] [place] [address]- 2338 May, [facility] [place] [facility] [address] [id number] [place] [address]- 4130 May, [facility] [place] [facility] [address] [id number] [place] [address]- 4544 May, [facility] [place] [facility] [address] [id number] [place] [address]- 5453 May, [facility] [place] [facility] [address] [id number] [place] [address]- 6439 May, [facility] [place] [facility] [address] [id number] [place] [address]- 8713 Mar, [facility] [place] [facility] [address] [id number] [place] [address]- 5108 Mar, [facility] [place] [facility] [address] [id number] [place] [address]- 2901 Mar, [facility] [place] [facility] [address] [id number] [place] [address]- 9823 Mar, [facility] [place] [facility] [address] [id number] [place] [address]- 8383 Feb, [facility] [place] [facility] [address] [id number] [place] [address]- 8887 Feb, [facility] [place] [facility] [address] [id number] [place] [address]- 7889 Feb, [facility] [place] [facility] [address] [id number] [place] [address]- 8598 Feb, [facility] [place] [facility] [address] [id number] [place] [address]- 7649 Feb, [facility] [place] [facility] [address] [id number] [place] [address]- 5135 Feb, [facility] [place] [facility] [address] [id number] [place] [address]- 4549 Feb, [facility] [place] [facility] [address] [id number] [place] [address]- 0592 December, [facility] [place] [facility] [address] [id number] [place] [address]- 4904 December, [facility] [place] [facility] [address] [id number] [place] [address]- 3624 December, [facility] [address] [id number] [place] [address]- 7170 December, [facility] [place] [facility] [address] [id number] [place] [address]- 5434 December, [facility] [place] [facility] [address] [id number] [place] [address]- 4318 December, [facility] [place] [facility] [address] [id number] [place] [address]- 5157 December, [facility] [place] [facility] [address] [id number] [place] [address]- 7567 December, [facility] [place] [facility] [address] [id number] [place] [address]- 3815 December, [facility] [place] [facility] [address] [id number] [place] [address]- 1126 December, [facility] [place] [facility] [address] [id number] [place] [address]- 7098 December, [facility] [place] [facility] [address] [id number] [place] [address]- 2835 Nov, [facility] [place] [facility] [address] [id number] [place] [address]- 3246 Nov, [facility] [place] [facility] [address] [id number] [place] [address]- 9105 Nov, [facility] [place] [facility] [address] [id number] [place] [address]- 6996 Nov, [facility] [place] [facility] [address] [id number] [place] [address]- 1873 Nov, [facility] [place] [facility] [address] [id number] [place] [address]- 9969 Nov, [facility] [place] [facility] [address] [id number] [place] [address]- 4299 Nov, [facility] [place] [facility] [address] [id number] [place] [address]- 2342 18 Nov, 2013 [facility] [place] [facility] [address] [id number] [place] [address]- 7271 15 Nov, 2013 [facility] [place] [facility] [address] [id number] [place] [address]- 2546 15 Nov, 2013 [facility] [place] [facility] [address] [id number] [place] [address]- 7050 14 Nov, 2013 [facility] [place] [facility] [address] [id number] [place] [address]- 2602 14 Nov, 2013 [facility] [place] [facility] [address] [id number] [place] [address]- 6419 11 Nov, 2013 [facility] [place] [facility] [address] [id number] [place] [address]- 3790 11 Nov, 2013 [facility] [place] [facility] [address] [id number] [place] [address]- 2179 10 Oct, 2013 [facility] [place] [facility] [address] [id number] [place] [address]- 0727 10 Oct, 2013 [facility] [place] [facility] [address] [id number] [place] [address]- 4328 10 Oct, 2013 [facility] [place] [facility] [address] [id number] [place] [address]- 1352 10 Oct, 2013 [facility] [place] [facility] [address] [id number] [place] [address]- 8467 07 Oct, 2013 [facility] [place] [facility] [address] [id number] [place] [address]- 2154 07 Oct, 2013 [facility] [place] [facility] [address] [id number] [place] [address]- 0527 05 Oct, 2013 [facility] [place] [facility] [address] [id number] [place] [address]- 5056 04 Oct, 2013 [facility] [place] [facility] [address] [id number] [place] [address]- 6459 Oct, [facility] [place] [facility] [address] [id number] [place] [address]- 1271 Oct, [facility] [place] [facility] [address] [id number] [place] [address]- 2381 Oct, [facility] [place] [facility] [address] [id number] [place] [address]- 2699 Sep, [facility] [place] [facility] [address] [id number] [place] [address]- 7258 Sep, [facility] [place] [facility] [address] [id number] [place] [address]- 3445 Sep, [facility] [place] [facility] [address] [id number] [place] [address]- 7183 Sep, [facility] [place] [facility] [address] [id number] [place] [address]- 8096 Aug, [facility] [place] [facility] [address] [id number] [place] [address]- 0495 Aug, [facility] [place] [facility] [address] [id number] [place] [address]- 7491 Aug, [facility] [place] [facility] [address] [id number] [place] [address]- 2712 Aug, [facility] [place] [facility] [address] [id number] [place] [address]- 7780 Aug, [facility] [place] [facility] [address] [id number] [place] [address]- 3600 Aug, [facility] [place] [facility] [address] [id number] [place] [address]- 5839 Aug, [facility] [place] [facility] [address] [id number] [place] [address]- 3809 Aug, [facility] [place] [facility] [address] [id number] [place] [address]- 0368 Jul, [facility] [place] [facility] [address] [id number] [place] [address]- 1062 Jul, [facility] [address] [id number] [place] [address]- 5565 Jul, [facility] [place] [facility] [address] [id number] [place] [address]- 4426 Jul, [facility] [place] [facility] [address] [id number] [place] [address]- 3682 Jul, [facility] [place] [facility] [address] [id number] [place] [address]- 0109 Jul, [facility] [place] [facility] [address] [id number] [place] [address]- 8750 Jun, [facility] [place] [facility] [address] [id number] [place] [address]- 6846 Jun, [facility] [address] [id number] [place] [address]- 2118 Jun, [facility] [address] [id number] [place] [address]- 2670 Jun, [facility] [place] [facility] [address] [id number] [place] [address]- 2921 May, [facility] [address] [id number] [place] [address]- 0896 May, [facility] [address] [id number] [place] [address]- 2214 02 May, 2013 [facility] [place] [facility] [address] [id number] [place] [address]- 9896 30 Apr, 2013 [facility] [place] [facility] [address] [id number] [place] [address]- 9462 24 Apr, 2013 [facility] [place] [facility] [address] [id number] [place] [address]- 2542 20 Apr, 2013 [facility] [place] [facility] [address] [id number] [place] [address]- 8366 Apr, [facility] [address] [id number] [place] [address]- 0741 Apr, [facility] [place] [facility] [address] [id number] [place] [address]- 4807 Mar, [facility] [place] [address] [id number] [place] [address] 2545 Mar, [facility] [place] [facility] [address] [id number] [place] [address] 2546 Mar, [facility] [place] [facility] [address] [id number] [place] [address]- 9432 Mar, [facility] [place] [facility] [address] [id number] [place] [address]- 6337 Feb, [facility] [address] [id number] [place] [address]- 2738 Jan, [facility] [address] [id number] [place] [address]- 5756 December, [facility] [address] [id number] [place] [address]- 4747 December, [facility] [address] [id number] [place] [address]- 5558 December, [facility] [address] [id number] [place] [address]- 3856 December, [facility] [address] [id number] [place] [address]- 2892 December, [facility] [place] [facility] [address] [id number] [place] [address]- 9550 December, [facility] [place] [facility] [address] [id number] [place] [address]- 8276 December, [facility] [place] [facility] [address] [id number] [place] [address]- 2706 Nov, [facility] [place] [facility] [address] [id number], [place] [address]- 7142 25 Nov, 2012 [facility] [place] [facility] [address] [id number] [place] [address]- 3278 16 Nov, 2012 [facility] [place] [facility] [address] [id number] [place] 5932 15 Nov, 2012 [facility] [address] [facility] [id number] [place] [address]- 2621 15 Nov, 2012 [facility] [place] [facility] [address] [id number] [place] [address]- 2768 14 Oct, 2012 [facility] [place] [facility] [address] [id number] [place] [address]- 8580 12 Oct, 2012 [facility] [address] [facility] [id number] [place] [address]- 6733 07 Oct, 2012 [facility] [place] [facility] [address] [id number] [address]- 7273 04 Oct, 2012 [facility] [place] [facility] [address] [facility] [id number] [place] [address]- 3219 20 Sep, 2012 [facility] [place] [facility] [address] [id number] [address]- 5654 14 Sep, 2012 [facility] [place] [facility] [address] [id number] [address] 14 Sep, 2012 [facility] [address] [id number] [address] Sep, [facility] [place] [facility] [address] [facility] [id number], [place] [address] 08 Sep, 2012 [facility] [place] [facility] [address] [facility] [id number] [id number] Sep, [facility] [place] [facility] [address] [facility] [id number], [place] [address] 24 Aug, 2012 [facility] [place] [facility] [address] [facility] [id number], [place] [address] Aug, [facility] [place] [facility] [address] [id number] [place] [address] Aug, [facility] [address] [id number] [place] [address] Aug, [facility] [place] [facility] [address] [id number] [place] [address] Aug, [facility] [address] [id number] [place] [address] Jul, [facility] [address] [id number] [place] [address] Jul, [facility] [address] [id number] [place] [address] Jul, [facility] [address] [id number] [place] [address] Jul, [facility] [address] [id number] [place] [address] Jul, [facility] [address] [id number] [place] [address]69 Jul, [facility] [address] [id number] [place] [address] Jul, [facility] [address] [id number] [place] [address] 2796 Jul, [facility] [address] [id number] [place] [address]259 Jun, [facility] [place] [facility] [address] [id number] [place] [address] 8040 Jun, [facility] [place] [facility] [address] [id number] [place] [address]- 5667 Jun, [facility] [place] [facility] [address] [id number] [place] [address]- 4[address] Jun, [facility] [place] [facility] [address] [id number] [place] [address]- 9013 14 Jun, 2012 [facility] [place] [facility] [address] [id number] [place] [address]- 1339 14 Jun, 2012 [facility] [place] [facility] [address] [id number] [place] [address] 8977 08 Jun, 2012 [facility] [place] [facility] [address] [id number] [place] [address]- [address]41 Jun, [facility] [place] [facility] [address] [id number] [place] [address]- 1585 Jun, [facility] [place] [facility] [address] [id number] [place] [address]- [address] Jun, [facility] [place] [facility] [address] [id number] [place] [address]- 8598 Jun, [facility] [place] [facility] [address] [id number] [place] [address]- 6293 Jun, [facility] [place] [facility] [address] [id number] [place] [address]- 3[address] Jun, [facility] [place] [facility] [address] [id number] [place] [address]- 7652 Jun, [facility] [place] [facility] [address] [id number] [place] [address]- [address]90 Jun, [facility] [place] [facility] [address] [id number], [place] [address] Jun, [facility] [place] [facility] [address] [id number], [place] [address] May, [facility] [place] [facility] [address] [id number] [place] [address]- [address]902 May, [facility] [place] [facility] [address] [id number] [place] [address]- [address] May, [facility] [place] [facility] [address] [id number] [place] [address]- [address]861 May, [facility] [place] [facility] [address] [id number] [place] [address] 08 May, 2012 [facility] [place] [facility] [address] [id number] [place] [address]- [address]88 May, [facility] [place] [facility] [address] [id number] [place] [address]- [address]106 28 Apr, 2012 [facility] [place] [facility] [address] [id number] [place] [address]- [address] 27 Apr, 2012 [facility] [place] [facility] [address] [id number] [place] [address] 15 Apr, 2012 [facility] [place] [facility] [address] [id number] [place] [address]- 9366 11 Apr, 2012 [facility] [place] [facility] [address] [id number] [place] [address]- [address]379 10 Apr, 2012 [facility] [place] [facility] [address] [id number] [place] [address]- [address] Mar, [facility] [place] [facility] [address] [id number] [place] [address]- [address] Mar, [facility] [place] [facility] [address] [id number] [place] [address]- [address] Mar, [facility] [place] [facility] [address] [id number] [place] [address]- 2965 Mar, [facility] [place] [facility] [address] [id number] [place] [address] Mar, [facility] [place] [facility] [address] [id number] [place] [address] 254 Mar, [facility] [place] [facility] [address] [id number] [place] [address] Mar, [facility] [place] [facility] [address] [id number] [place] [address] Feb, [facility] [place] [facility] [address] [id number] [place] [address] Feb, [facility] [place] [facility] [address] [id number] [place] [address] Feb, [facility] [place] [facility] [address] [id number] [place] [address] Feb, [facility] [place] [facility] [address] [id number] [place] [address] Jan, [facility] [place] [facility] [address] [id number] [place] [address] Jan, [facility] [place] [facility] [address] [id number] [place] [address] Jan, [facility] [place] [facility] [address] [id number] [place] [address] Jan, [facility] [place] [facility] [address] [id number] [place] [address] Jan, [facility] [place] [facility] [address] [id number] [place] [address] Jan, [facility] [place] [facility] [address] [id number] [place] [address] December, [facility] [place] [facility] [address] [id number] [place] [address] December, [facility] [place] [facility] [address] [id number] [place] [address] December, [facility] [place] [facility] [address] [id number] [place] [address] December, [facility] [place] [facility] [address] [id number] [place] [address]- 2968 December, [facility] [place] [facility] [address] [id number] [place] [address]- 116[address] December, [facility] [place] [facility] [address] [id number] [place] [address] December, [facility] [place] [facility] [address] [id number], [place] [address] 30 Nov, 2011 [facility] [place] [facility] [address] [id number] [place] [address] 27 Nov, 2011 [facility] [place] [facility] [address] [id number] [place] [address]- [address] 26 Nov, 2011 [facility] [place] [facility] [address] [facility] [id number] [place] [address]- [address] 25 Nov, 2011 [facility] [place] [facility] [address] [id number] [place] [address]- 98[address] 16 Nov, 2011 [facility] [address] [id number] [place] [address]275 Nov, [facility] [place] [facility] [address] [facility] [id number] [place] [address] 8380 Nov, [facility] [id number] [address] 29 Oct, 2011 [facility] [place] [facility] [address] [facility] [id number] [place] [address]- [address]80 Oct, [facility] [place] [facility] [address] [id number] [address]679 Oct, [facility] [place] [facility] [address] [id number] [address] Oct, [facility] [place] [facility] [address] [facility] [id number] [place] [address] Sep, [facility] [place] [facility] [address] [facility] [id number] [place] [address] 6842 Sep, [facility] [place] [facility] [address] [id number] [place] [address] 7904 14 Sep, 2011 [facility] [place] [facility] [address] [facility] [id number] [place] [address] 8542 07 Sep, 2011 [facility] [place] [facility] [address] [id number], [place] [address] 07 Sep, 2011 [facility] [place] [facility] [address] [id number] [place] [address] Sep, [facility] [place] [facility] [address] [id number] [place] [address]- [address] Sep, [facility] [place] [facility] [address] [id number] [place] [address] Aug, [facility] [place] [facility] [address] [id number] [place] [address]- 1798 Aug, [facility] [place] [facility] [address] [id number] [place] [address] 6868 Aug, [facility] [place] [facility] [address] [id number] [place] [address]- 6570 Jul, [facility] [place] [facility] [address] [id number] [place] [address] Jul, [facility] [place] [facility] [address] [id number] [place] [address]- [address] Jul, [facility] [place] [facility] [address] [id number] [place] [address]- 1391 Jul, [facility] [place] [facility] [address] [facility] [id number] [place] [address]- 9896 Jul, [facility] [place] [facility] [address] [facility] [id number], [place] [address]- [address]562 Jul, [facility] [place] [facility] [address] [id number], [place] [address] 2709 15 Jun, 2011 [facility] [place] [facility] [address] [id number] [place] [address]- 2986 Jun, [facility] [place] [facility] [address] [id number], [place] [address] 14 May, 2011 [facility] [place] [facility] [address] [id number] [address] 10 May, 2011 [facility] [place] [facility] [address] [id number], [place] [address] 3986 14 Apr, 2011 [facility] [facility] [address] [id number] [place] [address]- 9142 11 Oct, 2010 [facility] [place] [facility] [address] [id number] [place] [address]- 5205 22 Jul, 2010 [facility] [place] [facility] [address] [facility] [id number] [place] [address]- 5050 14 Jul, 2010 [facility] [place] [facility] [address] [id number] [place] [address]- 2819 08 Jul, 2010 [facility] [place] [facility] [address] [id number] [place] [address]- 6075 24 Jun, 2010 [facility] [place] [facility] [address] [id number] [place] [address]- 2494 15 Jun, 2010 [facility] [address] [facility] [id number] [place] [address]- 3685 Jun, [facility] [place] [facility] [address] [facility] [id number] [place] [address]- 4074 May, [facility] [place] [facility] [address] [facility] [id number], [place] [address]- 78[address] 15 Jan, 2010 [facility] [place] [facility] [address] [facility] [id number] [place] [address]- 5381 December, [facility] [place] [facility] [address] [facility] [id number], [place] [address]- [address] 29 Jul, 2009 [facility] [place] [facility] [address] [id number], [place] [address]- [address]287 17 Jul, 2009 [facility] [place] [facility] [address] [id number], [place] [address]- 2735 03 Jul, 2009 [facility] [place] [facility] [address] [facility] [id number], [place] [address]- [address]245 23 May, 2009 [facility] [place] [facility] [address] [facility] [id number], [place] [address]- 0132 16 May, 2009 [facility] [place] [facility] [address] [facility] [id number] [place] [address]- 1278 16 May, 2009 IMMUNIZATIONS No Known Immunizations SOCIAL HISTORY Never Assessed REASON FOR VISIT PALS IN- Viibryd PLAN OF CARE VITAL SIGNS MEDICATIONS Unknown [...] Hospitalization History sepsis, Acute bacterial exac of bronchitis-[facility]
--- OUTSIDE RECORDS SUMMARY | 2018-04-25 14:11 | XMS REPORT ---
Author Author DANNI CHING [facility] Address [address] [place] [address] Care Team Providers Care Production Broacher Name Role Phone DANNI CHING Unavailable PROBLEMS Type Condition ICD9-CM Code ALD93-EL Code Onset Dates Condition Status SNOMED Code Problem Essential hypertension I10 Active 76618520 Problem Cellulitis of left arm L03.114 Active [id number] Problem COPD (chronic obstructive pulmonary disease) with acute bronchitis J44.0 Active 442014744391374 Problem CAD (coronary artery disease) I25.10 Active 16836018 Problem Hyperlipemia E78.5 Active 78062270 Problem Midline low back pain with right-sided sciatica M54.41 Active 961828379 Problem COPD (chronic obstructive pulmonary disease) J44.9 Active 09537469 Problem Panlobular emphysema J43.1 Active 0619548 Problem Nocturnal leg cramps G47.62 Active 739035769 Problem Polyneuropathy G62.9 Active 44867439 Problem Neuropathy G62.9 Active 638888239 Problem Arthritis M19.90 Active 0121239 ALLERGIES Substance Reaction Event Type Date Status Xanax XR Self Admitted Abuse Drug Allergy Oct, Active Oxycodone HCl Failed narcotics contract Drug Allergy Oct, Active Benzodiazepines Failed narcotics contract Non Drug Allergy Oct, Active ENCOUNTERS Encounter Location Date Diagnosis [facility] [address] [facility] [id number] [address] Jun, [facility] [address] [id number] [address] Feb, [facility] [address] [id number] [address] Feb, [facility] [address] [facility] [id number] [address] Jan, Arthritis M19.90 [place] [id number] [place] [address] 90641- 6700 December, Right leg swelling M79.89 ; Left leg swelling M79.89 ; CAD ( coronary artery disease) I25.10 ; Essential hypertension I10 ; Bilateral leg numbness R20.0 and Exertional dyspnea R06.09 [facility] [id number] [place] [address] 01691- 3280 Oct, [facility] [id number] [place] [address] 15314- 6138 Oct, [facility] [place] [address] [address] Sep, Pain in right hip M25.551 ; Pain in left hip M25.552 and Suprapubic pain R10.[address] [address]- [address] Sep, Midline low back pain with right-sided sciatica M54.41 [place] [id number] [place] [address] 97159- 0812 Aug, Midline low back pain with right-sided sciatica M54.41 and Arthritis M19.90 [place] [id number] [place] [address] 30783- 3971 Jul, Impingement syndrome, shoulder, left M75.42 and Sprain of ligament of cervical spine region S13.4XXA [place] [place] [id number] [place] [address] 71082- 0639 Jul, COPD (chronic obstructive pulmonary disease) J44.9 [place] [address] [address]- 0935 Jul, [facility] [place] [id number] [place] [address] 54887- 9262 Jul, [facility] [place] [id number] [place] [address] 42098- 1536 Jun, Elbow pain, right M25.521 ; Pain of left clavicle M89.8X1 ; Panlobular emphysema J43.1 and Encounter for immunization Z23 [facility] [id number] [place] [address] [id number] Jun, [facility] [address] [address]210- 1711 Jun, Clavicle pain M89.8X1 [facility] [address] 22794- 5586 Jun, [facility] [address] 00082- 2483 May, Neuropathy G62.9 ; Arthritis M19.90 and Nocturnal leg cramps G47.62 [facility] [address] [id number] [address] Apr [facility] [address] [address]- 6[address] December, [facility] [id number] [place] [address] 01628 -8619 Nov, Gastroenteritis and colitis, viral A08.4 [facility] [id number] [place] [address] 76127- 9894 Oct, [facility] [id number] [place] [address] 63220- 2564 Sep, [facility] [id number] [place] [address] 41047- 8797 Sep, Low back pain M54.5 and Other chronic pain G89.29 [facility] [address] 77234- 7487 Sep, [facility] [id number] [place] [address] 08561- 8455 Aug, [facility] [address] 54680- 8493 Jul, Vision changes H53.9 and Polyneuropathy G62.9 [place] [id number] [place] [address] 55737- 5714 Jun, [place] [id number] [place] [address] 20983- 0185 Jun, Left leg swelling M79.89 ; Right leg swelling M79.89 ; Bilateral leg numbness R20.0 ; CAD (coronary artery disease) I25.10 ; Essential hypertension I10 and Exertional dyspnea R06.09 [facility] [address] 16[address]8457 Jun, Cellulitis of left arm L03.114 [place] [address] 54142- 0100 Jun, [place] [address] 23936- 0758 May, Chest pain, unspecified type R07.9 ; Exertional dyspnea R06.09 ; CAD (coronary artery disease) I25.10 and Essential hypertension I10 [facility] [address] [address] December, Acute right-sided low back pain without sciatica M54.5 [place] [id number] [place] [address] 40700- 8768 Sep, Low back pain M54.5 [place] [address] 81989- 2239 Aug, Bilateral low back pain with sciatica, sciatica laterality unspecified M54.40 and Polyneuropathy G62.9 [place] [address] 83635- 3683 Aug, Upper respiratory tract infection, unspecified type 465.9 [place] [id number] [place] [address] 17060- 5250 Jul, Midline low back pain with right-sided sciatica M54.41 [facility] [address] [address] 5840 10 Jul, 2015 Right knee pain M25.561 and Knee swelling, right M25.461 [facility] [id number] [place] [address] 36090- 5238 30 Jun, 2015 Low back pain M54.5 and Sciatica, unspecified side M54.30 [facility] [id number] [place] [address] 70377- 0237 30 May, 2015 Arthritis M19.90 [place] [id number] [place] [address] 63625- 4929 May, Upper respiratory tract infection, unspecified upper respiratory infection J06.9 [place] [id number] [place] [address] 42289- 3583 May, CAD (coronary artery disease) I25.10 ; Hyperlipemia E78.5 and COPD (chronic obstructive pulmonary disease) J44.9 [facility] [id number] [place] [address] 99090- 0603 30 Apr, 2015 Arthritis 716.90 [facility] [id number] [place] [address] 12961- 6968 23 Apr, 2015 [facility] [id number] [place] [address] 20202- 1130 Apr, [facility] [id number] [place] [address] 57862- 3709 14 Apr, 2015 [facility] [id number] [place] [address] 40910- 7847 14 Apr, 2015 Hypertension 401.9 and Hyperlipidemia 272.4 [facility] [id number] [place] [address] 56917- 4708 14 Apr, 2015 [facility] [id number] [place] [address] 67437- 5831 14 Apr, 2015 Hypertension 401.9 and Hyperlipidemia 272.4 [facility] [place] [facility] [address] [id number] [place] [address]- 7296 08 Apr, 2015 [facility] [place] [facility] [address] [id number] [place] [address]- 0769 Mar, Arthritis 716.90 [facility] [place] [facility] [address] [id number] [place] [address]- 2365 Feb, [facility] [place] [facility] [address] [id number] [place] [address]- 7577 Nov, [facility] [place] [facility] [address] [id number] [place] [address]- 1766 Nov, [facility] [place] [facility] [address] [id number] [place] [address]- 0457 Oct, [facility] [place] [facility] [address] [id number] [place] [address]- 0248 Oct, [facility] [place] [facility] [address] [id number] [address]- 4787 Jul, [facility] [place] [facility] [address] [id number] [place] [address]- 3408 Jul, [facility] [place] [facility] [address] [id number] [address]- 9565 Jun, [facility] [place] [facility] [address] [id number] [address]- 0052 Jun, [facility] [place] [facility] [address] [id number] [address]- 2096 Jun, [facility] [place] [facility] [address] [id number] [place] [address]- 1426 Jun, [facility] [place] [facility] [address] [id number] 0473 May, [facility] [place] [facility] [address] [id number] 9602 May, [facility] [place] [facility] [address] [id number] [place] [address]- 0459 May, [facility] [place] [facility] [address] [id number] [place] [address]- 9219 May, [facility] [place] [facility] [address] [id number] [place] [address]- 6153 May, [facility] [place] [facility] [address] [id number] [place] [address]- 3505 Mar, [facility] [place] [facility] [address] [id number] [place] [address]- 8603 Mar, [facility] [place] [facility] [address] [id number] [place] [address]- 4216 Mar, [facility] [place] [facility] [address] [id number] [place] [address]- 4614 Mar, [facility] [place] [facility] [address] [id number] [place] [address]- 8366 Feb, [facility] [place] [facility] [address] [id number] [place] [address]- 9547 Feb, [facility] [place] [facility] [address] [id number] [place] [address]- 0173 Feb, [facility] [place] [facility] [address] [id number] [place] [address]- 1757 Feb, [facility] [place] [facility] [address] [id number] [place] [address]- 2937 Feb, [facility] [place] [facility] [address] [id number] [place] [address]- 1638 Feb, [facility] [place] [facility] [address] [id number] [place] [address]- 9145 Feb, [facility] [place] [facility] [address] [id number] [place] [address]- 7892 December, [facility] [place] [facility] [address] [id number] [place] [address]- 0059 December, [facility] [place] [facility] [address] [id number] [place] [address]- 4770 December, [facility] [place] [facility] [address] [id number] [place] [address]- 9138 December, [facility] [place] [facility] [address] [id number] [place] [address]- 5481 December, [facility] [place] [facility] [address] [id number] [place] [address]- 1737 December, [facility] [place] [facility] [address] [id number] [place] [address]- 5790 December, [facility] [place] [facility] [address] [id number] [place] [address]- 5681 December, [facility] [place] [facility] [address] [id number] [place] [address]- 8405 December, [facility] [place] [facility] [address] [id number] [place] [address]- 7125 December, [facility] [place] [facility] [address] [id number] [place] [address]- 8719 December, [facility] [place] [facility] [address] [id number] [place] [address]- 6239 Nov, [facility] [place] [facility] [address] [id number] [place] [address]- 1783 Nov, [facility] [place] [facility] [address] [id number] [place] [address]- 4584 Nov, [facility] [place] [facility] [address] [id number] [place] [address]- 0312 Nov, [facility] [place] [facility] [address] [id number] [place] [address]- 9312 Nov, [facility] [place] [facility] [address] [id number] [place] [address]- 4301 Nov, [facility] [place] [facility] [address] [id number] [place] [address]- 5436 Nov, 2013 [facility] [place] [facility] [address] [id number] [place] [address]- 0821 18 Nov, 2013 [facility] [place] [facility] [address] [id number] [place] [address]- 8059 15 Nov, 2013 [facility] [place] [facility] [address] [id number] [place] [address]- 8128 15 Nov, 2013 [facility] [place] [facility] [address] [id number] [place] [address]- 8380 14 Nov, 2013 [facility] [place] [facility] [address] [id number] [place] [address]- 4253 14 Nov, 2013 [facility] [place] [facility] [address] [id number] [place] [address]- 7233 11 Nov, 2013 [facility] [place] [facility] [address] [id number] [place] [address]- 7696 Nov, [facility] [place] [facility] [address] [id number] [place] [address]- 5184 10 Oct, 2013 [facility] [place] [facility] [address] [id number] [place] [address]- 5324 10 Oct, 2013 [facility] [place] [facility] [address] [id number] [place] [address]- 3748 10 Oct, 2013 [facility] [place] [facility] [address] [id number] [place] [address]- 3962 10 Oct, 2013 [facility] [place] [facility] [address] [id number] [place] [address]- 6296 07 Oct, 2013 [facility] [place] [facility] [address] [id number] [place] [address]- 4455 07 Oct, 2013 [facility] [place] [facility] [address] [id number] [place] [address]- 3863 05 Oct, 2013 [facility] [place] [facility] [address] [id number] [place] [address]- 0802 04 Oct, 2013 [facility] [place] [facility] [address] [id number] [place] [address]- 3652 Oct, [facility] [place] [facility] [address] [id number] [place] [address]- 3696 Oct, [facility] [place] [facility] [address] [id number] [place] [address]- 8556 Oct, [facility] [place] [facility] [address] [id number] [place] [address]- 8596 Sep, [facility] [place] [facility] [address] [id number] [place] [address]- 1499 Sep, [facility] [place] [facility] [address] [id number] [place] [address]- 8227 Sep, [facility] [place] [facility] [address] [id number] [place] [address]- 9156 Sep, [facility] [place] [facility] [address] [id number] [place] [address]- 8773 Aug, [facility] [place] [facility] [address] [id number] [place] [address]- 0771 Aug, [facility] [place] [facility] [address] [id number] [place] [address]- 5690 Aug, [facility] [place] [facility] [address] [id number] [place] [address]- 3513 Aug, [facility] [place] [facility] [address] [id number] [place] [address]- 0050 Aug, [facility] [place] [facility] [address] [id number] [place] [address]- 0765 Aug, [facility] [place] [facility] [address] [id number] [place] 6678 Aug, [facility] [place] [facility] [address] [id number] [place] [address]- 0389 Aug, [facility] [place] [facility] [address] [id number] [place] [address]- 1831 Jul, [facility] [place] [facility] [address] [id number] [place] [address]- 5350 Jul, [facility] [place] [facility] [address] [id number] [place] [address]- 4988 Jul, [facility] [place] [facility] [address] [id number] [place] [address]- 3277 Jul, [facility] [place] [facility] [address] [id number] [place] [address]- 1280 Jul, [facility] [place] [facility] [address] [id number] [place] [address]- 0769 Jul, [facility] [place] [facility] [address] [id number] [place] [address]- 1491 Jun, [facility] [place] [facility] [address] [id number] [place] [address]- 4451 Jun, [facility] [place] [facility] [address] [id number] [place] [address]- 6307 Jun, [facility] [place] [facility] [address] [id number] [place] [address]- 2384 Jun, [facility] [place] [facility] [address] [id number] [address]- 7366 May, [facility] [place] [facility] [address] [id number] [place] [address]- 6916 May, [facility] [place] [facility] [address] [id number] [address]- 7027 May, [facility] [place] [facility] [address] [id number] [place] [address]- 6272 30 Apr, 2013 [facility] [place] [facility] [address] [id number] [place] [address]- 8516 24 Apr, 2013 [facility] [place] [facility] [address] [id number] [place] [address]- 1011 20 Apr, 2013 [facility] [place] [facility] [address] [id number] [place] [address]- 8998 Apr, [facility] [address] [id number] [place] [address]- 7602 Apr, [facility] [address] [id number] [place] [address]- 9398 Mar, [facility] [address] [id number] [place] [address]- 5700 Mar, [facility] [address] [id number] [place] [address]- 7269 Mar, [facility] [address] [id number] [place] [address]- 7239 Mar, [facility] [address] [id number] [place] [address]- 9426 Feb, [facility] [address] [id number] [place] [address]- 2838 Jan, [facility] [address] [id number] [place] [address]- 8533 December, [facility] [address] [id number] [place] [address]- 6014 December, [facility] [address] [id number] [place] [address]- 8568 December, [facility] [address] [id number] [place] [address]- 6041 December, [facility] [address] [id number] [place] [address]- 5980 December, [facility] [address] [id number] [place] [address]- 4233 December, [facility] [address] [id number] [place] [address]- 1595 December, [facility] [address] [id number] [place] [address]- 1692 Nov, [facility] [address] [id number] [place] [address]- 0161 25 Nov, 2012 [facility] [place] [facility] [address] [id number] [place] [address]- 0288 16 Nov, 2012 [facility] [place] [facility] [address] [id number] [place] [address]- 0856 15 Nov, 2012 [facility] [place] [facility] [address] [id number] [place] [address]- 3136 15 Nov, 2012 [facility] [place] [facility] [address] [id number] [place] [address]- 6878 14 Oct, 2012 [facility] [place] [facility] [address] [id number] [place] [address]- 7265 12 Oct, 2012 [facility] [place] [facility] [address] [facility] [id number] [place] [address]- 1779 07 Oct, 2012 [facility] [place] [facility] [address] [id number] [place] [address]- 0030 04 Oct, 2012 [facility] [place] [facility] [address] [id number] [place] [address]- 6027 20 Sep, 2012 [facility] [place] [facility] [address] [facility] [id number] [place] [address]- 2373 14 Sep, 2012 [facility] [place] [facility] [address] [facility] [id number] [place] [address]- 8050 14 Sep, 2012 [facility] [place] [facility] [address] [id number] [address]- 1558 11 Sep, 2012 [facility] [place] [facility] [address] [id number] [place] [address]- 3127 08 Sep, 2012 [facility] [place] [facility] [address] [id number] [place] [address]- 9599 Sep, [facility] [place] [facility] [address] [id number] [place] [address]- 7258 24 Aug, 2012 [facility] [place] [facility] [address] [id number] [place] [address]- 0995 Aug, [facility] [address] [id number] [place] [address]- 8743 Aug, [facility] [place] [facility] [address] [id number] [place] [address]- 7028 Aug, [facility] [place] [facility] [address] [facility] [id number] [place] [address]- 4649 Aug, [facility] [place] [facility] [address] [id number] [place] [address]- 0007 Jul, [facility] [place] [facility] [address] [id number] [place] [address] Jul, [facility] [place] [facility] [address] [id number] [place] [address] Jul, [facility] [address] [facility] [id number] [place] [address] Jul, [facility] [place] [facility] [address] [id number] [place] [address] Jul, [facility] [place] [facility] [address] [id number] [place] [address] Jul, [facility] [place] [facility] [address] [facility] [id number] [place] [address] Jul, [facility] [place] [facility] [address] [id number] [place] [address] Jul, [facility] [place] [facility] [address] [id number] [place] [address] Jun, [facility] [place] [facility] [address] [id number] [place] [address] Jun, [facility] [place] [facility] [address] [id number] [place] [address] Jun, [facility] [place] [facility] [address] [facility] [id number] [place] [address] Jun, [facility] [place] [facility] [address] [id number] [place] [address] 14 Jun, 2012 [facility] [place] [facility] [address] [id number] [place] [address] 14 Jun, 2012 [facility] [place] [facility] [address] [id number] [place] [address] 08 Jun, 2012 [facility] [place] [facility] [address] [id number] [place] [address] 08 Jun, 2012 [facility] [place] [facility] [address] [id number] [place] [address] 07 Jun, 2012 [facility] [place] [facility] [address] [id number] [place] [address] Jun, [facility] [place] [facility] [address] [id number] [place] [address] Jun, [facility] [place] [facility] [address] [id number] [place] [address] Jun, [facility] [place] [facility] [address] [id number] [place] [address] Jun, [facility] [place] [facility] [address] [id number] [place] [address] Jun, [facility] [place] [facility] [address] [facility] [id number] [place] [address] Jun, [facility] [place] [facility] [address] [id number] [place] [address]- [address] Jun, [facility] [place] [facility] [address] [id number] [place] [address] May, [facility] [place] [facility] [address] [id number] [place] [address] May, [facility] [place] [facility] [address] [id number] [place] [address] May, [facility] [place] [facility] [address] [id number] [place] [address] May, [facility] [place] [facility] [address] [id number] [place] [address] 08 May, 2012 [facility] [place] [facility] [address] [id number] [place] [address] May, [facility] [place] [facility] [address] [id number] [place] [address] 28 Apr, 2012 [facility] [place] [facility] [address] [id number] [place] [address] 27 Apr, 2012 [facility] [place] [facility] [address] [id number] [place] [address] 15 Apr, 2012 [facility] [place] [facility] [address] [id number] [place] [address] 11 Apr, 2012 [facility] [place] [facility] [address] [id number] [place] [address] 10 Apr, 2012 [facility] [place] [facility] [address] [id number] [place] [address] Mar, [facility] [place] [facility] [address] [id number] [place] [address] Mar, [facility] [place] [facility] [address] [id number] [place] [address]- [address] Mar, [facility] [place] [facility] [address] [id number] [place] [address] Mar, [facility] [place] [facility] [address] [id number] [address] Mar, [facility] [place] [facility] [address] [id number] [place] [address] Mar, [facility] [place] [facility] [address] [id number] [place] [address]- [address] Mar, [facility] [place] [facility] [address] [id number] [place] [address]- [address] Feb, [facility] [place] [facility] [address] [id number] [place] [address] Feb, [facility] [address] [id number] [place] [address]- [address] Feb, [facility] [place] [facility] [address] [id number] [place] [address] Feb, [facility] [place] [facility] [address] [id number] [place] [address] Jan, [facility] [place] [facility] [address] [id number] [place] [address]- [address] Jan, [facility] [place] [facility] [address] [id number] [place] [address] Jan, [facility] [place] [facility] [address] [id number] [place] [address] Jan, [facility] [place] [facility] [address] [id number] [place] [address]- [address] Jan, [facility] [place] [facility] [address] [id number] [place] [address]- [address] Jan, [facility] [place] [facility] [address] [id number] [place] [address]- [address] December, [facility] [place] [facility] [address] [id number] [place] [address] December, [facility] [place] [facility] [address] [id number] [place] [address] December, [facility] [place] [facility] [address] [id number] [place] [address] December, [facility] [place] [facility] [address] [id number] [place] [address] December, [facility] [place] [facility] [address] [id number] [place] [address] December, [facility] [place] [facility] [address] [id number] [place] [address] December, [facility] [place] [facility] [address] [id number] [place] [address] 30 Nov, 2011 [facility] [place] [facility] [address] [id number] [place] [address] 27 Nov, 2011 [facility] [place] [facility] [address] [id number] [place] [address] Nov, [facility] [place] [facility] [address] [id number] [place] [address] 25 Nov, 2011 [facility] [place] [facility] [address] [id number] [place] [address] 16 Nov, 2011 [facility] [place] [facility] [address] [id number] [place] [address] Nov, [facility] [place] [facility] [address] [id number] [place] [address] Nov, [facility] [place] [facility] [address] [id number] [place] [address] 29 Oct, 2011 [facility] [place] [facility] [address] [id number] [place] [address] Oct, [facility] [place] [facility] [address] [id number] [place] [address] Oct, [facility] [place] [facility] [address] [id number] [place] [address] Oct, [facility] [place] [facility] [address] [id number] [place] [address] Sep, [facility] [place] [facility] [address] [id number] [place] [address] Sep, [facility] [place] [facility] [address] [id number] [place] [address] 14 Sep, 2011 [facility] [place] [facility] [address] [id number] [place] [address] 07 Sep, 2011 [facility] [place] [facility] [address] [id number] [place] [address] 07 Sep, 2011 [facility] [address] [id number] [place] [address] 06 Sep, 2011 [facility] [place] [facility] [address] [id number] [place] [address] Sep, [facility] [address] [id number] [place] [address] Aug, [facility] [place] [facility] [address] [id number] [place] [address] Aug, [facility] [address] [id number] [place] [address] Aug, [facility] [place] [facility] [address] [id number] [place] [address] Jul, [facility] [address] [facility] [id number] [place] [address] Jul, [facility] [place] [facility] [address] [id number] [place] [address] Jul, [facility] [address] [id number] [place] [address] Jul, [facility] [place] [facility] [address] [facility] [id number] [place] [address] Jul, [facility] [place] [facility] [address] [facility] [id number] [place] [address] Jul, [facility] [place] [facility] [address] [id number] [place] [address] 15 Jun, 2011 [facility] [place] [facility] [address] [id number] [place] [address] 03 Jun, 2011 [facility] [place] [facility] [address] [facility] [id number] [place] [address] 14 May, 2011 [facility] [place] [facility] [address] [facility] [id number] [address] 10 May, 2011 [facility] [place] [facility] [address] [id number] [place] [address] 14 Apr, 2011 [facility] [address] [id number] [place] [address] 11 Oct, 2010 [facility] [place] [facility] [address] [id number] [place] [address] 22 Jul, 2010 [facility] [place] [facility] [address] [id number] [place] [address] 14 Jul, 2010 [facility] [place] [facility] [address] [id number] [place] [address] 08 Jul, 2010 [facility] [place] [facility] [address] [id number] [place] [address] 24 Jun, 2010 [facility] [address] [id number] [place] [address] 15 Jun, 2010 [facility] [place] [facility] [address] [id number] [place] [address] Jun, [facility] [address] [id number] [place] [address] May, [facility] [place] [facility] [address] [id number] [place] [address] Jan, [facility] [place] [facility] [address] [id number] [place] [address] December[facility] [address] [id number] [place] [address] 29 Jul, 2009 [facility] [place] [facility] [address] [id number] [place] [address] 17 Jul, 2009 [facility] [place] [facility] [address] [id number] [place] [address]- [address] 03 Jul, 2009 [facility] [place] [facility] [address] [id number] [place] [address] 136[address] 23 May, 2009 [facility] [place] [facility] [address] [id number] [place] [address] May, [facility] [address] [facility] [id number] [place] [address] May, IMMUNIZATIONS No Known Immunizations SOCIAL HISTORY Never Assessed REASON FOR VISIT PALS -Viibryd PLAN OF CARE VITAL SIGNS MEDICATIONS Medication Instructions Dosage Frequency Start Date End Date Duration Status Viibryd 40 mg Orally Once a day 1 tablet 24h Oct, 90 days Active RESULTS No Results PROCEDURES No Known [...] Hospitalization History sepsis, Acute bacterial exac of bronchitis-[facility]
--- OUTSIDE RECORDS SUMMARY | 2018-04-25 14:12 | XMS REPORT ---
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 Name Role Phone LUCY RAKAN Unavailable PROBLEMS Type Condition ICD9-CM Code IUT04-LR Code Onset Dates Condition Status SNOMED Code Problem Essential hypertension I10 Active 23030250 Problem Cellulitis of left arm L03.114 Active 14908343411275265 Problem COPD (chronic obstructive pulmonary disease) with acute bronchitis J44.0 Active 781065153470207 Problem CAD (coronary artery disease) I25.10 Active 53557723 Problem Hyperlipemia E78.5 Active 70973531 Problem Midline low back pain with right-sided sciatica M54.41 Active 648641891 Problem COPD (chronic obstructive pulmonary disease) J44.9 Active 38358869 Problem Panlobular emphysema J43.1 Active 1847575 Problem Nocturnal leg cramps G47.62 Active 219150486 Problem Polyneuropathy G62.9 Active 14816931 Problem Neuropathy G62.9 Active 557217748 Problem Arthritis M19.90 Active 9417481 ALLERGIES No Information ENCOUNTERS Encounter Location Date Diagnosis [place] [address] [address] Jun, [place] [address] [place] [id number] [place] [address] 19180- 9243 Jan, [place] [address] [place] [id number] [place] [address] 13124- 6349 December, Right leg swelling M79.89 ; Left leg swelling M79.89 ; CAD ( coronary artery disease) I25.10 ; Essential hypertension I10 ; Bilateral leg numbness R20.0 and Exertional dyspnea R06.09 [place] [address] [address] Oct, [place] [address] [place] [id number] [place] [address] 65472- 5289 Oct, [place] [address] [address]- 9100 Sep, Pain in right hip M25.551 ; Pain in left hip M25.552 and Suprapubic pain R10.2 [place] [address] 70286- 9483 09 Sep, 2017 Midline low back pain with right-sided sciatica M54.41 [place] [address] 25705- 4081 Aug, Midline low back pain with right-sided sciatica M54.41 and Arthritis M19.90 [place] [address] 63948- 7229 Jul, Impingement syndrome, shoulder, left M75.42 and Sprain of ligament of cervical spine region S13.4XXA [place] [address] 89355- 3241 Jul, COPD (chronic obstructive pulmonary disease) J44.9 [place] [address] 11596- 6050 Jul, [place] [address] 7[address]48- 1978 Jul, [place] [address] 95510- 2887 30 Jun, 2017 Elbow pain, right M25.521 ; Pain of left clavicle M89.8X1 ; Panlobular emphysema J43.1 and Encounter for immunization Z23 [place] [address] [id number] Jun, [place] [address] [place] [id number] [place] [address] 80955- 2490 Jun, Clavicle pain M89.8X1 [place] [id number] [place] [address] 62185- 2245 Jun, [facility] [id number] [place] [address] 33013- 8415 May, Neuropathy G62.9 ; Arthritis M19.90 and Nocturnal leg cramps G47.62 [facility] [address] [id number] [place] [address] Apr [facility] [address] [place] [id number] [place] [address] 74773- 0071 December, [facility] [id number] [place] [address] 28910 -8735 Nov, Gastroenteritis and colitis, viral A08.4 [place] [address] [place] [id number] [place] [address] 01771- 7725 Oct, [place] [address] 14981- 1797 Sep, [place] [address] [place] [id number] [place] [address] 38984- 7492 Sep, Low back pain M54.5 and Other chronic pain G89.29 [place] [address] [place] [id number] [place] [address] 99280- 1998 Sep, [place] [address] [place] [id number] [place] [address] 43879- 3612 Aug, [facility] [id number] [place] [address] 97904- 8369 Jul, Vision changes H53.9 and Polyneuropathy G62.9 [place] [address] [place] [id number] [place] [address] 63082- 8997 Jun, [facility] [address] [address] [id number] [place] [address] 45210- 0348 Jun, Left leg swelling M79.89 ; Right leg swelling M79.89 ; Bilateral leg numbness R20.0 ; CAD (coronary artery disease) I25.10 ; Essential hypertension I10 and Exertional dyspnea R06.09 [facility] [id number] [place] [address] 71297 -9231 Jun, Cellulitis of left arm L03.114 [place] [address] [place] [id number] [place] [address] 64995- 3768 Jun, [place] [address] 94281- 8145 May, Chest pain, unspecified type R07.9 ; Exertional dyspnea R06.09 ; CAD (coronary artery disease) I25.10 and Essential hypertension I10 [facility] [address] 24936 -5233 December, Acute right-sided low back pain without sciatica M54.5 [place] [address] 77963- 4260 Sep, Low back pain M54.5 [place] [address] [place] [id number] [place] [address] 58118- 4059 Aug, Bilateral low back pain with sciatica, sciatica laterality unspecified M54.40 and Polyneuropathy G62.9 [place] [address] [place] [id number] [place] [address] 19756- 8480 Aug, Upper respiratory tract infection, unspecified type 465.9 [place] [address] [place] [id number] [place] [address] 20424- 8453 14 Jul, 2015 Midline low back pain with right-sided sciatica M54.41 [place] [address] [place] [id number] [place] [address] 55612- 0153 10 Jul, 2015 Right knee pain M25.561 and Knee swelling, right M25.461 [place] [address] [place] [id number] [place] [address] 43705- 0944 30 Jun, 2015 Low back pain M54.5 and Sciatica, unspecified side M54.30 [place] [address] [place] [address]- 3460 30 May, 2015 Arthritis M19.90 [facility] [id number] [place] [address] 02281- 3394 14 May, 2015 Upper respiratory tract infection, unspecified upper respiratory infection J06.9 [facility] [id number] [place] [address] 72047- 8284 14 May, 2015 CAD (coronary artery disease) I25.10 ; Hyperlipemia E78.5 and COPD (chronic obstructive pulmonary disease) J44.9 [facility] [id number] [place] [address] 80443- 7361 30 Apr, 2015 Arthritis 716.90 [facility] [address] [id number] [place] [address] 95205- 8495 23 Apr, 2015 [facility] [id number] [place] [address] 00079- 7497 Apr, [facility] [id number] [place] [address] 93318- 2326 14 Apr, 2015 [facility] [id number] [place] [address] 65289- 3899 14 Apr, 2015 Hypertension 401.9 and Hyperlipidemia 272.4 [facility] [id number] [place] [address] 80091- 2549 14 Apr, 2015 [facility] [id number] [place] [address] 63165 254 14 Apr, 2015 Hypertension 401.9 and Hyperlipidemia 272.4 [facility] [id number] [place] [address] 02244- 2545 08 Apr, 2015 [facility] [id number] [place] [address] 11896- 2543 Mar, Arthritis 716.90 [facility] [id number] [place] [address] 27064- 3928 Feb, [facility] [address] [id number] [place] [address] 28682- 8528 14 Nov, 2014 [facility] [place] [facility] [address] [id number] [place] [address]- 5292 13 Nov, 2014 [facility] [place] [facility] [address] [id number] [place] 2120 Oct, [facility] [place] [facility] [address] [id number] [place] [address]- 1094 Oct, [facility] [place] [facility] [address] [id number] [place] [address]- 7662 Jul, [facility] [place] [facility] [address] [id number] [place] [address]- 9307 Jul, [facility] [place] [facility] [address] [id number] [place] [address]- 2246 Jun, [facility] [place] [facility] [address] [id number] [place] [address]- 7613 Jun, [facility] [place] [facility] [address] [id number] [place] [address]- 0826 Jun, [facility] [place] [facility] [address] [id number] [place] [address]- 7090 Jun, [facility] [place] [facility] [address] [id number] [place] [address]- 3698 May, [facility] [place] [facility] [address] [id number] [address]- 8315 May, [facility] [place] [facility] [address] [id number], [place] [address]- 4187 15 May, 2014 [facility] [place] [facility] [address] [id number] [address]- 2033 May, [facility] [place] [facility] [address] [id number] [address]- 9000 May, [facility] [place] [facility] [address] [id number] [place] [address]- 4250 Mar, [facility] [place] [facility] [address] [id number] [place] [address]- 5866 Mar, [facility] [place] [facility] [address] [id number] [place] [address]- 6857 Mar, [facility] [place] [facility] [address] [id number] [place] [address]- 4799 Mar, [facility] [place] [facility] [address] [id number] [place] [address]- 5774 Feb, [facility] [place] [facility] [address] [id number] [place] [address]- 9381 Feb, [facility] [place] [facility] [address] [id number] [place] [address]- 5974 Feb, [facility] [place] [facility] [address] [id number] [place] [address]- 2155 Feb, [facility] [place] [facility] [address] [id number] [place] [address]- 5442 Feb, [facility] [place] [facility] [address] [id number] [place] [address]- 8056 Feb, [facility] [place] [facility] [address] [id number] [place] [address]- 8762 Feb, [facility] [place] [facility] [address] [id number] [place] [address]- 9864 December, [facility] [place] [facility] [address] [id number] [place] [address]- 7186 December, [facility] [place] [facility] [address] [id number] [place] [address]- 9690 December, [facility] [place] [facility] [address] [id number] [place] [address]- 2303 December, [facility] [place] [facility] [address] [id number] [place] [address]- 1358 December, [facility] [place] [facility] [address] [id number] [id number] 7451 December, [facility] [place] [facility] [address] [id number] [place] [address]- 1531 December, [facility] [place] [facility] [address] [id number] [place] [address]- 4475 December, [facility] [place] [facility] [address] [id number] [place] [address]- 6024 December, [facility] [place] [facility] [address] [id number] [place] [address]- 3620 December, [facility] [place] [facility] [address] [id number] [place] [address]- 6285 December, [facility] [place] [facility] [address] [id number] [place] [address]- 1831 Nov, [facility] [place] [facility] [address] [id number] [place] [address]- 0696 Nov, [facility] [place] [facility] [address] [id number] [place] [address]- 1792 Nov, [facility] [place] [facility] [address] [id number] [place] [address]- 9230 Nov, [facility] [place] [facility] [address] [id number] [place] [address]- 6750 Nov, [facility] [place] [facility] [address] [id number] [place] [address]- 1779 Nov, [facility] [place] [facility] [address] [id number] [place] [address]- 6185 Nov, [facility] [place] [facility] [address] [id number] [place] [address]- 7742 Nov, [facility] [place] [facility] [address] [id number] [place] [address]- 6039 Nov, [facility] [place] [facility] [address] [id number] [place] [address]- 4792 Nov, [facility] [place] [facility] [address] [id number] [place] [address]- 0168 14 Nov, 2013 [facility] [place] [facility] [address] [id number] [place] [address]- 1219 14 Nov, 2013 [facility] [place] [facility] [address] [id number] [place] [address]- 3774 11 Nov, 2013 [facility] [place] [facility] [address] [id number] [place] [address]- 9866 11 Nov, 2013 [facility] [place] [facility] [address] [id number] [place] [address]- 7168 10 Oct, 2013 [facility] [place] [facility] [address] [id number] [place] [address]- 9400 10 Oct, 2013 [facility] [place] [facility] [address] [id number] [place] [address]- 5122 10 Oct, 2013 [facility] [place] [facility] [address] [id number] [place] [address]- 3223 10 Oct, 2013 [facility] [place] [facility] [address] [id number] [place] [address]- 8359 07 Oct, 2013 [facility] [place] [facility] [address] [id number] [place] [address]- 8789 07 Oct, 2013 [facility] [place] [facility] [address] [id number] [place] [address]- 3539 05 Oct, 2013 [facility] [place] [facility] [address] [id number] [place] [address]- 1091 04 Oct, 2013 [facility] [place] [facility] [address] [id number] [place] [address]- 1832 Oct, [facility] [place] [facility] [address] [id number] [place] [address]- 5031 Oct, [facility] [place] [facility] [address] [id number] [place] [address]- 9067 Oct, [facility] [place] [facility] [address] [id number] [place] [address]- 8669 Sep, [facility] [place] [facility] [address] [id number] [place] [address]- 2375 Sep, [facility] [place] [facility] [address] [id number] [place] [address]- 4247 Sep, [facility] [place] [facility] [address] [id number] [place] [address]- 2696 Sep, [facility] [place] [facility] [address] [id number] [place] [address]- 4408 Aug, [facility] [place] [facility] [address] [id number] [place] [address]- 9879 Aug, [facility] [place] [facility] [address] [id number] [place] [address]- 6086 Aug, [facility] [address] [id number] [place] [address]- 1567 Aug, [facility] [address] [id number] [place] [address]- 9965 Aug, [facility] [place] [facility] [address] [id number] [place] [address]- 3438 Aug, [facility] [address] [id number] [place] [address]- 6400 Aug, [facility] [place] [facility] [address] [id number] [place] [address]- 8863 Aug, [facility] [place] [facility] [address] [id number] [place] [address]- 6720 Jul, [facility] [place] [facility] [address] [id number] [place] [address]- 7505 Jul, [facility] [place] [facility] [address] [id number] [place] [address]- 7062 Jul, [facility] [place] [facility] [address] [id number] [place] 4519 Jul, [facility] [place] [facility] [address] [id number] [place] [address]- 4569 Jul, [facility] [place] [facility] [address] [id number] [place] [address]- 8217 Jul, [facility] [place] [facility] [address] [id number] [place] [address]- 8929 Jun, [facility] [place] [facility] [address] [id number] [place] [address]- 0745 Jun, [facility] [place] [facility] [address] [id number] [place] [address]- 3698 Jun, [facility] [place] [facility] [address] [id number] [place] [address]- 9824 Jun, [facility] [place] [facility] [address] [id number] [place] 6694 May, [facility] [place] [facility] [address] [id number] [place] [address]- 1046 May, [facility] [place] [facility] [address] [id number] [place] [address]- 9053 May, [facility] [place] [facility] [address] [id number] [place] [address]- 3444 30 Apr, 2013 [facility] [place] [facility] [address] [id number] [place] [address]- 8483 24 Apr, 2013 [facility] [place] [facility] [address] [id number] [address]- 4650 20 Apr, 2013 [facility] [place] [facility] [address] [id number] [place] [address]- 2833 11 Apr, 2013 [facility] [place] [facility] [address] [id number] [place] [address]- 9108 06 Apr, 2013 [facility] [place] [facility] [address] [id number] [place] 3533 28 Mar, 2013 [facility] [place] [facility] [address] [id number] [place] [address]- 7361 16 Mar, 2013 [facility] [place] [facility] [address] [id number] [place] [address]- 3330 Mar, [facility] [address] [id number] [place] [address]- 6271 Mar, [facility] [address] [id number] [place] [address]- 7582 Feb, [facility] [address] [id number] [place] [address]- 4081 Jan, [facility] [address] [id number] [place] [address]- 3995 December, [facility] [address] [id number] [place] [address]- 6790 December, [facility] [address] [id number] [place] [address]- 2382 December, [facility] [address] [id number] [place] [address]- 8141 December, [facility] [address] [id number] [place] [address]- 4298 December, [facility] [address] [id number] [place] [address]- 4082 December, [facility] [address] [id number] [place] [address]- 0097 December, [facility] [address] [id number] [place] [address]- 1988 Nov, [facility] [address] [id number] [place] [address]- 4159 Nov, [facility] [address] [id number] [place] [address]- 7551 16 Nov, 2012 [facility] [address] [id number] [place] [address]- 9776 Nov, [facility] [address] [id number] [place] [address]- 3048 Nov, [facility] [address] [id number] [place] [address]- 1608 Oct, [facility] [place] [facility] [address] [id number] [place] [address]- 0162 Oct, [facility] [place] [facility] [address] [id number] [place] [address]- 0343 Oct, [facility] [place] [facility] [address] [id number] [place] [address]- 5302 Oct, [facility] [place] [facility] [address] [id number] [place] [address]- 1260 Sep, [facility] [place] [facility] [address] [id number] [place] [address]- 1965 Sep, [facility] [place] [facility] [address] [id number] [place] [address]- 4776 Sep, [facility] [place] [facility] [address] [id number] [place] [address]- 2883 Sep, [facility] [place] [facility] [address] [id number] [place] [address]- 0914 Sep, [facility] [place] [facility] [address] [id number] [place] [address]- 4665 Sep, [facility] [place] [facility] [address] [id number] [place] [address] Aug, [facility] [place] [facility] [address] [id number] [place] [address] Aug, [facility] [place] [facility] [address] [id number] [place] [address] Aug, [facility] [place] [facility] [address] [id number] [place] [address] Aug, [facility] [place] [facility] [address] [id number] [place] [address] Aug, [facility] [place] [facility] [address] [id number] [place] [address] 31 Jul, 2012 [facility] [address] [id number] [place] [address] Jul, [facility] [place] [facility] [address] [id number] [place] [address] Jul, [facility] [address] [id number] [place] [address] Jul, [facility] [place] [facility] [address] [id number] [place] [address] Jul, [facility] [address] [id number] [place] [address] Jul, [facility] [address] [id number] [place] [address] Jul, [facility] [address] [id number] [place] [address] Jul, [facility] [address] [id number] [place] [address] Jun, [facility] [place] [facility] [address] [id number] [place] [address] Jun, [facility] [address] [id number] [place] [address] Jun, [facility] [place] [facility] [address] [id number] [place] [address] Jun, [facility] [place] [facility] [address] [id number] [place] [address] Jun, [facility] [place] [facility] [address] [id number] [place] [address] Jun, [facility] [place] [facility] [address] [id number] [place] [address] Jun, [facility] [place] [facility] [address] [id number] [place] [address] Jun, [facility] [place] [facility] [address] [id number] [place] [address] Jun, [facility] [place] [facility] [address] [id number] [place] [address]- [address] Jun, [facility] [place] [facility] [address] [id number] [place] [address] Jun, [facility] [place] [facility] [address] [id number] [place] [address] Jun, [facility] [place] [facility] [address] [id number] [place] [address]- [address] Jun, [facility] [place] [facility] [address] [id number] [place] [address] Jun, [facility] [place] [facility] [address] [facility] [id number] [place] [address] Jun, [facility] [place] [facility] [address] [id number], [place] [address] Jun, [facility] [place] [facility] [address] [facility] [id number], [place] [address] May, [facility] [place] [facility] [address] [facility] [id number], [place] [address] May, [facility] [place] [facility] [address] [facility] [id number], [place] [address] May, [facility] [place] [facility] [address] [id number], [place] [address] May, [facility] [place] [facility] [address] [id number], [place] [address] May, [facility] [place] [facility] [address] [facility] [id number], [place] [address] May, [facility] [place] [facility] [address] [facility] [id number], [place] [address] Apr, [facility] [place] [facility] [address] [id number], [place] [address] 27 Apr, 2012 [facility] [place] [facility] [address] [id number] [place] [address] 15 Apr, 2012 [facility] [place] [facility] [address] [id number] [place] [address]- 1996 11 Apr, 2012 [facility] [place] [facility] [address] [id number] [place] [address] 10 Apr, 2012 [facility] [place] [facility] [address] [id number] [place] [address] 29 Mar, 2012 [facility] [place] [facility] [address] [id number] [place] [address] Mar, [facility] [place] [facility] [address] [id number] [place] [address]- [address] Mar, [facility] [place] [facility] [address] [id number] [place] [address]- [address] Mar, [facility] [place] [facility] [address] [id number] [place] [address] Mar, [facility] [place] [facility] [address] [id number] [place] [address]- [address] Mar, [facility] [place] [facility] [address] [id number] [place] [address]- [address] Mar, [facility] [place] [facility] [address] [id number] [place] [address] Feb, [facility] [place] [facility] [address] [id number] [place] [address] Feb, [facility] [place] [facility] [address] [id number] [place] [address] Feb, [facility] [place] [facility] [address] [id number] [place] [address] Feb, [facility] [place] [facility] [address] [id number] [place] [address] Jan, [facility] [place] [facility] [address] [id number] [place] [address] Jan, [facility] [place] [facility] [address] [id number] [place] [address] Jan, [facility] [place] [facility] [address] [id number] [place] [address] Jan, [facility] [place] [facility] [address] [id number] [place] [address] Jan, [facility] [place] [facility] [address] [id number] [place] [address] Jan, [facility] [place] [facility] [address] [id number] [place] [address] December, [facility] [place] [facility] [address] [id number] [place] [address] December, [facility] [place] [facility] [address] [id number] [place] [address] December, [facility] [place] [facility] [address] [id number] [place] [address] December, [facility] [place] [facility] [address] [id number] [place] [address] December, [facility] [place] [facility] [address] [id number] [place] [address] December, [facility] [place] [facility] [address] [id number] [place] [address] 9[address] December, [facility] [place] [facility] [address] [id number] [place] [address] Nov, [facility] [place] [facility] [address] [id number] [place] [address] Nov, [facility] [place] [facility] [address] [id number] [place] [address] Nov, [facility] [place] [facility] [address] [id number] [place] [address] 25 Nov, 2011 [facility] [place] [facility] [address] [id number] [place] [address] 7880 16 Nov, 2011 [facility] [place] [facility] [address] [id number] [place] [address]- 3926 12 Nov, 2011 [facility] [place] [facility] [address] [id number] [place] [address]- [address]28 12 Nov, 2011 [facility] [place] [facility] [address] [id number] [place] [address] 29 Oct, 2011 [facility] [place] [facility] [address] [id number] [place] [address]- [address]187 21 Oct, 2011 [facility] [place] [facility] [address] [id number] [place] [address]- [address]293 19 Oct, 2011 [facility] [place] [facility] [id number] [place] [address] Oct, [facility] [place] [facility] [address] [id number] [place] [address] Sep, [facility] [place] [facility] [address] [id number] [place] [address] 23 Sep, 2011 [facility] [place] [facility] [address] [id number] [place] [address] 6749 14 Sep, 2011 [facility] [place] [facility] [address] [id number] [place] [address]- 3461 07 Sep, 2011 [facility] [place] [facility] [address] [id number] [place] [address] 07 Sep, 2011 [facility] [place] [facility] [address] [id number] [place] [address]- [address]11 06 Sep, 2011 [facility] [place] [facility] [address] [facility] [id number] [place] [address]303 02 Sep, 2011 [facility] [place] [facility] [address] [facility] [id number] [place] [address]- 8420 30 Aug, 2011 [facility] [place] [facility] [address] [id number] [place] [address] 2935 12 Aug, 2011 [facility] [address] [id number] [place] [address] 5140 Aug, [facility] [place] [facility] [address] [id number] [place] [address]- 7451 29 Jul, 2011 [facility] [address] [id number] [place] [address] 3430 Jul, [facility] [place] [facility] [address] [id number] [place] [address]- 9658 Jul, [facility] [address] [id number] [place] [address] 7929 Jul, [facility] [place] [facility] [address] [id number] [place] [address]- 6285 Jul, [facility] [address] [id number] [place] [address] 2064 Jul, [facility] [address] [id number] [place] [address] 0415 15 Jun, 2011 [facility] [place] [facility] [address] [id number] [place] [address]- 2484 03 Jun, 2011 [facility] [address] [id number] [place] [address]- 2789 14 May, 2011 [facility] [place] [facility] [address] [id number] [place] [address]- 5398 10 May, 2011 [facility] [place] [facility] [address] [id number] [place] [address]- 6252 14 Apr, 2011 [facility] [place] [facility] [address] [id number] [place] [address]- 4882 11 Oct, 2010 [facility] [place] [facility] [address] [id number] [place] [address]- 1486 22 Jul, 2010 [facility] [place] [facility] [address] [id number] [place] [address]- 7099 14 Jul, 2010 [facility] [id number] [address] 08 Jul, 2010 [facility] [id number] [address] Jun, [facility] [id number] [address] 15 Jun, 2010 [facility] [id number] [place] [address]140 Jun, [facility] [id number] [place] [address]- 2583 May, [facility] [id number] [place] [address]- 8193 Jan, [facility] [id number] [place] [address]- 0856 December, [facility] [id number] [place] [address]- 3037 Jul, [facility] [id number] [place] [address]- 7780 Jul, [facility] [id number] [place] [address]- 2772 Jul, [facility] [id number] [address] 9[address] May, [facility] [id number] [address] 3968 May, [facility] [id number] [address] May, IMMUNIZATIONS No Known Immunizations SOCIAL HISTORY [...] Hospitalization History sepsis, Acute bacterial exac of bronchitis-[facility]
--- OUTSIDE RECORDS SUMMARY | 2018-04-25 14:13 | XMS REPORT ---
Author Author RAKAN AYALA Organization [facility] Address [address] [place] [address] Care Team Providers Care Academic Coordinator Name Role Phone RAKAN AYALA Unavailable PROBLEMS Type Condition ICD9-CM Code DYN13-JL Code Onset Dates Condition Status SNOMED Code Problem Essential hypertension I10 Active 55033643 Problem Cellulitis of left arm L03.114 Active 76904013453430311 Problem COPD (chronic obstructive pulmonary disease) with acute bronchitis J44.0 Active [id number] Problem CAD (coronary artery disease) I25.10 Active 77407745 Problem Hyperlipemia E78.5 Active 13734771 Problem Midline low back pain with right-sided sciatica M54.41 Active 708131662 Problem COPD (chronic obstructive pulmonary disease) J44.9 Active 42598475 Problem Panlobular emphysema J43.1 Active 7002964 Problem Nocturnal leg cramps G47.62 Active 476457219 Problem Polyneuropathy G62.9 Active 63834599 Problem Neuropathy G62.9 Active 404698291 Problem Arthritis M19.90 Active 4400414 ALLERGIES No Information ENCOUNTERS Encounter Location Date Diagnosis [place] [id number] [place] [address] 43897- 6016 December, [facility] [address] [address] [id number] [place] [address] 13565- 9120 Nov, [facility] [id number] [place] [address] 78833- 6630 Oct, [facility] [id number] [place] [address] 55679- 1250 Oct, [place] [address] [place] [address] [id number] [place] [address] 12360- 7685 Sep, Pain in right hip M25.551 ; Pain in left hip M25.552 and Suprapubic pain R10.2 [place] [address] 50149- 7299 Sep, Midline low back pain with right-sided sciatica M54.41 [place] [address] 20971- 8461 Aug, Midline low back pain with right-sided sciatica M54.41 and Arthritis M19.90 [place] [address] 01760- 3270 Jul, Impingement syndrome, shoulder, left M75.42 and Sprain of ligament of cervical spine region S13.4XXA [place] [address] 52723- 2944 Jul, COPD (chronic obstructive pulmonary disease) J44.[address] 67378- 4228 Jul, [place] [address] 26857- 2275 Jul, [place] [address] 06750- 2312 Jun, Elbow pain, right M25.521 ; Pain of left clavicle M89.8X1 ; Panlobular emphysema J43.1 and Encounter for immunization Z23 [place] [address] [id number] Jun, [place] [address] 76550- 4932 Jun, Clavicle pain M89.8X1 [place] [address] 97946- 4126 Jun, [place] [address] 39534- 9601 May, Neuropathy G62.9 ; Arthritis M19.90 and Nocturnal leg cramps G47.62 [facility] [address] [id number] [place] [address] 05 Apr [facility] [id number] [place] [address] 06169- 4843 December, [facility] [id number] [place] [address] 82632 -7750 Nov, Gastroenteritis and colitis, viral A08.4 [facility] [id number] [place] [address] 94138- 2609 Oct, [facility] [id number] [place] [address] 28487- 0439 Sep, [place] [address] [place] [address] [id number] [place] [address] 90201- 3859 Sep, Low back pain M54.5 and Other chronic pain G89.29 [place] [address] [id number] [place] [address] 93902- 3433 Sep, [facility] [id number] [place] [address] 52326- 8624 Aug, [place] [address] [id number] [place] [address] 51089- 2094 Jul, Vision changes H53.9 and Polyneuropathy G62.9 [place] [address] [id number] [place] [address] 91996- 0208 Jun, [facility] [id number] [place] [address] 46629- 8595 Jun, Left leg swelling M79.89 ; Right leg swelling M79.89 ; Bilateral leg numbness R20.0 ; CAD (coronary artery disease) I25.10 ; Essential hypertension I10 and Exertional dyspnea R06.09 [facility] [address] [address] Jun, Cellulitis of left arm L03.114 [facility] [address] [id number] [place] [address] 96055- 3613 Jun, [place] [address] [place] [id number] [place] [address] 97017- 1092 May, Chest pain, unspecified type R07.9 ; Exertional dyspnea R06.09 ; CAD (coronary artery disease) I25.10 and Essential hypertension I10 [facility] [id number] [place] [address] 04324 -9872 December, Acute right-sided low back pain without sciatica M54.5 [place] [address] [id number] [place] [address] 22510- 5127 Sep, Low back pain M54.5 [place] [address] [address] [id number] [place] [address] 83085- 6837 Aug, Bilateral low back pain with sciatica, sciatica laterality unspecified M54.40 and Polyneuropathy G62.9 [place] [address] 24801- 8139 Aug, Upper respiratory tract infection, unspecified type 465.9 [place] [address] [place] [id number] [place] [address] 88855- 7036 Jul, Midline low back pain with right-sided sciatica M54.41 [place] [address] [place] [id number] [place] [address] 57072- 4811 Jul, Right knee pain M25.561 and Knee swelling, right M25.461 [place] [address] [place] [id number] [place] [address] 14419- 5971 30 Jun, 2015 Low back pain M54.5 and Sciatica, unspecified side M54.30 [place] [address] [place] [id number] [place] [address] 54109- 2783 30 May, 2015 Arthritis M19.90 [place] [address] [place] [id number] [place] [address] 78966- 4499 14 May, 2015 Upper respiratory tract infection, unspecified upper respiratory infection J06.9 [place] [address] [place] [id number] [address]- 7023 14 May, 2015 CAD (coronary artery disease) I25.10 ; Hyperlipemia E78.5 and COPD (chronic obstructive pulmonary disease) J44.9 [facility] [address] [address]- 9290 30 Apr, 2015 Arthritis 716.90 [facility] [address] [address] 2546 23 Apr, 2015 [facility] [address] [address] 2548 21 Apr, 2015 [facility] [address] [address]- 5866 14 Apr, 2015 [facility] [address] [address] 2544 14 Apr, 2015 Hypertension 401.9 and Hyperlipidemia 272.4 [facility] [address] [address]- 0298 14 Apr, 2015 [facility] [address] [address] 2540 14 Apr, 2015 Hypertension 401.9 and Hyperlipidemia 272.4 [facility] [address] [address]- 254 08 Apr, 2015 [facility] [address] [address]- 7371 Mar, Arthritis 716.90 [facility] [address] [address]- 1692 Feb, [facility] [address] [address]- 2946 Nov, [facility] [address] [address]- 0487 Nov, [facility] [address] [address]- 0415 Oct, [facility] [place] [facility] [address] [id number] [place] [address]- 7520 Oct, [facility] [place] [facility] [address] [id number] [place] [address]- 7440 Jul, [facility] [place] [facility] [address] [id number] [place] 5644 Jul, [facility] [place] [facility] [address] [id number] [place] 5541 Jun, [facility] [place] [facility] [address] [id number] [place] [address]- 9722 Jun, [facility] [place] [facility] [address] [id number] [place] [address]- 1151 Jun, [facility] [place] [facility] [address] [id number] [place] [address]- 2663 Jun, [facility] [place] [facility] [address] [id number] [place] [address]- 9414 May, [facility] [place] [facility] [address] [id number] [place] [address]- 1912 May, [facility] [place] [facility] [address] [id number] [place] [address]- 3472 May, [facility] [place] [facility] [address] [id number] [place] [address]- 9350 May, [facility] [place] [facility] [address] [id number] [place] [address]- 0407 May, [facility] [place] [facility] [address] [id number] [place] [address]- 4830 Mar, [facility] [place] [facility] [address] [id number] [place] [address]- 4118 Mar, [facility] [place] [facility] [address] [id number] [place] [address]- 5705 Mar, [facility] [place] [facility] [address] [id number] [place] [address]- 7515 Mar, [facility] [place] [facility] [address] [id number] [place] 0102 Feb, [facility] [place] [facility] [address] [id number] [place] [address]- 7851 Feb, [facility] [place] [facility] [address] [id number] [place] [address]- 3682 Feb, [facility] [place] [facility] [address] [id number] [place] [address]- 8639 Feb, [facility] [place] [facility] [address] [id number] [place] [address]- 7254 Feb, [facility] [place] [facility] [address] [id number] [place] [address]- 5852 Feb, [facility] [place] [facility] [address] [id number] [place] [address]- 6119 Feb, [facility] [place] [facility] [address] [id number] [place] [address]- 3329 December, [facility] [place] [facility] [address] [id number] [place] [address]- 9898 December, [facility] [place] [facility] [address] [id number] [place] [address]- 4647 December, [facility] [place] [facility] [address] [id number] [place] [address]- 3849 December, [facility] [place] [facility] [address] [id number] [place] [address]- 7452 December, [facility] [place] [facility] [address] [id number] [place] [address]- 0946 December, [facility] [place] [facility] [address] [id number] [place] [address]- 3384 December, [facility] [place] [facility] [address] [id number] [place] [address]- 1971 December, [facility] [place] [facility] [address] [id number] [place] [address]- 0553 December, [facility] [place] [facility] [address] [id number] [place] [address]- 2341 December, [facility] [place] [facility] [address] [id number] [place] [address]- 3951 December, [facility] [place] [facility] [address] [id number] [place] [address]- 6820 Nov, [facility] [place] [facility] [address] [id number] [place] [address]- 0438 Nov, [facility] [place] [facility] [address] [id number] [place] [address]- 7397 Nov, [facility] [place] [facility] [address] [id number] [place] [address]- 1906 Nov, [facility] [place] [facility] [address] [id number] [place] [address]- 7361 Nov, [facility] [place] [facility] [address] [id number] [place] [address]- 6621 Nov, [facility] [place] [facility] [address] [id number] [place] [address]- 5653 Nov, [facility] [place] [facility] [address] [id number] [place] [address]- 0340 Nov, [facility] [place] [facility] [address] [id number] [place] [address]- 0544 Nov, [facility] [place] [facility] [address] [id number] [place] [address]- 1685 15 Nov, 2013 [facility] [place] [facility] [address] [id number] [place] [address]- 3212 Nov, [facility] [place] [facility] [address] [id number] [place] [address]- 2096 Nov, [facility] [place] [facility] [address] [id number] [place] [address]- 4926 Nov, [facility] [place] [facility] [address] [id number] [place] [address]- 2744 Nov, [facility] [place] [facility] [address] [id number] [place] [address]- 6047 Oct, [facility] [place] [facility] [address] [id number] [place] [address]- 4168 Oct, [facility] [place] [facility] [address] [id number] [place] [address]- 2028 Oct, [facility] [place] [facility] [address] [id number] [place] [address]- 6645 Oct, [facility] [place] [facility] [address] [id number] [place] [address]- 5734 Oct, [facility] [place] [facility] [address] [id number] [place] [address]- 6547 Oct, [facility] [place] [facility] [address] [id number] [place] [address]- 3776 Oct, [facility] [place] [facility] [address] [id number] [place] [address]- 8780 Oct, [facility] [place] [facility] [address] [id number] [place] [address]- 1042 Oct, [facility] [place] [facility] [address] [id number] [place] [address]- 5932 Oct, [facility] [place] [facility] [address] [id number] [place] [address]- 3289 Oct, [facility] [place] [facility] [address] [id number] [place] [address]- 8799 Sep, [facility] [place] [facility] [address] [id number] [place] [address]- 4759 Sep, [facility] [place] [facility] [address] [id number] [place] [address]- 1583 05 Sep, 2013 [facility] [place] [facility] [address] [id number] [address]- 6788 Sep, [facility] [address] [id number] [place] [address]- 4494 Aug, [facility] [address] [id number] [place] [address]- 7476 Aug, [facility] [address] [id number] [place] [address]- 4870 Aug, [facility] [place] [facility] [address] [id number] [place] [address]- 3128 Aug, [facility] [address] [id number] [place] [address]- 2334 Aug, [facility] [address] [id number] [place] [address]- 4168 Aug, [facility] [address] [id number] [place] [address]- 1658 Aug, [facility] [address] [id number] [place] [address]- 3654 Aug, [facility] [address] [id number] [place] [address]- 9477 Jul, [facility] [address] [facility] [id number] [place] [address]- 2353 Jul, [facility] [address] [id number] [place] [address]- 6558 Jul, [facility] [place] [facility] [address] [id number] [address]- 9207 Jul, [facility] [place] [facility] [address] [id number] [place] [address]- 1722 Jul, [facility] [place] [facility] [address] [id number] [place] 6825 Jul, [facility] [place] [facility] [address] [facility] [id number] [place] [address]- 6174 Jun, [facility] [place] [facility] [address] [id number] [place] [address]- 5979 Jun, [facility] [place] [facility] [address] [id number] [place] [address]- 4916 Jun, [facility] [place] [facility] [address] [id number] [place] [address] 254 Jun, [facility] [place] [facility] [address] [id number] [place] [address]- 6536 May, [facility] [place] [facility] [address] [id number] [place] [address]- 0864 May, [facility] [place] [facility] [address] [id number] [place] [address]- 5859 May, [facility] [place] [facility] [address] [id number] [place] [address]- 3235 30 Apr, 2013 [facility] [place] [facility] [address] [id number] [place] [address]- 8026 24 Apr, 2013 [facility] [place] [facility] [address] [id number] [place] [address]- 0875 20 Apr, 2013 [facility] [place] [facility] [address] [id number] [place] [address]- 2100 11 Apr, 2013 [facility] [place] [facility] [address] [id number] [place] [address]- 5499 Apr, [facility] [place] [facility] [address] [id number] [place] [address]- 2547 Mar, [facility] [place] [facility] [address] [id number] [place] [address] 2541 16 Mar, 2013 [facility] [place] [facility] [address] [id number] [place] [address] 2546 Mar, [facility] [place] [facility] [address] [id number] [place] [address] 2547 Mar, [facility] [place] [facility] [address] [id number] [place] [address]- 2802 Feb, [facility] [address] [id number] [place] [address]- 8700 Jan, [facility] [address] [id number] [place] [address]- 5212 December, [facility] [address] [id number] [place] [address]- 9157 December, [facility] [address] [id number] [place] [address]- 5755 December, [facility] [address] [id number] [place] [address]- 6361 December, [facility] [address] [id number] [place] [address]- 1939 December, [facility] [address] [id number] [place] [address]- 8026 December, [facility] [address] [id number] [place] [address]- 7324 December, [facility] [address] [id number] [place] [address]- 0535 29 Nov, 2012 [facility] [address] [id number] [place] [address]- 2345 25 Nov, 2012 [facility] [address] [id number] [place] [address]- 0309 16 Nov, 2012 [facility] [place] [facility] [address] [id number] [address]- 8940 15 Nov, 2012 [facility] [place] [facility] [address] [id number] [place] [address]- 3810 15 Nov, 2012 [facility] [place] [facility] [address] [id number] [place] [address]- 7671 14 Oct, 2012 [facility] [place] [facility] [address] [id number] [place] [address]- 6806 Oct, [facility] [address] [id number] [place] [address] 2546 07 Oct, 2012 [facility] [address] [id number] [place] [address]- 2766 04 Oct, 2012 [facility] [place] [facility] [address] [id number] [place] [address] 2546 20 Sep, 2012 [facility] [place] [facility] [address] [id number] [place] [address]- 8686 14 Sep, 2012 [facility] [place] [facility] [address] [id number] [place] [address] 2546 14 Sep, 2012 [facility] [address] [id number] [place] [address]- 5546 Sep, [facility] [address] [id number] [place] [address] 2546 08 Sep, 2012 [facility] [place] [facility] [address] [id number] [place] [address]- 0142 Sep, [facility] [address] [id number] [place] [address]- 2043 Aug, [facility] [address] [id number] [place] [address]- 9676 Aug, [facility] [address] [facility] [id number] [place] [address]- 7566 Aug, [facility] [place] [facility] [address] [id number] [place] [address]- 2546 Aug, [facility] [place] [facility] [address] [id number] [place] [address]- 2546 Aug, [facility] [place] [facility] [address] [id number] [place] [address]- 8436 Jul, [facility] [place] [facility] [address] [id number] [place] [address]- 2546 Jul, [facility] [place] [facility] [address] [id number] [place] [address]- 4987 Jul, [facility] [place] [facility] [address] [id number] [place] [address]- 6687 Jul, [facility] [place] [facility] [address] [id number] [place] [address]- 6884 Jul, [facility] [place] [facility] [address] [id number] [place] [address] Jul, [facility] [place] [facility] [address] [id number] [place] [address] Jul, [facility] [place] [facility] [address] [id number] [place] [address] Jul, [facility] [place] [facility] [address] [id number] [place] [address] Jun, [facility] [place] [facility] [address] [id number] [place] [address] Jun, [facility] [place] [facility] [address] [id number] [place] [address] Jun, [facility] [place] [facility] [address] [id number] [place] [address] Jun, [facility] [place] [facility] [address] [id number] [place] [address] Jun, [facility] [place] [facility] [address] [id number] [address] 14 Jun, 2012 [facility] [place] [facility] [address] [id number], [place] [address] Jun, [facility] [place] [facility] [address] [id number] [place] [address] Jun, [facility] [place] [facility] [address] [id number] [place] [address] Jun, [facility] [place] [facility] [address] [id number] [place] [address] Jun, [facility] [place] [facility] [address] [id number] [place] [address] Jun, [facility] [place] [facility] [address] [id number] [place] [address] Jun, [facility] [place] [facility] [address] [id number] [place] [address] Jun, [facility] [place] [facility] [address] [id number] [place] [address] Jun, [facility] [place] [facility] [address] [id number] [place] [address] Jun, [facility] [place] [facility] [address] [id number] [place] [address] Jun, [facility] [place] [facility] [address] [id number] [place] [address] May, [facility] [place] [facility] [address] [id number] [place] [address] May, [facility] [place] [facility] [address] [id number] [place] [address] May, [facility] [place] [facility] [address] [id number] [place] [address] May, [facility] [place] [facility] [address] [facility] [id number] [place] [address] May, [facility] [place] [facility] [address] [id number] [place] [address] May, [facility] [place] [facility] [address] [id number] [address] 28 Apr, 2012 [facility] [place] [facility] [address] [id number] [place] [address] 27 Sep2011 [facility] [place] [facility] [address] [facility] [id number] [place] [address] 15 Apr, 2012 [facility] [place] [facility] [address] [id number] [place] [address]- [address] 11 Apr, 2012 [facility] [place] [facility] [address] [id number] [place] [address]- [address] Apr, [facility] [place] [facility] [address] [id number] [place] [address] Mar, [facility] [place] [facility] [address] [id number] [place] [address] Mar, [facility] [place] [facility] [address] [id number] [place] [address] Mar, [facility] [place] [facility] [address] [id number] [place] [address] Mar, [facility] [place] [facility] [address] [id number] [place] [address] Mar, [facility] [place] [facility] [address] [id number] [place] [address] Mar, [facility] [place] [facility] [address] [id number] [place] [address] Mar, [facility] [place] [facility] [address] [id number] [place] [address] Feb, [facility] [place] [facility] [address] [id number] [place] [address] Feb, [facility] [place] [facility] [address] [id number] [place] [address] Feb, [facility] [place] [facility] [address] [id number] [place] [address] Feb, [facility] [place] [facility] [address] [id number] [place] [address] Jan, [facility] [place] [facility] [address] [id number] [place] [address] Jan, [facility] [place] [facility] [address] [id number] [place] [address] Jan, [facility] [place] [facility] [address] [id number] [place] [address] Jan, [facility] [address] [id number] [place] [address]- [address] Jan, [facility] [place] [facility] [address] [id number] [place] [address] 93[address] Jan, [facility] [place] [facility] [address] [id number] [place] [address] December, [facility] [place] [facility] [address] [id number] [place] [address] December, [facility] [facility] [place] [facility] [address] [id number] [place] [address] December, [facility] [place] [facility] [address] [id number] [place] [address] December, [facility] [place] [facility] [address] [id number] [place] [address] December, [facility] [place] [facility] [address] [id number] [place] [address] December, [facility] [place] [facility] [address] [id number] [place] [address] December, [facility] [place] [facility] [address] [id number] [place] [address] Nov, [facility] [place] [facility] [address] [id number] [place] [address] Nov, [facility] [place] [facility] [address] [id number] [place] [address] Nov, [facility] [place] [facility] [address] [id number] [place] [address] 25 Nov, 2011 [facility] [place] [facility] [address] [id number] [place] [address] 16 Nov, 2011 [facility] [place] [facility] [address] [id number] [place] [address] Nov, [facility] [place] [facility] [address] [id number] [place] [address] Nov, [facility] [address] [id number] [place] [address] 29 Oct, 2011 [facility] [place] [facility] [address] [id number] [place] [address] 21 Oct, 2011 [facility] [place] [facility] [address] [id number] [place] [address] 19 Oct, 2011 [facility] [place] [facility] [address] [id number] [place] [address] 07 Oct, 2011 [facility] [place] [facility] [address] [id number] [place] [address] Sep, [facility] [place] [facility] [address] [id number] [place] [address] 23 Sep, 2011 [facility] [place] [facility] [address] [id number] [place] [address] 14 Sep, 2011 [facility] [place] [facility] [address] [id number] [place] [address] 07 Sep, 2011 [facility] [place] [facility] [address] [id number] [place] [address] 07 Sep, 2011 [facility] [place] [facility] [address] [facility] [id number] [place] [address] Sep, [facility] [place] [facility] [address] [facility] [id number] [place] [address] Sep, [facility] [place] [facility] [address] [id number] [place] [address] Aug, [facility] [place] [facility] [address] [id number] [place] [address] Aug, [facility] [place] [facility] [address] [id number] [place] [address] Aug, [facility] [place] [facility] [address] [id number] [place] [address] 29 Jul, 2011 [facility] [place] [facility] [address] [id number] [place] [address] Jul, [facility] [place] [facility] [address] [id number] [place] [address] Jul, [facility] [place] [facility] [address] [id number] [place] [address] 240[address] Jul, [facility] [place] [facility] [address] [id number] [place] [address] 36[address] 19 Jul, 2011 [facility] [place] [facility] [address] [id number] [place] [address] 06 Jul, 2011 [facility] [place] [facility] [address] [id number] [place] [address] 4769 15 Jun, 2011 [facility] [place] [facility] [address] [id number] [place] [address] Jun, [facility] [place] [facility] [address] [id number] [place] [address] 14 May, 2011 [facility] [place] [facility] [address] [id number] [place] [address] 10 May, 2011 [facility] [place] [facility] [address] [id number] [place] [address] 14 Apr, 2011 [facility] [place] [facility] [address] [id number] [place] [address] 1267 Oct, [facility] [place] [facility] [address] [id number] [address] 22 Jul, 2010 [facility] [place] [facility] [address] [id number] [place] [address] 59[address] 14 Jul, 2010 [facility] [place] [facility] [address] [id number] [place] [address] 08 Jul, 2010 [facility] [place] [facility] [address] [id number] [place] [address] 24 Jun, 2010 [facility] [place] [facility] [id number] [address] 15 Jun, 2010 [facility] [id number] [address] Jun, [facility] [id number] [address] May, [facility] [id number], [place] [address] Jan, [facility] [id number], [place] [address] December, [facility] [id number] [place] [address] Jul, [facility] [id number] [place] [address]- [address] Jul, [facility] [id number] [place] [address]- [address] Jul, [facility] [id number] [address] May, [facility] [id number] [place] [address]- [address] May, [facility] [id number], [place] [address] May, IMMUNIZATIONS No Known Immunizations SOCIAL HISTORY [...] Hospitalization History sepsis, Acute bacterial exac of bronchitis-[facility]
--- OUTSIDE RECORDS SUMMARY | 2018-04-25 14:14 | XMS REPORT ---
Author Author RAKAN AYALA Organization [facility] Address [address] [place] [address] Care Team Providers Care Material Control Clerk Name Role Phone LUCY RAKAN Unavailable PROBLEMS Type Condition ICD9-CM Code YUN55-OZ Code Onset Dates Condition Status SNOMED Code Problem Essential hypertension I10 Active 21856728 Problem Cellulitis of left arm L03.114 Active 81853038260857816 Problem COPD (chronic obstructive pulmonary disease) with acute bronchitis J44.0 Active 039082961165296 Problem CAD (coronary artery disease) I25.10 Active 69980703 Problem Hyperlipemia E78.5 Active 05541026 Problem Midline low back pain with right-sided sciatica M54.41 Active 680772374 Problem COPD (chronic obstructive pulmonary disease) J44.9 Active 26753098 Problem Panlobular emphysema J43.1 Active 4533171 Problem Nocturnal leg cramps G47.62 Active 223947639 Problem Polyneuropathy G62.9 Active 56075865 Problem Neuropathy G62.9 Active 259770989 Problem Arthritis M19.90 Active 6672642 ALLERGIES No Information ENCOUNTERS Encounter Location Date Diagnosis [place] [address] [address] Jun, [place] [address] [place] [id number] [place] [address] 89772- 5499 Jan, [place] [address] [id number] [place] [address] 12097- 4003 December, Right leg swelling M79.89 ; Left leg swelling M79.89 ; CAD ( coronary artery disease) I25.10 ; Essential hypertension I10 ; Bilateral leg numbness R20.0 and Exertional dyspnea R06.09 [place] [address] [address] Oct, [place] [address] [place] [id number] [place] [address] 86122- 4936 Oct, [place] [address] 15078- 2135 Sep, Pain in right hip M25.551 ; Pain in left hip M25.552 and Suprapubic pain R10.2 [place] [address] 89385- 8486 09 Sep, 2017 Midline low back pain with right-sided sciatica M54.41 [place] [address] 59256- 2051 Aug, Midline low back pain with right-sided sciatica M54.41 and Arthritis M19.90 [place] [address] 75710- 3572 Jul, Impingement syndrome, shoulder, left M75.42 and Sprain of ligament of cervical spine region S13.4XXA [place] [address] 34375- 7131 Jul, COPD (chronic obstructive pulmonary disease) J44.9 [place] [address] 73867- 2485 Jul, [place] [address] 94334- 8716 Jul, [place] [address] 38868- 3657 30 Jun, 2017 Elbow pain, right M25.521 ; Pain of left clavicle M89.8X1 ; Panlobular emphysema J43.1 and Encounter for immunization Z23 [place] [address] [id number] Jun, [place] [address] [place] [id number] [place] [address] 95713- 8518 Jun, Clavicle pain M89.8X1 [place] [address] [place] [address] 24265- 8763 Jun, [facility] [address] [place] [id number] [place] [address] 31163- 1337 May, Neuropathy G62.9 ; Arthritis M19.90 and Nocturnal leg cramps G47.62 [facility] [address] [id number] [place] [address] Apr [facility] [id number] [place] [address] 46103- 7723 December, [facility] [id number] [place] [address] 95126 -7218 Nov, Gastroenteritis and colitis, viral A08.4 [place] [address] [id number] [place] [address] 70599- 9471 Oct, [place] [address] 60872- 3465 Sep, [place] [address] [place] [id number] [place] [address] 93398- 8266 Sep, Low back pain M54.5 and Other chronic pain G89.29 [place] [address] [place] [id number] [place] [address] 75113- 2716 Sep, [place] [address] [place] [id number] [place] [address] 78039- 9128 Aug, [facility] [id number] [place] [address] 01702- 9506 Jul, Vision changes H53.9 and Polyneuropathy G62.9 [place] [address] [place] [id number] [place] [address] 82628- 0160 Jun, [facility] [address] [id number] [place] [address] 69206- 5598 Jun, Left leg swelling M79.89 ; Right leg swelling M79.89 ; Bilateral leg numbness R20.0 ; CAD (coronary artery disease) I25.10 ; Essential hypertension I10 and Exertional dyspnea R06.09 [facility] [id number] [place] [address] 26959 -4956 Jun, Cellulitis of left arm L03.114 [place] [address] [place] [id number] [place] [address] 52710- 0172 Jun, [place] [address] 06184- 5982 May, Chest pain, unspecified type R07.9 ; Exertional dyspnea R06.09 ; CAD (coronary artery disease) I25.10 and Essential hypertension I10 [facility] [address] 60717 -5093 December, Acute right-sided low back pain without sciatica M54.5 [place] [address] 10203- 2625 Sep, Low back pain M54.5 [place] [address] [place] [id number] [place] [address] 57310- 7809 Aug, Bilateral low back pain with sciatica, sciatica laterality unspecified M54.40 and Polyneuropathy G62.9 [place] [address] [place] [id number] [place] [address] 10694- 8880 Aug, Upper respiratory tract infection, unspecified type 465.9 [place] [address] [place] [id number] [place] [address] 81905- 3404 14 Jul, 2015 Midline low back pain with right-sided sciatica M54.41 [place] [address] [place] [id number] [place] [address] 30604- 5736 10 Jul, 2015 Right knee pain M25.561 and Knee swelling, right M25.461 [place] [address] [place] [id number] [place] [address] 05264- 6223 30 Jun, 2015 Low back pain M54.5 and Sciatica, unspecified side M54.30 [place] [address] [place] [address]- 7614 30 May, 2015 Arthritis M19.90 [facility] [id number] [place] [address] 89474- 4937 14 May, 2015 Upper respiratory tract infection, unspecified upper respiratory infection J06.9 [facility] [address] [place] [address] 13061- 0651 14 May, 2015 CAD (coronary artery disease) I25.10 ; Hyperlipemia E78.5 and COPD (chronic obstructive pulmonary disease) J44.9 [facility] [address] [place] [address] 39496- 0613 30 Apr, 2015 Arthritis 716.90 [facility] [address] [id number] [place] [address] 49488- 3812 23 Apr, 2015 [facility] [address] [place] [address] 59734- 7346 Apr, [facility] [address] [place] [address] 46119- 1965 14 Apr, 2015 [facility] [address] [place] [address] 08030- 5393 14 Apr, 2015 Hypertension 401.9 and Hyperlipidemia 272.4 [facility] [address] [place] [address] 49635- 2547 14 Apr, 2015 [facility] [address] [place] [address] 84349 2543 14 Apr, 2015 Hypertension 401.9 and Hyperlipidemia 272.4 [facility] [address] [place] [address] 76931- 2544 08 Apr, 2015 [facility] [address] [place] [address] 62848- 2542 Mar, Arthritis 716.90 [facility] [address] [place] [address] 42504- 8350 Feb, [facility] [id number] [place] [address] 25077- 1069 14 Nov, 2014 [facility] [place] [facility] [address] [id number] [place] [address]- 9921 13 Nov, 2014 [facility] [place] [facility] [address] [id number] [place] [address]135 Oct, [facility] [place] [facility] [address] [id number] [place] [address]- 8403 Oct, [facility] [place] [facility] [address] [id number] [place] [address]- 4086 Jul, [facility] [place] [facility] [address] [id number] [place] [address]- 3372 Jul, [facility] [place] [facility] [address] [id number] [place] [address]- 5641 Jun, [facility] [place] [facility] [address] [id number] [place] [address]- 5203 Jun, [facility] [place] [facility] [address] [id number] [place] [address]- 1610 Jun, [facility] [place] [facility] [address] [id number] [place] [address]- 2046 Jun, [facility] [place] [facility] [address] [id number] [place] [address]- 6501 May, [facility] [place] [facility] [address] [id number] [address]- 9458 May, [facility] [place] [facility] [address] [id number] [address]- 4792 15 May, 2014 [facility] [place] [facility] [address] [id number], [place] [address]- 7031 May, [facility] [place] [facility] [address] [id number], [place] [address]- 6577 May, [facility] [place] [facility] [address] [id number] [place] [address]- 8253 Mar, [facility] [place] [facility] [address] [id number] [place] [address]- 8668 Mar, [facility] [place] [facility] [address] [id number] [place] [address]- 3375 Mar, [facility] [place] [facility] [address] [id number] [place] [address]- 8801 Mar, [facility] [place] [facility] [address] [id number] [place] [address]- 0676 Feb, [facility] [place] [facility] [address] [id number] [place] [address]- 5922 Feb, [facility] [place] [facility] [address] [id number] [place] [address]- 2905 Feb, [facility] [place] [facility] [address] [id number] [place] [address]- 8752 Feb, [facility] [place] [facility] [address] [id number] [place] [address]- 2717 Feb, [facility] [place] [facility] [address] [id number] [place] [address]- 1538 Feb, [facility] [place] [facility] [address] [id number] [place] [address]- 3308 Feb, [facility] [place] [facility] [address] [id number] [place] [address]- 8893 December, [facility] [place] [facility] [address] [id number] [place] [address]- 4613 December, [facility] [place] [facility] [address] [id number] [place] [address]- 7288 December, [facility] [place] [facility] [address] [id number] [place] [address]- 4757 December, [facility] [place] [facility] [address] [id number] [place] [address]- 9275 December, [facility] [place] [facility] [address] [id number] [place] 5226 December, [facility] [place] [facility] [address] [id number] [place] [address]- 0247 December, [facility] [place] [facility] [address] [id number] [place] [address]- 2967 December, [facility] [place] [facility] [address] [id number] [place] [address]- 1840 December, [facility] [place] [facility] [address] [id number] [place] [address]- 8964 December, [facility] [place] [facility] [address] [id number] [place] [address]- 6455 December, [facility] [place] [facility] [address] [id number] [place] [address]- 7636 Nov, [facility] [place] [facility] [address] [id number] [place] [address]- 8371 Nov, [facility] [place] [facility] [address] [id number] [place] [address]- 6359 Nov, [facility] [place] [facility] [address] [id number] [place] [address]- 9545 Nov, [facility] [place] [facility] [address] [id number] [place] [address]- 0692 Nov, [facility] [place] [facility] [address] [id number] [place] [address]- 6928 Nov, [facility] [place] [facility] [address] [id number] [place] [address]- 8538 Nov, [facility] [place] [facility] [address] [id number] [place] [address]- 3635 Nov, [facility] [place] [facility] [address] [id number] [place] [address]- 8223 Nov, [facility] [place] [facility] [address] [id number] [place] [address]- 3476 Nov, [facility] [place] [facility] [address] [id number] [place] [address]- 5283 14 Nov, 2013 [facility] [place] [facility] [address] [id number] [place] [address]- 7393 14 Nov, 2013 [facility] [place] [facility] [address] [id number] [place] [address]- 4157 11 Nov, 2013 [facility] [place] [facility] [address] [id number] [place] [address]- 0126 11 Nov, 2013 [facility] [place] [facility] [address] [id number] [place] [address]- 0795 10 Oct, 2013 [facility] [place] [facility] [address] [id number] [place] [address]- 8182 10 Oct, 2013 [facility] [place] [facility] [address] [id number] [place] [address]- 4703 10 Oct, 2013 [facility] [place] [facility] [address] [id number] [place] [address]- 1273 10 Oct, 2013 [facility] [place] [facility] [address] [id number] [place] [address]- 6768 07 Oct, 2013 [facility] [place] [facility] [address] [id number] [place] [address]- 9944 07 Oct, 2013 [facility] [place] [facility] [address] [id number] [place] [address]- 6728 05 Oct, 2013 [facility] [place] [facility] [address] [id number] [place] [address]- 7515 04 Oct, 2013 [facility] [place] [facility] [address] [id number] [place] [address]- 4992 Oct, [facility] [place] [facility] [address] [id number] [place] [address]- 7663 Oct, [facility] [place] [facility] [address] [id number] [place] [address]- 4181 Oct, [facility] [place] [facility] [address] [id number] [place] [address]- 1732 Sep, [facility] [place] [facility] [address] [id number] [place] [address]- 6033 Sep, [facility] [place] [facility] [address] [id number] [place] [address]- 0149 Sep, [facility] [place] [facility] [address] [id number] [place] [address]- 2996 Sep, [facility] [place] [facility] [address] [id number] [place] [address]- 8003 Aug, [facility] [place] [facility] [address] [id number] [place] [address]- 7695 Aug, [facility] [place] [facility] [address] [id number] [place] [address]- 7948 Aug, [facility] [address] [id number] [place] [address]- 2233 Aug, [facility] [address] [id number] [place] [address]- 1404 Aug, [facility] [place] [facility] [address] [id number] [place] [address]- 0162 Aug, [facility] [address] [id number] [place] [address]- 0080 Aug, [facility] [place] [facility] [address] [id number] [place] [address]- 9055 Aug, [facility] [place] [facility] [address] [id number] [place] [address]- 2558 Jul, [facility] [place] [facility] [address] [id number] [place] [address]- 5403 Jul, [facility] [place] [facility] [address] [id number] [place] [address]- 0547 Jul, [facility] [place] [facility] [address] [id number] [place] 4499 Jul, [facility] [place] [facility] [address] [id number] [place] [address]- 8638 Jul, [facility] [place] [facility] [address] [id number] [place] [address]- 1365 Jul, [facility] [place] [facility] [address] [id number] [place] [address]- 1001 Jun, [facility] [place] [facility] [address] [id number] [place] [address]- 8667 Jun, [facility] [place] [facility] [address] [id number] [place] [address]- 1298 Jun, [facility] [place] [facility] [address] [id number] [place] [address]- 1005 Jun, [facility] [place] [facility] [address] [id number] [place] 5789 May, [facility] [place] [facility] [address] [id number] [place] [address]- 5941 May, [facility] [place] [facility] [address] [id number] [place] [address]- 3492 May, [facility] [place] [facility] [address] [id number] [place] [address]- 5624 30 Apr, 2013 [facility] [place] [facility] [address] [id number] [place] [address]- 2461 24 Apr, 2013 [facility] [place] [facility] [address] [id number] [address]- 8636 20 Apr, 2013 [facility] [place] [facility] [address] [id number] [place] [address]- 9010 11 Apr, 2013 [facility] [place] [facility] [address] [id number] [place] [address]- 7197 06 Apr, 2013 [facility] [place] [facility] [address] [id number] [place] 0550 28 Mar, 2013 [facility] [place] [facility] [address] [id number] [place] [address]- 6551 16 Mar, 2013 [facility] [place] [facility] [address] [id number] [place] [address]- 4538 Mar, [facility] [address] [id number] [place] [address]- 0068 Mar, [facility] [address] [id number] [place] [address]- 1445 Feb, [facility] [address] [id number] [place] [address]- 9575 Jan, [facility] [address] [id number] [place] [address]- 5185 December, [facility] [address] [id number] [place] [address]- 3144 December, [facility] [address] [id number] [place] [address]- 8798 December, [facility] [address] [id number] [place] [address]- 8901 December, [facility] [address] [id number] [place] [address]- 2348 December, [facility] [address] [id number] [place] [address]- 2516 December, [facility] [address] [id number] [place] [address]- 6370 December, [facility] [address] [id number] [place] [address]- 6691 Nov, [facility] [address] [id number] [place] [address]- 8088 Nov, [facility] [address] [id number] [place] [address]- 8817 16 Nov, 2012 [facility] [address] [id number] [place] [address]- 9362 Nov, [facility] [address] [id number] [place] [address]- 0663 Nov, [facility] [address] [id number] [place] [address]- 4973 Oct, [facility] [place] [facility] [address] [id number] [place] [address]- 0234 Oct, [facility] [place] [facility] [address] [id number] [place] [address]- 7659 Oct, [facility] [place] [facility] [address] [id number] [place] [address]- 0878 Oct, [facility] [place] [facility] [address] [id number] [place] [address]- 7520 Sep, [facility] [place] [facility] [address] [id number] [place] [address]- 0951 Sep, [facility] [place] [facility] [address] [id number] [place] [address]- 1074 Sep, [facility] [place] [facility] [address] [id number] [place] [address]- 0431 Sep, [facility] [place] [facility] [address] [id number] [place] [address]- 1640 Sep, [facility] [place] [facility] [address] [id number] [place] [address]- 0649 Sep, [facility] [place] [facility] [address] [id number] [place] [address]- 2407 Aug, [facility] [place] [facility] [address] [id number] [place] [address]- 0919 Aug, [facility] [place] [facility] [address] [id number] [place] [address]- 6306 Aug, [facility] [place] [facility] [address] [id number] [place] [address]- 6390 Aug, [facility] [place] [facility] [address] [id number] [place] [address]- 6689 Aug, [facility] [place] [facility] [address] [id number] [place] [address]- 98[address] 31 Jul, 2012 [facility] [address] [id number] [place] [address] Jul, [facility] [place] [facility] [address] [id number] [place] [address] Jul, [facility] [address] [id number] [place] [address] Jul, [facility] [place] [facility] [address] [id number] [place] [address] Jul, [facility] [address] [id number] [place] [address] Jul, [facility] [address] [id number] [place] [address] Jul, [facility] [address] [id number] [place] [address] Jul, [facility] [address] [id number] [place] [address] Jun, [facility] [place] [facility] [address] [id number] [place] [address] Jun, [facility] [address] [id number] [place] [address] Jun, [facility] [place] [facility] [address] [id number] [place] [address] Jun, [facility] [place] [facility] [address] [id number] [place] [address] Jun, [facility] [place] [facility] [address] [id number] [place] [address]- [address] Jun, [facility] [place] [facility] [address] [id number] [place] [address] Jun, [facility] [place] [facility] [address] [id number] [place] [address]- 1414 Jun, [facility] [place] [facility] [address] [id number] [place] [address]- [address] Jun, [facility] [place] [facility] [address] [id number] [place] [address]- [address] Jun, [facility] [place] [facility] [address] [id number] [place] [address]- [address] Jun, [facility] [place] [facility] [address] [id number] [place] [address]- [address] Jun, [facility] [place] [facility] [address] [id number] [place] [address]- [address] Jun, [facility] [place] [facility] [address] [id number] [place] [address] Jun, [facility] [place] [facility] [address] [facility] [id number] [place] [address]- [address] Jun, [facility] [place] [facility] [address] [id number], [place] [address] Jun, [facility] [place] [facility] [address] [facility] [id number], [place] [address] May, [facility] [place] [facility] [address] [facility] [id number], [place] [address] May, [facility] [place] [facility] [address] [facility] [id number], [place] [address] May, [facility] [place] [facility] [address] [id number], [place] [address] May, [facility] [place] [facility] [address] [id number], [place] [address] May, [facility] [place] [facility] [address] [facility] [id number], [place] [address] May, [facility] [place] [facility] [address] [facility] [id number], [place] [address]- [address] Apr, [facility] [place] [facility] [address] [id number], [place] [address] 27 Apr, 2012 [facility] [place] [facility] [address] [id number] [place] [address] 15 Apr, 2012 [facility] [place] [facility] [address] [id number] [place] [address]- [address] 11 Apr, 2012 [facility] [place] [facility] [address] [id number] [place] [address]- [address] 10 Apr, 2012 [facility] [place] [facility] [address] [id number] [place] [address]- [address] 29 Mar, 2012 [facility] [place] [facility] [address] [id number] [place] [address]- [address] Mar, [facility] [place] [facility] [address] [id number] [place] [address]- [address] Mar, [facility] [place] [facility] [address] [id number] [place] [address]- [address] Mar, [facility] [place] [facility] [address] [id number] [place] [address] Mar, [facility] [place] [facility] [address] [id number] [place] [address]- [address]98 Mar, [facility] [place] [facility] [address] [id number] [place] [address]- [address] Mar, [facility] [place] [facility] [address] [id number] [place] [address]- [address] Feb, [facility] [place] [facility] [address] [id number] [place] [address]- [address] Feb, [facility] [place] [facility] [address] [id number] [place] [address]- [address] Feb, [facility] [place] [facility] [address] [id number] [place] [address]- [address] Feb, [facility] [place] [facility] [address] [id number] [place] [address]- [address] Jan, [facility] [place] [facility] [address] [id number] [place] [address] Jan, [facility] [place] [facility] [address] [id number] [place] [address]- [address] Jan, [facility] [place] [facility] [address] [id number] [place] [address] Jan, [facility] [place] [facility] [address] [id number] [place] [address]- [address] Jan, [facility] [place] [facility] [address] [id number] [place] [address]- [address] Jan, [facility] [place] [facility] [address] [id number] [place] [address]- [address] December, [facility] [place] [facility] [address] [id number] [place] [address] December, [facility] [facility] [place] [facility] [address] [id number] [place] [address] December, [facility] [place] [facility] [address] [id number] [place] [address] December, [facility] [place] [facility] [address] [id number] [place] [address] December, [facility] [place] [facility] [address] [id number] [place] [address] December, [facility] [place] [facility] [address] [id number] [place] [address] December, [facility] [place] [facility] [address] [id number] [place] [address] Nov, [facility] [place] [facility] [address] [id number] [place] [address] Nov, [facility] [place] [facility] [address] [id number] [place] [address] Nov, [facility] [place] [facility] [address] [id number] [place] [address] 25 Nov, 2011 [facility] [place] [facility] [address] [id number] [place] [address] 16 Nov, 2011 [facility] [place] [facility] [address] [id number] [place] [address] 12 Nov, 2011 [facility] [place] [facility] [address] [id number] [place] [address] 12 Nov, 2011 [facility] [place] [facility] [address] [id number] [place] [address] 29 Oct, 2011 [facility] [place] [facility] [address] [id number] [place] [address] 21 Oct, 2011 [facility] [place] [facility] [address] [id number] [place] [address] 19 Oct, 2011 [facility] [place] [facility] [id number] [place] [address] Oct, [facility] [place] [facility] [address] [id number] [place] [address] Sep, [facility] [place] [facility] [address] [id number] [place] [address] 23 Sep, 2011 [facility] [place] [facility] [address] [id number] [place] [address] 14 Sep, 2011 [facility] [place] [facility] [address] [id number] [place] [address] 07 Sep, 2011 [facility] [place] [facility] [address] [id number] [place] [address] 07 Sep, 2011 [facility] [place] [facility] [address] [id number] [place] [address] 06 Sep, 2011 [facility] [place] [facility] [address] [facility] [id number] [place] [address] 02 Sep, 2011 [facility] [place] [facility] [address] [facility] [id number] [place] [address] 30 Aug, 2011 [facility] [place] [facility] [address] [id number] [place] [address] 12 Aug, 2011 [facility] [address] [id number] [place] [address] Aug, [facility] [place] [facility] [address] [id number] [place] [address] 29 Jul, 2011 [facility] [address] [id number] [place] [address] Jul, [facility] [place] [facility] [address] [id number] [place] [address] Jul, [facility] [address] [id number] [place] [address] Jul, [facility] [place] [facility] [address] [id number] [place] [address] Jul, [facility] [address] [id number] [place] [address] Jul, [facility] [address] [id number] [place] [address] 15 Jun, 2011 [facility] [place] [facility] [address] [id number] [place] [address] 03 Jun, 2011 [facility] [address] [id number] [place] [address] 14 May, 2011 [facility] [place] [facility] [address] [id number] [place] [address] 10 May, 2011 [facility] [place] [facility] [address] [id number] [place] [address] 14 Apr, 2011 [facility] [place] [facility] [address] [id number] [place] [address] 11 Oct, 2010 [facility] [place] [facility] [address] [id number] [place] [address] 22 Jul, 2010 [facility] [place] [facility] [address] [id number] [place] [address] 14 Jul, 2010 [facility] [address] [facility] [id number] [address] Jul, [facility] [address] [facility] [id number], [place] [address] Jun, [facility] [address] [address] 15 Jun, 2010 [facility] [address] [facility] [id number], [place] [address] Jun, [facility] [address] [facility] [id number] [address] May, [facility] [address] [facility] [id number] [place] [address] Jan, [facility] [address] [address] December, [facility] [address], [place] [address] Jul, [facility] [address], [place] [address] Jul, [facility] [address], [place] [address] Jul, [facility] [address], [place] [address] May, [facility] [address]65[address], [place] [address] May, [facility] [address] [id number], [place] [address] May, IMMUNIZATIONS No Known Immunizations SOCIAL HISTORY Never Assessed REASON FOR VISIT PFT-[facility] 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
--- OUTSIDE RECORDS SUMMARY | 2018-04-25 14:16 | XMS REPORT ---
Author Author RAKAN AYALA Organization [facility] Address [address] [place] [address] Care Team Providers Care Barley Steeper Name Role Phone RAKAN AYALA Unavailable PROBLEMS Type Condition ICD9-CM Code QSD56-JV Code Onset Dates Condition Status SNOMED Code Problem Essential hypertension I10 Active 58505316 Problem Cellulitis of left arm L03.114 Active 98722188014066098 Problem COPD (chronic obstructive pulmonary disease) with acute bronchitis J44.0 Active [id number] Problem CAD (coronary artery disease) I25.10 Active 44825281 Problem Hyperlipemia E78.5 Active 84735602 Problem Midline low back pain with right-sided sciatica M54.41 Active 767308905 Problem COPD (chronic obstructive pulmonary disease) J44.9 Active 47388873 Problem Panlobular emphysema J43.1 Active 2464706 Problem Nocturnal leg cramps G47.62 Active 851350492 Problem Polyneuropathy G62.9 Active 96224279 Problem Neuropathy G62.9 Active 537587183 Problem Arthritis M19.90 Active 7877165 ALLERGIES Substance Reaction Event Type Date Status Xanax XR Self Admitted Abuse Drug Allergy Aug, Active Oxycodone HCl Failed narcotics contract Drug Allergy Aug, Active Benzodiazepines Failed narcotics contract Non Drug Allergy Aug, Active ENCOUNTERS Encounter Location Date Diagnosis [facility] [address] [facility] [id number] [address] Jun, [facility] [address] [id number] [address] Jan, [facility] [address] [id number] [address] December, Right leg swelling M79.89 ; Left leg swelling M79.89 ; CAD ( coronary artery disease) I25.10 ; Essential hypertension I10 ; Bilateral leg numbness R20.0 and Exertional dyspnea R06.09 [place] [id number] [place] [address]28- 2042 Oct, [place] [address] [address] Oct, [place] [address] [address]- 4[address] Sep, Pain in right hip M25.551 ; Pain in left hip M25.552 and Suprapubic pain R10.2 [place] [address] [address]42- 5097 Sep, Midline low back pain with right-sided sciatica M54.41 [place] [address] 11287- [address]888 Aug, Midline low back pain with right-sided sciatica M54.41 and Arthritis M19.90 [place] [address] [address]88- 1403 Jul, Impingement syndrome, shoulder, left M75.42 and Sprain of ligament of cervical spine region S13.4XXA [place] [address] 35514- 8261 Jul, COPD (chronic obstructive pulmonary disease) J44.9 [place] [address] 6[address]62- [address] Jul, [place] [address] 09614- 8886 Jul, [place] [address] 15334- 6875 30 Jun, 2017 Elbow pain, right M25.521 ; Pain of left clavicle M89.8X1 ; Panlobular emphysema J43.1 and Encounter for immunization Z23 [place] [address] [id number] Jun, [facility] [id number] [place] [address] 65760- 9643 Jun, Clavicle pain M89.8X1 [facility] [address] 70095- 1115 Jun, [facility] [address] 84303- 7064 May, Neuropathy G62.9 ; Arthritis M19.90 and Nocturnal leg cramps G47.62 [facility] [address] [id number] [address] Apr [facility] [address] [address]- 1235 December, [facility] [id number] [place] [address] 71354 -4912 Nov, Gastroenteritis and colitis, viral A08.4 [facility] [address] 10690- 3109 Oct, [facility] [id number] [place] [address] 02546- 1498 Sep, [facility] [id number] [place] [address] 03924- 2233 Sep, Low back pain M54.5 and Other chronic pain G89.29 [facility] [id number] [place] [address] 99667- 5514 Sep, [facility] [id number] [place] [address] 06631- 8704 Aug, [facility] [address] 33270- 2127 Jul, Vision changes H53.9 and Polyneuropathy G62.9 [facility] [id number] [place] [address] 02486- 9634 Jun, [facility] [id number] [place] [address] 06685- 8984 Jun, Left leg swelling M79.89 ; Right leg swelling M79.89 ; Bilateral leg numbness R20.0 ; CAD (coronary artery disease) I25.10 ; Essential hypertension I10 and Exertional dyspnea R06.09 [facility] [id number] [place] [address]276 -0046 Jun, Cellulitis of left arm L03.114 [place] [address] 07811- 2429 Jun, [place] [address] 20361- 5880 May, Chest pain, unspecified type R07.9 ; Exertional dyspnea R06.09 ; CAD (coronary artery disease) I25.10 and Essential hypertension I10 [facility] [place] [id number] [place] [address] 83226 -9506 December, Acute right-sided low back pain without sciatica M54.5 [place] [id number] [place] [address] 08132- 3833 Sep, Low back pain M54.5 [place] [address] 87459- 5761 Aug, Bilateral low back pain with sciatica, sciatica laterality unspecified M54.40 and Polyneuropathy G62.9 [place] [id number] [place] [address] 00443- 4524 Aug, Upper respiratory tract infection, unspecified type 465.9 [place] [address] 76206- 3967 14 Jul, 2015 Midline low back pain with right-sided sciatica M54.41 [place] [id number] [place] [address] 02300- 6959 10 Jul, 2015 Right knee pain M25.561 and Knee swelling, right M25.461 [place] [address] [place] [address]- 1185 Jun, Low back pain M54.5 and Sciatica, unspecified side M54.30 [facility] [id number] [place] [address] 95195- 4515 30 May, 2015 Arthritis M19.90 [facility] [id number] [place] [address] 31114- 7736 14 May, 2015 Upper respiratory tract infection, unspecified upper respiratory infection J06.9 [facility] [id number] [place] [address] 16573- 5058 14 May, 2015 CAD (coronary artery disease) I25.10 ; Hyperlipemia E78.5 and COPD (chronic obstructive pulmonary disease) J44.9 [facility] [id number] [place] [address] 09372- 2770 30 Apr, 2015 Arthritis 716.90 [facility] [id number] [place] [address] 58578- 9507 23 Apr, 2015 [facility] [id number] [place] [address] 75323- 1181 Apr, [facility] [id number] [place] [address] 72314- 1159 14 Apr, 2015 [facility] [id number] [place] [address] 13151- 7023 14 Apr, 2015 Hypertension 401.9 and Hyperlipidemia 272.4 [facility] [id number] [place] [address] 12511- 5969 14 Apr, 2015 [facility] [address] [place] [address] 83817- 2541 14 Apr, 2015 Hypertension 401.9 and Hyperlipidemia 272.4 [facility] [id number] [place] [address] 74720- 8041 08 Apr, 2015 [facility] [address] [place] [address] 05400- 1411 Mar, Arthritis 716.90 [facility] [place] [facility] [address] [id number] [place] [address]- 2711 22 Feb, 2014 [facility] [place] [facility] [address] [id number] [place] [address]- 2245 14 Nov, 2014 [facility] [place] [facility] [address] [id number] [place] [address]- 0119 13 Nov, 2014 [facility] [place] [facility] [address] [id number] [place] [address]- 3337 19 Oct, 2014 [facility] [place] [facility] [address] [id number] [place] [address]- 7161 Oct, 2014 [facility] [place] [facility] [address] [id number] [place] [address]- 0482 Jul, [facility] [place] [facility] [address] [id number] [place] [address]- 3119 Jul, [facility] [place] [facility] [address] [id number] [place] [address]- 2427 Jun, [facility] [place] [facility] [address] [id number] [place] 9565 Jun, [facility] [place] [facility] [address] [id number] [place] [address]- 6202 Jun, [facility] [place] [facility] [address] [id number] [place] 2440 Jun, [facility] [place] [facility] [address] [id number] [place] [address]- 4749 15 May, 2014 [facility] [place] [facility] [address] [id number] [place] 7652 15 May, 2014 [facility] [place] [facility] [address] [id number] [place] [address]- 4417 May, [facility] [place] [facility] [address] [id number] [place] [address]- 7206 May, [facility] [place] [facility] [address] [id number] [place] [address]- 7133 May, [facility] [place] [facility] [address] [id number] [place] [address]- 2845 Mar, [facility] [place] [facility] [address] [id number] [place] [address]- 4246 Mar, [facility] [place] [facility] [address] [id number] [place] [address]- 6390 Mar, [facility] [place] [facility] [address] [id number] [place] [address]- 7519 Mar, [facility] [place] [facility] [address] [id number] [place] [address]- 7608 Feb, [facility] [place] [facility] [address] [id number] [place] [address]- 5650 Feb, [facility] [place] [facility] [address] [id number] [place] [address]- 3901 Feb, [facility] [place] [facility] [address] [id number] [place] [address]- 3685 Feb, [facility] [place] [facility] [address] [id number] [place] [address]- 8064 Feb, [facility] [place] [facility] [address] [id number] [place] [address]- 2990 Feb, [facility] [place] [facility] [address] [id number] [place] [address]- 5822 Feb, [facility] [place] [facility] [address] [id number] [place] [address]- 7033 December, [facility] [place] [facility] [address] [id number] [place] [address]- 4696 December, [facility] [place] [facility] [address] [id number] [place] [address]- 3891 December, [facility] [place] [facility] [address] [id number] [place] [address]- 3331 December, [facility] [place] [facility] [address] [id number] [place] [address]- 8759 December, [facility] [place] [facility] [address] [id number] [place] [address]- 3386 December, [facility] [place] [facility] [address] [id number] [place] [address]- 4010 December, [facility] [place] [facility] [address] [id number] [place] [address]- 3508 December, [facility] [place] [facility] [address] [id number] [place] [address]- 2319 December, [facility] [place] [facility] [address] [id number] [place] [address]- 0929 December, [facility] [place] [facility] [address] [id number] [place] [address]- 0041 December, [facility] [place] [facility] [address] [id number] [place] [address]- 9556 Nov, [facility] [place] [facility] [address] [id number] [place] [address]- 1831 Nov, [facility] [place] [facility] [address] [id number] [place] [address]- 4807 Nov, [facility] [place] [facility] [address] [id number] [place] [address]- 1806 Nov, [facility] [place] [facility] [address] [id number] [place] [address]- 3587 Nov, [facility] [place] [facility] [address] [id number] [place] [address]- 6276 Nov, [facility] [place] [facility] [address] [id number] [place] [address]- 9804 Nov, [facility] [place] [facility] [address] [id number] [place] [address]- 6158 18 Nov, 2013 [facility] [place] [facility] [address] [id number] [place] [address]- 9889 15 Nov, 2013 [facility] [place] [facility] [address] [id number] [place] [address]- 5408 15 Nov, 2013 [facility] [place] [facility] [address] [id number] [place] [address]- 7879 14 Nov, 2013 [facility] [place] [facility] [address] [id number] [place] [address]- 6936 14 Nov, 2013 [facility] [place] [facility] [address] [id number] [place] [address]- 7091 11 Nov, 2013 [facility] [place] [facility] [address] [id number] [place] [address]- 8290 11 Nov, 2013 [facility] [place] [facility] [address] [id number] [place] [address]- 7890 10 Oct, 2013 [facility] [place] [facility] [address] [id number] [place] [address]- 2713 10 Oct, 2013 [facility] [place] [facility] [address] [id number] [place] [address]- 6240 10 Oct, 2013 [facility] [place] [facility] [address] [id number] [place] [address]- 6722 10 Oct, 2013 [facility] [place] [facility] [address] [id number] [place] [address]- 8274 07 Oct, 2013 [facility] [place] [facility] [address] [id number] [place] [address]- 9571 07 Oct, 2013 [facility] [place] [facility] [address] [id number] [place] [address]- 2906 05 Oct, 2013 [facility] [place] [facility] [address] [id number] [place] [address]- 0856 04 Oct, 2013 [facility] [place] [facility] [address] [id number] [place] [address]- 1931 04 Oct, 2013 [facility] [place] [facility] [address] [id number] [place] [address]- 1012 03 Oct, 2013 [facility] [place] [facility] [address] [id number] [place] [address]- 8532 Oct, [facility] [address] [id number] [place] [address]- 8592 Sep, [facility] [place] [facility] [address] [id number] [place] [address]- 2603 Sep, [facility] [place] [facility] [address] [id number] [place] [address]- 3406 Sep, [facility] [place] [facility] [address] [id number] [place] [address]- 8770 Sep, [facility] [place] [facility] [address] [id number] [place] [address]- 9318 Aug, [facility] [place] [facility] [address] [id number] [place] [address]- 6546 Aug, [facility] [address] [id number] [place] [address]- 7458 Aug, [facility] [place] [facility] [address] [id number] [place] [address]- 0923 Aug, [facility] [place] [facility] [address] [id number] [place] [address]- 1219 Aug, [facility] [place] [facility] [address] [id number] [place] [address]- 3730 Aug, [facility] [address] [id number] [place] [address]- 7953 Aug, [facility] [place] [facility] [address] [id number], [place] [address]- 3860 Aug, [facility] [place] [facility] [address] [id number] [place] [address]- 0999 Jul, [facility] [place] [facility] [address] [id number] [place] [address]- 1433 Jul, [facility] [place] [facility] [address] [id number] [place] [address]- 6449 Jul, [facility] [place] [facility] [address] [id number] [place] [address]- 7438 Jul, [facility] [place] [facility] [address] [id number] [place] [address]- 7936 Jul, [facility] [place] [facility] [address] [id number] [place] [address] 2546 Jul, [facility] [place] [facility] [address] [id number] [place] [address]- 2256 Jun, [facility] [place] [facility] [address] [id number] [place] [address] 2547 Jun, [facility] [place] [facility] [address] [id number] [place] [address]- 9055 Jun, [facility] [place] [facility] [address] [id number] [place] [address]- 2127 Jun, [facility] [place] [facility] [address] [id number] [place] [address]- 7820 May, [facility] [place] [facility] [address] [id number] [place] [address]- 7813 May, [facility] [place] [facility] [address] [id number] [place] [address]- 9817 May, [facility] [place] [facility] [address] [id number] [place] [address]- 4021 30 Apr, 2013 [facility] [place] [facility] [address] [id number] [place] [address] 2547 24 Apr, 2013 [facility] [place] [facility] [address] [id number] [place] [address] 2544 20 Apr, 2013 [facility] [place] [facility] [address] [id number] [place] [address] 2546 11 Apr, 2013 [facility] [place] [facility] [address] [id number] [place] [address] 2546 06 Apr, 2013 [facility] [place] [facility] [address] [id number] [place] [address]- 5400 Mar, [facility] [address] [id number] [place] [address]- 9112 Mar, [facility] [place] [facility] [address] [id number] [place] [address]- 3926 Mar, [facility] [address] [id number] [place] [address]- 4543 Mar, [facility] [place] [facility] [address] [id number] [place] [address]- 5815 Feb, [facility] [address] [id number] [place] [address]- 3521 Jan, [facility] [address] [id number] [place] [address]- 4734 December, [facility] [address] [id number] [place] [address]- 6729 December, [facility] [place] [facility] [address] [id number] [place] [address]- 4332 December, [facility] [address] [id number] [place] [address]- 2774 December, [facility] [address] [id number] [place] [address]- 1910 December, [facility] [place] [facility] [address] [id number] [place] [address]- 3518 December, [facility] [place] [facility] [address] [id number] [place] [address]- 4294 December, [facility] [place] [facility] [address] [id number] [place] [address]- 1894 Nov, [facility] [place] [facility] [address] [id number] [place] [address]- 6887 Nov, [facility] [place] [facility] [address] [id number] [place] [address]- 6591 Nov, [facility] [place] [facility] [address] [id number] [place] [address]- 5062 15 Nov, 2012 [facility] [address] [id number] [place] [address]- 6014 15 Nov, 2012 [facility] [address] [id number] [place] [address]- 0844 14 Oct, 2012 [facility] [address] [id number] [place] [address]- 3660 Oct, [facility] [address] [id number] [place] [address]- 6587 07 Oct, 2012 [facility] [address] [id number] [place] [address]- 5324 04 Oct, 2012 [facility] [address] [id number] [place] [address]- 6832 20 Sep, 2012 [facility] [address] [id number] [place] [address]- 8[address] 14 Sep, 2012 [facility] [address] [id number] [place] [address] 14 Sep, 2012 [facility] [address] [id number] [place] [address] Sep, [facility] [address] [facility] [id number] [place] [address] 08 Sep, 2012 [facility] [address] [id number] [place] [address] Sep, [facility] [address] [id number] [place] [address] Aug, [facility] [place] [facility] [address] [id number] [place] [address] Aug, [facility] [place] [facility] [address] [id number] [place] [address] Aug, [facility] [place] [facility] [address] [facility] [id number] [place] [address] Aug, [facility] [place] [facility] [address] [id number] [place] [address] Aug, [facility] [place] [facility] [address] [id number] [place] [address] Jul, [facility] [place] [facility] [address] [id number] [place] [address] Jul, [facility] [place] [facility] [address] [id number] [place] [address] Jul, [facility] [place] [facility] [address] [id number] [place] [address] Jul, [facility] [place] [facility] [address] [id number] [place] [address] Jul, [facility] [place] [facility] [address] [id number] [place] [address] Jul, [facility] [place] [facility] [address] [id number] [place] [address] Jul, [facility] [place] [facility] [address] [id number] [place] [address] Jul, [facility] [place] [facility] [address] [id number] [place] [address] Jun, [facility] [place] [facility] [address] [id number] [place] [address] 30 Jun, 2012 [facility] [place] [facility] [address] [id number], [place] [address] Jun, [facility] [place] [facility] [address] [id number] [place] [address] Jun, [facility] [place] [facility] [address] [id number] [place] [address] 14 Jun, 2012 [facility] [place] [facility] [address] [id number] [place] [address] 14 Jun, 2012 [facility] [place] [facility] [address] [id number] [place] [address] 08 Jun, 2012 [facility] [place] [facility] [address] [id number] [place] [address] Jun, [facility] [place] [facility] [address] [id number] [place] [address] Jun, [facility] [place] [facility] [address] [facility] [id number] [place] [address] Jun, [facility] [place] [facility] [address] [id number] [place] [address] Jun, [facility] [place] [facility] [address] [id number] [place] [address] Jun, [facility] [place] [facility] [address] [id number] [place] [address] Jun, [facility] [place] [facility] [address] [facility] [id number] [place] [address] Jun, [facility] [place] [facility] [address] [id number] [place] [address] Jun, [facility] [place] [facility] [address] [id number] [place] [address] Jun, [facility] [place] [facility] [address] [facility] [id number] [place] [address] May, [facility] [place] [facility] [address] [id number] [place] [address] May, [facility] [place] [facility] [address] [id number], [place] [address] May, [facility] [place] [facility] [address] [id number] [place] [address] May, [facility] [place] [facility] [address] [facility] [id number] [place] [address]- [address] May, [facility] [place] [facility] [address] [facility] [id number], [place] [address] May, [facility] [place] [facility] [address] [id number] [place] [address] 28 Apr, 2012 [facility] [place] [facility] [address] [id number] [place] [address] 27 Apr, 2012 [facility] [place] [facility] [address] [id number] [place] [address] 15 Apr, 2012 [facility] [place] [facility] [address] [id number] [place] [address] 11 Apr, 2012 [facility] [place] [facility] [address] [id number] [place] [address] 10 Apr, 2012 [facility] [place] [facility] [address] [id number] [place] [address] Mar, [facility] [place] [facility] [address] [id number] [place] [address] Mar, [facility] [place] [facility] [address] [id number] [place] [address] Mar, [facility] [place] [facility] [address] [id number] [place] [address] Mar, [facility] [place] [facility] [address] [id number] [place] [address] Mar, [facility] [place] [facility] [address] [id number] [place] [address] Mar, [facility] [place] [facility] [address] [id number] [place] [address] Mar, [facility] [place] [facility] [address] [id number] [place] [address] Feb, [facility] [place] [facility] [address] [id number] [place] [address] Feb, [facility] [place] [facility] [address] [id number] [place] [address] Feb, [facility] [place] [facility] [address] [id number] [place] [address] Feb, [facility] [place] [facility] [address] [id number] [place] [address] Jan, [facility] [place] [facility] [address] [id number] [place] [address] Jan, [facility] [place] [facility] [address] [id number] [place] [address] Jan, [facility] [place] [facility] [address] [id number] [place] [address] Jan, [facility] [place] [facility] [address] [id number] [place] [address] Jan, [facility] [place] [facility] [address] [id number] [place] [address] Jan, [facility] [place] [facility] [address] [id number] [place] [address] December, [facility] [place] [facility] [address] [id number] [place] [address] December, [facility] [place] [facility] [address] [id number] [place] [address] December, [facility] [place] [facility] [address] [id number] [place] [address] December, [facility] [place] [facility] [address] [id number] [place] [address] December, [facility] [place] [facility] [address] [id number] [place] [address] December, [facility] [place] [facility] [address] [id number] [place] [address] December, [facility] [place] [facility] [address] [id number] [place] [address] Nov, [facility] [place] [facility] [address] [id number] [place] [address] Nov, [facility] [place] [facility] [address] [id number] [place] [address]- [address] 26 Nov, 2011 [facility] [address] [id number] [place] [address] 25 Nov, 2011 [facility] [place] [facility] [address] [id number] [place] [address]- [address] 16 Nov, 2011 [facility] [address] [id number] [place] [address] 12 Nov, 2011 [facility] [place] [facility] [address] [id number] [place] [address] 2547 12 Nov, 2011 [facility] [address] [id number] [place] [address] 29 Oct, 2011 [facility] [address] [id number] [place] [address] 21 Oct, 2011 [facility] [address] [id number] [place] [address] 19 Oct, 2011 [facility] [address] [id number] [place] [address] 07 Oct, 2011 [facility] [place] [facility] [address] [id number] [place] [address] 23 Sep, 2011 [facility] [address] [facility] [id number] [place] [address] 23 Sep, 2011 [facility] [place] [facility] [address] [id number] [place] [address] 14 Sep, 2011 [facility] [address] [id number] [place] [address] 2543 07 Sep, 2011 [facility] [place] [facility] [address] [id number] [place] [address]16 07 Sep, 2011 [facility] [place] [facility] [address] [id number] [place] [address]46 06 Sep, 2011 [facility] [place] [facility] [address] [id number] [place] [address] Sep, [facility] [place] [facility] [address] [id number] [place] [address] Aug, [facility] [place] [facility] [address] [id number] [place] [address] Aug, [facility] [place] [facility] [address] [facility] [id number] [place] [address] 2546 Aug, [facility] [place] [facility] [address] [id number] [place] [address] 39[address] Jul, [facility] [place] [facility] [address] [id number] [place] [address]- [address] Jul, [facility] [place] [facility] [address] [id number] [place] [address] Jul, [facility] [place] [facility] [address] [id number] [place] [address]- 6068 Jul, [facility] [place] [facility] [address] [id number] [place] [address] Jul, [facility] [place] [facility] [address] [id number] [place] [address] Jul, [facility] [place] [facility] [address] [facility] [id number] [place] [address]60 Jun, [facility] [place] [facility] [address] [id number], [place] [address] Jun, [facility] [place] [facility] [address] [id number], [place] [address]43 14 May, 2011 [facility] [place] [facility] [address] [id number] [place] [address] 2548 10 May, 2011 [facility] [place] [facility] [address] [facility] [id number], [place] [address] 14 Apr, 2011 [facility] [place] [facility] [address] [id number], [place] [address] Oct, [facility] [place] [facility] [id number], [place] [address] 22 Jul, 2010 [facility] [address] [facility] [id number], [place] [address] 14 Jul, 2010 [facility] [address] [facility] [id number], [place] [address] 2546 08 Jul, 2010 [facility] [id number], [place] [address] 24 Jun, 2010 [facility] [address] [facility] [id number], [place] [address] 2549 15 Jun, 2010 [facility] [id number], [place] [address] Jun, [facility] [id number], [place] [address] May, [facility] [id number], [place] [address] 133[address] Jan, [facility] [id number], [place] [address] December, [facility] [id number], [place] [address] 29 Jul, 2009 [facility] [id number], [place] [address] Jul, [facility] [address] [id number], [place] [address] 254 Jul, [facility] [address] [id number], [place] [address] May, [facility] [address] [id number], [place] [address] May, [facility] [address] [id number] [address] May, IMMUNIZATIONS No Known Immunizations SOCIAL HISTORY Never Assessed REASON FOR VISIT Arthritis-Ernesto RENE PLAN OF CARE VITAL SIGNS Height 70 in 2017-08-29 Weight 218.6 lbs 2017-08-29 Temperature 98.2 degrees Fahrenheit 2017-08-29 Heart Rate 78 bpm 2017-08-29 Respiratory Rate 19 2017-08-29 BMI 31.36 kg/m2 2017-08-29 Blood pressure systolic 112 mmHg 2017-08-29 Blood pressure diastolic 76 mmHg 2017-08-29 MEDICATIONS Medication Instructions Dosage Frequency Start Date End Date Duration Status Cyclobenzaprine HCl 10 mg Orally Three times a day 1 tablet 8h 30 Active Viibryd 40 MG 1 tablet Oct, Active Crestor 40 mg 1 tablet 24h Nov, Active Nabumetone 500 mg Orally Twice a day 1 tablet 12h 18 Aug, 2017 Nov, 30 day(s) Active Spiriva 18 mcg 1 ea by Inhalation route 1 time per day Oct, Active Combivent Respimat 20-100 mcg/actuation Inhalation 3 times a day 1 puff 8h Oct, Active Aspirin Low Dose 81 MG Orally Once a day 1 tablet 24h Nov, Active Neurontin 600 MG Orally Three times a day 2 tablets 8h Active Ventolin HFA 90 mcg/actuation inhale 2 puffs by Inhalation route 4 times per day PRN Oct, Active Metoprolol Tartrate 25 MG Orally Twice a day 1/2 tablet with food 12h Active Tizanidine HCl 4 MG Orally Three times a day 1 tablet as needed 8h May, Active RESULTS No Results PROCEDURES No Known [...] Hospitalization History sepsis, Acute bacterial exac of bronchitis-VC
--- OUTSIDE RECORDS SUMMARY | 2018-04-25 14:16 | XMS REPORT ---
Author Author RAKAN AYALA Organization [facility] [place] Address [address] [place] [address] Care Team Providers Care Claim Processing Specialist Name Role Phone LUCY RAKAN Unavailable PROBLEMS Type Condition ICD9-CM Code AXO00-RK Code Onset Dates Condition Status SNOMED Code Problem Essential hypertension I10 Active 57087217 Problem Cellulitis of left arm L03.114 Active [id number] Problem COPD (chronic obstructive pulmonary disease) with acute bronchitis J44.0 Active 204856974626997 Problem CAD (coronary artery disease) I25.10 Active 84721745 Problem Hyperlipemia E78.5 Active 46034463 Problem Midline low back pain with right-sided sciatica M54.41 Active 622155401 Problem COPD (chronic obstructive pulmonary disease) J44.9 Active 28136644 Problem Panlobular emphysema J43.1 Active 7395566 Problem Nocturnal leg cramps G47.62 Active 519743546 Problem Polyneuropathy G62.9 Active 35040670 Problem Neuropathy G62.9 Active 027966287 Problem Arthritis M19.90 Active 9705149 ALLERGIES No Information ENCOUNTERS Encounter Location Date Diagnosis [place] [address] [address] Jun, [place] [address] [place] [id number] [place] [address] 82879- 1523 Jan, [place] [address] [place] [id number] [place] [address] 00420- 9446 December, Right leg swelling M79.89 ; Left leg swelling M79.89 ; CAD ( coronary artery disease) I25.10 ; Essential hypertension I10 ; Bilateral leg numbness R20.0 and Exertional dyspnea R06.09 [place] [address] [address] Oct, [place] [address] [place] [id number] [place] [address] 95836- 7677 Oct, [place] [address] [address]- 2042 Sep, Pain in right hip M25.551 ; Pain in left hip M25.552 and Suprapubic pain R10.2 [place] [address] [address]- 9932 09 Sep, 2017 Midline low back pain with right-sided sciatica M54.41 [place] [address] 9[address]63- 7910 Aug, Midline low back pain with right-sided sciatica M54.41 and Arthritis M19.90 [place] [address] 15871- 6611 Jul, Impingement syndrome, shoulder, left M75.42 and Sprain of ligament of cervical spine region S13.4XXA [place] [address] 87235- 6254 Jul, COPD (chronic obstructive pulmonary disease) J44.9 [place] [address] [address]69- 9825 Jul, [place] [address] 66[address]- 5212 Jul, [place] [address] 91299- 2089 30 Jun, 2017 Elbow pain, right M25.521 ; Pain of left clavicle M89.8X1 ; Panlobular emphysema J43.1 and Encounter for immunization Z23 [place] [address] [id number] Jun, [place] [address] [place] [id number] [place] [address] 78297- 7157 Jun, Clavicle pain M89.8X1 [place] [id number] [place] [address] 48897- 0161 Jun, [facility] [place] [address] [place] [id number] [place] [address] 81715- 3661 May, Neuropathy G62.9 ; Arthritis M19.90 and Nocturnal leg cramps G47.62 [facility] [address] [id number] [place] [address] Apr [facility] [place] [address] [place] [id number] [place] [address] 57168- 3782 December, [facility] [address] [place] [address] [id number] [place] [address] 98736 -2960 Nov, Gastroenteritis and colitis, viral A08.4 [place] [address] [place] [id number] [place] [address] 25061- 9045 Oct, [place] [address] 61620- 8992 Sep, [place] [address] [place] [id number] [place] [address] 58675- 6139 Sep, Low back pain M54.5 and Other chronic pain G89.29 [place] [address] [place] [id number] [place] [address] 98098- 3639 Sep, [place] [address] [place] [id number] [place] [address] 75175- 4363 Aug, [facility] [place] [address] [place] [id number] [place] [address] 12510- 0933 Jul, Vision changes H53.9 and Polyneuropathy G62.9 [place] [address] [place] [id number] [place] [address] 92147- 1769 Jun, [facility] [place] [address] [place] [id number] [place] [address] 74949- 2083 Jun, Left leg swelling M79.89 ; Right leg swelling M79.89 ; Bilateral leg numbness R20.0 ; CAD (coronary artery disease) I25.10 ; Essential hypertension I10 and Exertional dyspnea R06.09 [facility] [address] [place] [id number] [place] [address]60 -1777 Jun, Cellulitis of left arm L03.114 [place] [address] [place] [id number] [place] [address] 28437- 0396 Jun, [place] [address] 50711- 0366 May, Chest pain, unspecified type R07.9 ; Exertional dyspnea R06.09 ; CAD (coronary artery disease) I25.10 and Essential hypertension I10 [facility] [address] [address] -[address]22 December, Acute right-sided low back pain without sciatica M54.5 [place] [address] 25580- 2611 Sep, Low back pain M54.5 [place] [address] [place] [id number] [place] [address] 99415- 8659 Aug, Bilateral low back pain with sciatica, sciatica laterality unspecified M54.40 and Polyneuropathy G62.9 [place] [address] [place] [id number] [place] [address] 52459- 0117 Aug, Upper respiratory tract infection, unspecified type 465.9 [place] [address] [place] [id number] [place] [address] 88205- 3364 14 Jul, 2015 Midline low back pain with right-sided sciatica M54.41 [place] [address] [place] [id number] [place] [address] 87339- 3910 10 Jul, 2015 Right knee pain M25.561 and Knee swelling, right M25.461 [place] [address] [place] [id number] [place] [address] 62915- 4680 30 Jun, 2015 Low back pain M54.5 and Sciatica, unspecified side M54.30 [place] [address] [place] [address]- 6113 30 May, 2015 Arthritis M19.90 [facility] [place] [address] [place] [id number] [place] [address] 34847- 8473 14 May, 2015 Upper respiratory tract infection, unspecified upper respiratory infection J06.9 [facility] [place] [id number] [place] [address] 80999- 2413 14 May, 2015 CAD (coronary artery disease) I25.10 ; Hyperlipemia E78.5 and COPD (chronic obstructive pulmonary disease) J44.9 [facility] [place] [address] [place] [address] 55209- 0941 30 Apr, 2015 Arthritis 716.90 [facility] [place] [address] [place] [id number] [place] [address] 67853- 2942 23 Apr, 2015 [facility] [place] [address] [place] [address] 19775- 9570 Apr, [facility] [place] [address] [place] [address] 38544- 5892 14 Apr, 2015 [facility] [place] [address] [place] [address] 01137- 2024 14 Apr, 2015 Hypertension 401.9 and Hyperlipidemia 272.4 [facility] [place] [address] [place] [address] 30672- 2549 14 Apr, 2015 [facility] [place] [address] [place] [address] 37236 2547 14 Apr, 2015 Hypertension 401.9 and Hyperlipidemia 272.4 [facility] [place] [address] [place] [address] 81755- 254 08 Apr, 2015 [facility] [place] [address] [place] [address] 88909- 2543 Mar, Arthritis 716.90 [facility] [place] [id number] [place] [address] 35995- 0870 Feb, [facility] [place] [address] [place] [id number] [place] [address] 58924- 9234 14 Nov, 2014 [facility] [place] [facility] [address] [id number] [place] [address]- 1194 13 Nov, 2014 [facility] [place] [facility] [address] [id number] [place] 6298 Oct, [facility] [place] [facility] [address] [id number] [place] [address]- 2943 Oct, [facility] [place] [facility] [address] [id number] [place] [address]- 6468 Jul, [facility] [place] [facility] [address] [id number] [place] [address]- 7674 Jul, [facility] [place] [facility] [address] [id number] [place] [address]- 1569 Jun, [facility] [place] [facility] [address] [id number] [place] [address]- 5619 Jun, [facility] [place] [facility] [address] [id number] [place] [address]- 7991 Jun, [facility] [place] [facility] [address] [id number] [place] [address]- 1099 Jun, [facility] [place] [facility] [address] [id number] [place] [address]- 3735 May, [facility] [place] [facility] [address] [id number] [address]- 5630 May, [facility] [place] [facility] [address] [id number] [place] [address]- 0931 15 May, 2014 [facility] [place] [facility] [address] [id number] [address]- 7724 May, [facility] [place] [facility] [address] [id number] [address]- 7016 May, [facility] [place] [facility] [address] [id number] [place] [address]- 8121 Mar, [facility] [place] [facility] [address] [id number] [place] [address]- 9425 Mar, [facility] [place] [facility] [address] [id number] [place] [address]- 6250 Mar, [facility] [place] [facility] [address] [id number] [place] [address]- 5636 Mar, [facility] [place] [facility] [address] [id number] [place] [address]- 3423 Feb, [facility] [place] [facility] [address] [id number] [place] [address]- 5491 Feb, [facility] [place] [facility] [address] [id number] [place] [address]- 3205 Feb, [facility] [place] [facility] [address] [id number] [place] [address]- 4219 Feb, [facility] [place] [facility] [address] [id number] [place] [address]- 5191 Feb, [facility] [place] [facility] [address] [id number] [place] [address]- 3726 Feb, [facility] [place] [facility] [address] [id number] [place] [address]- 5387 Feb, [facility] [place] [facility] [address] [id number] [place] [address]- 3454 December, [facility] [place] [facility] [address] [id number] [place] [address]- 7650 December, [facility] [place] [facility] [address] [id number] [place] [address]- 6797 December, [facility] [place] [facility] [address] [id number] [place] [address]- 7799 December, [facility] [place] [facility] [address] [id number] [place] [address]- 6741 December, [facility] [place] [facility] [address] [id number] [place] 6402 December, [facility] [place] [facility] [address] [id number] [place] [address]- 8242 December, [facility] [place] [facility] [address] [id number] [place] [address]- 9527 December, [facility] [place] [facility] [address] [id number] [place] [address]- 9070 December, [facility] [place] [facility] [address] [id number] [place] [address]- 0214 December, [facility] [place] [facility] [address] [id number] [place] [address]- 6057 December, [facility] [place] [facility] [address] [id number] [place] [address]- 7834 Nov, [facility] [place] [facility] [address] [id number] [place] [address]- 1059 Nov, [facility] [place] [facility] [address] [id number] [place] [address]- 5311 Nov, [facility] [place] [facility] [address] [id number] [place] [address]- 1632 Nov, [facility] [place] [facility] [address] [id number] [place] [address]- 1736 Nov, [facility] [place] [facility] [address] [id number] [place] [address]- 3060 Nov, [facility] [place] [facility] [address] [id number] [place] [address]- 3780 Nov, [facility] [place] [facility] [address] [id number] [place] [address]- 0667 Nov, [facility] [place] [facility] [address] [id number] [place] [address]- 2362 Nov, [facility] [place] [facility] [address] [id number] [place] [address]- 7646 Nov, [facility] [place] [facility] [address] [id number] [place] [address]- 7232 14 Nov, 2013 [facility] [place] [facility] [address] [id number] [place] [address]- 9344 14 Nov, 2013 [facility] [place] [facility] [address] [id number] [place] [address]- 4641 11 Nov, 2013 [facility] [place] [facility] [address] [id number] [place] [address]- 4085 11 Nov, 2013 [facility] [place] [facility] [address] [id number] [place] [address]- 9348 10 Oct, 2013 [facility] [place] [facility] [address] [id number] [place] [address]- 9511 10 Oct, 2013 [facility] [place] [facility] [address] [id number] [place] [address]- 8585 10 Oct, 2013 [facility] [place] [facility] [address] [id number] [place] [address]- 3468 10 Oct, 2013 [facility] [place] [facility] [address] [id number] [place] [address]- 2821 07 Oct, 2013 [facility] [place] [facility] [address] [id number] [place] [address]- 2613 07 Oct, 2013 [facility] [place] [facility] [address] [id number] [place] [address]- 5426 05 Oct, 2013 [facility] [place] [facility] [address] [id number] [place] [address]- 6933 04 Oct, 2013 [facility] [place] [facility] [address] [id number] [place] [address]- 8699 Oct, [facility] [place] [facility] [address] [id number] [place] [address]- 8078 Oct, [facility] [place] [facility] [address] [id number] [place] [address]- 6888 Oct, [facility] [place] [facility] [address] [id number] [place] [address]- 1649 Sep, [facility] [place] [facility] [address] [id number] [place] [address]- 0943 Sep, [facility] [place] [facility] [address] [id number] [place] [address]- 4578 Sep, [facility] [place] [facility] [address] [id number] [place] [address]- 5986 Sep, [facility] [place] [facility] [address] [id number] [place] [address]- 6433 Aug, [facility] [place] [facility] [address] [id number] [place] [address]- 3277 Aug, [facility] [place] [facility] [address] [id number] [place] [address]- 8685 Aug, [facility] [address] [id number] [place] [address]- 9541 Aug, [facility] [place] [address] [id number] [place] [address]- 4749 Aug, [facility] [place] [facility] [address] [id number] [place] [address]- 3600 Aug, [facility] [address] [id number] [place] [address]- 7652 Aug, [facility] [place] [facility] [address] [id number] [place] [address]- 1593 Aug, [facility] [place] [facility] [address] [id number] [place] [address]- 1947 Jul, [facility] [place] [facility] [address] [id number] [place] [address]- 9857 Jul, [facility] [place] [facility] [address] [id number] [place] [address]- 4144 Jul, [facility] [place] [facility] [address] [id number] [place] 6438 Jul, [facility] [place] [facility] [address] [id number] [place] [address]- 0220 Jul, [facility] [place] [facility] [address] [id number] [place] [address]- 7979 Jul, [facility] [place] [facility] [address] [id number] [place] [address]- 3922 Jun, [facility] [place] [facility] [address] [id number] [place] [address]- 0657 Jun, [facility] [place] [facility] [address] [id number] [place] [address]- 0992 Jun, [facility] [place] [facility] [address] [id number] [place] [address]- 5228 Jun, [facility] [place] [facility] [address] [id number] [place] 9944 May, [facility] [place] [facility] [address] [id number] [place] [address]- 4367 May, [facility] [place] [facility] [address] [id number] [place] [address]- 5207 May, [facility] [place] [facility] [address] [id number] [place] [address]- 7487 30 Apr, 2013 [facility] [place] [facility] [address] [id number] [place] [address]- 2156 24 Apr, 2013 [facility] [place] [facility] [address] [id number] [place] [address]- 3918 20 Apr, 2013 [facility] [place] [facility] [address] [id number] [place] [address]- 4689 11 Apr, 2013 [facility] [place] [facility] [address] [id number] [place] [address]- 4095 06 Apr, 2013 [facility] [place] [facility] [address] [id number] [place] 6784 28 Mar, 2013 [facility] [place] [facility] [address] [id number] [place] [address]- 5936 16 Mar, 2013 [facility] [place] [facility] [address] [id number] [place] [address]- 0718 Mar, [facility] [address] [id number] [place] [address]- 4113 Mar, [facility] [address] [id number] [place] [address]- 1521 Feb, [facility] [address] [id number] [place] [address]- 3730 Jan, [facility] [address] [id number] [place] [address]- 8084 December, [facility] [address] [id number] [place] [address]- 6804 December, [facility] [address] [id number] [place] [address]- 4907 December, [facility] [address] [id number] [place] [address]- 7806 December, [facility] [address] [id number] [place] [address]- 9093 December, [facility] [address] [id number] [place] [address]- 0852 December, [facility] [address] [id number] [place] [address]- 5992 December, [facility] [address] [id number] [place] [address]- 0768 Nov, [facility] [address] [id number] [place] [address]- 6873 Nov, [facility] [address] [id number] [place] [address]- 7926 16 Nov, 2012 [facility] [address] [id number] [place] [address]- 0374 Nov, [facility] [address] [id number] [place] [address]- 9672 Nov, [facility] [address] [id number] [place] [address]- 6210 Oct, [facility] [place] [facility] [address] [id number] [place] [address]- 9805 Oct, [facility] [place] [facility] [address] [id number] [place] [address]- 5568 Oct, [facility] [place] [facility] [address] [id number] [place] [address]- 5672 Oct, [facility] [place] [facility] [address] [id number] [place] [address]- 8743 Sep, [facility] [place] [facility] [address] [id number] [place] [address]- 7021 Sep, [facility] [place] [facility] [address] [id number] [place] [address]- 7924 Sep, [facility] [place] [facility] [address] [id number] [place] [address]- 7114 Sep, [facility] [place] [facility] [address] [id number] [place] [address] Sep, [facility] [place] [facility] [address] [id number] [place] [address] Sep, [facility] [place] [facility] [address] [id number] [place] [address] Aug, [facility] [place] [facility] [address] [id number] [place] [address] Aug, [facility] [place] [facility] [address] [id number] [place] [address] Aug, [facility] [place] [facility] [address] [id number] [place] [address] Aug, [facility] [place] [facility] [address] [id number] [place] [address] Aug, [facility] [place] [facility] [address] [id number] [place] [address] 31 Jul, 2012 [facility] [address] [id number] [place] [address]- [address] Jul, [facility] [place] [facility] [address] [id number] [place] [address]- [address] Jul, [facility] [address] [id number] [place] [address]- [address] Jul, [facility] [place] [facility] [address] [id number] [place] [address]- [address] Jul, [facility] [address] [id number] [place] [address] Jul, [facility] [address] [id number] [place] [address]- [address] Jul, [facility] [address] [id number] [place] [address]- [address] Jul, [facility] [address] [id number] [place] [address]- [address] Jun, [facility] [place] [facility] [address] [id number] [place] [address]- [address] Jun, [facility] [address] [id number] [place] [address]- [address] Jun, [facility] [place] [facility] [address] [id number] [place] [address]- [address] Jun, [facility] [place] [facility] [address] [id number] [place] [address]- [address] Jun, [facility] [place] [facility] [address] [id number] [place] [address]- 2006 Jun, [facility] [place] [facility] [address] [id number] [place] [address]- [address] Jun, [facility] [place] [facility] [address] [id number] [place] [address]- 6684 Jun, [facility] [place] [facility] [address] [id number] [place] [address]- [address] Jun, [facility] [place] [facility] [address] [id number] [place] [address]- [address]26 Jun, [facility] [place] [facility] [address] [id number] [place] [address]- 3947 Jun, [facility] [place] [facility] [address] [id number] [place] [address]- 265[address] Jun, [facility] [place] [facility] [address] [id number] [place] [address]- [address] Jun, [facility] [place] [facility] [address] [id number] [place] [address]- 6471 Jun, [facility] [place] [facility] [address] [facility] [id number] [place] [address]- [address] Jun, [facility] [place] [facility] [address] [id number] [place] [address] Jun, [facility] [place] [facility] [address] [facility] [id number] [place] [address] May, [facility] [place] [facility] [address] [facility] [id number] [place] [address] May, [facility] [place] [facility] [address] [facility] [id number] [place] [address] May, [facility] [place] [facility] [address] [id number] [place] [address] May, [facility] [place] [facility] [address] [id number] [place] [address] May, [facility] [place] [facility] [address] [facility] [id number] [place] [address]- [address] May, [facility] [place] [facility] [address] [facility] [id number] [place] [address]- [address] Apr, [facility] [place] [facility] [address] [id number] [place] [address] 27 Apr, 2012 [facility] [place] [facility] [address] [id number] [place] [address]- [address] 15 Apr, 2012 [facility] [place] [facility] [address] [id number] [place] [address]- [address] 11 Apr, 2012 [facility] [place] [facility] [address] [id number] [place] [address]- 58[address] 10 Apr, 2012 [facility] [place] [facility] [address] [id number] [place] [address]- [address] 29 Mar, 2012 [facility] [place] [facility] [address] [id number] [place] [address]- [address] Mar, [facility] [place] [facility] [address] [id number] [place] [address]- 35[address] Mar, [facility] [place] [facility] [address] [id number] [place] [address]- [address] Mar, [facility] [place] [facility] [address] [id number] [place] [address]- 7729 Mar, [facility] [place] [facility] [address] [id number] [place] [address]- 8899 Mar, [facility] [place] [facility] [address] [id number] [place] [address]- 1515 Mar, [facility] [place] [facility] [address] [id number] [place] [address]- [address]80 Feb, [facility] [place] [facility] [address] [id number] [place] [address]- [address] Feb, [facility] [facility] [address] [id number] [place] [address] Feb, [facility] [place] [facility] [address] [id number] [place] [address] Feb, [facility] [place] [facility] [address] [id number] [place] [address] Jan, [facility] [place] [facility] [address] [id number] [place] [address] Jan, [facility] [place] [facility] [address] [id number] [place] [address] Jan, [facility] [place] [facility] [address] [id number] [place] [address] Jan, [facility] [place] [facility] [address] [id number] [place] [address] Jan, [facility] [place] [facility] [address] [id number] [place] [address] Jan, [facility] [place] [facility] [address] [id number] [place] [address] December[facility] [address] [id number] [place] [address] December, [facility] [facility] [address] [id number] [place] [address] December, [facility] [place] [facility] [address] [id number] [place] [address] December, [facility] [place] [facility] [address] [id number] [place] [address] December, [facility] [place] [facility] [address] [id number] [place] [address] December, [facility] [address] [id number] [place] [address] December, [facility] [address] [id number] [place] [address] Nov, [facility] [place] [facility] [address] [id number] [place] [address] Nov, [facility] [place] [facility] [address] [id number] [place] [address] Nov, [facility] [place] [facility] [address] [id number] [place] [address]- [address] 25 Nov, 2011 [facility] [place] [facility] [address] [id number] [place] [address]- 78[address] 16 Nov, 2011 [facility] [place] [facility] [address] [id number] [place] [address]- 2696 12 Nov, 2011 [facility] [place] [facility] [address] [id number] [place] [address]- 5695 12 Nov, 2011 [facility] [place] [facility] [address] [id number] [place] [address]- 69[address] 29 Oct, 2011 [facility] [place] [facility] [address] [id number] [place] [address]- 9486 21 Oct, 2011 [facility] [place] [facility] [address] [id number] [place] [address] 9843 19 Oct, 2011 [facility] [place] [facility] [address] [place] [address] Oct, [facility] [facility] [address] [id number] [place] [address] Sep, [facility] [place] [facility] [address] [id number] [place] [address] 23 Sep, 2011 [facility] [place] [facility] [address] [id number] [place] [address]107 14 Sep, 2011 [facility] [facility] [address] [id number] [place] [address]- [address]46 07 Sep, 2011 [facility] [facility] [address] [id number] [place] [address]- 30[address] 07 Sep, 2011 [facility] [facility] [address] [id number] [place] [address]- 0[address] 06 Sep, 2011 [facility] [facility] [address] [facility] [id number] [place] [address]- 2048 02 Sep, 2011 [facility] [facility] [address] [facility] [id number] [place] [address]- [address] 30 Aug, 2011 [facility] [facility] [address] [id number] [place] [address]- 2166 12 Aug, 2011 [facility] [address] [id number] [place] [address] 112[address] Aug, [facility] [facility] [address] [id number] [place] [address]- [address]597 29 Jul, 2011 [facility] [address] [id number] [place] [address] 6415 Jul, [facility] [address] [id number] [place] [address] 4[address] Jul, [facility] [address] [id number] [place] [address] 0020 Jul, [facility] [address] [id number] [place] [address] 46[address] Jul, [facility] [address] [id number] [place] [address] 9060 Jul, [facility] [address] [id number] [place] [address]- 7599 15 Jun, 2011 [facility] [address] [id number] [place] [address]365 03 Jun, 2011 [facility] [address] [id number] [place] [address]- 5700 14 May, 2011 [facility] [address] [id number] [place] [address]- 3454 10 May, 2011 [facility] [address] [id number] [place] [address]- 3[address] 14 Apr, 2011 [facility] [address] [id number] [place] [address]- 2878 11 Oct, 2010 [facility] [address] [id number] [place] [address]- 6316 22 Jul, 2010 [facility] [address] [id number] [place] [address]- 0708 14 Jul, 2010 [facility] [place] [address] [address] 08 Jul, 2010 [facility] [place] [address] [address] 24 Jun, 2010 [facility] [place] [address] [address] [address] 15 Jun, 2010 [facility] [place] [id number] [place] [address] Jun, [facility] [place] [id number] [place] [address]- [address] May, [facility] [place] [id number] [place] [address]- [address] Jan, [facility] [place] [id number] [place] [address]- 8576 December, [facility] [place] [id number] [place] [address]- 8707 Jul, [facility] [place] [id number] [place] [address]- 7961 Jul, [facility] [place] [id number] [place] [address]- 1106 Jul, [facility] [place] [address] [address] May, [facility] [place] [address] [address] 9[address] May, [facility] [place] [address] [address]- 7501 May, IMMUNIZATIONS No Known Immunizations SOCIAL HISTORY Never Assessed REASON FOR VISIT PALS PLAN OF CARE VITAL SIGNS MEDICATIONS Unknown [...]
--- OUTSIDE RECORDS SUMMARY | 2018-04-25 14:17 | XMS REPORT ---
Author Author RAKAN AYALA Organization [facility] Address [address] [place] [address] Care Team Providers Care Joint Sealer Name Role Phone RAKAN AYALA Unavailable PROBLEMS Type Condition ICD9-CM Code TBY24-LT Code Onset Dates Condition Status SNOMED Code Problem Essential hypertension I10 Active 87861427 Problem Cellulitis of left arm L03.114 Active [id number] Problem COPD (chronic obstructive pulmonary disease) with acute bronchitis J44.0 Active 646671349150185 Problem CAD (coronary artery disease) I25.10 Active 07875613 Problem Hyperlipemia E78.5 Active 56488384 Problem Midline low back pain with right-sided sciatica M54.41 Active 675055774 Problem COPD (chronic obstructive pulmonary disease) J44.9 Active 62569808 Problem Panlobular emphysema J43.1 Active 1628456 Problem Nocturnal leg cramps G47.62 Active 855571336 Problem Polyneuropathy G62.9 Active 50814011 Problem Neuropathy G62.9 Active 351536785 Problem Arthritis M19.90 Active 3001836 ALLERGIES No Information ENCOUNTERS Encounter Location Date Diagnosis [place] [id number] [place] [address] 85379- 0199 Jun, [place] [id number] [place] [address] 09062- 6893 December, Right leg swelling M79.89 ; Left leg swelling M79.89 ; CAD ( coronary artery disease) I25.10 ; Essential hypertension I10 ; Bilateral leg numbness R20.0 and Exertional dyspnea R06.09 [place] [id number] [place] [address] 29164- 9697 Oct, [place] [id number] [place] [address] 30183- 0619 Oct, [place] [id number] [place] [address] 65875- 5851 Sep, Pain in right hip M25.551 ; Pain in left hip M25.552 and Suprapubic pain R10.2 [place] [id number] [place] [address] 54599- 1128 Sep, Midline low back pain with right-sided sciatica M54.41 [place] [id number] [place] [address] 72771- 2049 Aug, Midline low back pain with right-sided sciatica M54.41 and Arthritis M19.90 [place] [address] 22998- 8901 Jul, Impingement syndrome, shoulder, left M75.42 and Sprain of ligament of cervical spine region S13.4XXA [place] [address] 75796- 9214 Jul, COPD (chronic obstructive pulmonary disease) J44.9 [place] [id number] [place] [address] 64186- 4476 Jul, [place] [address] 17452- 9147 Jul, [place] [id number] [place] [address] 02291- 7820 Jun, Elbow pain, right M25.521 ; Pain of left clavicle M89.8X1 ; Panlobular emphysema J43.1 and Encounter for immunization Z23 [facility] [id number] [place] [address] [id number] Jun, [place] [address] 35186- 0509 Jun, Clavicle pain M89.8X1 [place] [id number] [place] [address] 00110- 2286 Jun, [place] [id number] [place] [address] 72153- 9677 May, Neuropathy G62.9 ; Arthritis M19.90 and Nocturnal leg cramps G47.62 [facility] [address] [id number] [address] Apr [place] [id number] [place] [address] 94610- 3665 December, [facility] [id number] [place] [address] 05267 -0227 Nov, Gastroenteritis and colitis, viral A08.4 [place] [id number] [place] [address] 56514- 7455 Oct, [place] [id number] [place] [address] 72742- 9490 Sep, [place] [address] 87511- 4144 Sep, Low back pain M54.5 and Other chronic pain G89.29 [place] [id number] [place] [address] 71668- 6519 Sep, [place] [id number] [place] [address] 80567- 2027 Aug, [place] [id number] [place] [address] 46940- 8485 Jul, Vision changes H53.9 and Polyneuropathy G62.9 [place] [id number] [place] [address] 91393- 8535 Jun, [place] [id number] [place] [address] 28445- 6149 Jun, Left leg swelling M79.89 ; Right leg swelling M79.89 ; Bilateral leg numbness R20.0 ; CAD (coronary artery disease) I25.10 ; Essential hypertension I10 and Exertional dyspnea R06.09 [facility] [address] 7400[address] -7120 Jun, Cellulitis of left arm L03.114 [place] [address] 65492- 7727 Jun, [place] [address] 75971- 1694 May, Chest pain, unspecified type R07.9 ; Exertional dyspnea R06.09 ; CAD (coronary artery disease) I25.10 and Essential hypertension I10 [facility] [id number] [place] [address] 12262 -2111 December, Acute right-sided low back pain without sciatica M54.5 [place] [address] 54779- 8134 Sep, Low back pain M54.5 [place] [address] 69579- 7215 Aug, Bilateral low back pain with sciatica, sciatica laterality unspecified M54.40 and Polyneuropathy G62.9 [place] [address] 39232- 4209 Aug, Upper respiratory tract infection, unspecified type 465.9 [place] [address] 69176- 5863 14 Jul, 2015 Midline low back pain with right-sided sciatica M54.41 [place] [address] 21823- 0604 Jul, Right knee pain M25.561 and Knee swelling, right M25.461 [place] [address] 23314- 5688 Jun, Low back pain M54.5 and Sciatica, unspecified side M54.30 [place] [address] 02906- 5833 May, Arthritis M19.90 [place] [id number] [address] 7493 14 May, 2015 Upper respiratory tract infection, unspecified upper respiratory infection J06.9 [facility] [id number] [place] [address] 22488- 6520 14 May, 2015 CAD (coronary artery disease) I25.10 ; Hyperlipemia E78.5 and COPD (chronic obstructive pulmonary disease) J44.9 [facility] [id number] [place] [address] 21289- 4609 30 Apr, 2015 Arthritis 716.90 [facility] [id number] [place] [address] 30496- 8734 23 Apr, 2015 [facility] [id number] [place] [address] 83907- 3663 21 Apr, 2015 [facility] [id number] [place] [address] 58150- 0632 14 Apr, 2015 [facility] [id number] [place] [address] 45997- 4121 14 Apr, 2015 Hypertension 401.9 and Hyperlipidemia 272.4 [facility] [id number] [place] [address] 18415- 0101 14 Apr, 2015 [facility] [address] [place] [address] 66396- 3455 14 Apr, 2015 Hypertension 401.9 and Hyperlipidemia 272.4 [facility] [address] [place] [address] 14109- 5929 08 Apr, 2015 [facility] [id number] [place] [address] 49338- 1225 Mar, Arthritis 716.90 [facility] [id number] [place] [address] 38754- 2578 Feb, [facility] [id number] [place] [address] 02751- 4203 14 Nov, 2014 [facility] [id number] [place] [address] 56178- 4290 Nov, [facility] [place] [facility] [address] [id number] [place] [address]- 2089 Oct, [facility] [place] [facility] [address] [id number] [place] 6668 Oct, [facility] [place] [facility] [address] [id number] [place] [address]- 5657 Jul, [facility] [place] [facility] [address] [id number] [place] [address]- 9869 Jul, [facility] [place] [facility] [address] [id number] [place] [address]- 1545 Jun, [facility] [place] [facility] [address] [id number] [place] [address]- 9874 Jun, [facility] [place] [facility] [address] [id number] [place] [address]- 9276 Jun, [facility] [place] [facility] [address] [id number] [place] [address]- 5556 Jun, [facility] [place] [facility] [address] [id number] [place] [address]- 1966 May, [facility] [place] [facility] [address] [id number] [place] [address]- 8554 May, [facility] [place] [facility] [address] [id number] [address]- 5454 May, [facility] [place] [facility] [address] [id number] [address]- 9560 May, [facility] [place] [facility] [address] [id number] [place] [address]- 5636 May, [facility] [place] [facility] [address] [id number] [address]- 8316 Mar, [facility] [place] [facility] [address] [id number] [place] [address]- 2829 Mar, [facility] [place] [facility] [address] [id number] [place] [address]- 4532 Mar, [facility] [place] [facility] [address] [id number] [place] [address]- 8780 Mar, [facility] [place] [facility] [address] [id number] [place] [address]- 6716 Feb, [facility] [place] [facility] [address] [id number] [place] [address]- 2036 Feb, [facility] [place] [facility] [address] [id number] [place] [address]- 8387 Feb, [facility] [place] [facility] [address] [id number] [place] [address]- 1889 Feb, [facility] [place] [facility] [address] [id number] [place] [address]- 7357 Feb, [facility] [place] [facility] [address] [id number] [place] [address]- 5089 Feb, [facility] [address] [id number] [place] [address]- 3537 Feb, [facility] [place] [facility] [address] [id number] [place] [address]- 8446 December, [facility] [address] [id number] [place] [address]- 4695 December, [facility] [place] [facility] [address] [id number] [place] [address]- 1151 December, [facility] [place] [facility] [address] [id number] [place] [address]- 6814 December, [facility] [place] [facility] [address] [id number] [place] [address]- 6058 December, [facility] [place] [facility] [address] [id number] [place] [address]- 5780 December, [facility] [place] [facility] [address] [id number] [place] 8956 December, [facility] [place] [facility] [address] [id number] [place] [address]- 6234 December, [facility] [place] [facility] [address] [id number] [place] [address]- 0243 December, [facility] [place] [facility] [address] [id number] [place] [address]- 1563 December, [facility] [place] [facility] [address] [id number] [place] [address]- 7650 December, [facility] [place] [facility] [address] [id number] [place] [address]- 1884 Nov, [facility] [place] [facility] [address] [id number] [place] [address]- 3280 Nov, [facility] [place] [facility] [address] [id number] [place] [address]- 9653 Nov, [facility] [place] [facility] [address] [id number] [place] [address]- 4134 Nov, [facility] [place] [facility] [address] [id number] [place] [address]- 2779 Nov, [facility] [place] [facility] [address] [id number] [place] [address]- 6223 Nov, [facility] [place] [facility] [address] [id number] [place] [address]- 4163 Nov, [facility] [place] [facility] [address] [id number] [place] [address]- 9987 18 Nov, 2013 [facility] [place] [facility] [address] [id number] [place] [address]- 1490 15 Nov, 2013 [facility] [place] [facility] [address] [id number] [place] [address]- 7935 Nov, [facility] [place] [facility] [address] [id number] [place] [address]- 8390 14 Nov, 2013 [facility] [place] [facility] [address] [id number] [place] [address]- 0149 14 Nov, 2013 [facility] [place] [facility] [address] [id number] [place] [address]- 6663 11 Nov, 2013 [facility] [place] [facility] [address] [id number] [place] [address]- 6920 11 Nov, 2013 [facility] [place] [facility] [address] [id number] [place] [address]- 5455 10 Oct, 2013 [facility] [place] [facility] [address] [id number] [place] [address]- 9899 10 Oct, 2013 [facility] [place] [facility] [address] [id number] [place] [address]- 4561 10 Oct, 2013 [facility] [place] [facility] [address] [id number] [place] [address]- 9388 10 Oct, 2013 [facility] [place] [facility] [address] [id number] [place] [address]- 1738 07 Oct, 2013 [facility] [place] [facility] [address] [id number] [place] [address]- 7277 07 Oct, 2013 [facility] [place] [facility] [address] [id number] [place] [address]- 3208 05 Oct, 2013 [facility] [place] [facility] [address] [id number] [place] [address]- 4987 Oct, [facility] [place] [facility] [address] [id number] [place] [address]- 8019 Oct, [facility] [place] [facility] [address] [id number] [place] [address]- 5856 Oct, [facility] [place] [facility] [address] [id number] [place] [address]- 7211 Oct, [facility] [place] [facility] [address] [id number] [place] [address]- 5470 Sep, [facility] [place] [facility] [address] [id number] [place] [address]- 0943 Sep, [facility] [place] [facility] [address] [id number] [place] [address]- 7093 Sep, [facility] [place] [facility] [address] [id number] [place] [address]- 8746 Sep, [facility] [place] [facility] [address] [id number] [place] [address]- 7901 Aug, [facility] [place] [facility] [address] [id number] [place] [address]- 6905 Aug, [facility] [address] [id number] [place] [address]- 1782 Aug, [facility] [place] [facility] [address] [id number] [place] [address]- 6841 Aug, [facility] [address] [id number] [place] [address]- 8784 Aug, [facility] [address] [id number] [place] [address]- 9938 Aug, [facility] [address] [id number] [place] [address]- 9847 Aug, [facility] [address] [id number] [place] [address]- 6318 Aug, [facility] [address] [id number] [place] [address]- 2880 Jul, [facility] [place] [facility] [address] [id number] [place] [address]- 4358 Jul, [facility] [place] [facility] [address] [id number] [place] [address]- 6520 Jul, [facility] [place] [facility] [address] [id number] [place] [address]- 3271 Jul, [facility] [place] [facility] [address] [id number] [place] [address]- 7672 Jul, [facility] [place] [facility] [address] [id number] [place] [address]- 8292 Jul, [facility] [place] [facility] [address] [id number] [place] [address]- 8138 Jun, [facility] [place] [facility] [address] [id number] [place] [address]- 2132 Jun, [facility] [place] [facility] [address] [id number] [place] [address]- 6002 Jun, [facility] [place] [facility] [address] [id number] [place] [address]- 5333 Jun, [facility] [place] [facility] [address] [id number] [place] [address]- 7331 May, [facility] [place] [facility] [address] [id number] [place] [address]- 8948 May, [facility] [place] [facility] [address] [id number] [place] [address]- 1168 May, [facility] [place] [facility] [address] [id number] [place] [address]- 9764 30 Apr, 2013 [facility] [place] [facility] [address] [id number] [place] [address]- 7603 24 Apr, 2013 [facility] [place] [facility] [address] [id number] [place] [address]- 5968 20 Apr, 2013 [facility] [place] [facility] [address] [id number] [place] [address]- 2575 11 Apr, 2013 [facility] [place] [facility] [address] [id number] [place] [address]- 2523 06 Apr, 2013 [facility] [place] [facility] [address] [id number] [place] [address]- 7898 28 Mar, 2013 [facility] [place] [facility] [address] [id number] [place] [address]- 9470 16 Mar, 2013 [facility] [place] [facility] [address] [id number] [place] 9315 Mar, [facility] [place] [facility] [address] [id number] [place] [address]- 4766 Mar, [facility] [address] [id number] [place] [address]- 3312 Feb, [facility] [address] [id number] [place] [address]- 1916 Jan, [facility] [address] [id number] [place] [address]- 1634 December, [facility] [address] [id number] [place] [address]- 9287 December, [facility] [address] [id number] [place] [address]- 1286 December, [facility] [address] [id number] [place] [address]- 9988 December, [facility] [address] [id number] [place] [address]- 4043 December, [facility] [address] [id number] [place] [address]- 9786 December, [facility] [address] [id number] [place] [address]- 3613 December, [facility] [address] [id number] [place] [address]- 2966 Nov, [facility] [address] [id number] [place] [address]- 6811 Nov, [facility] [address] [id number] [place] [address]- 0573 16 Nov, 2012 [facility] [address] [id number] [place] [address]- 4908 15 Nov, 2012 [facility] [address] [id number] [place] [address]- 1381 Nov, [facility] [address] [id number] [place] [address]- 3785 Oct, [facility] [address] [id number] [place] [address]- 8355 Oct, [facility] [place] [facility] [address] [id number] [place] [address]- 2891 Oct, [facility] [place] [facility] [address] [id number] [place] [address]- 7286 Oct, [facility] [place] [facility] [address] [id number] [place] [address]- 2792 Sep, [facility] [place] [facility] [address] [id number] [place] [address]- 0614 Sep, [facility] [place] [facility] [address] [id number] [place] [address]- 7406 Sep, [facility] [place] [facility] [address] [id number] [place] [address]- 9975 Sep, [facility] [place] [facility] [address] [id number] [place] [address]- 8180 Sep, [facility] [place] [facility] [address] [id number] [place] [address]- 5519 Sep, [facility] [place] [facility] [address] [id number] [place] [address]- 0471 Aug, [facility] [place] [facility] [address] [id number] [place] [address]- 7140 Aug, [facility] [place] [facility] [address] [id number] [place] [address]- 5003 Aug, [facility] [place] [facility] [address] [id number] [place] [address]- 6714 Aug, [facility] [place] [facility] [address] [id number] [place] [address] Aug, [facility] [place] [facility] [address] [id number] [place] [address] Jul, [facility] [place] [facility] [address] [id number] [place] [address] 31 Jul, 2012 [facility] [address] [id number] [place] [address] Jul, [facility] [place] [facility] [address] [id number] [place] [address] Jul, [facility] [address] [id number] [place] [address] Jul, [facility] [place] [facility] [address] [id number] [place] [address] 17 Jul, 2012 [facility] [address] [id number] [place] [address] Jul, [facility] [place] [facility] [address] [id number] [place] [address] Jul, [facility] [place] [facility] [address] [id number] [place] [address] Jun, [facility] [address] [id number] [place] [address] 30 Jun, 2012 [facility] [place] [facility] [address] [id number] [place] [address] Jun, [facility] [address] [id number] [place] [address] Jun, [facility] [place] [facility] [address] [id number] [place] [address] 14 Jun, 2012 [facility] [place] [facility] [address] [id number] [place] [address] 14 Jun, 2012 [facility] [place] [facility] [address] [id number] [place] [address] Jun, [facility] [place] [facility] [address] [id number] [place] [address] 08 Jun, 2012 [facility] [place] [facility] [address] [id number] [place] [address] Jun, [facility] [place] [facility] [address] [id number] [place] [address] Jun, [facility] [place] [facility] [address] [id number] [place] [address] Jun, [facility] [place] [facility] [address] [id number] [place] [address] Jun, [facility] [place] [facility] [address] [id number] [place] [address] Jun, [facility] [place] [facility] [address] [id number] [place] [address] Jun, [facility] [place] [facility] [address] [id number] [place] [address] Jun, [facility] [place] [facility] [address] [facility] [id number] [place] [address] Jun, [facility] [place] [facility] [address] [id number] [address] May, [facility] [place] [facility] [address] [facility] [id number] [place] [address] May, [facility] [place] [facility] [address] [facility] [id number], [place] [address] May, [facility] [place] [facility] [address] [facility] [id number], [place] [address] May, [facility] [place] [facility] [address] [id number], [place] [address] May, [facility] [place] [facility] [address] [id number], [place] [address] May, [facility] [place] [facility] [address] [id number], [place] [address] Apr, [facility] [place] [facility] [address] [facility] [id number], [place] [address] Apr, [facility] [place] [facility] [address] [id number], [place] [address] 15 Apr, 2012 [facility] [place] [facility] [address] [id number] [place] [address]- [address] 11 Apr, 2012 [facility] [place] [facility] [address] [id number] [place] [address] Apr, [facility] [place] [facility] [address] [id number] [place] [address] Mar, [facility] [place] [facility] [address] [id number] [place] [address] Mar, [facility] [place] [facility] [address] [id number] [place] [address] Mar, [facility] [place] [facility] [address] [id number] [place] [address] Mar, [facility] [place] [facility] [address] [id number] [place] [address] Mar, [facility] [place] [facility] [address] [id number] [place] [address] 8436 Mar, [facility] [place] [facility] [address] [id number] [place] [address] Mar, [facility] [place] [facility] [address] [id number] [place] [address] Feb, [facility] [place] [facility] [address] [id number] [place] [address] Feb, [facility] [place] [facility] [address] [id number] [place] [address] Feb, [facility] [place] [facility] [address] [id number] [place] [address] Feb, [facility] [place] [facility] [address] [id number] [place] [address] Jan, [facility] [place] [facility] [address] [id number] [place] [address] Jan, [facility] [place] [facility] [address] [id number] [place] [address] Jan, [facility] [place] [facility] [address] [id number] [place] [address] 67[address] Jan, [facility] [place] [facility] [address] [id number] [place] [address] Jan, [facility] [place] [facility] [address] [id number] [place] [address] 2006 Jan, [facility] [place] [facility] [address] [id number] [place] [address] December, [facility] [place] [facility] [address] [id number] [place] [address] December, [facility] [place] [facility] [address] [id number] [place] [address] December, [facility] [place] [facility] [address] [id number] [place] [address] December, [facility] [place] [facility] [address] [id number] [place] [address] December, [facility] [place] [facility] [address] [id number] [place] [address] December, [facility] [place] [facility] [address] [id number] [place] [address] December, [facility] [place] [facility] [address] [id number] [place] [address] 30 Nov, 2011 [facility] [place] [facility] [address] [id number] [place] [address] Nov, [facility] [place] [facility] [address] [id number] [place] [address] Nov, [facility] [place] [facility] [address] [id number] [place] [address] Nov, [facility] [place] [facility] [address] [id number] [place] [address] 16 Nov, 2011 [facility] [place] [facility] [address] [id number] [place] [address]- [address] Nov, [facility] [place] [facility] [address] [id number] [place] [address] Nov, [facility] [place] [facility] [address] [id number] [place] [address] 29 Oct, 2011 [facility] [place] [facility] [address] [id number] [place] [address] Oct, [facility] [place] [facility] [address] [id number] [place] [address] Oct, [facility] [place] [facility] [address] [id number] [place] [address] Oct, [facility] [place] [facility] [address] [id number] [place] [address] Sep, [facility] [place] [facility] [address] [id number] [place] [address] Sep, [facility] [place] [facility] [address] [id number] [place] [address] 14 Sep, 2011 [facility] [place] [facility] [address] [id number] [place] [address] Sep, [facility] [place] [facility] [address] [id number] [place] [address] Sep, [facility] [place] [facility] [address] [id number] [place] [address] Sep, [facility] [place] [facility] [address] [id number] [place] [address] Sep, [facility] [place] [facility] [address] [id number] [place] [address] Aug, [facility] [place] [facility] [address] [id number] [place] [address] Aug, [facility] [place] [facility] [address] [id number] [place] [address] 05 Aug, 2011 [facility] [address] [id number] [place] [address] 29 Jul, 2011 [facility] [place] [facility] [address] [id number] [place] [address] Jul, [facility] [address] [id number] [place] [address] Jul, [facility] [place] [facility] [address] [id number] [place] [address] Jul, [facility] [address] [id number] [place] [address] Jul, [facility] [place] [facility] [address] [id number] [place] [address] 06 Jul, 2011 [facility] [place] [facility] [address] [id number] [place] [address] 15 Jun, 2011 [facility] [address] [id number] [place] [address] 03 Jun, 2011 [facility] [place] [facility] [address] [id number] [place] [address] 14 May, 2011 [facility] [address] [id number] [place] [address] 10 May, 2011 [facility] [place] [facility] [address] [id number] [place] [address] 14 Apr, 2011 [facility] [place] [facility] [address] [id number] [place] [address] Oct, [facility] [place] [facility] [address] [id number] [place] 22 Jul, 2010 [facility] [place] [facility] [address] [id number] [place] [address] 14 Jul, 2010 [facility] [place] [facility] [address] [id number] [place] [address] Jul, [facility] [address] [address] Jun, [facility] [address] [address] Jun, [facility] [address] [place] [address] Jun, [facility] [id number] [place] [address] May, [facility] [id number] [place] [address]- [address] Jan, [facility] [id number] [place] [address]- [address]698 December, [facility] [id number] [place] [address]- [address] Jul, [facility] [id number] [place] [address]- 48[address] Jul, [facility] [id number] [place] [address]- 80[address] Jul, [facility] [address], [place] [address] May, [facility] [address], [place] [address] May, [facility] [address] [place] [address] May, IMMUNIZATIONS No Known Immunizations SOCIAL HISTORY Never Assessed REASON FOR VISIT Requests return call PLAN OF CARE VITAL SIGNS MEDICATIONS Unknown [...]
--- OUTSIDE RECORDS SUMMARY | 2018-04-25 14:19 | XMS REPORT ---
Author Author RAKAN AYALA Organization [facility] Address [address] [place] [address] Care Team Providers Care Lining Folder Name Role Phone RAKAN AYALA Unavailable PROBLEMS Type Condition ICD9-CM Code MUF00-SO Code Onset Dates Condition Status SNOMED Code Problem Essential hypertension I10 Active 75403200 Problem Cellulitis of left arm L03.114 Active 17954107514046615 Problem COPD (chronic obstructive pulmonary disease) with acute bronchitis J44.0 Active 143249595520004 Problem CAD (coronary artery disease) I25.10 Active 33218905 Problem Hyperlipemia E78.5 Active 98986792 Problem Midline low back pain with right-sided sciatica M54.41 Active 244233379 Problem COPD (chronic obstructive pulmonary disease) J44.9 Active 79373701 Problem Panlobular emphysema J43.1 Active 0128533 Problem Nocturnal leg cramps G47.62 Active 723616415 Problem Polyneuropathy G62.9 Active 12969759 Problem Neuropathy G62.9 Active 382042670 Problem Arthritis M19.90 Active 4712870 ALLERGIES Substance Reaction Event Type Date Status Xanax XR Self Admitted Abuse Drug Allergy Jun, Active Oxycodone HCl Failed narcotics contract Drug Allergy Jun, Active Benzodiazepines Failed narcotics contract Non Drug Allergy Jun, Active ENCOUNTERS Encounter Location Date Diagnosis [facility] [address] [facility] [id number] [address] Jun, [facility] [address] [id number] [address] Jan, [facility] [address] [id number] [address] December, Right leg swelling M79.89 ; Left leg swelling M79.89 ; CAD ( coronary artery disease) I25.10 ; Essential hypertension I10 ; Bilateral leg numbness R20.0 and Exertional dyspnea R06.09 [place] [id number] [place] [address] 08262- 8248 Oct, [place] [address] [address] Oct, [place] [address] [address] 48[address] Sep, Pain in right hip M25.551 ; Pain in left hip M25.552 and Suprapubic pain R10.2 [place] [address] [address]- 4512 Sep, Midline low back pain with right-sided sciatica M54.41 [place] [address] 02720- 6436 Aug, Midline low back pain with right-sided sciatica M54.41 and Arthritis M19.90 [place] [address] [address]- 8[address] Jul, Impingement syndrome, shoulder, left M75.42 and Sprain of ligament of cervical spine region S13.4XXA [place] [address] [address] Jul, COPD (chronic obstructive pulmonary disease) J44.9 [place] [address] 69658- 3469 Jul, [place] [address] 0[address]94- 6195 Jul, [place] [address] 16699- 4026 30 Jun, 2017 Elbow pain, right M25.521 ; Pain of left clavicle M89.8X1 ; Panlobular emphysema J43.1 and Encounter for immunization Z23 [place] [address] [id number] Jun, [facility] [id number] [place] [address] 62341- 9142 Jun, Clavicle pain M89.8X1 [facility] [address] [address]- [address] Jun, [facility] [address] 23[address]- 0743 May, Neuropathy G62.9 ; Arthritis M19.90 and Nocturnal leg cramps G47.62 [facility] [place] [address] [id number] [place] [address] Apr [facility] [address] [address]- [address] December, [facility] [id number] [place] [address] 41863 -2340 Nov, Gastroenteritis and colitis, viral A08.4 [facility] [address] 54690- 1702 Oct, [facility] [id number] [place] [address] 10503- 9578 Sep, [facility] [id number] [place] [address] 55865- 5159 Sep, Low back pain M54.5 and Other chronic pain G89.29 [facility] [id number] [place] [address] 77323- 3818 Sep, [facility] [id number] [place] [address] 20795- 1851 Aug, [facility] [address] 05144- 6832 Jul, Vision changes H53.9 and Polyneuropathy G62.9 [facility] [id number] [place] [address] 37615- 0387 Jun, [facility] [id number] [place] [address] 51643- 2496 Jun, Left leg swelling M79.89 ; Right leg swelling M79.89 ; Bilateral leg numbness R20.0 ; CAD (coronary artery disease) I25.10 ; Essential hypertension I10 and Exertional dyspnea R06.09 [facility] [id number] [place] [address] 61516 -9257 Jun, Cellulitis of left arm L03.114 [place] [address] [address]85- 1559 Jun, [place] [address] 09577- 1432 May, Chest pain, unspecified type R07.9 ; Exertional dyspnea R06.09 ; CAD (coronary artery disease) I25.10 and Essential hypertension I10 [facility] [place] [id number] [place] [address] 18698 -0850 December, Acute right-sided low back pain without sciatica M54.5 [place] [id number] [place] [address] 40239- 0393 Sep, Low back pain M54.5 [place] [address] 71129- 5067 Aug, Bilateral low back pain with sciatica, sciatica laterality unspecified M54.40 and Polyneuropathy G62.9 [place] [id number] [place] [address] 57069- 5849 Aug, Upper respiratory tract infection, unspecified type 465.9 [place] [address] 15123- 9837 14 Jul, 2015 Midline low back pain with right-sided sciatica M54.41 [place] [id number] [place] [address] 00005- 0047 10 Jul, 2015 Right knee pain M25.561 and Knee swelling, right M25.461 [place] [address] [place] [address] Jun, Low back pain M54.5 and Sciatica, unspecified side M54.30 [facility] [id number] [place] [address] 91763- 6720 30 May, 2015 Arthritis M19.90 [facility] [id number] [place] [address] 33359- 3304 14 May, 2015 Upper respiratory tract infection, unspecified upper respiratory infection J06.9 [facility] [id number] [place] [address] 21079- 5781 14 May, 2015 CAD (coronary artery disease) I25.10 ; Hyperlipemia E78.5 and COPD (chronic obstructive pulmonary disease) J44.9 [facility] [id number] [place] [address] 24036- 2952 30 Apr, 2015 Arthritis 716.90 [facility] [id number] [place] [address] 35137- 5952 23 Apr, 2015 [facility] [id number] [place] [address] 09497- 1993 Apr, [facility] [id number] [place] [address] 01976- 4655 14 Apr, 2015 [facility] [id number] [place] [address] 21069- 9550 14 Apr, 2015 Hypertension 401.9 and Hyperlipidemia 272.4 [facility] [id number] [place] [address] 13521- 0006 14 Apr, 2015 [facility] [address] [place] [address] 39052- 2543 14 Apr, 2015 Hypertension 401.9 and Hyperlipidemia 272.4 [facility] [address] [place] [address] 90114- 8934 08 Apr, 2015 [facility] [address] [place] [address] 16184- 0285 Mar, Arthritis 716.90 [facility] [place] [facility] [address] [id number] [place] [address]- 4094 22 Feb, 2014 [facility] [place] [facility] [address] [id number] [place] [address]- 8486 14 Nov, 2014 [facility] [place] [facility] [address] [id number] [place] [address]- 5670 13 Nov, 2014 [facility] [place] [facility] [address] [id number] [place] [address]- 5028 19 Oct, 2014 [facility] [place] [facility] [address] [id number] [place] [address]- 1014 Oct, 2014 [facility] [place] [facility] [address] [id number] [place] [address]- 2081 Jul, [facility] [place] [facility] [address] [id number] [place] [address]- 3713 Jul, [facility] [place] [facility] [address] [id number] [place] [address]- 9977 Jun, [facility] [place] [facility] [address] [id number] [place] 7934 Jun, [facility] [place] [facility] [address] [id number] [place] [address]- 0056 Jun, [facility] [place] [facility] [address] [id number] [place] 6375 Jun, [facility] [place] [facility] [address] [id number] [place] [address]- 3655 15 May, 2014 [facility] [place] [facility] [address] [id number] [place] 8713 15 May, 2014 [facility] [place] [facility] [address] [id number] [place] [address]- 8637 May, [facility] [place] [facility] [address] [id number] [place] [address]- 5271 May, [facility] [place] [facility] [address] [id number] [place] [address]- 8277 May, [facility] [place] [facility] [address] [id number] [place] [address]- 4760 Mar, [facility] [place] [facility] [address] [id number] [place] [address]- 6361 Mar, [facility] [place] [facility] [address] [id number] [place] [address]- 3139 Mar, [facility] [place] [facility] [address] [id number] [place] [address]- 8424 Mar, [facility] [place] [facility] [address] [id number] [place] [address]- 4327 Feb, [facility] [place] [facility] [address] [id number] [place] [address]- 5812 Feb, [facility] [place] [facility] [address] [id number] [place] [address]- 8625 Feb, [facility] [place] [facility] [address] [id number] [place] [address]- 4657 Feb, [facility] [place] [facility] [address] [id number] [place] [address]- 9773 Feb, [facility] [place] [facility] [address] [id number] [place] [address]- 3405 Feb, [facility] [place] [facility] [address] [id number] [place] [address]- 6319 Feb, [facility] [place] [facility] [address] [id number] [place] [address]- 6771 December, [facility] [place] [facility] [address] [id number] [place] [address]- 3463 December, [facility] [place] [facility] [address] [id number] [place] [address]- 4298 December, [facility] [place] [facility] [address] [id number] [place] [address]- 5982 December, [facility] [place] [facility] [address] [id number] [place] [address]- 4375 December, [facility] [place] [facility] [address] [id number] [place] [address]- 3926 December, [facility] [place] [facility] [address] [id number] [place] [address]- 2890 December, [facility] [place] [facility] [address] [id number] [place] [address]- 8839 December, [facility] [place] [facility] [address] [id number] [place] [address]- 6534 December, [facility] [place] [facility] [address] [id number] [place] [address]- 1785 December, [facility] [place] [facility] [address] [id number] [place] [address]- 7770 December, [facility] [place] [facility] [address] [id number] [place] [address]- 8612 Nov, [facility] [place] [facility] [address] [id number] [place] [address]- 2752 Nov, [facility] [place] [facility] [address] [id number] [place] [address]- 8161 Nov, [facility] [place] [facility] [address] [id number] [place] [address]- 7763 Nov, [facility] [place] [facility] [address] [id number] [place] [address]- 4433 Nov, [facility] [place] [facility] [address] [id number] [place] [address]- 7435 Nov, [facility] [place] [facility] [address] [id number] [place] [address]- 3568 Nov, [facility] [place] [facility] [address] [id number] [place] [address]- 8429 18 Nov, 2013 [facility] [place] [facility] [address] [id number] [place] [address]- 3931 15 Nov, 2013 [facility] [place] [facility] [address] [id number] [place] [address]- 7912 15 Nov, 2013 [facility] [place] [facility] [address] [id number] [place] [address]- 9631 14 Nov, 2013 [facility] [place] [facility] [address] [id number] [place] [address]- 8021 14 Nov, 2013 [facility] [place] [facility] [address] [id number] [place] [address]- 3559 11 Nov, 2013 [facility] [place] [facility] [address] [id number] [place] [address]- 4964 11 Nov, 2013 [facility] [place] [facility] [address] [id number] [place] [address]- 0615 10 Oct, 2013 [facility] [place] [facility] [address] [id number] [place] [address]- 4393 10 Oct, 2013 [facility] [place] [facility] [address] [id number] [place] [address]- 6007 10 Oct, 2013 [facility] [place] [facility] [address] [id number] [place] [address]- 9612 10 Oct, 2013 [facility] [place] [facility] [address] [id number] [place] [address]- 9865 07 Oct, 2013 [facility] [place] [facility] [address] [id number] [place] [address]- 4986 07 Oct, 2013 [facility] [place] [facility] [address] [id number] [place] [address]- 0136 05 Oct, 2013 [facility] [place] [facility] [address] [id number] [place] [address]- 1182 04 Oct, 2013 [facility] [place] [facility] [address] [id number] [place] [address]- 3476 04 Oct, 2013 [facility] [place] [facility] [address] [id number] [place] [address]- 1855 03 Oct, 2013 [facility] [place] [facility] [address] [id number] [place] [address]- 6036 Oct, [facility] [address] [id number] [place] [address]- 0342 Sep, [facility] [place] [facility] [address] [id number] [place] [address]- 9810 Sep, [facility] [place] [facility] [address] [id number] [place] [address]- 4256 Sep, [facility] [place] [facility] [address] [id number] [place] [address]- 5792 Sep, [facility] [place] [facility] [address] [id number] [place] [address]- 4689 Aug, [facility] [place] [facility] [address] [id number] [place] [address]- 3556 Aug, [facility] [address] [id number] [place] [address]- 4029 Aug, [facility] [place] [facility] [address] [id number] [place] [address]- 6093 Aug, [facility] [place] [facility] [address] [id number] [place] [address]- 3970 Aug, [facility] [place] [facility] [address] [id number] [place] [address]- 4540 Aug, [facility] [address] [id number] [place] [address]- 4202 Aug, [facility] [place] [facility] [address] [id number] [address]- 2660 Aug, [facility] [place] [facility] [address] [id number] [place] [address]- 3943 Jul, [facility] [place] [facility] [address] [id number] [place] [address]- 2430 Jul, [facility] [place] [facility] [address] [id number] [place] [address]- 0507 Jul, [facility] [place] [facility] [address] [id number] [place] [address]- 0379 Jul, [facility] [place] [facility] [address] [id number] [place] [address]- 8546 Jul, [facility] [place] [facility] [address] [id number] [place] [address] 2546 Jul, [facility] [place] [facility] [address] [id number] [place] [address]- 6497 Jun, [facility] [place] [facility] [address] [id number] [place] [address] 2541 Jun, [facility] [place] [facility] [address] [id number] [place] [address]- 9766 Jun, [facility] [place] [facility] [address] [id number] [place] [address]- 8658 Jun, [facility] [place] [facility] [address] [id number] [place] [address]- 3936 May, [facility] [place] [facility] [address] [id number] [place] [address]- 9089 May, [facility] [place] [facility] [address] [id number] [place] [address]- 6878 May, [facility] [place] [facility] [address] [id number] [place] [address]- 5881 30 Apr, 2013 [facility] [place] [facility] [address] [id number] [place] [address] 2545 24 Apr, 2013 [facility] [place] [facility] [address] [id number] [place] [address] 2541 20 Apr, 2013 [facility] [place] [facility] [address] [id number] [place] [address] 2546 11 Apr, 2013 [facility] [place] [facility] [address] [id number] [place] [address] 2546 06 Apr, 2013 [facility] [place] [facility] [address] [id number] [place] [address]- 7735 Mar, [facility] [address] [id number] [place] [address]- 0625 Mar, [facility] [place] [facility] [address] [id number] [place] [address]- 8028 Mar, [facility] [address] [id number] [place] [address]- 4555 Mar, [facility] [place] [facility] [address] [id number] [place] [address]- 7499 Feb, [facility] [address] [id number] [place] [address]- 8725 Jan, [facility] [address] [id number] [place] [address]- 8477 December, [facility] [address] [id number] [place] [address]- 1285 December, [facility] [place] [facility] [address] [id number] [place] [address]- 3574 December, [facility] [address] [id number] [place] [address]- 7683 December, [facility] [address] [id number] [place] [address]- 3011 December, [facility] [place] [facility] [address] [id number] [place] [address]- 0251 December, [facility] [place] [facility] [address] [id number] [place] [address]- 5621 December, [facility] [place] [facility] [address] [id number] [place] [address]- 5365 Nov, [facility] [place] [facility] [address] [id number] [place] [address]- 0983 Nov, [facility] [place] [facility] [address] [id number] [place] [address]- 1169 Nov, [facility] [place] [facility] [address] [id number] [place] [address]- 1790 15 Nov, 2012 [facility] [address] [id number] [place] [address]- 7507 15 Nov, 2012 [facility] [address] [id number] [place] [address]- 0748 14 Oct, 2012 [facility] [address] [id number] [place] [address]- 4401 Oct, [facility] [address] [id number] [place] [address]- 4271 07 Oct, 2012 [facility] [address] [id number] [place] [address]- 2110 04 Oct, 2012 [facility] [address] [id number] [place] [address]- 2426 20 Sep, 2012 [facility] [address] [id number] [place] [address] 14 Sep, 2012 [facility] [address] [id number] [place] [address] 14 Sep, 2012 [facility] [address] [id number] [place] [address] Sep, [facility] [address] [facility] [id number] [place] [address] 08 Sep, 2012 [facility] [address] [id number] [place] [address] Sep, [facility] [address] [id number] [place] [address] Aug, [facility] [place] [facility] [address] [id number] [place] [address] Aug, [facility] [place] [facility] [address] [id number] [place] [address] Aug, [facility] [place] [facility] [address] [facility] [id number] [place] [address] Aug, [facility] [place] [facility] [address] [id number] [place] [address] Aug, [facility] [place] [facility] [address] [id number] [place] [address] Jul, [facility] [place] [facility] [address] [id number] [place] [address] Jul, [facility] [place] [facility] [address] [id number] [place] [address] Jul, [facility] [place] [facility] [address] [id number] [place] [address] Jul, [facility] [place] [facility] [address] [id number] [place] [address] Jul, [facility] [place] [facility] [address] [id number] [place] [address] Jul, [facility] [place] [facility] [address] [id number] [place] [address] Jul, [facility] [place] [facility] [address] [id number] [place] [address] Jul, [facility] [place] [facility] [address] [id number] [place] [address] Jun, [facility] [place] [facility] [address] [id number] [place] [address] 30 Jun, 2012 [facility] [place] [facility] [address] [id number] [address] Jun, [facility] [place] [facility] [address] [id number] [place] [address] Jun, [facility] [place] [facility] [address] [id number] [place] [address] 14 Jun, 2012 [facility] [place] [facility] [address] [id number] [place] [address] 164[address] 14 Jun, 2012 [facility] [place] [facility] [address] [id number] [place] [address] 14[address] 08 Jun, 2012 [facility] [place] [facility] [address] [id number] [place] [address]- [address] Jun, [facility] [place] [facility] [address] [id number] [place] [address] Jun, [facility] [place] [facility] [address] [facility] [id number] [place] [address] Jun, [facility] [place] [facility] [address] [id number] [place] [address]- 9681 Jun, [facility] [place] [facility] [address] [id number] [place] [address] 1048 Jun, [facility] [place] [facility] [address] [id number] [place] [address]- [address] Jun, [facility] [place] [facility] [address] [facility] [id number] [place] [address] Jun, [facility] [place] [facility] [address] [id number] [place] [address] 28[address] Jun, [facility] [place] [facility] [address] [id number] [place] [address] Jun, [facility] [place] [facility] [address] [facility] [id number] [place] [address] May, [facility] [place] [facility] [address] [id number] [place] [address] May, [facility] [place] [facility] [address] [id number] [place] [address] May, [facility] [place] [facility] [address] [id number] [place] [address] May, [facility] [place] [facility] [address] [facility] [id number] [place] [address]- [address] May, [facility] [place] [facility] [address] [facility] [id number] [place] [address] May, [facility] [place] [facility] [address] [id number] [place] [address] 28 Apr, 2012 [facility] [place] [facility] [address] [id number] [place] [address] 27 Apr, 2012 [facility] [place] [facility] [address] [id number] [place] [address] 2546 15 Apr, 2012 [facility] [place] [facility] [address] [id number] [place] [address] 11 Apr, 2012 [facility] [place] [facility] [address] [id number] [place] [address] 2542 10 Apr, 2012 [facility] [place] [facility] [address] [id number] [place] [address]- [address] Mar, [facility] [place] [facility] [address] [id number] [place] [address]- 8274 Mar, [facility] [place] [facility] [address] [id number] [place] [address]- [address] Mar, [facility] [place] [facility] [address] [id number] [place] [address]- [address] Mar, [facility] [place] [facility] [address] [id number] [place] [address]- 1227 Mar, [facility] [place] [facility] [address] [id number] [place] [address]- [address] Mar, [facility] [place] [facility] [address] [id number] [place] [address]- [address] Mar, [facility] [place] [facility] [address] [id number] [place] [address] Feb, [facility] [place] [facility] [address] [id number] [place] [address] Feb, [facility] [place] [facility] [address] [id number] [place] [address] Feb, [facility] [place] [facility] [address] [id number] [place] [address] Feb, [facility] [place] [facility] [address] [id number] [place] [address] Jan, [facility] [place] [facility] [address] [id number] [place] [address] Jan, [facility] [place] [facility] [address] [id number] [place] [address] Jan, [facility] [place] [facility] [address] [id number] [place] [address] Jan, [facility] [place] [facility] [address] [id number] [place] [address] Jan, [facility] [place] [facility] [address] [id number] [place] [address] Jan, [facility] [place] [facility] [address] [id number] [place] [address] December, [facility] [place] [facility] [address] [id number] [place] [address] December, [facility] [place] [facility] [address] [id number] [place] [address] December, [facility] [place] [facility] [address] [id number] [place] [address] December, [facility] [place] [facility] [address] [id number] [place] [address] December, [facility] [place] [facility] [address] [id number] [place] [address] December, [facility] [place] [facility] [address] [id number] [place] [address] December, [facility] [place] [facility] [address] [id number] [place] [address] Nov, [facility] [place] [facility] [address] [id number] [place] [address] Nov, [facility] [place] [facility] [address] [id number] [place] [address] 26 Nov, 2011 [facility] [address] [id number] [place] [address] 25 Nov, 2011 [facility] [place] [facility] [address] [id number] [place] [address] 16 Nov, 2011 [facility] [address] [id number] [place] [address]66 12 Nov, 2011 [facility] [place] [facility] [address] [id number] [place] [address] 2543 12 Nov, 2011 [facility] [address] [id number] [place] [address] 29 Oct, 2011 [facility] [address] [id number] [place] [address] 21 Oct, 2011 [facility] [address] [id number] [place] [address] 19 Oct, 2011 [facility] [address] [id number] [place] [address] 07 Oct, 2011 [facility] [place] [place] [facility] [address] [id number] [place] [address] 23 Sep, 2011 [facility] [address] [facility] [id number] [place] [address] 23 Sep, 2011 [facility] [place] [facility] [address] [id number] [place] [address] 14 Sep, 2011 [facility] [address] [id number] [place] [address] 2543 07 Sep, 2011 [facility] [place] [facility] [address] [id number] [place] [address]656 07 Sep, 2011 [facility] [place] [place] [facility] [address] [id number] [place] [address] 2546 06 Sep, 2011 [facility] [place] [place] [facility] [address] [id number] [place] [address] Sep, [facility] [place] [facility] [address] [id number] [place] [address] Aug, [facility] [place] [facility] [address] [id number] [place] [address]6 Aug, [facility] [place] [facility] [address] [facility] [id number] [place] [address] 2546 Aug, [facility] [place] [facility] [address] [id number] [place] [address] Jul, [facility] [place] [facility] [address] [id number] [place] [address]207 Jul, [facility] [place] [facility] [address] [id number] [place] [address] Jul, [facility] [place] [facility] [address] [id number] [place] [address] Jul, [facility] [place] [facility] [address] [id number] [place] [address] 6663 Jul, [facility] [place] [facility] [address] [id number] [place] [address] 9057 Jul, [facility] [place] [facility] [address] [facility] [id number] [place] [address] 9868 Jun, [facility] [place] [facility] [address] [id number] [address] Jun, [facility] [place] [facility] [address] [id number] [address] 254 14 May, 2011 [facility] [place] [facility] [address] [id number] [place] [address] 254 10 May, 2011 [facility] [place] [facility] [address] [facility] [id number] [address] 14 Apr, 2011 [facility] [place] [facility] [address] [id number] [address] Oct, [facility] [place] [facility] [id number] [address] 22 Jul, 2010 [facility] [id number] [address] 14 Jul, 2010 [facility] [id number] [address] 2546 08 Jul, 2010 [facility] [id number] [address] 24 Jun, 2010 [facility] [id number] [address] 2548 15 Jun, 2010 [facility] [id number] [place] [address] Jun, [facility] [id number] [address] May, [facility] [address] [id number] [address] Jan, [facility] [id number] [address] December, [facility] [id number] [address] Jul, [facility] [id number] [address] Jul, [facility] [id number] [address] 28[address] Jul, [facility] [address] [id number] [address]43 May, [facility] [id number] [address] May, [facility] [address] [id number] [address] May, IMMUNIZATIONS Vaccine Route Administration Date Status FLUARIX QUAD (3 AND UP) 2017 IM Intramuscular Jul 11, 2017 Administered SOCIAL HISTORY Never Assessed REASON FOR VISIT [facility]osp follow up PLAN OF CARE VITAL SIGNS Height 70 in 2017-07-11 Weight 215.5 lbs 2017-07-11 Temperature 98.3 degrees Fahrenheit 2017-07-11 Heart Rate 84 bpm 2017-07-11 Respiratory Rate 20 2017-07-11 BMI 30.92 kg/m2 2017-07-11 Blood pressure systolic 138 mmHg 2017-07-11 Blood pressure diastolic 98 mmHg 2017-07-11 MEDICATIONS Medication Instructions Dosage Frequency Start Date End Date Duration Status Ventolin HFA 90 mcg/actuation inhale 2 puffs by Inhalation route 4 times per day PRN Oct, Active Spiriva 18 mcg 1 ea by Inhalation route 1 time per day Oct, Active Celebrex 200 mg Orally Once a day 1 capsule 24h 90 Active Lopressor 25 Orally Twice a day 0.5 12h May, 30 day(s) Not- Taking Viagra 100 MG Orally Once a day 1 tablet by Oral route 1 time per day 24h 10 Not-Taking Flomax 0.4 MG Orally Once a day 1 capsule 30 minutes after the same meal each day 24h 30 Active AccuNeb 0.083% 3 mL by Inhalation route 4 times per day May, Not-Taking Barney 10-325 MG Orally every 6 hrs 1 tablet as needed 6h Jun, Not-Taking Cefpodoxime Proxetil 200 MG Orally every 12 hrs 1 tablet 12h 25 Jun, 2017 Jul, Active Viibryd 40 MG 1 tablet Oct, Active Crestor 40 mg 1 tablet 24h 11 Nov, 2013 Active Neurontin 600 MG Orally Three times a day 2 tablets 8h Active Combivent Respimat 20-100 mcg/actuation Inhalation 3 times a day 1 puff 8h Oct, Active Cyclobenzaprine HCl 10 mg Orally Three times a day 1 tablet 8h 30 Active Aspirin Low Dose 81 MG Orally Once a day 1 tablet 24h 12 Nov, 2011 Active Advair Diskus 500-50 mcg/dose 1 puffs by Inhalation route 2 times per day Oct, Not-Taking Azithromycin 250 MG Orally Once a day 1 tab 24h Jun, Jun, Active PredniSONE 20 mg Orally Once a day 2 tablets 24h Jun, Jun, Active Metoprolol Tartrate 25 MG Orally Twice a day 1/2 tablet with food 12h Active Tizanidine HCl 4 MG Orally Three times a day 1 tablet as needed 8h 06 May, 2017 Active RESULTS No Results PROCEDURES Procedure Date Ordered Result Body Site SINGLE IMMUNIZATION ADMIN Jul 11, 2017 CHEST X-RAY Jul 11, 2017 X-RAY EXAM OF ELBOW Jul 11, 2017 VENIPUNCT, ROUTINE* Jul 11, 2017 LIPID PANEL Jul 11, 2017 FLUARIX QUAD (3 AND UP) 2017 Jul 11, 2017 COMPREHEN METABOLIC PANEL Jul 11, 2017 ASSAY THYROID STIM HORMONE Jul 11, 2017 COMPLETE CBC W/AUTO DIFF WBC Jul 11, 2017 INSTRUCTIONS MEDICATIONS ADMINISTERED No Known Medications [...] Hospitalization History sepsis, Acute bacterial exac of bronchitis-[facility]
--- OUTSIDE RECORDS SUMMARY | 2018-04-25 14:20 | XMS REPORT ---
Author Author KAYLA SPRING [facility] Address [address] [place] [address] Care Team Providers Care Temporary Receptionist Name Role Phone KAYLA SPRING Unavailable PROBLEMS Type Condition ICD9-CM Code VOR58-ZK Code Onset Dates Condition Status SNOMED Code Problem Essential hypertension I10 Active 40663113 Problem Cellulitis of left arm L03.114 Active [id number] Problem COPD (chronic obstructive pulmonary disease) with acute bronchitis J44.0 Active [id number] Problem CAD (coronary artery disease) I25.10 Active 73556790 Problem Hyperlipemia E78.5 Active 19473443 Problem Midline low back pain with right-sided sciatica M54.41 Active 712490488 Problem COPD (chronic obstructive pulmonary disease) J44.9 Active 09928265 Problem Panlobular emphysema J43.1 Active 3366686 Problem Nocturnal leg cramps G47.62 Active 219816911 Problem Polyneuropathy G62.9 Active 62076028 Problem Neuropathy G62.9 Active 841854082 Problem Arthritis M19.90 Active 4427611 ALLERGIES No Information ENCOUNTERS Encounter Location Date Diagnosis [facility], [place] [address], [place] [address] Jun, [facility], [place] [id number] [place] [address] 62343- 3642 December, Right leg swelling M79.89 ; Left leg swelling M79.89 ; CAD ( coronary artery disease) I25.10 ; Essential hypertension I10 ; Bilateral leg numbness R20.0 and Exertional dyspnea R06.09 [facility], [place] [id number] [place] [address] 61705- 1281 Oct, [facility] [place] [id number] [place] [address] 06379- 0069 Oct, [place] [id number] [place] [address] 52870- 6861 Sep, Pain in right hip M25.551 ; Pain in left hip M25.552 and Suprapubic pain R10.2 [place] [id number] [place] [address] 13296- 5597 Sep, Midline low back pain with right-sided sciatica M54.41 [place] [address] 75686- 6958 Aug, Midline low back pain with right-sided sciatica M54.41 and Arthritis M19.90 [place] [address] 33347- 0524 Jul, Impingement syndrome, shoulder, left M75.42 and Sprain of ligament of cervical spine region S13.4XXA [place] [address] 13337- 7354 Jul, COPD (chronic obstructive pulmonary disease) J44.9 [place] [address] 97164- 8081 Jul, [place] [address] 64869- 7303 Jul, [place] [address] 87577- 5168 Jun, Elbow pain, right M25.521 ; Pain of left clavicle M89.8X1 ; Panlobular emphysema J43.1 and Encounter for immunization Z23 [facility] [address] [id number] Jun, [place] [address] 17734- 0733 Jun, Clavicle pain M89.8X1 [place] [address] 98752- 6051 Jun, [place] [address], [place] [address] 9018 May, Neuropathy G62.9 ; Arthritis M19.90 and Nocturnal leg cramps G47.62 [facility] [address] [id number] [place] [address] Apr [facility] [place] [id number] [place] [address] 84456- 8385 December, [facility] [id number] [place] [address] 73134 -3126 Nov, Gastroenteritis and colitis, viral A08.4 [place] [address] 10816- 0394 Oct, [place] [id number] [place] [address] 90138- 5581 Sep, [place] [address] 85661- 5829 Sep, Low back pain M54.5 and Other chronic pain G89.29 [place] [id number] [place] [address] 24285- 1977 Sep, [facility], [place] [id number] [place] [address] 68995- 9717 Aug, [place] [id number] [place] [address] 01506- 9652 Jul, Vision changes H53.9 and Polyneuropathy G62.9 [place] [id number] [place] [address] 69676- 4021 Jun, [place] [address] 38376- 4855 Jun, Left leg swelling M79.89 ; Right leg swelling M79.89 ; Bilateral leg numbness R20.0 ; CAD (coronary artery disease) I25.10 ; Essential hypertension I10 and Exertional dyspnea R06.09 [facility] [id number] [place] [address] 27345 -2818 Jun, Cellulitis of left arm L03.114 [place] [address] 88893- 7338 Jun, [place] [id number] [place] [address] 44222- 7604 May, Chest pain, unspecified type R07.9 ; Exertional dyspnea R06.09 ; CAD (coronary artery disease) I25.10 and Essential hypertension I10 [facility] [id number] [place] [address] 57042 -6050 December, Acute right-sided low back pain without sciatica M54.5 [place] [address] 84747- 4560 Sep, Low back pain M54.5 [place] [address] 36362- 1748 Aug, Bilateral low back pain with sciatica, sciatica laterality unspecified M54.40 and Polyneuropathy G62.9 [place] [address] 69193- 5975 Aug, Upper respiratory tract infection, unspecified type 465.9 [place] [id number] [place] [address] 84126- 6706 14 Jul, 2015 Midline low back pain with right-sided sciatica M54.41 [place] [id number] [place] [address] 31646- 2950 Jul, Right knee pain M25.561 and Knee swelling, right M25.461 [place] [address] 88177- 0852 Jun, Low back pain M54.5 and Sciatica, unspecified side M54.30 [place] [id number] [place] [address] 52935- 0632 May, Arthritis M19.90 [place] [address], [place] [address] 2021 14 May, 2015 Upper respiratory tract infection, unspecified upper respiratory infection J06.9 [facility] [place] [id number] [place] [address] 04165- 5961 14 May, 2015 CAD (coronary artery disease) I25.10 ; Hyperlipemia E78.5 and COPD (chronic obstructive pulmonary disease) J44.9 [facility] [place] [id number] [place] [address] 95383- 7588 30 Apr, 2015 Arthritis 716.90 [facility] [place] [id number] [place] [address] 21282- 0718 23 Apr, 2015 [facility] [place] [id number] [place] [address] 52537- 2613 21 Apr, 2015 [facility] [place] [id number] [place] [address] 06763- 7969 14 Apr, 2015 [facility] [place] [id number] [place] [address] 69898- 7358 14 Apr, 2015 Hypertension 401.9 and Hyperlipidemia 272.4 [facility] [place] [id number] [place] [address] 77509- 0417 14 Apr, 2015 [facility], [place] [address] [place] [address] 11443- 1834 14 Apr, 2015 Hypertension 401.9 and Hyperlipidemia 272.4 [facility] [place] [address] [place] [address] 37150- 2784 08 Apr, 2015 [facility] [place] [address] [place] [address] 12144- 0054 Mar, Arthritis 716.90 [facility] [place] [id number] [place] [address] 94553- 4442 Feb, [facility], [place] [address] [place] [address] 02460- 6883 14 Nov, 2014 [facility], [place] [id number] [place] [address] 94375- 3873 Nov, [facility] [place] [facility] [address] [id number] [place] [address]- 1289 Oct, [facility] [place] [facility] [address] [facility] [id number], [place] [address]- 3923 Oct, [facility] [place] [facility] [address] [facility] [id number] [place] [address]- 1155 Jul, [facility] [place] [facility] [address] [id number], [place] [address]- 9204 Jul, [facility] [place] [facility] [address] [facility] [id number] [place] [address]- 7107 Jun, [facility] [place] [facility] [address] [facility] [id number] [place] [address]- 2013 Jun, [facility] [place] [facility] [address] [facility] [id number], [place] [address]- 7963 Jun, [facility] [place] [facility] [address] [facility] [id number], [place] [address]- 8109 Jun, [facility] [place] [facility] [address] [facility] [id number], [place] [address]- 7624 May, [facility] [place] [facility] [address] [facility] [id number], [place] [address]- 7161 May, [facility] [place] [facility] [address] [facility] [id number], [place] [address]- 0187 May, [facility] [place] [facility] [address] [facility] [id number], [place] [address]- 4862 May, [facility] [place] [facility] [address] [facility] [id number], [place] [address]- 9041 May, [facility] [place] [facility] [address] [facility] [id number], [place] [address]- 4548 Mar, [facility] [place] [facility] [address] [facility] [id number], [place] [address]- 8905 Mar, [facility] [place] [facility] [address] [id number] [place] [address]- 1836 Mar, [facility] [place] [facility] [address] [id number] [place] [address]- 6001 Mar, [facility] [place] [facility] [address] [id number] [place] [address]- 2596 Feb, [facility] [place] [facility] [address] [id number] [place] [address]- 6106 Feb, [facility] [place] [facility] [address] [id number] [place] [address]- 3995 Feb, [facility] [place] [facility] [address] [id number] [place] [address]- 0969 Feb, [facility] [place] [facility] [address] [id number] [place] [address]- 1518 Feb, [facility] [place] [facility] [address] [id number] [place] [address]- 5856 Feb, [facility] [place] [facility] [address] [id number] [place] [address]- 3995 Feb, [facility] [place] [facility] [address] [id number] [place] [address]- 7358 December, [facility] [place] [facility] [address] [id number] [place] [address]- 2718 December, [facility] [place] [facility] [address] [id number] [place] [address]- 1448 December, [facility] [place] [facility] [address] [id number] [place] [address]- 5170 December, [facility] [place] [facility] [address] [id number] [place] [address]- 2290 December, [facility] [place] [facility] [address] [id number] [place] [address]- 1730 December, [facility] [place] [facility] [address] [id number] [place] [address]- 6829 December, [facility] [place] [facility] [address] [id number] [place] [address]- 7714 December, [facility] [place] [facility] [address] [id number] [place] [address]- 6353 December, [facility] [place] [facility] [address] [id number] [place] [address]- 9705 December, [facility] [place] [facility] [address] [id number] [place] [address]- 1763 December, [facility] [place] [facility] [address] [id number] [place] [address]- 6967 Nov, [facility] [place] [facility] [address] [id number] [place] [address]- 9471 Nov, [facility] [place] [facility] [address] [id number] [place] [address]- 1268 Nov, [facility] [place] [facility] [address] [id number] [place] [address]- 7472 Nov, [facility] [place] [facility] [address] [id number] [place] [address]- 5515 Nov, [facility] [place] [facility] [address] [id number] [place] [address]- 7758 Nov, [facility] [place] [facility] [address] [id number] [place] [address]- 7309 Nov, [facility] [place] [facility] [address] [id number] [place] [address]- 0450 18 Nov, 2013 [facility] [place] [facility] [address] [id number] [place] [address]- 0888 15 Nov, 2013 [facility] [place] [facility] [address] [id number] [place] [address]- 5157 15 Nov, 2013 [facility] [place] [facility] [address] [id number] [place] [address]- 4890 Nov, [facility] [place] [facility] [address] [id number] [place] [address]- 9281 14 Nov, 2013 [facility] [place] [facility] [address] [id number] [place] [address]- 1116 11 Nov, 2013 [facility] [place] [facility] [address] [id number] [place] [address]- 8056 11 Nov, 2013 [facility] [place] [facility] [address] [id number] [place] [address]- 8189 10 Oct, 2013 [facility] [place] [facility] [address] [id number] [place] [address]- 0204 10 Oct, 2013 [facility] [place] [facility] [address] [id number] [place] [address]- 8452 10 Oct, 2013 [facility] [place] [facility] [address] [id number] [place] [address]- 8859 10 Oct, 2013 [facility] [place] [facility] [address] [id number] [place] [address]- 3084 07 Oct, 2013 [facility] [place] [facility] [address] [id number] [place] [address]- 4138 07 Oct, 2013 [facility] [place] [facility] [address] [id number] [place] [address]- 7910 05 Oct, 2013 [facility] [place] [facility] [address] [facility] [id number] [place] [address]- 8510 04 Oct, 2013 [facility] [place] [facility] [address] [id number] [place] [address]- 3679 04 Oct, 2013 [facility] [place] [facility] [address] [id number] [place] [address]- 3814 Oct, [facility] [place] [facility] [address] [id number] [place] 5093 Oct, [facility] [place] [facility] [address] [id number] [place] [address]- 2060 Sep, [facility] [place] [facility] [address] [id number] [place] [address]- 9095 Sep, [facility] [place] [facility] [address] [id number] [place] [address]- 0255 Sep, [facility] [place] [facility] [address] [id number] [place] [address]- 4967 Sep, [facility] [place] [facility] [address] [id number] [place] [address]- 3534 Aug, [facility] [place] [facility] [address] [id number] [place] [address]- 9332 Aug, [facility] [place] [facility] [address] [id number] [place] [address]- 8580 Aug, [facility] [place] [facility] [address] [id number] [place] [address]- 0742 Aug, [facility] [place] [facility] [address] [id number] [place] [address]- 1864 Aug, [facility] [place] [facility] [address] [id number] [place] [address]- 0053 Aug, [facility] [place] [facility] [address] [id number] [place] [address]- 7331 Aug, [facility] [place] [facility] [address] [id number], [place] [address]- 2699 Aug, [facility] [place] [facility] [address] [id number], [place] [address]- 9965 Jul, [facility] [place] [facility] [address] [id number], [place] [address]- 0158 Jul, [facility] [place] [facility] [address] [id number] [place] [address]- 6729 Jul, [facility] [place] [facility] [address] [id number] [place] [address]- 3494 Jul, [facility] [place] [facility] [address] [id number], [place] [address]- 4360 Jul, [facility] [place] [facility] [address] [id number], [place] [address]- 9934 Jul, [facility] [place] [facility] [address] [id number] [place] [address]- 2085 Jun, [facility] [place] [facility] [address] [id number] [place] [address]- 9428 Jun, [facility] [place] [facility] [address] [facility] [id number] [place] [address]- 9136 Jun, [facility] [place] [facility] [address] [id number] [place] [address]- 4789 Jun, [facility] [place] [facility] [address] [id number] [place] [address]- 2437 May, [facility] [place] [facility] [address] [id number] [place] [address]- 9653 May, [facility] [place] [facility] [id number] [place] [address]- 8139 May, [facility] [place] [facility] [address] [id number] [place] [address]- 0130 30 Apr, 2013 [facility] [place] [facility] [address] [id number] [place] [address]- 0500 24 Apr, 2013 [facility] [place] [facility] [address] [facility] [id number] [place] [address]- 5192 20 Apr, 2013 [facility] [place] [facility] [address] [id number] [place] [address]- 5423 11 Apr, 2013 [facility] [place] [facility] [address] [id number], [place] [address]- 9575 06 Apr, 2013 [facility] [place] [facility] [address] [id number] [place] [address]- 3727 28 Mar, 2013 [facility] [place] [facility] [address] [facility] [id number] [place] [address]- 8379 16 Mar, 2013 [facility] [place] [facility] [address] [facility] [id number] [place] [address]- 8922 Mar, [facility] [place] [facility] [address] [id number] [place] [address]- 2126 Mar, [facility] [address] [id number] [place] [address]- 3879 Feb, [facility] [place] [facility] [address] [id number] [place] [address]- 3156 Jan, [facility] [address] [id number] [place] [address]- 1152 December, [facility] [address] [id number] [place] [address]- 4093 December, [facility] [address] [id number] [place] [address]- 9546 December, [facility] [address] [id number] [place] [address]- 6588 December, [facility] [address] [id number] [place] [address]- 0237 December, [facility] [address] [id number] [place] [address]- 1210 December, [facility] [address] [id number] [place] [address]- 1404 December, [facility] [address] [id number] [place] [address]- 1488 Nov, [facility] [address] [id number] [place] [address]- 9718 Nov, [facility] [place] [facility] [address] [id number] [place] [address]- 7342 16 Nov, 2012 [facility] [place] [facility] [address] [id number] [place] [address]- 5224 15 Nov, 2012 [facility] [place] [facility] [address] [id number] [place] [address]- 3969 Nov, [facility] [place] [facility] [address] [id number] [place] [address]- 2287 Oct, [facility] [address] [id number] [place] [address] Oct, [facility] [place] [facility] [address] [id number] [place] [address] Oct, [facility] [place] [facility] [address] [id number] [place] [address] Oct, [facility] [place] [facility] [address] [id number] [place] [address] Sep, [facility] [place] [facility] [address] [id number] [place] [address] Sep, [facility] [place] [facility] [address] [id number] [place] [address] Sep, [facility] [place] [facility] [address] [id number] [place] [address] Sep, [facility] [place] [facility] [address] [id number] [place] [address] Sep, [facility] [place] [facility] [address] [id number] [place] [address] Sep, [facility] [place] [facility] [address] [id number] [place] [address] Aug, [facility] [place] [facility] [address] [id number] [place] [address] Aug, [facility] [place] [facility] [address] [id number] [place] [address] Aug, [facility] [place] [facility] [address] [id number] [place] [address] Aug, [facility] [place] [facility] [address] [id number] [place] [address] Aug, [facility] [place] [facility] [address] [id number] [place] [address] Jul, [facility] [place] [facility] [address] [id number] [place] [address] 31 Jul, 2012 [facility] [place] [facility] [address] [id number] [place] [address] Jul, [facility] [place] [facility] [address] [id number] [place] [address]- [address] Jul, [facility] [place] [facility] [address] [id number] [place] [address]- [address] Jul, [facility] [place] [facility] [address] [id number] [place] [address] Jul, [facility] [place] [facility] [address] [id number] [place] [address] Jul, [facility] [place] [facility] [address] [id number] [place] [address] Jul, [facility] [place] [facility] [address] [id number] [place] [address]- [address] Jun, [facility] [place] [facility] [address] [id number] [place] [address] 30 Jun, 2012 [facility] [place] [facility] [address] [id number] [place] [address]- [address] Jun, [facility] [place] [facility] [address] [id number] [place] [address] Jun, [facility] [place] [facility] [address] [id number] [place] [address] 14 Jun, 2012 [facility] [place] [facility] [address] [id number] [place] [address]- [address] 14 Jun, 2012 [facility] [place] [facility] [address] [id number] [place] [address]- [address] 08 Jun, 2012 [facility] [place] [facility] [address] [id number] [place] [address]- [address] 08 Jun, 2012 [facility] [place] [facility] [address] [id number] [place] [address] Jun, [facility] [place] [facility] [address] [id number] [place] [address] Jun, [facility] [place] [facility] [address] [id number] [place] [address] Jun, [facility] [place] [facility] [address] [id number] [place] [address] Jun, [facility] [place] [facility] [address] [id number] [place] [address] Jun, [facility] [place] [facility] [address] [id number] [place] [address] Jun, [facility] [place] [facility] [address] [id number] [place] [address] Jun, [facility] [place] [facility] [address] [facility] [id number] [place] [address] Jun, [facility] [place] [facility] [address] [id number], [place] [address] May, [facility] [place] [facility] [address] [id number] [place] [address] May, [facility] [place] [facility] [address] [facility] [id number], [place] [address] May, [facility] [place] [facility] [address] [id number], [place] [address] May, [facility] [place] [facility] [address] [id number], [place] [address]- [address] May, [facility] [place] [facility] [address] [id number] [place] [address]- [address] May, [facility] [place] [facility] [address] [id number], [place] [address] Apr, [facility] [place] [facility] [address] [id number] [place] [address]- [address] Apr, [facility] [place] [facility] [address] [id number] [place] [address] 15 Apr, 2012 [facility] [place] [facility] [address] [id number] [place] [address]- [address] 11 Apr, 2012 [facility] [place] [facility] [address] [id number] [place] [address]- [address] Apr, [facility] [place] [facility] [address] [id number] [place] [address] Mar, [facility] [place] [facility] [address] [id number] [place] [address]- [address] Mar, [facility] [place] [facility] [address] [id number] [place] [address]- 47[address] Mar, [facility] [place] [facility] [address] [id number] [place] [address]- [address] Mar, [facility] [place] [facility] [address] [address] [id number] [place] [address] Mar, [facility] [place] [facility] [address] [id number] [place] [address] Mar, [facility] [place] [facility] [address] [id number] [place] [address] Mar, [facility] [place] [facility] [address] [id number] [place] [address] Feb, [facility] [place] [facility] [address] [id number] [place] [address] Feb, [facility] [place] [facility] [address] [id number] [place] [address] Feb, [facility] [place] [facility] [address] [id number] [place] [address] Feb, [facility] [place] [facility] [address] [id number] [place] [address] Jan, [facility] [place] [facility] [address] [id number] [place] [address] Jan, [facility] [place] [facility] [address] [id number] [place] [address] Jan, [facility] [place] [facility] [address] [id number] [place] [address] Jan, [facility] [place] [facility] [address] [id number] [place] [address] Jan, [facility] [place] [facility] [address] [id number] [place] [address] Jan, [facility] [place] [facility] [address] [id number] [place] [address] December, [facility] [place] [facility] [address] [id number] [place] [address] December, [facility] [place] [facility] [address] [id number] [place] [address] December, [facility] [address] [id number] [place] [address] December, [facility] [place] [facility] [address] [id number] [place] [address] December, [facility] [place] [facility] [address] [id number] [place] [address] December, [facility] [place] [facility] [address] [id number] [place] [address] December, [facility] [place] [facility] [address] [id number] [place] [address] Nov, [facility] [place] [facility] [address] [id number] [place] [address] Nov, [facility] [place] [facility] [address] [id number] [place] [address] Nov, [facility] [place] [facility] [address] [id number] [place] [address] Nov, [facility] [place] [facility] [address] [id number] [place] [address] 16 Nov, 2011 [facility] [place] [facility] [address] [id number] [place] [address] Nov, [facility] [place] [facility] [address] [id number] [place] [address] 12 Nov, 2011 [facility] [place] [facility] [address] [facility] [id number] [place] [address] 29 Oct, 2011 [facility] [place] [facility] [address] [id number] [place] [address] 21 Oct, 2011 [facility] [place] [facility] [address] [id number] [place] [address] 39[address] Oct, [facility] [place] [facility] [address] [facility] [id number] [place] [address] Oct, [facility] [address] [facility] [id number] [place] [address] 23 Sep, 2011 [facility] [place] [facility] [address] [id number] [place] [address] 23 Sep, 2011 [facility] [place] [facility] [address] [id number] [place] [address] 14 Sep, 2011 [facility] [place] [facility] [address] [facility] [id number] [place] [address] 07 Sep, 2011 [facility] [place] [facility] [address] [id number] [place] [address] 07 Sep, 2011 [facility] [place] [facility] [address] [id number] [place] [address] 2546 06 Sep, 2011 [facility] [place] [facility] [address] [id number] [place] [address] 02 Sep, 2011 [facility] [place] [facility] [address] [id number] [place] [address] Aug, [facility] [place] [facility] [address] [facility] [id number] [place] [address] 87[address] Aug, [facility] [place] [facility] [address] [id number] [place] [address] 138[address] 05 Aug, 2011 [facility] [place] [facility] [address] [id number] [place] [address] 1287 29 Jul, 2011 [facility] [place] [facility] [address] [id number] [place] [address] 25[address] Jul, [facility] [place] [facility] [address] [id number] [place] [address] 4046 Jul, [facility] [place] [facility] [address] [id number] [place] [address] Jul, [facility] [place] [facility] [address] [id number] [place] [address] Jul, [facility] [place] [facility] [address] [id number] [place] [address] 9[address] 06 Jul, 2011 [facility] [place] [facility] [address] [id number] [place] [address] 2083 15 Jun, 2011 [facility] [place] [facility] [address] [id number] [place] [address] 03 Jun, 2011 [facility] [place] [facility] [address] [id number] [place] [address] 7187 14 May, 2011 [facility] [place] [facility] [address] [id number] [place] [address] 7794 10 May, 2011 [facility] [place] [facility] [address] [id number] [place] [address]- [address]127 14 Apr, 2011 [facility] [place] [facility] [address] [id number] [place] [address] 4367 11 Oct, 2010 [facility] [place] [facility] [address] [id number] [place] [address] 4517 22 Jul, 2010 [facility] [place] [facility] [address] [id number] [place] [address] 3726 14 Jul, 2010 [facility] [place] [facility] [address] [id number] [place] [address] 2766 08 Jul, 2010 [facility] [place] [address] [id number] [address] Jun, [facility] [place] [address], [place] [address] Jun, [facility] [place] [address], [place] [address] Jun, [facility] [place] [address] [id number] [address] May, [facility] [place] [address], [place] [address] Jan, [facility] [place] [id number] [place] [address] December, [facility] [place] [address] [address] Jul, [facility] [place] [id number] [place] [address] Jul, [facility] [place] [address] [address] Jul, [facility] [place] [address] [address] [address] May, [facility] [place] [address], [place] [address] May, [facility] [place] [address], [place] [address] May, IMMUNIZATIONS No Known Immunizations SOCIAL HISTORY Never Assessed REASON FOR VISIT Hospital admit/DC PLAN OF CARE VITAL SIGNS MEDICATIONS Medication Instructions Dosage Frequency Start Date End Date Duration Status Viibryd 40 MG 1 tablet Oct, Active Combivent Respimat 20-100 mcg/actuation Inhalation 3 times a day 1 puff 8h Oct, Not-Taking Neurontin 600 MG Orally Three times a day 2 tablets 8h Active Crestor 40 mg 1 tablet 24h Nov, Active Spiriva 18 mcg 1 ea by Inhalation route 1 time per day Oct, Not-Taking Celebrex 200 mg Orally Once a day 1 capsule 24h 90 Active Tizanidine HCl 4 MG Orally Three times a day 1 tablet as needed 8h May, Active Lopressor 25 Orally Twice a day 0.5 12h 14 May, 2015 30 day(s) Not- Taking Metoprolol Tartrate 25 MG Orally Twice a day 1/2 tablet with food 12h Active PredniSONE 20 mg Orally Once a day 2 tablets 24h Jun, Jun, Active Cyclobenzaprine HCl 10 mg Orally Three times a day 1 tablet 8h 30 Active Azithromycin 250 MG Orally Once a day 1 tab 24h Jun, Jun, Active [place] 10-325 MG Orally every 6 hrs 1 tablet as needed 6h Jun, Active Viagra 100 MG Orally Once a day 1 tablet by Oral route 1 time per day 24h 10 Not-Taking Advair Diskus 500-50 mcg/dose 1 puffs by Inhalation route 2 times per day Oct, Not-Taking Flomax 0.4 MG Orally Once a day 1 capsule 30 minutes after the same meal each day 24h 30 Active Ventolin HFA 90 mcg/actuation inhale 2 puffs by Inhalation route 4 times per day PRN Oct, Not-Taking Tamsulosin HCl 0.4 MG Orally Once a day 1 capsule 24h Active AccuNeb 0.083% 3 mL by Inhalation route 4 times per day May, Not-Taking Aspirin Low Dose 81 MG Orally Once a day 1 tablet 24h Nov, Active Cefpodoxime Proxetil 200 MG Orally every 12 hrs 1 tablet 12h Jun, Jul, Active RESULTS No Results PROCEDURES No Known [...] Hospitalization History sepsis, Acute bacterial exac of bronchitis-[facility]
[2018-04-25 14:40] LABS: BASOPHILS % (AUTO) 0 % (0-10); EOSINOPHILS # (AUTO) 0.1 10^3/uL (0.0-0.3); EOSINOPHILS % (AUTO) 1 % (0-10); HEMATOCRIT 40 % (40-54); HEMOGLOBIN 13.8 G/DL (13.3-17.7); LYMPHOCYTES # (AUTO) 1.3 X 10^3 (1.0-4.0); LYMPHOCYTES % (AUTO) 9 % (12-44); MEAN CORPUSCULAR HEMOGLOBIN 33 PG (25-34); MEAN CORPUSCULAR HGB CONC 35 G/DL (32-36); MEAN CORPUSCULAR VOLUME 94 FL (80-99); MEAN PLATELET VOLUME 8.8 FL (7.4-10.4); MONOCYTES # (AUTO) 1.3 X 10^3 (0.0-1.0); MONOCYTES % (AUTO) 8 % (0-12); NEUTROPHILS # (AUTO) 12.1 X 10^3 (1.8-7.8); NEUTROPHILS % (AUTO) 82 % (42-75); PLATELET COUNT 179 10^3/uL (130-400); RED BLOOD COUNT 4.24 10^6/uL (4.35-5.85); RED CELL DISTRIBUTION WIDTH 14.5 % (10.0-14.5); WHITE BLOOD COUNT 14.9 10^3/uL (4.3-11.0)
[2018-04-25 14:49] LABS: INR 1.1 (0.8-1.4); PROTHROMBIN TIME PATIENT 14.1 SEC (12.2-14.7)
[2018-04-25] MEDS ORDERED: CEPH-507 PO (14:50)
[2018-04-25] MEDS ORDERED: TIOT18CA2 IH (14:50)
[2018-04-25] MEDS ORDERED: RT-ALBUINH IH ×2 (14:50)
[2018-04-25 14:58] LABS: ALANINE AMINOTRANSFERASE 30 U/L (0-55); ALBUMIN 4.2 GM/DL (3.2-4.5); ALKALINE PHOSPHATASE 66 U/L (40-136); BILIRUBIN,TOTAL 1.2 MG/DL (0.1-1.0); BUN/CREATININE RATIO 25; CALCIUM 9.5 MG/DL (8.5-10.1); CARBON DIOXIDE 20 MMOL/L (21-32); CHLORIDE 102 MMOL/L (98-107); CREATININE SERUM 0.85 MG/DL (0.60-1.30); GFR ESTIMATED > 60; GLUCOSE 113 MG/DL (70-105); POTASSIUM 3.7 MMOL/L (3.6-5.0); SODIUM 135 MMOL/L (135-145); TOTAL PROTEIN 7.4 GM/DL (6.4-8.2)
[2018-04-25 15:06] LABS: NEUTROPHILS % (MANUAL) 86 %
[2018-04-25 15:07] LABS: BAND NEUTROPHILS 0 %; BASOPHILS % (MANUAL) 0 %; EOSINOPHILS % (MANUAL) 0 %; LYMPHOCYTES % (MANUAL) 8 %; MONOCYTES % (MANUAL) 6 %; RBC MORPH NORMAL
--- NOTE | 2018-04-25 15:07 | ED Lower Extremity ---
General Chief Complaint: Lower Extremity Stated Complaint: L KNEE PAIN Nursing Triage Note: PT CO OF L KNEE PAIN, SWELLING, WARM TO TOUCH, PT STATES HAD AN ABRASION APPROX 3 WEEKS AGO. WAS GIVEN ROCEPHIN IM AT CLINIC YESTERDAY AND STARTED ON PO KEFLEX. PT LEG WORSE TODAY SENT BY CLINIC Nursing Sepsis Screen: Possible Sepsis Risk Source: patient Exam Limitations: no limitations History of Present Illness Date Seen by Provider: Apr 25, 2018 Time Seen by Provider: 14:10 Initial Comments Patient is a 53-year-old male who reports the emergency room with complaints of left knee swelling, pain, fevers for 3 days. He states that he had an abrasion to the left knee 3 weeks ago when he fell at work and stated that he presented to the [facility] with the swelling and fevers yesterday and was given an IM shot of Rocephin and was started on Keflex. He had a follow-up appointment at [facility] today and they were concerned for the increasing redness to the left lower extremity and sent him to the emergency room. 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, (Reported) 1 PUFF = 90 MCG Albuterol/Ipratropium 4 Gm Aero, 2 PUFF IH TID, (Reported) Aspirin 81 Mg Tablet.dr, 81 MG PO DAILY, (Reported) Celecoxib 200 Mg Capsule, 200 MG PO BID, (Reported) Cephalexin 500 Mg Capsule, 500 MG PO TID, (Reported) Gabapentin 600 Mg Tablet, 1,200 MG PO TID, (Reported) TAKES 2 (600 MG) TABLETS Metoprolol Tartrate 25 Mg Tablet, 12.5 MG PO BID, (Reported) TAKES 1/2 OF A (25 MG) TABLET / LAST FILLED 01/17/17 #30 Rosuvastatin Calcium 40 Mg Tablet, 40 MG PO HS, (Reported) LAST FILLED 01/17/17 #30 Tiotropium [place] 1 Inh Aerp, 1 INH IH DAILY, (Reported) Vilazodone Hydrochloride 40 Mg Tablet, 40 MG PO DAILY, (Reported) Patient Home Medication List Home Medication List Reviewed: Yes Review of Systems Constitutional: see HPI, chills, fever Musculoskeletal: see HPI, joint swelling (left lower extremity) Skin: see HPI, change in color (redness to lle) All Other Systems Reviewed Negative Unless Noted: Yes Past Qiyrrdi-Ehxegv-Ervebs Hx Past Med/Social Hx: Reviewed Nursing Past Med/Soc Hx Patient Social History Alcohol Use: Denies Use Recreational Drug Use: No Drug of Choice: MARIJUANA Smoking Status: Current Everyday Smoker Type Used: Cigarettes Recent Foreign Travel: No Contact w/Someone Who Travel: No Recent Infectious Disease Expo: No Recent Hopitalizations: No Physical Abuse: No Sexual Abuse: No Immunizations Up To Date Tetanus Booster (TDap): Unknown Seasonal Allergies Seasonal Allergies: No Past Medical History Surgeries: Yes (BACK SURGERY) CABG, Orthopedic, Tonsillectomy Respiratory: Yes COPD, Emphysema Cardiac: Yes (CABG) Coronary Artery Disease, Heart Attack, High Cholesterol, Hypertension Neurological: No Reproductive Disorders: No Sexually Transmitted Disease: No Genitourinary: No Kidney Stones Gastrointestinal: No Musculoskeletal: Yes Arthritis, Chronic Back Pain Endocrine: No HEENT: Yes Hearing Impairment: Hard of Hearing Cancer: No Psychosocial: Yes Depression Integumentary: No Blood Disorders: No Family Medical History Reviewed Nursing Family Hx FH: lung cancer 19 FATHER Hypertension 19 MOTHER No Pertinent Family Hx Physical Exam Vital Signs Vital Signs - First Documented 04/25/18 14:10 Temp 100.5 Pulse 111 Resp 18 B/P (MAP) 135/83 (100) Pulse Ox 94 Capillary Refill : Less Than 3 Seconds Height, Weight, BMI Height: 5'9.00" Weight: 217lbs. 0.0oz. 98.256693yk; 32.3 BMI Method:Stated General Appearance: WD/WN, no apparent distress Cardiovascular: normal peripheral pulses, regular rate, rhythm, no edema, no gallop, no JVD, no murmur Respiratory: chest non-tender, lungs clear, normal breath sounds, no respiratory distress, no accessory muscle use Legs: left leg swelling, left leg other (Erythema from the knee to the ankle on the left leg. ) Knees: left knee other Neurologic/Tendon: normal sensation, normal motor functions, normal tendon functions, responds to pain, no evidence tendon injury Neurologic/Psychiatric: alert, normal mood/affect, oriented x 3 Skin: normal color, warm/dry, other Progress/Results/Core Measures Results/Orders Lab Results Laboratory Tests Test 04/25/18 13:25 Range/Units White Blood Count 14.9 H 4.3-11.0 10^3/uL Red Blood Count 4.24 L 4.35-5.85 10^6/uL Hemoglobin 13.8 13.3-17.7 G/DL Hematocrit 40 40-54 % Mean Corpuscular Volume 94 80-99 FL Mean Corpuscular Hemoglobin 33 25-34 PG Mean Corpuscular Hemoglobin Concent 35 32-36 G/DL Red Cell Distribution Width 14.5 10.0-14.5 % Platelet Count 179 130-400 10^3/uL Mean Platelet Volume 8.8 7.4-10.4 FL Neutrophils (%) (Auto) 82 H 42-75 % Lymphocytes (%) (Auto) 9 L 12-44 % Monocytes (%) (Auto) 8 0-12 % Eosinophils (%) (Auto) 1 0-10 % Basophils (%) (Auto) 0 0-10 % Neutrophils # (Auto) 12.1 H 1.8-7.8 X 10^3 Lymphocytes # (Auto) 1.3 1.0-4.0 X 10^3 Monocytes # (Auto) 1.3 H 0.0-1.0 X 10^3 Eosinophils # (Auto) 0.1 0.0-0.3 10^3/uL Basophils # (Auto) 0.0 0.0-0.1 10^3/uL Neutrophils % (Manual) 86 % Lymphocytes % (Manual) 8 % Monocytes % (Manual) 6 % Eosinophils % (Manual) 0 % Basophils % (Manual) 0 % Band Neutrophils 0 % Blood Morphology Comment NORMAL Prothrombin Time 14.1 12.2-14.7 SEC INR Comment 1.1 0.8-1.4 Activated Partial Thromboplast Time 36 H 24-35 SEC Sodium Level 135 135-145 MMOL/L Potassium Level 3.7 3.6-5.0 MMOL/L Chloride Level 102 98-107 MMOL/L Carbon Dioxide Level 20 L 21-32 MMOL/L Anion Gap 13 5-14 MMOL/L Blood Urea Nitrogen 21 H 7-18 MG/DL Creatinine 0.85 0.60-1.30 MG/DL Estimat Glomerular Filtration Rate > 60 BUN/Creatinine Ratio 25 Glucose Level 113 H 70-105 MG/DL Lactic Acid Level 0.81 0.50-2.00 MMOL/L Calcium Level 9.5 8.5-10.1 MG/DL Corrected Calcium 9.3 8.5-10.1 MG/DL Total Bilirubin 1.2 H 0.1-1.0 MG/DL Aspartate Amino Transf (AST/SGOT) 24 5-34 U/L Alanine Aminotransferase (ALT/SGPT) 30 0-55 U/L Alkaline Phosphatase 66 40-136 U/L Total Protein 7.4 6.4-8.2 GM/DL Albumin 4.2 3.2-4.5 GM/DL My Orders Orders - ZULEMA WILKINS Cbc With Automated Diff (04/25/18 14:20) Comprehensive Metabolic Panel (04/25/18 14:20) Blood Culture (04/25/18 14:20) Sputum Culture (04/25/18 14:20) Protime With Inr (04/25/18 14:20) Partial Thromboplastin Time (04/25/18 14:20) Saline Lock/Iv-Start (04/25/18 14:20) Saline Lock/Iv-Start (04/25/18 14:20) Lactic Acid Analyzer (04/25/18 14:20) Manual Differential (04/25/18 13:25) Knee, Left, 3 Views (04/25/18 15:24) Fentanyl Injection (Sublimaze Injection (04/25/18 15:30) Acetaminophen Tablet (Tylenol Tablet) (04/25/18 15:30) Us Venous Lower Ext Lt (04/25/18 15:39) Medications Given in ED Current Medications Medications Dose Ordered Sig/Elizabeth Route Start Time Stop Time Status Last Admin Dose Admin Acetaminophen 1,000 mg ONCE ONCE PO 04/25/18 15:30 04/25/18 15:31 DC 04/25/18 15:57 1,000 MG Fentanyl Citrate 50 mcg ONCE ONCE IVP 04/25/18 15:30 04/25/18 15:31 DC 04/25/18 15:57 50 MCG Vital Signs/I&O 04/25/18 14:10 Temp 100.5 Pulse 111 Resp 18 B/P (MAP) 135/83 (100) Pulse Ox 94 Blood Pressure Mean: 100 Progress Progress Note : Time: 15:20 Progress Note I have seen and evaluated the patient. I spoke Dr. Mejias at this time. She agrees with plans of admission and clindamycin 900 mg every 8 hours and imaging studies of the left knee. I will be also ordering a ultrasound for rule out DVT. The patient and agrees with plans for admission. Awaiting imaging studies results at this time. 1700: informed Dr. Valera who is now covering for Dr. Mejias of imaging studies. Diagnostic Imaging Diagonstic Imaging: Xray, Ultrasound Plain Films/CT/US/NM/MRI: leg, knee Comments NAME: EVERTON BHAKTA [facility] REC#: [id number] PT STATUS: REG ER : 1965 PHYSICIAN: ZULEMA WILKINS ADMIT DATE: 04/25/18/ER Signed Date of Exam:04/25/18 US VENOUS LOWER EXT LT INDICATION: Left leg pain. Left leg venous Doppler study was performed in the routine fashion with color flow Doppler and waveform analysis. FINDINGS: The left common femoral vein, superficial femoral vein, popliteal vein and visualized portion of the posterior tibial vein show normal compressibility and venous flow patterns. There is normal augmentation. IMPRESSION: No evidence of deep vein thrombosis of the major veins of the left leg. Dictated by: Dictated on workstation # [id number] Dict: 04/25/18 1619 Trans: 04/25/18 1620 [id number] Interpreted by: BRIANNE NEVES MD Electronically signed by: BRIANNE NEVES MD 04/25/181619 [place] NAME: EVERTON BHAKTA [facility] REC#: [id number] PT STATUS: REG ER : 1965 PHYSICIAN: ZULEMA WILKINS ADMIT DATE: 04/25/18/ER Draft Date of Exam:04/25/18 KNEE, LEFT, 3 VIEWS INDICATION: Left knee pain and swelling. EXAMINATION: AP, oblique and lateral views of the left knee were obtained. FINDINGS: No fracture or acute bony abnormality is seen. There is prominent soft tissue swelling in the anterior soft tissues. IMPRESSION: No acute bony abnormality or overt joint effusion. Prominent soft tissue swelling is seen, anteriorly. Dictated on workstation # [id number] Dict: 04/25/18 1553 Trans: 04/25/18 1559 [facility] [id number] Interpreted by: BRIANNE NEVES MD Electronically signed by: Reviewed: Reviewed by Me Departure Communication (Admissions) Time/Spoke to Admitting Phy: 17:00 Dr. Valera Impression Primary Impression: cellulitus left lower ext Disposition: ADMITTED INPATIENT Condition: Stable/Unchanged Admissions Decision to Admit Reason: Admit from ER (General) Decision to Admit/Date: Apr 25, 2018 Time/Decision to Admit Time: 17:00 Departure-Patient Inst. Referrals: [facility] (PCP/Family) Primary Care Physician ZULEMA WILKINS Apr 25, 2018 15:07
[2018-04-25] MEDS ORDERED: ACETAMINOPHEN 500 MG TAB (TYLENOL) PO ONE (15:30)
[2018-04-25] MEDS ORDERED: fentaNYL INJECTION 100 MCG/2 ML AMP IVP ONE (15:30)
--- NOTE | 2018-04-25 15:59 | Diagnostic Imaging Report ---
INDICATION: Left knee pain and swelling. EXAMINATION: AP, oblique and lateral views of the left knee were obtained. FINDINGS: No fracture or acute bony abnormality is seen. There is prominent soft tissue swelling in the anterior soft tissues. IMPRESSION: No acute bony abnormality or overt joint effusion. Prominent soft tissue swelling is seen, anteriorly. Dictated by: Dictated on workstation # [id number]
--- NOTE | 2018-04-25 16:22 | Diagnostic Imaging Report ---
INDICATION: Left leg pain. Left leg venous Doppler study was performed in the routine fashion with color flow Doppler and waveform analysis. FINDINGS: The left common femoral vein, superficial femoral vein, popliteal vein and visualized portion of the posterior tibial vein show normal compressibility and venous flow patterns. There is normal augmentation. IMPRESSION: No evidence of deep vein thrombosis of the major veins of the left leg. Dictated by: Dictated on workstation # [id number]
--- OUTSIDE RECORDS SUMMARY | 2018-04-25 16:43 | XMS REPORT | Continuity of Care Document ---
Author Author Formerly [facility], [facility] Address Unknown Phone Unavailable Allergies Active Description Code Type Severity Reaction Onset Reported/Identified Relationship to Patient Clinical Status Yes tramadol [id number] Drug Allergy Unknown N/A 07/04/2009 Yes oxycodone [id number] Drug Allergy Mild N/A 07/14/2009 Yes oxycodone Drug Allergy N/A N/A 10/14/2009 Yes oxycodone Drug Allergy 10/14/2009 Yes acetaminophen-oxycodone Drug Allergy 04/03/2011 Yes Benzodiazepines Drug Allergy N/A N/A 04/21/2012 Yes Benzodiazepines Drug Allergy 04/21/2012 Yes Xanax XR 1 mg tablet extended release 24 hr Drug Allergy N/A N/A 2012 Yes Xanax XR 1 mg tablet extended release 24 hr Drug Allergy 12/08/2012 Yes oxycodone [id number] Drug Allergy Mild NAUSEA 01/31/2015 Yes No Known Drug Allergies [id number] Drug Allergy Unknown N/A 07/06/2015 Medications There is no data. Problems Date Dx Coded Attending Type Code Diagnosis Diagnosed By 10/12/2008 RIKA CHURCH DO 272.4 HYPERLIPIDEMIA 10/12/2008 RIKA CHURCH DO K 300.00 anxiety 10/12/2008 RIKA CHURCH DO 414.01 CORONARY ARTERY STENOSIS MULTI-VESSEL 10/12/2008 RIKA CHURCH DO K 465.9 Upper Respiratory Infection Acute 10/12/2008 GONZALEZ CHURCH DOA K 786.2 Cough 10/12/2008 RIKA CHURCH DO V58.69 taking high-risk medication 10/12/2008 GONZALEZ CHURCH DOA K 272.4 HYPERLIPIDEMIA 10/12/2008 GONZALEZ CHURCH DOA K 300.00 anxiety 10/12/2008 RIKA CHURCH DO K 414.01 CORONARY ARTERY STENOSIS MULTI-VESSEL 10/12/2008 RIKA CHURCH DO K 465.9 Upper Respiratory Infection Acute 10/12/2008 RIKA CHURCH DO K 786.2 Cough 10/12/2008 LYNNETTE STODDARDRIKA K V58.69 taking high-risk medication 10/12/2008 DAMARISYON MENDOZA DO F 272.4 HYPERLIPIDEMIA 10/12/2008 YON NIETO DO F 300.00 anxiety 10/12/2008 GERSON STODDARDYON F 414.01 CORONARY ARTERY STENOSIS MULTI-VESSEL 10/12/2008 DAMARISYON MENDOZA DO F 465.9 Upper Respiratory Infection Acute 10/12/2008 DAMARISYON MENDOZA DO F 786.2 Cough 10/12/2008 DAMARISYON MENDOZA DO V58.69 taking high-risk medication 10/12/2008 CHURCH DO RIKA K 272.4 HYPERLIPIDEMIA 10/12/2008 CHURCH DO RIKA K 300.00 anxiety 10/12/2008 CHURCH DO RIKA K 414.01 CORONARY ARTERY STENOSIS MULTI-VESSEL 10/12/2008 CHURCH DO RIKA K 465.9 Upper Respiratory Infection Acute 10/12/2008 CHURCH DO IRKA K 786.2 Cough 10/12/2008 CHURCH GONZALEZ STODDARDA K V58.69 taking high-risk medication 10/12/2008 DAMARISYON MENDOZA DO 272.4 HYPERLIPIDEMIA 10/12/2008 DAMARISYON MENDOZA DO 300.00 anxiety 10/12/2008 YON NIETO DO F 414.01 CORONARY ARTERY STENOSIS MULTI-VESSEL 10/12/2008 YON NIETO DO F 465.9 Upper Respiratory Infection Acute 10/12/2008 YON NIETO DO 786.2 Cough 10/12/2008 DAMARISOYN MENDOZA DO V58.69 taking high-risk medication 10/12/2008 272.4 HYPERLIPIDEMIA 10/12/2008 300.00 anxiety 10/12/2008 414.01 CORONARY ARTERY STENOSIS MULTI-VESSEL 10/12/2008 465.9 Upper Respiratory Infection Acute 10/12/2008 786.2 Cough 10/12/2008 V58.69 taking high- risk medication 10/12/2008 272.4 HYPERLIPIDEMIA 10/12/2008 300.00 anxiety 10/12/2008 414.01 CORONARY ARTERY STENOSIS MULTI-VESSEL 10/12/2008 465.9 Upper Respiratory Infection Acute 10/12/2008 786.2 Cough 10/12/2008 V58.69 taking high- risk medication 10/12/2008 272.4 HYPERLIPIDEMIA 10/12/2008 300.00 anxiety 10/12/2008 414.01 CORONARY ARTERY STENOSIS MULTI-VESSEL 10/12/2008 465.9 Upper Respiratory Infection Acute 10/12/2008 786.2 Cough 10/12/2008 V58.69 taking high- risk medication 10/12/2008 272.4 HYPERLIPIDEMIA 10/12/2008 300.00 anxiety 10/12/2008 414.01 CORONARY ARTERY STENOSIS MULTI-VESSEL 10/12/2008 465.9 Upper Respiratory Infection Acute 10/12/2008 786.2 Cough 10/12/2008 V58.69 taking high- risk medication 10/12/2008 272.4 HYPERLIPIDEMIA 10/12/2008 300.00 anxiety 10/12/2008 414.01 CORONARY ARTERY STENOSIS MULTI-VESSEL 10/12/2008 465.9 Upper Respiratory Infection Acute 10/12/2008 786.2 Cough 10/12/2008 V58.69 taking high- risk medication 10/12/2008 272.4 HYPERLIPIDEMIA 10/12/2008 300.00 anxiety 10/12/2008 414.01 CORONARY ARTERY STENOSIS MULTI-VESSEL 10/12/2008 465.9 Upper Respiratory Infection Acute 10/12/2008 786.2 Cough 10/12/2008 V58.69 taking high- risk medication 10/12/2008 CHURCH DO, RIKA K 272.4 [...] K V58.69 taking high-risk medication 10/12/2008 BRAVO CASHJIGNA SWEENEY CLARISSE N 272.4 HYPERLIPIDEMIA 10/12/2008 DANIELLE BAH APRNCY N 300.00 anxiety 10/12/2008 BRAVO CASHERO LUSTER REPAIRER, CLARISSE N 414.01 CORONARY ARTERY STENOSIS MULTI-VESSEL 10/12/2008 DANIELLE BAH APRNCY N 465.9 Upper Respiratory Infection Acute 10/12/2008 DANIELLE BAH APRNCY N 786.2 Cough 10/12/2008 BRAVO CASHJIGNA SWEENEY CLARISSE N V58.69 taking high-risk medication 10/12/2008 [...] V58.69 taking high-risk medication 10/12/2008 CHURCH DO, IRKA K 272.4 HYPERLIPIDEMIA 10/12/2008 CHURCH DO, RIKA K 300.00 anxiety 10/12/2008 CHURCH DO, RIKA K 414.01 CORONARY ARTERY STENOSIS MULTI-VESSEL 10/12/2008 CHURCH DO, RIKA K 465.9 Upper Respiratory Infection Acute 10/12/2008 CHURCH DO, RIKA K 786.2 Cough 10/12/2008 CHURCH DO, RIKA K V58.69 taking high-risk medication 10/12/2008 ECHO LUSTER REPAIRER, MATHEUS R 272.4 HYPERLIPIDEMIA 10/12/2008 ECHO LUSTER REPAIRER, MATHEUS R 300.00 anxiety 10/12/2008 ECHO LUSTER REPAIRER, MATHEUS R 414.01 CORONARY ARTERY STENOSIS MULTI-VESSEL 10/12/2008 ECHO LUSTER REPAIRER, MATHEUS R 465.9 Upper Respiratory Infection Acute 10/12/2008 ECHO LUSTER REPAIRER, MATHEUS R 786.2 Cough 10/12/2008 ECHO LUSTER REPAIRER, MATHEUS R V58.69 taking high-risk medication 10/12/2008 CHURCH DO, RIKA K 272.4 HYPERLIPIDEMIA 10/12/2008 CHURCH DO, RIKA K 300.00 anxiety 10/12/2008 CHURCH DO, RIKA K 414.01 CORONARY ARTERY STENOSIS MULTI-VESSEL 10/12/2008 CHURCH DO, RIKA K 465.9 Upper Respiratory Infection Acute 10/12/2008 CHURCH DO, RIKA K 786.2 Cough 10/12/2008 CHURCH DO, RIKA K V58.69 taking high-risk medication 10/12/2008 ECHO LUSTER REPAIRER, MATHEUS R 272.4 HYPERLIPIDEMIA 10/12/2008 ECHO LUSTER REPAIRER, MATHEUS R 300.00 anxiety 10/12/2008 ECHO LUSTER REPAIRER, MATHEUS R 414.01 CORONARY ARTERY STENOSIS MULTI-VESSEL 10/12/2008 ECHO LUSTER REPAIRER, MATHEUS R 465.9 Upper Respiratory Infection Acute 10/12/2008 ECHO LUSTER REPAIRER, MATHEUS R 786.2 Cough 10/12/2008 ECHO LUSTER REPAIRER, MATHEUS R V58.69 taking high-risk medication 10/12/2008 CHURCH DO, RIKA K 272.4 HYPERLIPIDEMIA 10/12/2008 CHURCH DO, RIKA K 300.00 anxiety 10/12/2008 CHURCH DO, RIKA K 414.01 CORONARY ARTERY STENOSIS MULTI-VESSEL 10/12/2008 CHURCH DO, RIKA K 465.9 Upper Respiratory Infection Acute 10/12/2008 CHURCH DO, RIKA K 786.2 Cough 10/12/2008 CHURCH DO, RIKA K V58.69 taking high-risk medication 10/12/2008 ROSALVA LUSTER REPAIRER, LINH S 272.4 HYPERLIPIDEMIA 10/12/2008 ROSALVA LIZARRAGAN, LINH S 300.00 anxiety 10/12/2008 ROSALVA LUSTER REPAIRER, LINH S 414.01 CORONARY ARTERY STENOSIS MULTI-VESSEL 10/12/2008 ROSALVA LUSTER REPAIRER, LINH S 465.9 Upper Respiratory Infection Acute 10/12/2008 ROSALVA LUSTER REPAIRER, LINH S 786.2 Cough 10/12/2008 ROSALVA LUSTER REPAIRER, LINH S V58.69 taking high-risk medication 12/15/2008 [...] RIKA K 492.8 Emphysema Other 12/15/2008 ECHO LUSTER REPAIRER, MATHEUS R 492.8 Emphysema Other 12/15/2008 CHURCH [...] NONORGANIC SLEEP DISORDERS 05/03/2009 CLARISSE BAH APRN 307.40 NONORGANIC SLEEP DISORDERS 05/03/2009 CHURCH DO, RIKA K 307.40 NONORGANIC SLEEP DISORDERS 05/03/2009 CHURCH DO, RIKA K 307.40 NONORGANIC SLEEP DISORDERS 05/03/2009 CHURCH DO, RIKA K 307.40 NONORGANIC SLEEP DISORDERS 05/03/2009 CHURCH DO, RIKA K 307.40 NONORGANIC SLEEP DISORDERS 05/03/2009 CHURCH DO, RIKA K 307.40 NONORGANIC SLEEP DISORDERS 05/03/2009 ECHO SWEENEY, MATHEUS R 307.40 NONORGANIC SLEEP DISORDERS 05/03/2009 CHURCH DO, RIKA K 307.40 NONORGANIC SLEEP DISORDERS 05/03/2009 ECHO SWEENEY, MATHEUS R 307.40 NONORGANIC SLEEP DISORDERS 05/03/2009 [...] DO, RIKA K 788.64 Urinary Hesitancy 05/27/2009 CLARISSE BAH APRN N 788.64 Urinary Hesitancy 05/27/2009 CHURCH DO, RIKA K 788.64 Urinary Hesitancy 05/27/2009 CHURCH DO, RIKA K 788.64 Urinary Hesitancy 05/27/2009 CHURCH DO, RIKA K 788.64 Urinary Hesitancy 05/27/2009 CHURCH DO, RIKA K 788.64 Urinary Hesitancy 05/27/2009 CHURCH DO, RIKA K 788.64 Urinary Hesitancy 05/27/2009 ECHO LUSTER REPAIRER, MATHEUS R 788.64 Urinary Hesitancy 05/27/2009 CHURCH DO, RIKA K 788.64 Urinary Hesitancy 05/27/2009 ECHO LUSTER REPAIRER, MATHEUS R 788.64 Urinary Hesitancy 05/27/2009 CHURCH [...] OTHER SPECIFIED PERSONAL HISTORY PRESENTING HAZARDS TO HEALTH , HISTORY OF TOBACCO USE 07/14/2009 CHURCH DO, [...] OF TOBACCO USE 07/14/2009 LINH BLACKWELL APRN S V15.82 OTHER SPECIFIED PERSONAL HISTORY PRESENTING HAZARDS TO HEALTH, HISTORY OF TOBACCO USE 10/14/2009 CHURCH DO, RKIA K 780.99 ANHEDONIA 10/14/2009 CHURCH DO, RIKA K 780.99 ANHEDONIA 10/14/2009 WERDER DOGOMEZEN F 780.99 ANHEDONIA 10/14/2009 CHURCH DO, RIKA [...] K 780.99 ANHEDONIA 10/14/2009 CLARISSE BAH APRN 780.99 ANHEDONIA 10/14/2009 CHURCH DO, RIKA K 780.99 ANHEDONIA 10/14/2009 CHURCH DO, RIKA K 780.99 ANHEDONIA 10/14/2009 CHURCH DO, RIKA K 780.99 ANHEDONIA 10/14/2009 CHURCH DO, RIKA K 780.99 ANHEDONIA 10/14/2009 CHURCH DO, RIKA K 780.99 ANHEDONIA 10/14/2009 ECHO LUSTER REPAIRER, MATHEUS R 780.99 ANHEDONIA 10/14/2009 CHURCH DO, RIKA K 780.99 ANHEDONIA 10/14/2009 ECHO LUSTER REPAIRER, MATHEUS R 780.99 ANHEDONIA 10/14/2009 CHURCH DO, RIKA K 780.99 ANHEDONIA 10/14/2009 LINH BLACKWELL APRN S 780.99 ANHEDONIA 10/28/2009 CHURCH DO, RIKA K 311 MO DEPRESS NOS 10/28/2009 CHURCH DO, RIKA K 311 MO DEPRESS NOS 10/28/2009 WERREJI DOYON F 311 MO DEPRESS NOS 10/28/2009 CHURCH [...] K 311 MO DEPRESS NOS 10/28/2009 ECHO LUSTER REPAIRER, MATHEUS R 311 MO DEPRESS NOS 10/28/2009 CHURCH DO, RIKA K 311 MO DEPRESS NOS 10/28/2009 ECHO LUSTER REPAIRER, MATHEUS R 311 MO DEPRESS NOS 10/28/2009 CHURCH DO, RIKA K 311 MO DEPRESS NOS 10/28/2009 LINH BLACKWELL APRN 311 MO DEPRESS NOS 12/16/2009 CHURCH DO, [...] DO, YON F 780.8 GENERALIZED HYPERHIDROSIS 12/16/2009 YON NIETO DO 786.05 Shortness Of Breath 12/16/2009 780.8 GENERALIZED [...] K 786.05 Shortness Of Breath 12/16/2009 BRAVO CASHERO LUSTER REPAIRER, CLARISSE N 780.8 GENERALIZED HYPERHIDROSIS 12/16/2009 BRAVO CASHERO LUSTER REPAIRER, CLARISSE N 786.05 Shortness Of Breath 12/16/2009 [...] K 786.05 Shortness Of Breath 12/16/2009 ECHO LUSTER REPAIRER, MATHEUS R 780.8 GENERALIZED HYPERHIDROSIS 12/16/2009 ECHO LUSTER REPAIRER, MATHEUS R 786.05 Shortness Of Breath 12/16/2009 CHURCH DO, RIKA K 780.8 GENERALIZED HYPERHIDROSIS 12/16/2009 CHURCH DO, RIKA K 786.05 Shortness Of Breath 12/16/2009 ECHO LUSTER REPAIRER, MATHEUS R 780.8 GENERALIZED HYPERHIDROSIS 12/16/2009 ECHO LUSTER REPAIRER, MATHEUS R 786.05 Shortness Of Breath 12/16/2009 CHURCH DO, RIKA K 780.8 GENERALIZED HYPERHIDROSIS 12/16/2009 CHURCH DO, RIKA K 786.05 Shortness Of Breath 12/16/2009 ROSALVA LUSTER REPAIRER, LINH S 780.8 GENERALIZED HYPERHIDROSIS 12/16/2009 ROSALVA LUSTER REPAIRER, LINH S 786.05 Shortness Of Breath 01/04/2010 CHURCH DO, RIKA K 300.02 AN [...] K 300.02 AN GEN ANXIETY 01/04/2010 CHURCH DOGONZALEZA K 300.02 AN GEN ANXIETY 01/04/2010 CHURCH DORIKA K 300.02 AN GEN ANXIETY 01/04/2010 CHURCH DORIKA K 300.02 AN GEN ANXIETY 01/04/2010 CHURCH DO, RIKA K 300.02 AN GEN ANXIETY 01/04/2010 SHELLY SOTELO LUSTER REPAIRER, CLARISSE N 300.02 AN GEN ANXIETY 01/04/2010 CHURCH DO, RIKA K 300.02 AN GEN ANXIETY 01/04/2010 CHURCH DO, RIKA K 300.02 AN GEN ANXIETY 01/04/2010 CHURCH DO, RIKA K 300.02 AN GEN ANXIETY 01/04/2010 CHURCH DO, RIKA K 300.02 AN GEN ANXIETY 01/04/2010 CHURCH DO, RIAK K 300.02 AN GEN ANXIETY 01/04/2010 ECHO LUSTER REPAIRER, MATHEUS R 300.02 AN GEN ANXIETY 01/04/2010 CHURCH DO, RIKA K 300.02 AN GEN ANXIETY 01/04/2010 ECHO LUSTER REPAIRER, MATHEUS R 300.02 AN GEN ANXIETY 01/04/2010 CHURCH DO, RIKA K 300.02 AN GEN ANXIETY 01/04/2010 ROSALVA SWEENEY, LINH S 300.02 AN GEN ANXIETY 03/02/2010 CHURCH DO, RIKA K 709.9 Skin Lesions 03/02/2010 CHURCH DO, RIKA K 709.9 Skin Lesions 03/02/2010 WERDER DO, YON F 709.9 Skin Lesions 03/02/2010 CHURCH DO, RIKA K 709.9 Skin Lesions 03/02/2010 GERSON DO, YON F 709.9 Skin Lesions 03/02/2010 709.9 Skin [...] K 709.9 Skin Lesions 03/02/2010 SHELLY SOTELO LUSTER REPAIRER, CLARISSE N 709.9 Skin Lesions 03/02/2010 CHURCH DO, RIKA K 709.9 Skin Lesions 03/02/2010 CHURCH DO, RIKA K 709.9 Skin Lesions 03/02/2010 CHURCH DO, RIKA K 709.9 Skin Lesions 03/02/2010 CHURCH DO, IRKA K 709.9 Skin Lesions 03/02/2010 CHURCH DO, RIKA K 709.9 Skin Lesions 03/02/2010 ECHO LUSTER REPAIRER, MATHEUS R 709.9 Skin Lesions 03/02/2010 CHURCH DO, RIKA K 709.9 Skin Lesions 03/02/2010 ECHO LUSTER REPAIRER, MATHEUS R 709.9 Skin Lesions 03/02/2010 CHURCH DO, RIKA K 709.9 Skin Lesions 03/02/2010 ROSALVA LUSTER REPAIRER, LINH S 709.9 Skin Lesions 05/03/2010 CHURCH [...] For: Issue Repeat Prescription 05/03/2010 CHURCH DO, RIAK K V68.1 Visit For: Issue Repeat Prescription [...] Visit For: Issue Repeat Prescription 05/03/2010 ECHO LUSTER REPAIRER, MATHEUS R V68.1 Visit For: Issue Repeat Prescription 05/03/2010 CHURCH DO, RIKA K V68.1 Visit For: Issue Repeat Prescription 05/03/2010 ECHO LIZARRAGAN, MATHEUS R V68.1 Visit For: Issue Repeat Prescription 05/03/2010 CHURCH DO, RIKA K V68.1 Visit For: Issue Repeat Prescription 05/03/2010 ROSALVA SWEENEY, LINH S V68.1 Visit For: Issue Repeat Prescription 05/19/2010 CHURCH DO, RIKA K 724.2 Lower Back Pain 05/19/2010 CHURCH DO, RIKA K 729.5 Pain In Limb 05/19/2010 CHURCH DO, RIKA K 724.2 Lower Back Pain 05/19/2010 CHURCH DO, RIKA K 729.5 Pain In Limb 05/19/2010 WERDER DO, YON F 724.2 Lower Back Pain 05/19/2010 WERREJI DO, YON F 729.5 Pain In Limb 05/19/2010 CHURCH DO, RIKA K 724.2 Lower Back Pain 05/19/2010 CHURCH DO, RIKA K 729.5 Pain In Limb 05/19/2010 WERREJI DO, YON F 724.2 Lower Back Pain 05/19/2010 WERDER [...] 729.5 Pain In Limb 05/19/2010 CHURCH DO, RKIA K 724.2 Lower Back Pain 05/19/2010 CHURCH [...] K 729.5 Pain In Limb 05/19/2010 ECHO LUSTER REPAIRER, MATHEUS R 724.2 Lower Back Pain 05/19/2010 ECHO LUSTER REPAIRER, MATHEUS R 729.5 Pain In Limb 05/19/2010 CHURCH DO, RIKA K 724.2 Lower Back Pain 05/19/2010 CHURCH DO, RIKA K 729.5 Pain In Limb 05/19/2010 ECHO LUSTER REPAIRER, MATHEUS R 724.2 Lower Back Pain 05/19/2010 ECHO LUSTER REPAIRER, MATHEUS R 729.5 Pain In Limb 05/19/2010 CHURCH DO, RIKA K 724.2 Lower Back Pain 05/19/2010 CHURCH DO, RIKA K 729.5 Pain In Limb 05/19/2010 ROSALVA LUSTER REPAIRER, LINH S 724.2 Lower Back Pain 05/19/2010 ROSALVA LUSTER REPAIRER, LINH S 729.5 Pain In Limb 07/05/2010 [...] K 294.9 OR COG DIS NOS 07/05/2010 SHELLY SOTELO APRNCLARISSE N 294.9 OR COG DIS NOS 07/05/2010 CHURCH DO, RIKA K 294.9 OR COG DIS NOS 07/05/2010 CHURCH DO, RIKA K 294.9 OR COG DIS NOS 07/05/2010 CHURCH DO, RIKA K 294.9 OR COG DIS NOS 07/05/2010 CHURCH DO, RIKA K 294.9 OR COG DIS NOS 07/05/2010 CHURCH DO, RIKA K 294.9 OR COG DIS NOS 07/05/2010 ECHO LUSTER REPAIRER, MATHEUS R 294.9 OR COG DIS NOS 07/05/2010 CHURCH DO, RIKA K 294.9 OR COG DIS NOS 07/05/2010 MATHEUS DODGE APRN R 294.9 OR COG DIS NOS 07/05/2010 CHURCH DO, RIKA K 294.9 OR COG DIS NOS 07/05/2010 LINH BLACKWELL APRN 294.9 OR COG DIS NOS 07/19/2010 CHURCH [...] OBSTRUCTIVE PULMONARY DISEASE 07/19/2010 CLARISSE BAH APRN 496 CHRONIC OBSTRUCTIVE PULMONARY DISEASE 07/19/2010 CHURCH DO, RIKA K 496 CHRONIC OBSTRUCTIVE PULMONARY DISEASE 07/19/2010 CHURCH DO, RIKA K 496 CHRONIC OBSTRUCTIVE PULMONARY DISEASE 07/19/2010 CHURCH DO, RIKA K 496 CHRONIC OBSTRUCTIVE PULMONARY DISEASE 07/19/2010 CHURCH DO, RIKA K 496 CHRONIC OBSTRUCTIVE PULMONARY DISEASE 07/19/2010 CHURCH DO, RIKA K 496 CHRONIC OBSTRUCTIVE PULMONARY DISEASE 07/19/2010 MATHEUS DODGE APRN R 496 CHRONIC OBSTRUCTIVE PULMONARY DISEASE 07/19/2010 CHURCH DO, RIKA K 496 CHRONIC OBSTRUCTIVE PULMONARY DISEASE 07/19/2010 ECHO LIZARRAGANDARLENEMATHEUS R 496 CHRONIC OBSTRUCTIVE PULMONARY DISEASE 07/19/2010 [...] K 401.1 HYPERTENSION, BENIGN ESSENTIAL 09/20/2010 ECHO LUSTER REPAIRER, MATHEUS R 401.1 HYPERTENSION, BENIGN ESSENTIAL 09/20/2010 CHURCH DO, RIKA K 401.1 HYPERTENSION, BENIGN ESSENTIAL 09/20/2010 ECHO LUSTER REPAIRER, MATHEUS R 401.1 HYPERTENSION, BENIGN ESSENTIAL 09/20/2010 CHURCH DO, RIKA K 401.1 HYPERTENSION, BENIGN ESSENTIAL 09/20/2010 LINH BLACKWELL APRN S 401.1 HYPERTENSION, BENIGN ESSENTIAL 10/20/2010 CHURCH DO, RIKA K 780.39 Convulsions [as Sx] 10/20/2010 CHURCH DO, RIKA K 780.39 Convulsions [as Sx] 10/20/2010 WERDER DO, YON F 780.39 Convulsions [as Sx] 10/20/2010 CHURCH DO, RIKA K 780.39 Convulsions [as Sx] 10/20/2010 WERDER DO, YON F 780.39 Convulsions [as Sx] 10/20/2010 780.39 Convulsions [ as Sx] 10/20/2010 780.39 Convulsions [ as Sx] 10/20/2010 780.39 Convulsions [ as Sx] 10/20/2010 780.39 Convulsions [ as Sx] 10/20/2010 780.39 Convulsions [ as Sx] 10/20/2010 780.39 Convulsions [ as Sx] 10/20/2010 CHURCH DO, RIKA K 780.39 [...] Convulsions [as Sx] 10/20/2010 MATHEUS DODGE APRN R 780.39 Convulsions [as Sx] 10/20/2010 CHURCH DO, RIKA K 780.39 Convulsions [as Sx] 10/20/2010 MATHEUS DODGE APRN 780.39 Convulsions [as Sx] 10/20/2010 CHURCH DO, RIKA K 780.39 Convulsions [as Sx] 10/20/2010 BETH BLACKWELL APRNNDA S 780.39 Convulsions [as Sx] 04/18/2011 CHURCH DO, RIKA K 296.32 MO DEPRESSIVE RECURRENT MODERATE 04/18/2011 CHURCH DO, RIKA K 296.32 MO DEPRESSIVE RECURRENT MODERATE 04/18/2011 WERDER DOYON F 296.32 MO DEPRESSIVE RECURRENT MODERATE 04/18/2011 [...] K 296.32 MO DEPRESSIVE RECURRENT MODERATE 04/18/2011 CLARISSE BAH APRN N 296.32 MO DEPRESSIVE RECURRENT MODERATE 04/18/2011 CHURCH DO, RIKA K 296.32 MO DEPRESSIVE RECURRENT MODERATE 04/18/2011 CHURCH DO, RIKA K 296.32 MO DEPRESSIVE RECURRENT MODERATE 04/18/2011 CHURCH DO, RIKA K 296.32 MO DEPRESSIVE RECURRENT MODERATE 04/18/2011 CHURCH DO, RIKA K 296.32 MO DEPRESSIVE RECURRENT MODERATE 04/18/2011 CHURCH DO, RIKA K 296.32 MO DEPRESSIVE RECURRENT MODERATE 04/18/2011 ECHO LUSTER REPAIRER, MAHTEUS R 296.32 MO DEPRESSIVE RECURRENT MODERATE 04/18/2011 CHURCH DO, RIKA K 296.32 MO DEPRESSIVE RECURRENT MODERATE 04/18/2011 ECHO LUSTER REPAIRER, MATHEUS R 296.32 MO DEPRESSIVE RECURRENT MODERATE 04/18/2011 CHURCH DO, RIKA K 296.32 MO DEPRESSIVE RECURRENT MODERATE 04/18/2011 CLEO BLACKWELL APRNA S 296.32 MO DEPRESSIVE RECURRENT MODERATE 04/25/2011 CHURCH DO, RIKA K 296.90 Episodic Mood Disorders 04/25/2011 RIKA CHURCH DO K 414.00 CAD 04/25/2011 RIKA CHURCH DO V45.81 POSTSURGICAL AORTOCORONARY BYPASS STATUS 04/25/2011 RIKA CHURCH DO K 296.90 Episodic Mood Disorders 04/25/2011 RIKA CHURCH DO K 414.00 CAD 04/25/2011 RIKA CHURCH DO K V45.81 POSTSURGICAL AORTOCORONARY BYPASS STATUS 04/25/2011 DAMARISYON MENDOZA DO F 296.90 Episodic Mood Disorders 04/25/2011 YON NIETO DO F 414.00 CAD 04/25/2011 YON NIETO DO F V45.81 POSTSURGICAL AORTOCORONARY BYPASS STATUS 04/25/2011 RIKA CHURCH DO K 296.90 Episodic Mood Disorders 04/25/2011 RIKA CHURCH DO 414.00 CAD 04/25/2011 RIKA CHURCH DO V45.81 POSTSURGICAL AORTOCORONARY BYPASS STATUS 04/25/2011 YON [...] CLARISSE N 296.90 Episodic Mood Disorders 04/25/2011 SHELLY SOTELO APRN CLARISSE N 414.00 CAD 04/25/2011 BRAOV CASHJIGNA LUSTER REPAIRER, CLARISSE N V45.81 POSTSURGICAL AORTOCORONARY BYPASS STATUS [...] V45.81 POSTSURGICAL AORTOCORONARY BYPASS STATUS 04/25/2011 ECHO LUSTER REPAIRER, AMTHEUS R 296.90 Episodic Mood Disorders 04/25/2011 ECHO LUSTER REPAIRER, MATHEUS R 414.00 CAD 04/25/2011 ECHO LUSTER REPAIRER, MATHEUS R V45.81 POSTSURGICAL AORTOCORONARY BYPASS STATUS 04/25/2011 CHURCH DO, RIKA K 296.90 Episodic Mood Disorders 04/25/2011 CHURCH DO, RIKA K 414.00 CAD 04/25/2011 CHURCH DO, RIKA K V45.81 POSTSURGICAL AORTOCORONARY BYPASS STATUS 04/25/2011 ECHO LUSTER REPAIRER, MATHEUS R 296.90 Episodic Mood Disorders 04/25/2011 ECHO LUSTER REPAIRER, MATHEUS R 414.00 CAD 04/25/2011 ECHO LUSTER REPAIRER, MATHEUS R V45.81 POSTSURGICAL AORTOCORONARY BYPASS STATUS 04/25/2011 CHURCH DO, RIKA K 296.90 Episodic Mood Disorders 04/25/2011 CHURCH DO, RIKA K 414.00 CAD 04/25/2011 CHURCH DO, RIKA K V45.81 POSTSURGICAL AORTOCORONARY BYPASS STATUS 04/25/2011 ROSALVA LUSTER REPAIRER, LINH S 296.90 Episodic Mood Disorders 04/25/2011 ROSALVA LIZARRAGAN, LINH S 414.00 CAD 04/25/2011 ROSALVA LUSTER REPAIRER, LINH S V45.81 POSTSURGICAL AORTOCORONARY BYPASS STATUS 10/29/2011 CHURCH DO RIKA K 296.30 MO DEPRESSIVE RECURRENT UNSPECIFIED 10/29/2011 CHURCH DO RIKA K 296.30 MO DEPRESSIVE RECURRENT UNSPECIFIED 10/29/2011 YON NIETO DO 296.30 MO DEPRESSIVE RECURRENT UNSPECIFIED 10/29/2011 CHURCH DO RIKA K 296.30 MO [...] 296.30 MO DEPRESSIVE RECURRENT UNSPECIFIED 10/29/2011 ECHO LUSTER REPAIRER, MATHEUS R 296.30 MO DEPRESSIVE RECURRENT UNSPECIFIED 10/29/2011 CHURCH DO, RIKA K 296.30 MO DEPRESSIVE RECURRENT UNSPECIFIED 10/29/2011 LINH BLACKWELL APRN S 296.30 MO DEPRESSIVE RECURRENT UNSPECIFIED 11/08/2011 [...] RIKA K 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 11/08/2011 ECHO SWEENEY MATHEUS R 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 11/08/2011 CHURCH DO, RIKA K 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 11/08/2011 ECHO LIZARRAGAN, MATHEUS R 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] RIKA K 345.90 SEIZURE DISORDER 12/21/2011 ECHO SWEENEY, MATHEUS R 345.90 SEIZURE DISORDER 12/21/2011 CHURCH DO, RIKA K 345.90 SEIZURE DISORDER 12/21/2011 ECHO LIZARRAGAN, MATHEUS R 345.90 SEIZURE DISORDER 12/21/2011 CHURCH [...] SI DYSSOMNIA NOS 01/16/2012 CLARISSE BAH APRN 307.47 SI DYSSOMNIA NOS 01/16/2012 CHURCH DO, RIKA K 307.47 SI DYSSOMNIA NOS 01/16/2012 CHURCH DO, RIKA K 307.47 SI DYSSOMNIA NOS 01/16/2012 CHURCH DO, RIKA K 307.47 SI DYSSOMNIA NOS 01/16/2012 CHURCH DO, RIKA K 307.47 SI DYSSOMNIA NOS 01/16/2012 CHURCH DO, RIKA K 307.47 SI DYSSOMNIA NOS 01/16/2012 ECHO SWEENEY, MATHEUS R 307.47 SI DYSSOMNIA NOS 01/16/2012 CHURCH DO, RIKA K 307.47 SI DYSSOMNIA NOS 01/16/2012 ECHO SWEENEY, MATHEUS R 307.47 SI DYSSOMNIA NOS 01/16/2012 [...] DO, RIKA K 787.20 Dysphagia, Unspecified 02/04/2012 WERYON MENDOZA DO F 530.81 GERD 02/04/2012 WERREJI DOYON F 787.1 Heartburn 02/04/2012 WERDER DO, [...] DO, RIKA K 787.20 Dysphagia, Unspecified 02/04/2012 [place] C[facility] LUSTER REPAIRER, CLARISSE N 530.81 [facility]ERD 02/04/[facility] CLARISSE N 787.1 Heartburn 02/04/2012 [place] CASHERO LUSTER REPAIRER, CLARISSE N 787.20 Dysphagia, Unspecified 02/04/2012 CHURCH [...] CHURCH DO, RIKA K 530.81 GERD 02/04/2012 CUHRCH DO, RIKA K 787.1 Heartburn 02/04/2012 CHURCH DO, RIKA K 787.20 Dysphagia, Unspecified 02/04/2012 CHURCH DO, RIKA K 530.81 GERD 02/04/2012 CHURCH DO, RIKA K 787.1 Heartburn 02/04/2012 CHURCH DO, RIKA K 787.20 Dysphagia, Unspecified 02/04/2012 ECHO LUSTER REPAIRER, MATHEUS R 530.81 GERD 02/04/2012 ECHO LUSTER REPAIRER, MATHEUS R 787.1 Heartburn 02/04/2012 ECHO LUSTER REPAIRER, MATHEUS R 787.20 Dysphagia, Unspecified 02/04/2012 CHURCH DO, RIKA K 530.81 GERD 02/04/2012 CHURCH DO, RIKA K 787.1 Heartburn 02/04/2012 CHURCH DO, RIKA K 787.20 Dysphagia, Unspecified 02/04/2012 ECHO LUSTER REPAIRER, MATHEUS R 530.81 GERD 02/04/2012 ECHO LUSTER REPAIRER, MATHEUS R 787.1 Heartburn 02/04/2012 ECHO LUSTER REPAIRER, MATHEUS R 787.20 Dysphagia, Unspecified 02/04/2012 CHURCH DO, RIKA K 530.81 GERD 02/04/2012 CHURCH DO, RIKA K 787.1 Heartburn 02/04/2012 CHURCH DO, RIKA K 787.20 Dysphagia, Unspecified 02/04/2012 ROSALVA LUSTER REPAIRER, LINH S 530.81 GERD 02/04/2012 ROSALVA LUSTER REPAIRER, LINH S 787.1 Heartburn 02/04/2012 ROSALVA LUSTER REPAIRER, LINH S 787.20 Dysphagia, Unspecified 04/21/2012 CHURCH DO, RIKA K 305.20 [...] NIETO DO F 461.9 Sinusitis Acute 04/21/2012 GOMEZ NIETO DOEN F 719.40 PAIN IN JOINT SITE UNSPECIFIED [...] Acute 04/21/2012 YON NIETO DO F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
[2018-04-25] MEDS ORDERED: CLINDAMYCIN 900 MG/6ML (CLEOCIN) VIAL IV SCH (17:00)
[2018-04-25] MEDS: NS IV 1000 ML 1,000 ML IV SCH (17:29)
[2018-04-25] MEDS: CLINDAMYCIN 900 MG/50 ML IVPB 50 ML IV SCH (17:29)
[2018-04-25 17:30] VITALS: BP 123/70
[2018-04-25] MEDS: fentaNYL INJECTION 100 MCG/2 ML AMP INJ PRN ×3 (17:30→22:16)
[2018-04-25] MEDS ORDERED: IPRA4AER IH (18:23)
[2018-04-25] MEDS ORDERED: IBUPROFEN 800 MG (MOTRIN) TAB PO PRN (18:45)
[2018-04-25] MEDS: HYDROcodone/APAP 5 MG/325 MG (LORTAB) TAB PO PRN ×2 (18:53→23:53)
[2018-04-25 20:00] VITALS: BP 154/87
[2018-04-26] VITALS (7 sets, daily range): BP systolic 118–146; BP diastolic 70–82
[2018-04-26] MEDS: CLINDAMYCIN 900 MG/50 ML IVPB 50 ML IV SCH ×3 (01:26→17:03)
[2018-04-26] MEDS: fentaNYL INJECTION 100 MCG/2 ML AMP INJ PRN ×9 (03:26→22:42)
[2018-04-26] MEDS: NS IV 1000 ML 1,000 ML IV SCH ×2 (04:42→12:40)
[2018-04-26] MEDS: HYDROcodone/APAP 5 MG/325 MG (LORTAB) TAB PO PRN ×5 (04:43→20:05)
[2018-04-26] MEDS ORDERED: RT-ALBUTEROL SULF 2.5 MG/3 ML PRE-MIX VIAL IH PRN (05:45)
[2018-04-26 06:58] LABS: BASOPHILS % (AUTO) 0 % (0-10); EOSINOPHILS # (AUTO) 0.2 10^3/uL (0.0-0.3); EOSINOPHILS % (AUTO) 2 % (0-10); HEMATOCRIT 38 % (40-54); HEMOGLOBIN 12.7 G/DL (13.3-17.7); LYMPHOCYTES # (AUTO) 1.5 X 10^3 (1.0-4.0); LYMPHOCYTES % (AUTO) 15 % (12-44); MEAN CORPUSCULAR HEMOGLOBIN 32 PG (25-34); MEAN CORPUSCULAR HGB CONC 34 G/DL (32-36); MEAN CORPUSCULAR VOLUME 94 FL (80-99); MEAN PLATELET VOLUME 9.1 FL (7.4-10.4); MONOCYTES # (AUTO) 0.9 X 10^3 (0.0-1.0); MONOCYTES % (AUTO) 10 % (0-12); NEUTROPHILS # (AUTO) 7.2 X 10^3 (1.8-7.8); NEUTROPHILS % (AUTO) 73 % (42-75); PLATELET COUNT 158 10^3/uL (130-400); RED BLOOD COUNT 4.02 10^6/uL (4.35-5.85); RED CELL DISTRIBUTION WIDTH 14.6 % (10.0-14.5); WHITE BLOOD COUNT 9.9 10^3/uL (4.3-11.0)
[2018-04-26 07:34] LABS: ALANINE AMINOTRANSFERASE 25 U/L (0-55); ALBUMIN 3.5 GM/DL (3.2-4.5); ALKALINE PHOSPHATASE 57 U/L (40-136); BILIRUBIN,TOTAL 0.9 MG/DL (0.1-1.0); BUN/CREATININE RATIO 25; CALCIUM 8.5 MG/DL (8.5-10.1); CARBON DIOXIDE 20 MMOL/L (21-32); CHLORIDE 106 MMOL/L (98-107); CREATININE SERUM 0.71 MG/DL (0.60-1.30); GFR ESTIMATED > 60; GLUCOSE 100 MG/DL (70-105); POTASSIUM 3.6 MMOL/L (3.6-5.0); SODIUM 135 MMOL/L (135-145); TOTAL PROTEIN 6.2 GM/DL (6.4-8.2)
[2018-04-26] MEDS: RT-ALBUTEROL/IPRATROPIUM 3 ML (DUONEB) VIAL IH SCH ×3 (07:39→19:09)
[2018-04-26] MEDS: UMECLIDINIUM BROMIDE (INCRUSE ELLIPTA) 7'S IH SCH (07:50)
[2018-04-26] MEDS: GABAPENTIN 600 MG (NEURONTIN) TAB PO SCH ×3 (08:04→20:01)
[2018-04-26] MEDS: meTOprolol TARTRATE 25 MG (LOPRESSOR) TABLET PO SCH ×2 (08:04→20:01)
[2018-04-26] MEDS: ASPIRIN E.C. 81 MG (ECOTRIN) TAB PO SCH (08:04)
[2018-04-26] MEDS: ENOXAPARIN 40 MG/0.4 ML (LOVENOX) SYR SC SCH (08:12)
[2018-04-26] MEDS ORDERED: VILAZODONE 40 MG (VIIBRYD) TABLET (NON-FORMULARY) PO SCH (09:00)
[2018-04-26] MEDS: CELECOXIB 100 MG (CeleBREX) CAP PO SCH ×2 (14:39→20:01)
--- NOTE | 2018-04-26 15:42 | History & Physicial (CHS) ---
HPI History of Present Illness: This is a 53 yo male who presented to the ER from the clinic for worsening cellulitis of the L leg. Pt reports he had an abrasion to the L knee after a fall on the knee at work about 3 weeks ago. He had no other issues as a result of that until the past few days. He was able to run until a couple of days ago when it felt like his L knee was going to give out on him. He then developed swelling to the L knee cap and was seen at [facility] and given a shot of Rocephin and started on Keflex. He then developed fever and worsening swelling and erythema and was sent to the ER after f/u visit at [facility]. Source: patient Exam Limitations: no limitations Date seen by provider: Apr 26, 2018 Time Seen by Provider: 08:20 Attending Physician Laxmi Mejias MD [facility] Consult Date of Admission Apr 25, 2018 at 16:23 Home Medications Home Medications Reviewed patient Home Medication Reconciliation performed by pharmacy medication reconciliations mammography technician and/or nursing. Patients Allergies have been reviewed. Allergies Coded Allergies: No Known Drug Allergies (Unverified , 07/06/15) IDF-Gaexgx-Gghdww Hx Patient Social History Alcohol Use: Occasionally Uses Recreational Drug Use: Yes Drug of Choice: marihuana Smoking Status: Light Tobacco Smoker Type Used: Cigarettes Recent Foreign Travel: No Contact w/other who traveled: No Recent Hopitalizations: No Recent Infectious Disease Expo: No Physical Abuse Screen: No Sexual Abuse: No Immunizations Up To Date Tetanus Booster (TDap): Unknown Past Medical History COPD CAD s/p CABG s/p tonsillectomy at age 3 s/p back surgery x 3 Family Medical History Significant Family History: No Pertinent Family Hx Family History: FH: lung cancer 19 FATHER Hypertension 19 MOTHER Review of Systems ([facility]) Constitutional: see HPI Reviewed Test Results Reviewed Test Results Lab Laboratory Tests 04/25/18 13:25: White Blood Count 14.9H, Red Blood Count 4.24L, Hemoglobin 13.8, Hematocrit 40, Mean Corpuscular Volume 94, Mean Corpuscular Hemoglobin 33, Mean Corpuscular Hemoglobin Concent 35, Red Cell Distribution Width 14.5, Platelet Count 179, Mean Platelet Volume 8.8, Neutrophils (%) (Auto) 82H, Lymphocytes (%) (Auto) 9L , Monocytes (%) (Auto) 8, Eosinophils (%) (Auto) 1, Basophils (%) (Auto) 0, Neutrophils # (Auto) 12.1H, Lymphocytes # (Auto) 1.3, Monocytes # (Auto) 1.3H, Eosinophils # (Auto) 0.1, Basophils # (Auto) 0.0, Neutrophils % (Manual) 86, Lymphocytes % (Manual) 8, Monocytes % (Manual) 6, Eosinophils % (Manual) 0, Basophils % (Manual) 0, Band Neutrophils 0, Blood Morphology Comment NORMAL, Prothrombin Time 14.1, INR Comment 1.1, Activated Partial Thromboplast Time 36H , Sodium Level 135, Potassium Level 3.7, Chloride Level 102, Carbon Dioxide Level 20L, Anion Gap 13, Blood Urea Nitrogen 21H, Creatinine 0.85, Estimat Glomerular Filtration Rate > 60, BUN/Creatinine Ratio 25, Glucose Level 113H, Lactic Acid Level 0.81, Calcium Level 9.5, Corrected Calcium 9.3, Total Bilirubin 1.2H, Aspartate Amino Transf (AST/SGOT) 24, Alanine Aminotransferase ( ALT/SGPT) 30, Alkaline Phosphatase 66, Total Protein 7.4, Albumin 4.2 04/26/18 06:47: White Blood Count 9.9, Red Blood Count 4.02L, Hemoglobin 12.7L, Hematocrit 38L, Mean Corpuscular Volume 94, Mean Corpuscular Hemoglobin 32, Mean Corpuscular Hemoglobin Concent 34, Red Cell Distribution Width 14.6H, Platelet Count 158, Mean Platelet Volume 9.1, Neutrophils (%) (Auto) 73, Lymphocytes (%) (Auto) 15, Monocytes (%) (Auto) 10, Eosinophils (%) (Auto) 2, Basophils (%) (Auto) 0, Neutrophils # (Auto) 7.2, Lymphocytes # (Auto) 1.5, Monocytes # (Auto) 0.9, Eosinophils # (Auto) 0.2, Basophils # (Auto) 0.0, Sodium Level 135, Potassium Level 3.6, Chloride Level 106, Carbon Dioxide Level 20L, Anion Gap 9, Blood Urea Nitrogen 18, Creatinine 0.71, Estimat Glomerular Filtration Rate > 60, BUN/ Creatinine Ratio 25, Glucose Level 100, Calcium Level 8.5, Corrected Calcium 8.9 , Total Bilirubin 0.9, Aspartate Amino Transf (AST/SGOT) 21, Alanine Aminotransferase (ALT/SGPT) 25, Alkaline Phosphatase 57, Total Protein 6.2L, Albumin 3.5 Radiology Date of Exam: 04/25/18 KNEE, LEFT, 3 VIEWS INDICATION: Left knee pain and swelling. EXAMINATION: AP, oblique and lateral views of the left knee were obtained. FINDINGS: No fracture or acute bony abnormality is seen. There is prominent soft tissue swelling in the anterior soft tissues. IMPRESSION: No acute bony abnormality or overt joint effusion. Prominent soft tissue swelling is seen, anteriorly. Date of Exam: 04/25/18 US VENOUS LOWER EXT LT INDICATION: Left leg pain. Left leg venous Doppler study was performed in the routine fashion with color flow Doppler and waveform analysis. FINDINGS: The left common femoral vein, superficial femoral vein, popliteal vein and visualized portion of the posterior tibial vein show normal compressibility and venous flow patterns. There is normal augmentation. IMPRESSION: No evidence of deep vein thrombosis of the major veins of the left leg. Physical Exam-([facility]) Physical Exam Vital Signs VS - Last 72 Hours, by Label 04/25/18 04/25/18 04/25/18 04/25/18 14:10 17:30 17:30 20:00 Temp 100.5 98.5 97.6 Pulse 111 87 70 Resp 18 18 16 B/P (MAP) 135/83 (100) 123/70 (87) 154/87 (109) Pulse Ox 94 97 O2 Delivery Room Air Room Air Room Air 04/26/18 04/26/18 04/26/18 04/26/18 00:00 03:25 07:43 08:00 Temp 97.2 97.2 98.3 Pulse 66 62 84 Resp 20 20 20 B/P (MAP) 118/71 (87) 123/73 (90) 124/75 (91) Pulse Ox 93 97 96 95 O2 Delivery Room Air Room Air Room Air Room Air 04/26/18 04/26/18 04/26/18 09:50 11:49 15:23 Temp 98.3 Pulse 76 68 Resp 18 B/P (MAP) 124/76 (92) Pulse Ox 96 98 96 O2 Delivery Room Air Room Air FiO2 1 Capillary Refill : Less Than 3 SecondsLess Than 3 Seconds General Appearance: WD/WN, no apparent distress Respiratory: lungs clear, normal breath sounds, no respiratory distress Cardiovascular: regular rate, rhythm Extremities: inflammation, swelling, other (R soft tissue swelling thigh to mid calf w/ erythema; prepatellar swelling) Assessment/Plan Assessment/Plan Admission Dx 1. R lower extremity cellulitis/bursitis Admission Status: Observation Assessment & Plan 1. R lower extremity cellulitis/bursitis - started on IV Clindamycin - wbc on admission 14.9 --> 9.9 - continue antibiotics and monitor Clinical Quality Measures DVT/VTE Risk/Contraindication: Risk Factor Score Per Nursin RFS Level Per Nursing on Admit: 2=Moderate RIKA CHURCH DO Apr 26, 2018 15:42
[2018-04-26] MEDS: LORazepam 0.5 MG (ATIVAN) TABLET PO PRN ×2 (17:03→22:42)
[2018-04-26] MEDS: ROSUVASTATIN 20 MG (CRESTOR) TABLET PO SCH (20:01)
[2018-04-26] MEDS ORDERED: NON-FORMULARY MEDICATION 1 EA EA (Celecoxib 200 MG) PO SCH (21:00)
[2018-04-27] MEDS: CLINDAMYCIN 900 MG/50 ML IVPB 50 ML IV SCH ×3 (01:14→17:00)
[2018-04-27] MEDS: NS IV 1000 ML 1,000 ML IV SCH ×2 (01:14→10:54)
[2018-04-27 04:00] VITALS: BP 119/70
[2018-04-27] MEDS: fentaNYL INJECTION 100 MCG/2 ML AMP INJ PRN ×9 (04:06→22:19)
[2018-04-27] MEDS: ENOXAPARIN 40 MG/0.4 ML (LOVENOX) SYR SC SCH (06:26)
[2018-04-27] MEDS: HYDROcodone/APAP 5 MG/325 MG (LORTAB) TAB PO PRN ×4 (06:28→20:01)
[2018-04-27 06:36] LABS: BASOPHILS % (AUTO) 0 % (0-10); EOSINOPHILS # (AUTO) 0.2 10^3/uL (0.0-0.3); EOSINOPHILS % (AUTO) 2 % (0-10); HEMATOCRIT 36 % (40-54); HEMOGLOBIN 12.1 G/DL (13.3-17.7); LYMPHOCYTES # (AUTO) 1.2 X 10^3 (1.0-4.0); LYMPHOCYTES % (AUTO) 16 % (12-44); MEAN CORPUSCULAR HEMOGLOBIN 32 PG (25-34); MEAN CORPUSCULAR HGB CONC 34 G/DL (32-36); MEAN CORPUSCULAR VOLUME 95 FL (80-99); MEAN PLATELET VOLUME 9.3 FL (7.4-10.4); MONOCYTES # (AUTO) 0.8 X 10^3 (0.0-1.0); MONOCYTES % (AUTO) 10 % (0-12); NEUTROPHILS # (AUTO) 5.5 X 10^3 (1.8-7.8); NEUTROPHILS % (AUTO) 72 % (42-75); PLATELET COUNT 169 10^3/uL (130-400); RED BLOOD COUNT 3.73 10^6/uL (4.35-5.85); RED CELL DISTRIBUTION WIDTH 14.4 % (10.0-14.5); WHITE BLOOD COUNT 7.6 10^3/uL (4.3-11.0)
[2018-04-27] MEDS: RT-ALBUTEROL/IPRATROPIUM 3 ML (DUONEB) VIAL IH SCH ×3 (07:53→19:14)
[2018-04-27] MEDS: UMECLIDINIUM BROMIDE (INCRUSE ELLIPTA) 7'S IH SCH (07:57)
[2018-04-27 08:00] VITALS: BP 120/72
[2018-04-27] MEDS: CELECOXIB 100 MG (CeleBREX) CAP PO SCH ×2 (08:22→19:59)
[2018-04-27] MEDS: meTOprolol TARTRATE 25 MG (LOPRESSOR) TABLET PO SCH ×2 (08:22→19:59)
[2018-04-27] MEDS: ASPIRIN E.C. 81 MG (ECOTRIN) TAB PO SCH (08:22)
[2018-04-27] MEDS: GABAPENTIN 600 MG (NEURONTIN) TAB PO SCH ×3 (08:22→20:00)
[2018-04-27] MEDS: ACETAMINOPHEN 500 MG TAB (TYLENOL) PO PRN (08:37)
[2018-04-27] MEDS: LORazepam 0.5 MG (ATIVAN) TABLET PO PRN ×2 (08:42→22:17)
--- NOTE | 2018-04-27 14:30 | Progress Note (SOAP) ---
Subjective Subjective/Events-last exam Erythema significantly improved. Continues to have some swelling in the knee/ leg. Has been afebrile. C/o of chronic back pain, only take Celebrex at home for back pain. Review of Systems Date Seen by Provider: Apr 27, 2018 Time Seen by Provider: 10:50 Focused Exam Lactate Level 04/25/18 13:25: Lactic Acid Level 0.81 Objective Exam Last Set of Vital Signs Vital Signs Date Time Temp Pulse Resp B/P (MAP) Pulse Ox O2 Delivery O2 Flow Rate FiO2 04/27/18 08:00 98.7 78 18 120/72 (88) 91 Room Air 04/26/18 09:50 1 Capillary Refill : Less Than 3 SecondsLess Than 3 Seconds I&O Intake and Output 04/27/18 00:00 Intake Total 4115 ml Output Total 1700 ml Balance 2415 ml Intake Oral 1965 ml IV Total 2150 ml Output Urine Total 1700 ml # Bowel Movements 1 General: Alert, Oriented X3, Cooperative, No Acute Distress Extremities: Other (erythema nearly resolved; persistent swelling to the knee/ leg) Results/Procedures Lab Laboratory Tests 04/27/18 06:09: White Blood Count 7.6, Red Blood Count 3.73L, Hemoglobin 12.1L, Hematocrit 36L, Mean Corpuscular Volume 95, Mean Corpuscular Hemoglobin 32, Mean Corpuscular Hemoglobin Concent 34, Red Cell Distribution Width 14.4, Platelet Count 169, Mean Platelet Volume 9.3, Neutrophils (%) (Auto) 72, Lymphocytes (%) (Auto) 16, Monocytes (%) (Auto) 10, Eosinophils (%) (Auto) 2, Basophils (%) (Auto) 0, Neutrophils # (Auto) 5.5, Lymphocytes # (Auto) 1.2, Monocytes # (Auto) 0.8, Eosinophils # (Auto) 0.2, Basophils # (Auto) 0.0 Microbiology 04/25/18 Blood Culture - Preliminary, Resulted No growth Radiology Date of Exam: 04/25/18 KNEE, LEFT, 3 VIEWS INDICATION: Left knee pain and swelling. EXAMINATION: AP, oblique and lateral views of the left knee were obtained. FINDINGS: No fracture or acute bony abnormality is seen. There is prominent soft tissue swelling in the anterior soft tissues. IMPRESSION: No acute bony abnormality or overt joint effusion. Prominent soft tissue swelling is seen, anteriorly. Date of Exam: 04/25/18 US VENOUS LOWER EXT LT INDICATION: Left leg pain. Left leg venous Doppler study was performed in the routine fashion with color flow Doppler and waveform analysis. FINDINGS: The left common femoral vein, superficial femoral vein, popliteal vein and visualized portion of the posterior tibial vein show normal compressibility and venous flow patterns. There is normal augmentation. IMPRESSION: No evidence of deep vein thrombosis of the major veins of the left leg. Assessment/Plan Assessment/Plan Assessment & Plan 1. R lower extremity cellulitis/bursitis - started on IV Clindamycin - wbc on admission 14.9 --> 9.9 - continue antibiotics and monitor 04/27 - wbc normal at 7.6, clinically improving; recommend ambulation today to help mobilze the fluid and improve ROM of the leg. 2. Chronic back pain - on home Celebrex, getting hydrocodone for pain. I do not recommend anything stronger at this point and will not need to be discharged on hydrocodone. - recommend increased ambulation to help with chronic back pain. Anticipate DC home tomorrow on po antibiotics. Dr. Stoll to assume care in the am. Clinical Quality Measures DVT/VTE Risk/Contraindication: Risk Factor Score Per Nursin RFS Level Per Nursing on Admit: 2=Moderate RIKA CHURCH DO Apr 27, 2018 14:30
[2018-04-27 15:40] VITALS: BP 122/66
[2018-04-27] MEDS: ROSUVASTATIN 20 MG (CRESTOR) TABLET PO SCH (19:59)
[2018-04-28] VITALS: BP 121/77
[2018-04-28] MEDS: HYDROcodone/APAP 5 MG/325 MG (LORTAB) TAB PO PRN ×2 (01:47→08:58)
[2018-04-28] MEDS: CLINDAMYCIN 900 MG/50 ML IVPB 50 ML IV SCH ×2 (01:47→08:00)
[2018-04-28] MEDS: fentaNYL INJECTION 100 MCG/2 ML AMP INJ PRN ×6 (05:57→20:24)
[2018-04-28] MEDS: LORazepam 0.5 MG (ATIVAN) TABLET PO PRN ×2 (06:35→17:17)
[2018-04-28] MEDS: ENOXAPARIN 40 MG/0.4 ML (LOVENOX) SYR SC SCH (06:45)
[2018-04-28 08:00] VITALS: BP 133/78
[2018-04-28] MEDS: GABAPENTIN 600 MG (NEURONTIN) TAB PO SCH ×3 (08:00→19:43)
[2018-04-28] MEDS: CELECOXIB 100 MG (CeleBREX) CAP PO SCH ×2 (08:00→19:43)
[2018-04-28] MEDS: ASPIRIN E.C. 81 MG (ECOTRIN) TAB PO SCH (08:00)
[2018-04-28] MEDS: meTOprolol TARTRATE 25 MG (LOPRESSOR) TABLET PO SCH ×2 (08:00→19:43)
--- NOTE | 2018-04-28 09:17 | Discharge Summary-Hospitalist ---
LI SÁNCHEZ MEDICAL STUDENT 04/28/18 0917: Diagnosis/Chief Complaint Date of Admission Apr 25, 2018 at 16:23 Date of Discharge Discharge Date: Apr 28, 2018 Admission Diagnosis Left leg cellulitis Discharge Summary Discharge Physical Exam Allergies: Coded Allergies: No Known Drug Allergies (Unverified , 07/06/15) Vitals & I&Os General Appearance: No Apparent Distress, WD/WN Respiratory: Chest Non Tender, Normal Breath Sounds, No Accessory Muscle Use, No Respiratory Distress Cardiovascular: Regular Rate, Rhythm Gastrointestinal: Normal Bowel Sounds Extremity: Other (Left leg diffusely warm with erythema most prominent over left patella.) Neurologic/Psychiatric: Alert, Oriented x3 Hospital Course Mr. Woodson is a 53 year old male with a history of COPD and CAD admitted for cellulitis after scraping leg 3 weeks ago and worsening symptoms after receiving Rocephin and Keflex on an outpatient basis. He initially had a fever of 100.5 and a leukocytosis of 14.9. Knee X-ray showed prominent soft tissue swelling but no other abnormality. Venous dopplers revealed no thrombus. Blood cultures had no growth during admission. He was started on IV clindamycin at admission with corresponding improvement in clinical status and normalization of white count. He was subsequently discharged on oral clindamycin to be completed on 05/05 for a 10 day course. Labs (last 24 hrs) Microbiology 04/25/18 Blood Culture - Final, Complete No growth 04/28/18 Acid Fast Bacilli Culture (Ref Lab - Preliminary, Resulted Patient resulted labs reviewed. Discussion & Recommendations Discharge Planning: >30 minutes discharge planning Discharge Home Medications: Active Scripts Active Bactrim Ds Tablet (Sulfamethoxazole/Trimethoprim) 1 Each Tablet 1 Each PO BID Eliquis (Apixaban) 2.5 Mg Tablet 2.5 Mg PO BID [Oxycodone Hcl] 5 MG Tab 5 Mg PO Q4H PRN Reported Combivent Respimat Inhal [place] (Albuterol/Ipratropium) 4 Gm Aero 2 Puff IH TID Spiriva (Tiotropium [place]) 1 Inh Aerp 1 Inh IH DAILY Ventolin Hfa (Albuterol Sulfate) 1 Puff Puff 2 Puff IH Q4H PRN 1 PUFF = 90 MCG Aspirin EC (Aspirin) 81 Mg Tablet. 81 Mg PO DAILY Viibryd (Vilazodone Hydrochloride) 40 Mg Tablet 40 Mg PO DAILY Metoprolol Tartrate 25 Mg Tablet 12.5 Mg PO BID TAKES 1/2 OF A (25 MG) TABLET / LAST FILLED 01/17/17 #30 Rosuvastatin Calcium 40 Mg Tablet 40 Mg PO HS LAST FILLED 01/17/17 #30 Gabapentin 600 Mg Tablet 1,200 Mg PO TID TAKES 2 (600 MG) TABLETS Celecoxib 200 Mg Capsule 200 Mg PO BID Instructions to patient/family Please see electronic discharge instructions given to patient. Clinical Quality Measures DVT/VTE Risk/Contraindication: Risk Factor Score Per Nursin RFS Level Per Nursing on Admit: 2=Moderate BRETT TAYLOR DO 05/14/18 1315: Discharge Summary Discharge Physical Exam Allergies: Coded Allergies: No Known Drug Allergies (Unverified , 07/06/15) General Appearance: No Apparent Distress Hospital Course I personally have seen and evaluated the patient and performed the physical exam. I agree with the documented assessment and plan. Discussion & Recommendations Discharge Planning: <30 minutes discharge planning LI SÁNCHEZ MEDICAL STUDENT Apr 28, 2018 09:17 BRETT TAYLOR DO May 14, 2018 13:15
[2018-04-28] MEDS: RT-ALBUTEROL/IPRATROPIUM 3 ML (DUONEB) VIAL IH SCH (10:30)
[2018-04-28] MEDS ORDERED: POLYETHYLENE GLYCOL 17 GM (MIRALAX) PACK PO PRN (11:30)
[2018-04-28] MEDS ORDERED: PIPERACILLIN SODIUM/TAZOBACTAM 4.5 GM in NS (IVPB) 100 ML IV SCH (11:35)
--- NOTE | 2018-04-28 11:39 | Progress Note-Hospitalist ---
LI SÁNCHEZ MEDICAL STUDENT 04/28/18 1139: Subjective HPI/CC On Admission Date Seen by Provider: Apr 28, 2018 Time Seen by Provider: 08:15 Leg redness Subjective/Events-last exam Pt had no acute events overnight. He believes the redness is improving distally but worsening proximally. He states he is still in severe pain 03/21 and he cannot take tylenol. He is having regular BMs and having no difficulty ambulating. Focused Exam Lactate Level 04/25/18 13:25: Lactic Acid Level 0.81 Respiratory: Chest Non Tender, Lungs Clear, Normal Breath Sounds Cardiovascular: Regular Rate, Rhythm, No Murmur Skin: other (Erythema with fluctuation over left patella. Erythema extendas poximally to mid thigh and distally to ankle with corresponding warmth.) Objective Exam Vital Signs Vital Signs Date Time Temp Pulse Resp B/P (MAP) Pulse Ox O2 Delivery O2 Flow Rate FiO2 04/28/18 08:00 98.5 72 20 133/78 (96) 97 Room Air 04/26/18 09:50 1 Capillary Refill : Less Than 3 SecondsLess Than 3 Seconds General Appearance: No Apparent Distress, WD/WN Results/Procedures Lab Patient resulted labs reviewed. Assessment/Plan Assessment and Plan Assess & Plan/Chief Complaint 53 year old male with history of COPD and CAD admitted for left leg cellulitis after failing outpatient management with Keflex and rocephin. Cellulitis -DC clindamycin. Will add vanc/zosyn -MRI left leg ordered -Ortho consulted PPx -Lovenox Dispo -Will remain admitted until improvement in exam of leg Clinical Quality Measures DVT/VTE Risk/Contraindication: Risk Factor Score Per Nursin RFS Level Per Nursing on Admit: 2=Moderate BRETT TAYLOR DO 04/28/18 1221: Subjective Subjective/Events-last exam Noted fluctuance of the left knee so will obtain MRI and consulted Dr Lou ortho and changed abx Assessment/Plan Assessment and Plan Assess & Plan/Chief Complaint Obtain MRI, Consult giuseppe Rodriguez abx Supervisory Addendum Participated in pt care: history, physical Personally performed: exam E&M service: agree Results interpretation: agree Notes: See plan Diagnosis/Problems Diagnosis/Problems (1) Knee effusion, left Status: Acute (2) cellulitus left lower ext Status: Acute (3) COPD (chronic obstructive pulmonary disease) Status: Chronic Qualifiers: COPD type: unspecified COPD Qualified Codes: J44.9 - Chronic obstructive pulmonary disease, unspecified (4) Hyperlipemia Status: Chronic Qualifiers: Hyperlipidemia type: mixed hyperlipidemia Qualified Codes: E78.2 - Mixed hyperlipidemia LI SÁNCHEZ MEDICAL STUDENT Apr 28, 2018 11:39 BRETT TAYLOR DO Apr 28, 2018 12:21
[2018-04-28] MEDS ORDERED: VANCOMYCIN INJECTION 2,000 MG in NS IV 500 ML 500 ML IV NR (12:00)
[2018-04-28] MEDS: UMECLIDINIUM BROMIDE (INCRUSE ELLIPTA) 7'S IH SCH (12:35)
[2018-04-28 15:35] VITALS: BP 158/77
--- NOTE | 2018-04-28 16:14 | Consultation ---
History of Present Illness History of Present Illness Patient Consulted On(anahy/time) 04/28/18 16:11 Date Seen by Provider: Apr 28, 2018 Time Seen by Provider: 16:11 Reason for Visit: L knee prepatellar bursitis History of Present Illness Fell three weeks ago onto the left knee and has had progressive pain and swelling. denies drainage or fevers/chills. WBC of 14. has full painless ROM. Pain with palpation anterior knee. Allergies and Home Medications Allergies Coded Allergies: No Known Drug Allergies (Unverified , 07/06/15) Home Medications Albuterol Sulfate 1 Puff Puff, 2 PUFF IH Q4H PRN for AIR HUNGER, (Reported) 1 PUFF = 90 MCG Albuterol/Ipratropium 4 Gm Aero, 2 PUFF IH TID, (Reported) Aspirin 81 Mg Tablet.dr, 81 MG PO DAILY, (Reported) Celecoxib 200 Mg Capsule, 200 MG PO BID, (Reported) Cephalexin 500 Mg Capsule, 500 MG PO TID, (Reported) Gabapentin 600 Mg Tablet, 1,200 MG PO TID, (Reported) TAKES 2 (600 MG) TABLETS Metoprolol Tartrate 25 Mg Tablet, 12.5 MG PO BID, (Reported) TAKES 1/2 OF A (25 MG) TABLET / LAST FILLED 01/17/17 #30 Rosuvastatin Calcium 40 Mg Tablet, 40 MG PO HS, (Reported) LAST FILLED 01/17/17 #30 Tiotropium [place] 1 Inh Aerp, 1 INH IH DAILY, (Reported) Vilazodone Hydrochloride 40 Mg Tablet, 40 MG PO DAILY, (Reported) Patient Home Medication List Home Medication List Reviewed: Yes Past Aldqyzd-Fpjfvc-Anyxjx Hx Past Med/Social Hx: Reviewed Nursing Past Med/Soc Hx Patient Social History Alcohol Use: Occasionally Uses Alcohol Beverage of Choice: Beer Recreational Drug Use: Yes Drug of Choice: marihuana Smoking Status: Light Tobacco Smoker Type Used: Cigarettes Recent Foreign Travel: No Contact w/Someone Who Travel: No Recent Infectious Disease Expo: No Recent Hopitalizations: No Physical Abuse: No Sexual Abuse: No Immunizations Up To Date Tetanus Booster (TDap): Unknown Seasonal Allergies Seasonal Allergies: No Past Medical History Surgeries: Yes (BACK SURGERY) CABG, Orthopedic, Tonsillectomy Respiratory: Yes Pneumonia, COPD, Emphysema Currently Using CPAP: No Cardiac: Yes (CABG) Coronary Artery Disease, Heart Attack, High Cholesterol, Hypertension Neurological: No Reproductive Disorders: No Sexually Transmitted Disease: No Genitourinary: No Kidney Stones Gastrointestinal: No Musculoskeletal: Yes Arthritis, Chronic Back Pain Endocrine: No HEENT: Yes Hearing Impairment: Hard of Hearing Cancer: No Psychosocial: Yes Depression Integumentary: No Blood Disorders: No Family Medical History Reviewed Nursing Family Hx FH: lung cancer 19 FATHER Hypertension 19 MOTHER No Pertinent Family Hx Physical Exam-General Problems Physical Exam Vital Signs Vital Signs - First Documented 04/25/18 04/26/18 14:10 09:50 Temp 100.5 Pulse 111 Resp 18 B/P (MAP) 135/83 (100) Pulse Ox 94 FiO2 1 Capillary Refill : Less Than 3 SecondsLess Than 3 Seconds General Appearance: no apparent distress Extremities: other (left knee: painful palpation, warm to touch, circumscribed erythema over patella, no drainage, small 2 mm scab superolateral pole of patella) Assessment/Plan Assessment/Plan Admission Diagnosis/Plan ASSESSMENT: L knee prepatellar bursitis PLAN: needle aspiration today will send for cultures/gram stain Clinical Quality Measures DVT/VTE Risk/Contraindication: Risk Factor Score Per Nursin RFS Level Per Nursing on Admit: 2=Moderate MICHELLE ESPINOSA DO Apr 28, 2018 16:14
[2018-04-28] MEDS: PIPERACILLIN SODIUM/TAZOBACTAM 4.5 GM in NS (IVPB) 100 ML IV SCH (17:17)
[2018-04-28 18:08] LABS: BODY FLUID APPEARENCE MOD CLDY; BODY FLUID COLOR AMBER; BODY FLUID SOURCE SYNOVIAL; BODY FLUID WBC TOTAL COUNT 10000 /uL
[2018-04-28 18:09] LABS: BODY FLUID RBC COUNT 15000 /uL
[2018-04-28 18:50] LABS: BF OTHER CELLS 0 %; LYMPHOCYTES,BODY FLUID 8 %
[2018-04-28] MEDS: ROSUVASTATIN 20 MG (CRESTOR) TABLET PO SCH (19:43)
[2018-04-28] MEDS: DOCUSATE SODIUM 100 MG (COLACE) CAP PO SCH (19:43)
[2018-04-28] MEDS: ACETAMINOPHEN 500 MG TAB (TYLENOL) PO PRN (19:47)
--- NOTE | 2018-04-28 22:02 | OPERATIVE REPORT ---
DATE OF SERVICE: 04/25/2018 PROVIDER: Michelle Lou D.O. POLICE INSPECTOR: None. PREOPERATIVE DIAGNOSIS: Left prepatellar bursitis. POSTOPERATIVE DIAGNOSIS: Left prepatellar bursitis. PROCEDURE PERFORMED: Bedside aspiration of left prepatellar bursitis. COMPLICATIONS: None. DRAIN PLACED: None. SPECIMENS SENT: Approximately 10 mL of serous-appearing fluid aspirated from the prepatellar bursa was sent for aerobic, anaerobic, fungal, AFB cell count with diff and Gram stain in addition for crystal analysis. HISTORY OF PRESENT ILLNESS: The patient is a very pleasant 53-year-old gentleman who for the last three weeks has been dealing with knee pain and erythema. He has been treated with IV antibiotics in the hospital here, does have a pretty significant tense prepatellar bursitis with painless range of motion. There is no reason to think that there is any intra-articular involvement. The tenderness and erythema are all prepatellar. It was therefore decided to obtain an aspiration for therapeutic reasons and also diagnostic. DESCRIPTION OF PROCEDURE: The patient's left knee was prepped and draped. I used Betadine to cleanse the skin. I then advanced an 18 gauge needle into the prepatellar bursa and I was able to aspirate approximately 40 mL of serous fluid and was finished, the admitted to pain relief. I then cleansed the knee and placed a Band-Aid. I sent the aspirate down for laboratory analysis and I will follow up on that. Job ID: [id number] DocumentID: [id number] Dictated Date: 04/28/2018 17:44:44 Raw Hide Trimmer Date: 04/28/2018 22:01:49 Dictated By: MICHELLE LOU DO
[2018-04-28] MEDS: VANCOMYCIN 1500 MG/NS 500 ML IVPB IV SCH ×2 (23:12)
[2018-04-29 00:30] VITALS: BP 135/79
[2018-04-29] MEDS: PIPERACILLIN SODIUM/TAZOBACTAM 4.5 GM in NS (IVPB) 100 ML IV SCH ×3 (02:07→17:02)
[2018-04-29] MEDS: ENOXAPARIN 40 MG/0.4 ML (LOVENOX) SYR SC SCH (06:07)
[2018-04-29] MEDS: UMECLIDINIUM BROMIDE (INCRUSE ELLIPTA) 7'S IH SCH (06:27)
[2018-04-29 07:01] LABS: BASOPHILS % (AUTO) 0 % (0-10); EOSINOPHILS # (AUTO) 0.2 10^3/uL (0.0-0.3); EOSINOPHILS % (AUTO) 2 % (0-10); HEMATOCRIT 36 % (40-54); HEMOGLOBIN 12.6 G/DL (13.3-17.7); LYMPHOCYTES # (AUTO) 1.2 X 10^3 (1.0-4.0); LYMPHOCYTES % (AUTO) 15 % (12-44); MEAN CORPUSCULAR HEMOGLOBIN 32 PG (25-34); MEAN CORPUSCULAR HGB CONC 35 G/DL (32-36); MEAN CORPUSCULAR VOLUME 93 FL (80-99); MEAN PLATELET VOLUME 9.3 FL (7.4-10.4); MONOCYTES # (AUTO) 0.6 X 10^3 (0.0-1.0); MONOCYTES % (AUTO) 8 % (0-12); NEUTROPHILS # (AUTO) 5.9 X 10^3 (1.8-7.8); NEUTROPHILS % (AUTO) 74 % (42-75); PLATELET COUNT 199 10^3/uL (130-400); RED BLOOD COUNT 3.89 10^6/uL (4.35-5.85); RED CELL DISTRIBUTION WIDTH 14.1 % (10.0-14.5); WHITE BLOOD COUNT 7.9 10^3/uL (4.3-11.0)
[2018-04-29 07:18] LABS: ALANINE AMINOTRANSFERASE 23 U/L (0-55); ALBUMIN 3.5 GM/DL (3.2-4.5); ALKALINE PHOSPHATASE 62 U/L (40-136); BILIRUBIN,TOTAL 0.5 MG/DL (0.1-1.0); BUN/CREATININE RATIO 14; CALCIUM 9.1 MG/DL (8.5-10.1); CARBON DIOXIDE 24 MMOL/L (21-32); CHLORIDE 108 MMOL/L (98-107); CREATININE SERUM 0.79 MG/DL (0.60-1.30); GFR ESTIMATED > 60; GLUCOSE 94 MG/DL (70-105); POTASSIUM 4.2 MMOL/L (3.6-5.0); SODIUM 140 MMOL/L (135-145); TOTAL PROTEIN 6.4 GM/DL (6.4-8.2)
[2018-04-29 08:00] VITALS: BP 142/86
[2018-04-29] MEDS: fentaNYL INJECTION 100 MCG/2 ML AMP INJ PRN ×4 (08:14→20:45)
[2018-04-29] MEDS: GABAPENTIN 600 MG (NEURONTIN) TAB PO SCH ×3 (08:46→20:36)
[2018-04-29] MEDS: meTOprolol TARTRATE 25 MG (LOPRESSOR) TABLET PO SCH ×2 (08:46→20:36)
[2018-04-29] MEDS: ASPIRIN E.C. 81 MG (ECOTRIN) TAB PO SCH (08:47)
[2018-04-29] MEDS: LORazepam 0.5 MG (ATIVAN) TABLET PO PRN ×2 (08:47→20:37)
[2018-04-29] MEDS: CELECOXIB 100 MG (CeleBREX) CAP PO SCH ×2 (08:47→20:36)
[2018-04-29] MEDS: DOCUSATE SODIUM 100 MG (COLACE) CAP PO SCH ×3 (08:47→20:38)
--- NOTE | 2018-04-29 08:53 | Progress Note-Hospitalist ---
LI SÁNCHEZ MEDICAL STUDENT 04/29/18 0853: Subjective HPI/CC On Admission Date Seen by Provider: Apr 29, 2018 Time Seen by Provider: 07:30 Leg redness Subjective/Events-last exam Pt had prepatellar bursitis aspirated yesterday with cell count showing inflammatory fluid and gram stain, fungal serology pending. Pt slept well overnight. Pain to 7/10 today instead o 8/10 yesterday with no pain medication taken overnight. Pt NPO since midnight - would like to know plan for surgery so he can eat CAROLANN. Pt having regular BMs and urinating without difficulty. Focused Exam Respiratory: Lungs Clear, Normal Breath Sounds, No Accessory Muscle Use, No Respiratory Distress Cardiovascular: Regular Rate, Rhythm, No Edema, No Murmur Skin: other (Swelling over knee is less today with corresponding decrease in erythema, though it continues to be warm with mild erythema extending up left medial thigh. ) Objective Exam Vital Signs Vital Signs Date Time Temp Pulse Resp B/P (MAP) Pulse Ox O2 Delivery O2 Flow Rate FiO2 04/29/18 06:27 94 Room Air 04/29/18 00:30 97.5 61 16 135/79 (97) 04/28/18 15:40 21 Capillary Refill : Less Than 3 SecondsLess Than 3 Seconds General Appearance: No Apparent Distress, WD/WN Results/Procedures Lab Laboratory Tests 04/29/18 06:08 Patient resulted labs reviewed. Assessment/Plan Assessment and Plan Assess & Plan/Chief Complaint 53 year old male with history of COPD and CAD admitted for left leg cellulitis after failing outpatient management with Keflex and rocephin. Cellulitis -S/p aspiration of prepatellar bursitis -Will follow up on fungal serologies -On Vanc and zosyn -Ortho consulted and considering another procedure Pain -Controlled with oxycodone 5 mg Q4, fentanyl 50 mcg Q2, and tylenol 1 g Q6 PRN PPx -Lovenox Dispo -Will remain admitted today for IV antibiotics Diagnosis/Problems Diagnosis/Problems (1) Knee effusion, left Status: Acute (2) cellulitus left lower ext Status: Acute (3) Hyperlipemia Status: Chronic Qualifiers: Hyperlipidemia type: mixed hyperlipidemia Qualified Codes: E78.2 - Mixed hyperlipidemia (4) COPD (chronic obstructive pulmonary disease) Status: Chronic Qualifiers: COPD type: unspecified COPD Qualified Codes: J44.9 - Chronic obstructive pulmonary disease, unspecified Clinical Quality Measures DVT/VTE Risk/Contraindication: Risk Factor Score Per Nursin RFS Level Per Nursing on Admit: 2=Moderate BRETT TAYLOR DO 04/29/18 1100: Subjective Review of Systems General: Fatigue Musculoskeletal: leg pain Objective Exam General Appearance: No Apparent Distress, WD/WN, Chronically ill Cardiovascular: Regular Rate, Rhythm, No Edema, No Gallop, No JVD, No Murmur, Normal Peripheral Pulses Extremity: Other (left knee effusion with improved cellulitis) Assessment/Plan Assessment and Plan Assess & Plan/Chief Complaint I personally have seen and evaluated the patient and performed the physical exam. I agree with the documented assessment and plan. LI SÁNCHEZ MEDICAL STUDENT Apr 29, 2018 08:53 BRETT TAYLOR DO Apr 29, 2018 11:00
[2018-04-29] MEDS: CATHETER FLUSH 10 ML SYR IV PRN ×2 (09:57→17:02)
[2018-04-29] MEDS: VANCOMYCIN 1500 MG/NS 500 ML IVPB IV SCH ×4 (12:02→23:40)
[2018-04-29 15:56] VITALS: BP 139/91
--- NOTE | 2018-04-29 16:41 | Progress Note (SOAP) ---
Subjective Date Seen by a Provider: Apr 29, 2018 Time Seen by a Provider: 16:39 Subjective/Events-last exam RACHID. Doing well. pain is minimal. has improving erythema. Prepatellar swelling still present. no drainage. Objective Exam Vital Signs Date Time Temp Pulse Resp B/P (MAP) Pulse Ox O2 Delivery O2 Flow Rate FiO2 04/29/18 16:27 96.8 04/29/18 15:56 96.8 66 16 139/91 (107) 95 Room Air 04/29/18 14:20 96.8 04/29/18 13:47 97.1 04/29/18 09:20 97.1 04/29/18 09:20 97.1 04/29/18 08:00 97.1 73 20 142/86 (104) 93 Room Air 04/29/18 06:27 94 Room Air 04/29/18 00:30 97.5 61 16 135/79 (97) 93 Room Air 04/28/18 19:47 100.0 04/28/18 19:44 Room Air I & O 04/29/18 07:00 Intake Total 2555 ml Output Total 3275 ml Balance -720 ml Capillary Refill : Less Than 3 SecondsLess Than 3 Seconds General Appearance: No Apparent Distress Extremity: Other (continued erythema over patella, full painless ROM of the knee, patient is comfortable) Results Lab Laboratory Tests 04/28/18 17:35: Body Fluid Source SYNOVIAL, Body Fluid Color NIKKY, Body Fluid Appearance MOD CLDY, Body Fluid WBC 75355, Body Fluid RBC 50238, Body Fluid Polynuclear WBCs 92 , Body Fluid Mononuclear WBCs 0, Body Fluid Lymphocytes 8, Body Fluid Other Cells 0, Body Fluid Crystals NOT SEEN 04/29/18 06:08: White Blood Count 7.9, Red Blood Count 3.89L, Hemoglobin 12.6L, Hematocrit 36L, Mean Corpuscular Volume 93, Mean Corpuscular Hemoglobin 32, Mean Corpuscular Hemoglobin Concent 35, Red Cell Distribution Width 14.1, Platelet Count 199, Mean Platelet Volume 9.3, Neutrophils (%) (Auto) 74, Lymphocytes (%) (Auto) 15, Monocytes (%) (Auto) 8, Eosinophils (%) (Auto) 2, Basophils (%) (Auto) 0, Neutrophils # (Auto) 5.9, Lymphocytes # (Auto) 1.2, Monocytes # (Auto) 0.6, Eosinophils # (Auto) 0.2, Basophils # (Auto) 0.0, Sodium Level 140, Potassium Level 4.2, Chloride Level 108H, Carbon Dioxide Level 24, Anion Gap 8, Blood Urea Nitrogen 11, Creatinine 0.79, Estimat Glomerular Filtration Rate > 60, BUN/ Creatinine Ratio 14, Glucose Level 94, Calcium Level 9.1, Corrected Calcium 9.5 , Total Bilirubin 0.5, Aspartate Amino Transf (AST/SGOT) 23, Alanine Aminotransferase (ALT/SGPT) 23, Alkaline Phosphatase 62, Total Protein 6.4, Albumin 3.5 Microbiology 04/25/18 Blood Culture - Preliminary, Resulted No growth 04/28/18 Gram Stain - Final, Resulted 04/28/18 Anaerobic Culture, Resulted Pending 04/28/18 Body Fluid Culture, Resulted Pending 04/28/18 Fungal Culture 1, Resulted Pending Assessment/Plan Assessment/Plan Assess & Plan/Chief Complaint ASSESSMENT: L knee prepatellar bursitis PLAN: needle aspiration PRN follow cultures/gram stain monitor for clinical improvement like d/c home on PO abx soon compression with PARVIZ wrap and ice on and off Final Diagnosis same Clinical Quality Measures DVT/VTE Risk/Contraindication: Risk Factor Score Per Nursin RFS Level Per Nursing on Admit: 2=Moderate MICHELLE ESPINOSA DO Apr 29, 2018 16:41
[2018-04-29] MEDS: ROSUVASTATIN 20 MG (CRESTOR) TABLET PO SCH (20:36)
[2018-04-29] MEDS ORDERED: TROUGH ORDER-PHARMACY XX NR (23:00)
[2018-04-30] VITALS: BP 127/72
[2018-04-30] MEDS: PIPERACILLIN SODIUM/TAZOBACTAM 4.5 GM in NS (IVPB) 100 ML IV SCH ×3 (01:32→17:41)
--- NOTE | 2018-04-30 06:43 | Progress Note (SOAP) ---
Subjective Date Seen by a Provider: Apr 30, 2018 Time Seen by a Provider: 05:00 Subjective/Events-last exam Patient states that he feels that his knee is improving Cultures pending Review of Systems General: No Chills, No Night Sweats Musculoskeletal: leg pain Neurological: No: Weakness, Numbness Objective Exam Vital Signs Date Time Temp Pulse Resp B/P (MAP) Pulse Ox O2 Delivery O2 Flow Rate FiO2 04/30/18 00:00 98.4 70 22 127/72 (90) 98 Room Air 04/29/18 21:39 Room Air 04/29/18 16:27 96.8 04/29/18 15:56 96.8 66 16 139/91 (107) 95 Room Air 04/29/18 14:20 96.8 04/29/18 13:47 97.1 04/29/18 09:20 97.1 04/29/18 09:20 97.1 04/29/18 08:00 97.1 73 20 142/86 (104) 93 Room Air I & O 04/30/18 07:00 Intake Total 2500 ml Output Total 1800 ml Balance 700 ml Capillary Refill : Less Than 3 SecondsLess Than 3 Seconds General Appearance: No Apparent Distress Respiratory: No Accessory Muscle Use, No Respiratory Distress Cardiovascular: Normal Peripheral Pulses Extremity: Other (moderate swelling and erythema of left knee. significant reduction of erythema in comparison to previous marked borders. 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 Lou, will feed the patient at this time and cancel surgery. Continue antibiotic treatment Will closely follow patient in clinic, upon discharge Clinical Quality Measures DVT/VTE Risk/Contraindication: Risk Factor Score Per Nursin RFS Level Per Nursing on Admit: 2=Moderate KATHY CARDENAS Apr 30, 2018 06:43
[2018-04-30] MEDS: ENOXAPARIN 40 MG/0.4 ML (LOVENOX) SYR SC SCH (06:47)
[2018-04-30 08:00] VITALS: BP 128/79
[2018-04-30] MEDS: ASPIRIN E.C. 81 MG (ECOTRIN) TAB PO SCH (08:10)
[2018-04-30] MEDS: meTOprolol TARTRATE 25 MG (LOPRESSOR) TABLET PO SCH ×2 (08:10→21:20)
[2018-04-30] MEDS: CELECOXIB 100 MG (CeleBREX) CAP PO SCH ×2 (08:10→21:21)
[2018-04-30] MEDS: GABAPENTIN 600 MG (NEURONTIN) TAB PO SCH ×3 (08:10→21:20)
[2018-04-30] MEDS: LORazepam 0.5 MG (ATIVAN) TABLET PO PRN ×2 (08:12→21:21)
[2018-04-30] MEDS: UMECLIDINIUM BROMIDE (INCRUSE ELLIPTA) 7'S IH SCH (08:14)
--- NOTE | 2018-04-30 08:16 | Progress Note-Hospitalist ---
LI SÁNCHEZ MEDICAL STUDENT 04/30/18 0816: Subjective HPI/CC On Admission Date Seen by Provider: Apr 30, 2018 Time Seen by Provider: 07:50 Leg redness Subjective/Events-last exam Pt had no acute events overnight. His pain is 7/10 today in his leg with worsening pain in his left ankle. Notes that redness if improving in thigh, edema worsening in ankle. Having regular BMs with no problems urinating. Ambulating regularly. Pt wants to know if "financial people" will be able to come talk today. Focused Exam Respiratory: Chest Non Tender, Lungs Clear Cardiovascular: Regular Rate, Rhythm, No Murmur Objective Exam Vital Signs Vital Signs Date Time Temp Pulse Resp B/P (MAP) Pulse Ox O2 Delivery O2 Flow Rate FiO2 04/30/18 00:00 98.4 70 22 127/72 (90) 98 Room Air 04/28/18 15:40 21 Capillary Refill : Less Than 3 SecondsLess Than 3 Seconds General Appearance: No Apparent Distress, WD/WN Extremity: Other (Left ankle with 2+ edema. Left leg erythema appears to be resolving with skin over knee also appearing less erythematous and tight. Warmth still obvious. ) Results/Procedures Lab Patient resulted labs reviewed. Assessment/Plan Assessment and Plan Assess & Plan/Chief Complaint 53 year old male with history of COPD and CAD admitted for left leg cellulitis after failing outpatient management with Keflex and rocephin now s/p prepatellar bursitis aspiration and on Vanc an Zosyn with clinical improvement. Cellulitis -S/p aspiration of prepatellar bursitis with improvement in knee -Fungal serologies still pending. -On Vanc and zosyn. Will likely transition to doxycycline outpatient. -Ortho consulted and has recommended conservative management with follow up outpatient. -Will consider venous doppler of left leg given worsening edema of left leg Pain -Controlled with oxycodone 5 mg Q4, fentanyl 50 mcg Q2, and tylenol 1 g Q6 PRN PPx -Lovenox Dispo -Will remain admitted today for IV antibiotics with likely discharge tomorrow. Diagnosis/Problems Diagnosis/Problems (1) Knee effusion, left Status: Acute (2) cellulitus left lower ext Status: Acute (3) Hyperlipemia Status: Chronic Qualifiers: Hyperlipidemia type: mixed hyperlipidemia Qualified Codes: E78.2 - Mixed hyperlipidemia (4) COPD (chronic obstructive pulmonary disease) Status: Chronic Qualifiers: COPD type: unspecified COPD Qualified Codes: J44.9 - Chronic obstructive pulmonary disease, unspecified Clinical Quality Measures DVT/VTE Risk/Contraindication: Risk Factor Score Per Nursin RFS Level Per Nursing on Admit: 2=Moderate BRETT TAYLOR DO 04/30/18 1023: Subjective Subjective/Events-last exam patient is doing well overall IV abx maintained and Cx pending but appears to be Staph Aureus so will maintain current abx until that culture is final Will need Eliquis for DVT Px until back to ambulating Review of Systems Musculoskeletal: leg pain Objective Exam General Appearance: No Apparent Distress, WD/WN, Chronically ill Respiratory: Chest Non Tender, Lungs Clear, Normal Breath Sounds, No Accessory Muscle Use, No Respiratory Distress Cardiovascular: Regular Rate, Rhythm, No Edema, No Gallop, No JVD, No Murmur, Normal Peripheral Pulses Extremity: Other (Left ankle with 2+ edema. Left leg erythema appears to be resolving with skin over knee also appearing less erythematous and tight. Warmth still obvious. ) Neurologic/Psychiatric: Alert, Oriented x3, No Motor/Sensory Deficits, Normal Mood/Affect Assessment/Plan Assessment and Plan Assess & Plan/Chief Complaint Maintained on Lovenox since admit and will continue on Eliquis at DC Maintain Vanc and Zosyn until final cx returns Supervisory Addendum Participated in pt care: history Personally performed: exam E&M service: agree Results interpretation: agree Notes: I personally have seen and evaluated the patient and performed the physical exam. I agree with the documented assessment and plan. LI SÁNCHEZ MEDICAL STUDENT Apr 30, 2018 08:16 BRETT TAYLOR DO Apr 30, 2018 10:23
[2018-04-30] MEDS: fentaNYL INJECTION 100 MCG/2 ML AMP INJ PRN ×3 (08:33→21:30)
[2018-04-30] MEDS: DOCUSATE SODIUM 100 MG (COLACE) CAP PO SCH ×2 (09:40→21:21)
[2018-04-30] MEDS: VANCOMYCIN INJECTION 1,750 MG in NS IV 500 ML 500 ML IV SCH ×2 (12:31→23:07)
[2018-04-30 16:40] VITALS: BP 136/73
[2018-04-30] MEDS: ROSUVASTATIN 20 MG (CRESTOR) TABLET PO SCH (21:20)
[2018-04-30] MEDS: ACETAMINOPHEN 500 MG TAB (TYLENOL) PO PRN (21:24)
[2018-05-01 00:29] VITALS: BP 119/72
[2018-05-01] MEDS: PIPERACILLIN SODIUM/TAZOBACTAM 4.5 GM in NS (IVPB) 100 ML IV SCH ×2 (01:11→09:30)
[2018-05-01] MEDS: ENOXAPARIN 40 MG/0.4 ML (LOVENOX) SYR SC SCH (06:29)
--- NOTE | 2018-05-01 06:34 | Progress Note (SOAP) ---
Subjective Date Seen by a Provider: May 01, 2018 Time Seen by a Provider: 06:32 Subjective/Events-last exam RACHID. Doing great. significant improvement. has been OOB and WB. Wants to go home. Objective Exam Vital Signs Date Time Temp Pulse Resp B/P (MAP) Pulse Ox O2 Delivery O2 Flow Rate FiO2 05/01/18 00:29 98.6 63 18 119/72 (88) 96 Room Air 04/30/18 19:02 Room Air 04/30/18 16:40 98.3 76 22 136/73 (94) 94 Room Air 04/30/18 08:00 96.6 78 18 128/79 (95) 95 Room Air I & O 05/01/18 07:00 Intake Total 2157.5 ml Output Total 1975 ml Balance 182.5 ml Capillary Refill : Less Than 3 SecondsLess Than 3 Seconds General Appearance: No Apparent Distress Extremity: Other (L knee: improving erythema, no pain with palpation or ROM, no drainage, improving fluctuance) Results Lab Microbiology 04/25/18 Blood Culture - Final, Complete No growth 04/28/18 Acid Fast Bacilli Culture (Ref Lab - Preliminary, Resulted Assessment/Plan Assessment/Plan Assess & Plan/Chief Complaint ASSESSMENT: L knee prepatellar bursitis: improving PLAN: d/c home on PO abx today compression with PARVIZ wrap and ice on and off f/u with dr teague in one week in [place] Clinical Quality Measures DVT/VTE Risk/Contraindication: Risk Factor Score Per Nursin RFS Level Per Nursing on Admit: 2=Moderate MICHELLE TEAGUE DO May 01, 2018 6:34 am
[2018-05-01 08:00] VITALS: BP 135/81
--- NOTE | 2018-05-01 08:14 | Discharge Summary-Hospitalist ---
LI SÁNCHEZ MEDICAL STUDENT 05/01/18 0814: Diagnosis/Chief Complaint Date of Admission Apr 25, 2018 at 16:23 Date of Discharge Discharge Date: Apr 28, 2018 Admission Diagnosis Left leg cellulitis Discharge Diagnosis (1) Knee effusion, left Status: Acute (2) cellulitus left lower ext Status: Acute (3) Hyperlipemia Status: Chronic (4) COPD (chronic obstructive pulmonary disease) Status: Chronic Discharge Summary Discharge Physical Exam Allergies: Coded Allergies: No Known Drug Allergies (Unverified , 07/06/15) Vitals & I&Os Vital Signs Date Time Temp Pulse Resp B/P (MAP) Pulse Ox O2 Delivery O2 Flow Rate FiO2 05/01/18 00:29 98.6 63 18 119/72 (88) 96 Room Air 04/28/18 15:40 21 General Appearance: No Apparent Distress, WD/WN HEENT: Moist Mucous Membranes Respiratory: Chest Non Tender, Lungs Clear, Normal Breath Sounds Cardiovascular: Regular Rate, Rhythm, No Murmur Gastrointestinal: Normal Bowel Sounds, Non Tender, Soft Skin: Other (Mild erythema over left patella. Minimal swelling, minimale ankle edema. ) Neurologic/Psychiatric: Alert, Oriented x3 Hospital Course Mr. Woodson is a 53 year old male with a history of COPD and CAD admitted 04/26 for cellulitis after scraping leg 3 weeks ago and worsening symptoms after receiving Rocephin and Keflex on an outpatient basis. He initially had a fever of 100.5 and a leukocytosis of 14.9. Knee X-ray showed prominent soft tissue swelling but no other abnormality. Venous dopplers revealed no thrombus. Blood cultures had no growth during admission. He was started on IV clindamycin at admission without clear improvement in his cellulitis.. He was switched to Vancomycin and Zosyn on 04/29 with clinical improvement. He had a prepatellar bursitis, which was aspirated and grew staph aureus. He was discharged on doxycycline 100 mg BID to be completed on 05/09 for a 10 day course. He will follow up on outpatient basis with Dr. Lou in [place] and with his PCP. Labs (last 24 hrs) Microbiology 04/25/18 Blood Culture - Final, Complete No growth 04/28/18 Acid Fast Bacilli Culture (Ref Lab - Preliminary, Resulted Patient resulted labs reviewed. Discharge Home Medications: Active Scripts Active Reported Combivent Respimat Inhal Fonda (Albuterol/Ipratropium) 4 Gm Aero 2 Puff IH TID Keflex (Cephalexin) 500 Mg Capsule 500 Mg PO TID Spiriva (Tiotropium [place]) 1 Inh Aerp 1 Inh IH DAILY Ventolin Hfa (Albuterol Sulfate) 1 Puff Puff 2 Puff IH Q4H PRN 1 PUFF = 90 MCG Aspirin EC (Aspirin) 81 Mg Tablet.dr 81 Mg PO DAILY Viibryd (Vilazodone Hydrochloride) 40 Mg Tablet 40 Mg PO DAILY Metoprolol Tartrate 25 Mg Tablet 12.5 Mg PO BID TAKES 1/2 OF A (25 MG) TABLET / LAST FILLED 01/17/17 #30 Rosuvastatin Calcium 40 Mg Tablet 40 Mg PO HS LAST FILLED 01/17/17 #30 Gabapentin 600 Mg Tablet 1,200 Mg PO TID TAKES 2 (600 MG) TABLETS Celecoxib 200 Mg Capsule 200 Mg PO BID Instructions to patient/family Please see electronic discharge instructions given to patient. Clinical Quality Measures DVT/VTE Risk/Contraindication: Risk Factor Score Per Nursin RFS Level Per Nursing on Admit: 2=Moderate BRETT TAYLOR DO 05/02/18 1117: Discharge Summary Discharge Physical Exam Allergies: Coded Allergies: No Known Drug Allergies (Unverified , 07/06/15) General Appearance: No Apparent Distress, WD/WN Respiratory: Chest Non Tender, Lungs Clear, Normal Breath Sounds, No Accessory Muscle Use, No Respiratory Distress Cardiovascular: Regular Rate, Rhythm, No Edema, No Gallop, No JVD, No Murmur, Normal Peripheral Pulses Skin: Other (Mild erythema over left patella. Minimal swelling, minimale ankle edema. ) Neurologic/Psychiatric: Alert, Oriented x3, No Motor/Sensory Deficits, Normal Mood/Affect Hospital Course I personally have seen and evaluated the patient and performed the physical exam. I agree with the documented assessment and plan. Discussion & Recommendations Discharge Planning: <30 minutes discharge planning Problem Qualifiers (1) Hyperlipemia: Hyperlipidemia type: mixed hyperlipidemia Qualified Codes: E78.2 - Mixed hyperlipidemia (2) COPD (chronic obstructive pulmonary disease): COPD type: unspecified COPD Qualified Codes: J44.9 - Chronic obstructive pulmonary disease, unspecified LI SÁNCHEZ MEDICAL STUDENT May 01, 2018 08:14 BRETT TAYLOR DO May 02, 2018 11:17
[2018-05-01] MEDS: CELECOXIB 100 MG (CeleBREX) CAP PO SCH (08:41)
[2018-05-01] MEDS: DOCUSATE SODIUM 100 MG (COLACE) CAP PO SCH (08:43)
[2018-05-01] MEDS: ASPIRIN E.C. 81 MG (ECOTRIN) TAB PO SCH (08:44)
[2018-05-01] MEDS: GABAPENTIN 600 MG (NEURONTIN) TAB PO SCH (08:45)
[2018-05-01] MEDS: meTOprolol TARTRATE 25 MG (LOPRESSOR) TABLET PO SCH (08:45)
[2018-05-01] MEDS ORDERED: APIX2.5T PO (10:44)
[2018-05-01] MEDS ORDERED: Oxycodone Hcl PO (10:44)
[2018-05-01] MEDS ORDERED: SULF1TAB35 PO (10:44)
[2018-05-01] MEDS ORDERED: TROUGH ORDER-PHARMACY XX NR (11:00)
[2018-05-01 11:31] VITALS: BP 135/81
[2018-05-01] MEDS ORDERED: VILAZODONE 40 MG (VIIBRYD) TABLET (NON-FORMULARY) PO SCH ×3 (12:15→12:30)
--- OUTSIDE RECORDS SUMMARY | 2018-05-01 15:49 | XMS REPORT ---
Author Author RAKAN AYALA Organization [facility] Address [address] [place] [address] Care Team Providers Care Hand Printed Circuit Board Assembler Name Role Phone RAKAN AYALA Unavailable PROBLEMS Type Condition ICD9-CM Code JQE68-AT Code Onset Dates Condition Status SNOMED Code Problem Essential hypertension I10 Active 95848836 Problem Cellulitis of left arm L03.114 Active [id number] Problem COPD (chronic obstructive pulmonary disease) with acute bronchitis J44.0 Active 391060491985347 Problem CAD (coronary artery disease) I25.10 Active 68284843 Problem Hyperlipemia E78.5 Active 81417918 Problem Midline low back pain with right-sided sciatica M54.41 Active 864373656 Problem COPD (chronic obstructive pulmonary disease) J44.9 Active 15525147 Problem Panlobular emphysema J43.1 Active 1032052 Problem Nocturnal leg cramps G47.62 Active 699800318 Problem Polyneuropathy G62.9 Active 25368140 Problem Neuropathy G62.9 Active 556310440 Problem Arthritis M19.90 Active 3683902 ALLERGIES Substance Reaction Event Type Date Status Xanax XR Self Admitted Abuse Drug Allergy Mar, Active Oxycodone HCl Failed narcotics contract Drug Allergy Mar, Active Benzodiazepines Failed narcotics contract Non Drug Allergy Mar, Active ENCOUNTERS Encounter Location Date Diagnosis [facility] [id number] [address] 14 Jun, 2018 [facility] [address] [address] 14 Apr, 2018 Bursitis of left knee, unspecified bursa M70.52 [facility] [id number] [address] 8[address] 13 Apr, 2018 Swelling of left knee joint M25.462 [facility] [id number] [place] [address] 51991- 0022 Apr, Arthritis M19.90 [place] [id number] [place] [address] 77250- 8803 Mar, Boil, leg L02.429 ; Back muscle spasm M62.830 and Muscle spasms of both lower extremities M62.838 [place] [id number] [place] [address] 86163- 8583 Feb, [facility] [id number] [place] [address] 85960- 2845 Feb, [place] [address] 8[address]89- 8129 Jan, Arthritis M19.90 [place] [id number] [place] [address] 23840- 6293 December, Right leg swelling M79.89 ; Left leg swelling M79.89 ; CAD ( coronary artery disease) I25.10 ; Essential hypertension I10 ; Bilateral leg numbness R20.0 and Exertional dyspnea R06.09 [place] [id number] [place] [address] 71353- 0696 Oct, [place] [id number] [place] [address] 52151- 1877 Oct, [place] [id number] [place] [address] 65842- 6338 Sep, Pain in right hip M25.551 ; Pain in left hip M25.552 and Suprapubic pain R10.2 [place] [id number] [place] [address] 98617- 2494 Sep, Midline low back pain with right-sided sciatica M54.41 [place] [id number] [place] [address] 32063- 2328 Aug, Midline low back pain with right-sided sciatica M54.41 and Arthritis M19.90 [place] [id number] [place] [address] 32909- 0145 Jul, Impingement syndrome, shoulder, left M75.42 and Sprain of ligament of cervical spine region S13.4XXA [place] [address] 17514- 7739 Jul, COPD (chronic obstructive pulmonary disease) J44.9 [place] [address] 88877- 6814 Jul, [place] [address] 84310- 3699 Jul, [place] [address] 74989- 6650 Jun, Elbow pain, right M25.521 ; Pain of left clavicle M89.8X1 ; Panlobular emphysema J43.1 and Encounter for immunization Z23 [facility] [address] [id number] Jun, [place] [address] 05021- 7497 Jun, Clavicle pain M89.8X1 [place] [address] 59747- 4965 Jun, [place] [address] 70049- 7875 May, Neuropathy G62.9 ; Arthritis M19.90 and Nocturnal leg cramps G47.62 [facility] [address] [id number] [place] [address] Apr [place] [address] 49454- 8287 December, [facility] [id number] [place] [address] 51838 -6940 Nov, Gastroenteritis and colitis, viral A08.4 [place] [address] 27443- 8564 Oct, [facility] [id number] [place] [address] 57020- 8404 Sep, [place] [id number] [place] [address] 12866- 0627 Sep, Low back pain M54.5 and Other chronic pain G89.29 [place] [address] 19711- 9561 Sep, [place] [id number] [place] [address] 56768- 4477 Aug, [place] [id number] [place] [address] 75547- 1874 Jul, Vision changes H53.9 and Polyneuropathy G62.9 [place] [id number] [place] [address] 53159- 1413 Jun, [place] [id number] [place] [address] 52163- 1991 Jun, Left leg swelling M79.89 ; Right leg swelling M79.89 ; Bilateral leg numbness R20.0 ; CAD (coronary artery disease) I25.10 ; Essential hypertension I10 and Exertional dyspnea R06.09 [facility] [place] [id number] [place] [address] 54718 -2176 Jun, Cellulitis of left arm L03.114 [place] [id number] [place] [address] 15418- 0712 Jun, [place] [id number] [place] [address] 87321- 7403 May, Chest pain, unspecified type R07.9 ; Exertional dyspnea R06.09 ; CAD (coronary artery disease) I25.10 and Essential hypertension I10 [facility] [place] [id number] [place] [address] 08112 -2283 December, Acute right-sided low back pain without sciatica M54.5 [place] [id number] [place] [address] 96723- 3749 Sep, Low back pain M54.5 [place] [id number] [place] [address] 68807- 2299 Aug, Bilateral low back pain with sciatica, sciatica laterality unspecified M54.40 and Polyneuropathy G62.9 [place] [address] 30582- 8278 Aug, Upper respiratory tract infection, unspecified type 465.9 [place] [address] 97482- 0712 Jul, Midline low back pain with right-sided sciatica M54.41 [place] [address] 35994- 0482 Jul, Right knee pain M25.561 and Knee swelling, right M25.461 [place] [id number] [place] [address] 58353- 2465 Jun, Low back pain M54.5 and Sciatica, unspecified side M54.30 [place] [id number] [place] [address] 67404- 1782 May, Arthritis M19.90 [place] [id number] [place] [address] 08648- 4201 May, Upper respiratory tract infection, unspecified upper respiratory infection J06.9 [place] [id number] [place] [address] 54611- 6577 14 May, 2015 CAD (coronary artery disease) I25.10 ; Hyperlipemia E78.5 and COPD (chronic obstructive pulmonary disease) J44.9 [place] [id number] [place] [address] 82080- 1906 30 Apr, 2015 Arthritis 716.90 [place] [address] 98450- 2717 Apr, [facility] [address] [facility] [id number] [address] 2597 21 Apr, 2015 [facility] [address] [facility] [id number] [place] [address] 2546 14 Apr, 2014 [facility] [address] [facility] [id number] [address] 2546 14 Apr, 2015 Hypertension 401.9 and Hyperlipidemia 272.4 [facility] [address] [facility] [id number] [address] 2547 14 Apr, 2014 [facility] [address] [id number] [place] [address]- 0629 14 Apr, 2015 Hypertension 401.9 and Hyperlipidemia 272.4 [facility] [address] [facility] [id number] [address]- 6283 08 Apr, 2015 [facility] [id number] [address]- 0296 26 Mar, 2015 Arthritis 716.90 [facility] [id number], [place] [address]- 9277 Feb, [facility] [address] [facility] [id number] [address]- 3178 14 Nov, 2014 [facility] [id number] [address]- 9771 Nov, [facility] [id number], [place] [address]- 1628 19 Oct, 2014 [facility] [address] [facility] [id number] [address]- 4353 19 Oct, 2014 [facility] [place] [facility] [address] [facility] [id number] [place] [address]- 6408 Jul, [facility] [address] [facility] [id number] [address]- 6685 19 Jul, 2014 [facility] [id number] [address]- 3903 Jun, [facility] [place] [facility] [address] [id number] [place] [address]- 8437 Jun, [facility] [place] [facility] [address] [id number] [place] [address]- 2404 Jun, [facility] [place] [facility] [address] [id number] [place] [address]- 3514 Jun, [facility] [place] [facility] [address] [id number] [place] [address]- 5252 May, [facility] [place] [facility] [address] [id number] [place] [address]- 5486 May, [facility] [place] [facility] [address] [id number] [place] [address]- 2872 May, [facility] [place] [facility] [address] [id number] [place] [address]- 1116 May, [facility] [place] [facility] [address] [id number] [place] [address]- 7439 May, [facility] [place] [facility] [address] [id number] [place] [address]- 1988 Mar, [facility] [place] [facility] [address] [id number] [place] [address]- 8846 Mar, [facility] [place] [facility] [address] [id number] [address]- 0890 Mar, [facility] [place] [facility] [address] [id number] [address]- 0734 Mar, [facility] [place] [facility] [address] [id number] [place] [address]- 0574 Feb, [facility] [place] [facility] [address] [id number] [place] [address]- 2337 Feb, [facility] [place] [facility] [address] [id number] [place] [address]- 9896 Feb, [facility] [place] [facility] [address] [id number] [place] [address]- 1565 Feb, [facility] [place] [facility] [address] [id number] [place] [address]- 3396 Feb, [facility] [place] [facility] [address] [id number] [place] [address]- 4480 Feb, [facility] [place] [facility] [address] [id number] [place] [address]- 1579 Feb, [facility] [place] [facility] [address] [id number] [place] [address]- 2467 December, [facility] [place] [facility] [address] [id number] [place] [address]- 2754 December, [facility] [place] [facility] [address] [id number] [place] [address]- 5476 December, [facility] [place] [facility] [address] [id number] [place] [address]- 6284 December, [facility] [place] [facility] [address] [id number] [place] [address]- 2566 December, [facility] [place] [facility] [address] [id number] [place] [address]- 1695 December, [facility] [place] [facility] [address] [id number] [place] [address]- 0368 December, [facility] [place] [facility] [address] [id number] [place] [address]- 7183 December, [facility] [place] [facility] [address] [id number] [place] [address]- 5129 December, [facility] [place] [facility] [address] [id number] [place] [address]- 8688 December, [facility] [place] [facility] [address] [id number] [place] [address]- 7924 December, [facility] [place] [facility] [address] [id number] [place] [address]- 1035 Nov, [facility] [place] [facility] [address] [id number] [place] [address]- 6314 Nov, [facility] [place] [facility] [address] [id number] [place] [address]- 9238 Nov, [facility] [place] [facility] [address] [id number] [place] [address]- 8887 Nov, [facility] [place] [facility] [address] [id number] [place] [address]- 4476 Nov, [facility] [place] [facility] [address] [id number] [place] [address]- 7250 Nov, [facility] [place] [facility] [address] [id number] [place] [address]- 1221 Nov, [facility] [place] [facility] [address] [id number] [place] [address]- 6411 Nov, [facility] [place] [facility] [address] [id number] [place] [address]- 1295 Nov, [facility] [place] [facility] [address] [id number] [place] [address]- 1587 Nov, [facility] [place] [facility] [address] [id number] [place] [address]- 1502 Nov, [facility] [place] [facility] [address] [id number] [place] [address]- 7000 Nov, [facility] [place] [facility] [address] [id number] [place] [address]- 0029 Nov, [facility] [place] [facility] [address] [id number] [place] [address]- 6061 Nov, [facility] [place] [facility] [address] [id number] [place] [address]- 6732 10 Oct, 2013 [facility] [place] [facility] [address] [id number] [place] [address]- 6348 10 Oct, 2013 [facility] [place] [facility] [address] [id number] [place] [address]- 2458 Oct, [facility] [place] [facility] [address] [id number] [place] [address]- 9700 Oct, [facility] [place] [facility] [address] [id number] [place] [address]- 3032 Oct, [facility] [place] [facility] [address] [id number] [place] [address]- 2513 Oct, [facility] [place] [facility] [address] [id number] [place] [address]- 8135 Oct, [facility] [place] [facility] [address] [id number] [place] [address]- 8043 Oct, [facility] [place] [facility] [address] [id number] [place] [address]- 6070 Oct, [facility] [place] [facility] [address] [id number] [place] [address]- 3503 Oct, [facility] [place] [facility] [address] [id number] [place] [address]- 2001 Oct, [facility] [place] [facility] [address] [id number] [place] [address]- 8364 Sep, [facility] [place] [facility] [address] [id number] [place] [address]- 4634 Sep, [facility] [place] [facility] [address] [id number] [place] [address]- 8272 Sep, [facility] [place] [facility] [address] [id number] [place] [address]- 9252 Sep, [facility] [place] [facility] [address] [id number] [place] [address]- 2875 Aug, [facility] [place] [facility] [address] [id number] [place] [address]- 2256 Aug, [facility] [place] [facility] [address] [id number] [place] [address]- 7005 Aug, [facility] [place] [facility] [address] [id number] [place] [address]- 5408 Aug, [facility] [place] [facility] [address] [id number] [place] [address]- 5450 Aug, [facility] [place] [facility] [address] [id number] [place] [address]- 6795 Aug, [facility] [place] [facility] [address] [id number] [place] [address]- 9231 Aug, [facility] [place] [facility] [address] [id number] [place] [address]- 0297 Aug, [facility] [place] [facility] [address] [id number] [place] [address]- 6042 Jul, [facility] [place] [facility] [address] [id number] [place] [address]- 2562 Jul, [facility] [place] [facility] [address] [id number] [place] [address]- 7144 Jul, [facility] [place] [facility] [address] [id number] [place] [address]- 2589 Jul, [facility] [place] [facility] [address] [id number] [place] [address]- 6923 Jul, [facility] [place] [facility] [address] [id number] [place] 5147 Jul, [facility] [place] [facility] [address] [id number] [place] [address]- 1061 Jun, [facility] [place] [facility] [address] [id number] [place] [address]- 2124 Jun, [facility] [place] [facility] [address] [id number] [place] [address]- 2221 Jun, [facility] [place] [facility] [address] [id number] [place] [address]- 6406 Jun, [facility] [place] [facility] [address] [id number] [place] [address]- 9976 May, [facility] [place] [facility] [address] [id number] [place] [address]- 4938 May, [facility] [place] [facility] [address] [id number] [place] [address]- 5736 May, [facility] [place] [facility] [address] [id number] [place] [address]- 9487 30 Apr, 2013 [facility] [place] [facility] [address] [id number] [place] [address]- 2552 24 Apr, 2013 [facility] [place] [facility] [address] [id number] [place] [address]- 4788 Apr, [facility] [place] [facility] [address] [id number] [place] [address]- 2919 Apr, [facility] [place] [facility] [address] [id number] [place] [address]- 6191 Apr, [facility] [place] [facility] [address] [id number] [place] [address]- 6111 Mar, [facility] [place] [facility] [address] [id number] [place] [address]- 4497 Mar, [facility] [place] [facility] [address] [id number] [place] [address]- 8879 Mar, [facility] [place] [facility] [address] [id number] [place] [address]- 2523 Mar, [facility] [place] [facility] [address] [id number] [address]- 2273 Feb, [facility] [place] [facility] [address] [id number] [place] [address]- 7951 Jan, [facility] [place] [facility] [address] [id number] [place] [address]- 3573 December, [facility] [place] [facility] [address] [id number] [place] [address]- 1018 December, [facility] [place] [facility] [address] [id number] [place] [address]- 8485 December, [facility] [address] [id number] [place] [address]- 8942 December, [facility] [address] [id number] [place] 6109 December, [facility] [address] [id number] [place] [address]- 2951 December, [facility] [address] [id number] [place] [address]- 0987 December, [facility] [address] [id number] [place] [address]- 5864 29 Nov, 2012 [facility] [address] [id number] [place] [address]- 8764 25 Nov, 2012 [facility] [address] [id number] [place] [address]- 4848 16 Nov, 2012 [facility] [address] [id number] [place] [address]- 9372 15 Nov, 2012 [facility] [address] [id number] [place] [address]- 0845 15 Nov, 2012 [facility] [address] [id number] [place] [address]- 3278 14 Oct, 2012 [facility] [address] [id number] [place] [address]- 0908 12 Oct, 2012 [facility] [address] [id number] [place] [address]- 2953 07 Oct, 2012 [facility] [address] [id number] [place] [address]- 5066 04 Oct, 2012 [facility] [address] [id number] [place] [address] 20 Sep, 2012 [facility] [address] [id number] [place] [address] 14 Sep, 2012 [facility] [place] [facility] [address] [id number] [place] [address] 14 Sep, 2012 [facility] [address] [id number] [place] [address] Sep, [facility] [address] [id number] [place] [address] 08 Sep, 2012 [facility] [place] [facility] [address] [id number] [place] [address] Sep, [facility] [address] [id number] [place] [address] Aug, [facility] [address] [id number] [place] [address] Aug, [facility] [address] [id number] [place] [address] Aug, [facility] [address] [id number] [place] [address] Aug, [facility] [address] [id number] [place] [address] Aug, [facility] [address] [id number] [place] [address] Jul, [facility] [address] [id number] [place] [address] Jul, [facility] [place] [facility] [address] [id number] [place] [address] Jul, [facility] [place] [facility] [address] [id number] [place] [address] Jul, [facility] [place] [facility] [address] [id number] [place] [address] Jul, [facility] [place] [facility] [address] [id number] [place] [address] Jul, [facility] [place] [facility] [address] [id number] [place] [address] 12 Jul, 2012 [facility] [place] [facility] [address] [id number] [place] [address] Jul, [facility] [place] [facility] [address] [id number] [place] [address] Jun, [facility] [place] [facility] [address] [id number] [place] [address] 30 Jun, 2012 [facility] [place] [facility] [address] [id number] [place] [address] Jun, [facility] [place] [facility] [address] [id number] [place] [address] Jun, [facility] [place] [facility] [address] [id number] [place] [address] Jun, [facility] [place] [facility] [address] [id number] [place] [address] Jun, [facility] [place] [facility] [address] [id number] [place] [address] Jun, [facility] [place] [facility] [address] [id number] [place] [address] Jun, [facility] [place] [facility] [address] [facility] [id number] [place] [address] Jun, [facility] [place] [facility] [address] [id number] [place] [address] Jun, [facility] [place] [facility] [address] [id number] [place] [address]69 Jun, [facility] [place] [facility] [address] [id number] [place] [address] Jun, [facility] [place] [facility] [address] [id number] [place] [address]267 Jun, [facility] [place] [facility] [address] [facility] [id number] [place] [address] Jun, [facility] [place] [facility] [address] [id number] [place] [address]- [address] Jun, [facility] [place] [facility] [address] [id number] [place] [address] Jun, [facility] [place] [facility] [address] [id number] [place] [address] May, [facility] [place] [facility] [address] [id number] [place] [address] May, [facility] [place] [facility] [address] [id number] [place] [address] May, [facility] [place] [facility] [address] [id number] [place] [address] May, [facility] [place] [facility] [address] [id number] [place] [address] 1386 May, [facility] [place] [facility] [address] [id number] [place] [address] May, [facility] [place] [facility] [address] [id number] [place] [address]- [address] 28 Apr, 2012 [facility] [place] [facility] [address] [id number] [place] [address] 27 Apr, 2012 [facility] [place] [facility] [address] [id number] [place] [address] 15 Apr, 2012 [facility] [place] [facility] [address] [id number] [place] [address] 11 Apr, 2012 [facility] [place] [facility] [address] [id number] [place] [address] 10 Apr, 2012 [facility] [place] [facility] [address] [id number] [place] [address] Mar, [facility] [place] [facility] [address] [id number] [place] [address] Mar, [facility] [place] [facility] [address] [id number] [place] [address] Mar, [facility] [place] [facility] [address] [id number] [place] [address] Mar, [facility] [place] [facility] [address] [id number] [place] [id number] Mar, [facility] [place] [facility] [address] [id number] [place] [address] Mar, [facility] [place] [facility] [address] [id number] [place] [address] Mar, [facility] [place] [facility] [address] [id number] [place] [address] Feb, [facility] [place] [facility] [address] [id number] [place] [address] Feb, [facility] [place] [facility] [address] [id number] [place] [address] Feb, [facility] [place] [facility] [address] [id number] [place] [address] Feb, [facility] [place] [facility] [address] [id number] [place] [address] Jan, [facility] [place] [facility] [address] [id number] [place] [address] Jan, [facility] [place] [facility] [address] [id number] [place] [address] Jan, [facility] [place] [facility] [address] [id number] [place] [address] Jan, [facility] [place] [facility] [address] [id number] [place] [address] Jan, [facility] [place] [facility] [address] [id number] [place] [address] Jan, [facility] [place] [facility] [address] [id number] [place] [address]- [address] December, [facility] [place] [facility] [address] [id number] [place] [address] December, [facility] [address] [id number] [place] [address] December, [facility] [address] [id number] [place] [address] December, [facility] [address] [id number] [place] [address] December, [facility] [address] [id number] [place] [address] December, [facility] [address] [id number] [place] [address] December, [facility] [address] [id number] [place] [address] Nov, [facility] [address] [id number] [place] [address] 27 Nov, 2011 [facility] [address] [id number] [place] [address] Nov, [facility] [address] [id number] [place] [address] 25 Nov, 2011 [facility] [address] [id number] [place] [address]164 16 Nov, 2011 [facility] [address] [id number] [place] [address] Nov, [facility] [address] [id number] [place] [address] Nov, [facility] [address] [id number] [place] [address] 4964 29 Oct, 2011 [facility] [address] [id number] [place] [address] Oct, [facility] [address] [id number] [place] [address] Oct, [facility] [address] [id number] [place] [address] 07 Oct, 2011 [facility] [place] [facility] [address] [id number] [place] [address]- [address] Sep, [facility] [place] [facility] [address] [id number] [place] [address]- 6[address] Sep, [facility] [place] [facility] [address] [id number] [place] [address] 2546 14 Sep, 2011 [facility] [place] [facility] [address] [id number] [place] [address] Sep, [facility] [place] [facility] [address] [id number] [place] [address]56 Sep, [facility] [place] [facility] [address] [id number] [place] [address] 98[address] Sep, [facility] [place] [facility] [address] [id number] [place] [address] Sep, [facility] [place] [facility] [address] [id number] [place] [address]- [address] Aug, [facility] [place] [facility] [address] [id number] [place] [address] Aug, [facility] [place] [facility] [address] [id number] [place] [address] Aug, [facility] [place] [facility] [address] [id number] [place] [address] 2543 Jul, [facility] [place] [facility] [address] [id number] [place] [address] 2546 Jul, [facility] [place] [facility] [address] [id number] [place] [address]- [address] Jul, [facility] [place] [facility] [address] [id number] [place] [address]- [address]26 Jul, [facility] [place] [facility] [address] [id number] [place] [address]- [address]31 19 Jul, 2011 [facility] [place] [facility] [address] [id number] [place] [address] 06 Jul, 2011 [facility] [place] [facility] [address] [id number] [place] [address]- 2626 15 Jun, 2011 [facility] [place] [facility] [address] [id number] [place] [address]- 4756 03 Jun, 2011 [facility] [place] [facility] [address] [id number] [place] [address]- 4786 14 May, 2011 [facility] [place] [facility] [address] [id number] [place] [address] 1453 10 May, 2011 [facility] [place] [facility] [address] [id number] [place] [address]- 0397 14 Apr, 2011 [facility] [place] [facility] [address] [id number] [place] [address]- 2715 Oct, [facility] [place] [facility] [address] [id number] [place] [address]- 8678 22 Jul, 2010 [facility] [place] [facility] [address] [id number] [place] [address]- 9756 14 Jul, 2010 [facility] [place] [facility] [address] [facility] [id number] [place] [address]- 44[address] 08 Jul, 2010 [facility] [place] [facility] [address] [id number] [place] [address]- 9723 24 Jun, 2010 [facility] [place] [facility] [address] [id number] [place] [address]- 1042 15 Jun, 2010 [facility] [place] [facility] [address] [id number] [place] [address]- 7293 09 Jun, 2010 [facility] [place] [facility] [address] [id number] [place] [address]- 1248 11 May, 2010 [facility] [place] [facility] [address] [id number] [place] [address] 455[address] Jan, [facility] [address] [facility] [id number] [address] December, [facility] [address] [id number] [address] Jul, [facility] [address] [id number] [address] Jul, [facility] [id number] [address] Jul, [facility] [address] [id number] [address] May, [facility] [id number] [address] May, [facility] [id number] [address] May, IMMUNIZATIONS No Known Immunizations SOCIAL HISTORY Never Assessed REASON FOR VISIT CHM/ Medication review. Tomasa Griggs PLAN OF CARE VITAL SIGNS Height 70 in 2018-03-13 Weight 220.5 lbs 2018-03-13 Temperature 97 degrees Fahrenheit 2018-03-13 Heart Rate 94 bpm 2018-03-13 Respiratory Rate 18 2018-03-13 BMI 31.64 kg/m2 2018-03-13 Blood pressure systolic 110 mmHg 2018-03-13 Blood pressure diastolic 72 mmHg 2018-03-13 MEDICATIONS Medication Instructions Dosage Frequency Start Date End Date Duration Status Bactrim DS 800-160 MG Orally Twice a day 1 tablet 12h Mar,Mar 10 day(s) Active Nabumetone 500 mg Orally Twice a day 1 tablet 12h 30 Active Neurontin 600 MG Orally Three times a day 2 tablets 8h Active Aspirin Low Dose 81 MG Orally Once a day 1 tablet 24h Nov, Active Magnesium Oxide 400 mg Orally Once a day 1 tablet as needed 24h Mar, Aug, 30 day(s) Active Crestor 40 mg 1 tablet 24h Nov, Active Ventolin HFA 90 mcg/actuation inhale 2 puffs by Inhalation route 4 times per day PRN Oct, Active Viibryd 40 mg Orally Once a day 1 tablet 24h Oct, 90 days Active Tizanidine HCl 6 MG Orally Three times a day 1 capsule as needed 8h Mar Active Combivent Respimat 20-100 mcg/actuation Inhalation 3 times a day 1 puff 8h Oct, Active Spiriva 18 mcg 1 ea by Inhalation route 1 time per day Oct, Active Metoprolol Tartrate 25 MG TAKE ONE-HALF TABLET BY MOUTH TWICE DAILY 30 Active RESULTS No Results PROCEDURES [...] Hospitalization History sepsis, Acute bacterial exac of bronchitis-[facility]
--- OUTSIDE RECORDS SUMMARY | 2018-05-01 16:05 | XMS REPORT | Continuity of Care Document ---
Author Author [facility] Address Unknown Phone Unavailable Allergies Active Description Code Type Severity Reaction Onset Reported/Identified Relationship to Patient Clinical Status Yes tramadol [id number] Drug Allergy Unknown N/A 07/04/2009 Yes oxycodone [id number] Drug Allergy Mild N/A 07/14/2009 Yes oxycodone [...] 24 hr Drug Allergy 12/08/2012 Yes oxycodone [id number] Drug Allergy Mild NAUSEA 01/31/2015 Yes No Known Drug Allergies [id number] Drug Allergy Unknown N/A 07/06/2015 Medications There is no data. Problems Date Dx Coded Attending Type Code Diagnosis Diagnosed By 10/12/2008 RIKA CHURCH DO 272.4 HYPERLIPIDEMIA 10/12/2008 RIKA CHURCH DO K 300.00 anxiety 10/12/2008 RIKA CHURCH DO 414.01 CORONARY ARTERY STENOSIS MULTI-VESSEL 10/12/2008 RIKA CHURCH DO K 465.9 Upper Respiratory Infection Acute 10/12/2008 RIKA CHURCH DO K 786.2 Cough 10/12/2008 RIKA CHURCH DO [...] Upper Respiratory Infection Acute 10/12/2008 CHURCH DO RIKA K 786.2 Cough 10/12/2008 CHURCH GONZALEZ [...] APRNCY N 300.00 anxiety 10/12/2008 BRAVO CASHERO DELIVERY MOTORCYCLE DRIVER, CLARISSE N 414.01 CORONARY ARTERY STENOSIS MULTI-VESSEL [...] K V58.69 taking high-risk medication 10/12/2008 ECHO DELIVERY MOTORCYCLE DRIVER, MATHEUS R 272.4 HYPERLIPIDEMIA 10/12/2008 ECHO DELIVERY MOTORCYCLE DRIVER, MATHEUS R 300.00 anxiety 10/12/2008 ECHO DELIVERY MOTORCYCLE DRIVER, MATHEUS R 414.01 CORONARY ARTERY STENOSIS MULTI-VESSEL 10/12/2008 ECHO DELIVERY MOTORCYCLE DRIVER, MATHEUS R 465.9 Upper Respiratory Infection Acute 10/12/2008 ECHO DELIVERY MOTORCYCLE DRIVER, MATHEUS R 786.2 Cough 10/12/2008 ECHO DELIVERY MOTORCYCLE DRIVER, MATHEUS R V58.69 taking high-risk medication 10/12/2008 CHURCH DO, RIKA K 272.4 HYPERLIPIDEMIA 10/12/2008 CHURCH DO, RIKA K 300.00 anxiety 10/12/2008 CHURCH DO, RIKA K 414.01 CORONARY ARTERY STENOSIS MULTI-VESSEL 10/12/2008 CHURCH DO, RIKA K 465.9 Upper Respiratory Infection Acute 10/12/2008 CHURCH DO, RIKA K 786.2 Cough 10/12/2008 CHURCH DO, RIKA K V58.69 taking high-risk medication 10/12/2008 ECHO DELIVERY MOTORCYCLE DRIVER, MATHEUS R 272.4 HYPERLIPIDEMIA 10/12/2008 ECHO DELIVERY MOTORCYCLE DRIVER, MATHEUS R 300.00 anxiety 10/12/2008 ECHO DELIVERY MOTORCYCLE DRIVER, MATHEUS R 414.01 CORONARY ARTERY STENOSIS MULTI-VESSEL 10/12/2008 ECHO DELIVERY MOTORCYCLE DRIVER, MATHEUS R 465.9 Upper Respiratory Infection Acute 10/12/2008 ECHO DELIVERY MOTORCYCLE DRIVER, MATHEUS R 786.2 Cough 10/12/2008 ECHO DELIVERY MOTORCYCLE DRIVER, MATHEUS R V58.69 taking high-risk medication 10/12/2008 CHURCH DO, RIKA K 272.4 HYPERLIPIDEMIA 10/12/2008 CHURCH DO, RIKA K 300.00 anxiety 10/12/2008 CHURCH DO, RIKA K 414.01 CORONARY ARTERY STENOSIS MULTI-VESSEL 10/12/2008 CHURCH DO, RIKA K 465.9 Upper Respiratory Infection Acute 10/12/2008 CHURCH DO, RIKA K 786.2 Cough 10/12/2008 CHURCH DO, RIKA K V58.69 taking high-risk medication 10/12/2008 ROSALVA DELIVERY MOTORCYCLE DRIVER, LINH S 272.4 HYPERLIPIDEMIA 10/12/2008 ROSALVA LIZARRAGAN, LINH S 300.00 anxiety 10/12/2008 ROSALVA DELIVERY MOTORCYCLE DRIVER, LINH S 414.01 CORONARY ARTERY STENOSIS MULTI-VESSEL 10/12/2008 ROSALVA DELIVERY MOTORCYCLE DRIVER, LINH S 465.9 Upper Respiratory Infection Acute 10/12/2008 ROSALVA DELIVERY MOTORCYCLE DRIVER, LINH S 786.2 Cough 10/12/2008 ROSALVA DELIVERY MOTORCYCLE DRIVER, LINH S V58.69 taking high-risk medication 12/15/2008 [...] RIKA K 492.8 Emphysema Other 12/15/2008 ECHO DELIVERY MOTORCYCLE DRIVER, MATHEUS R 492.8 Emphysema Other 12/15/2008 CHURCH [...] RIKA K 788.64 Urinary Hesitancy 05/27/2009 ECHO DELIVERY MOTORCYCLE DRIVER, MATHEUS R 788.64 Urinary Hesitancy 05/27/2009 CHURCH DO, RIKA K 788.64 Urinary Hesitancy 05/27/2009 ECHO DELIVERY MOTORCYCLE DRIVER, MATHEUS R 788.64 Urinary Hesitancy 05/27/2009 CHURCH [...] DO, RIKA K 780.99 ANHEDONIA 10/14/2009 ECHO DELIVERY MOTORCYCLE DRIVER, MATHEUS R 780.99 ANHEDONIA 10/14/2009 CHURCH DO, RIKA K 780.99 ANHEDONIA 10/14/2009 ECHO DELIVERY MOTORCYCLE DRIVER, MATHEUS R 780.99 ANHEDONIA 10/14/2009 CHURCH DO, [...] K 311 MO DEPRESS NOS 10/28/2009 ECHO DELIVERY MOTORCYCLE DRIVER, MATHEUS R 311 MO DEPRESS NOS 10/28/2009 CHURCH DO, RIKA K 311 MO DEPRESS NOS 10/28/2009 ECHO DELIVERY MOTORCYCLE DRIVER, MATHEUS R 311 MO DEPRESS NOS 10/28/2009 [...] 786.05 Shortness Of Breath 12/16/2009 CHURCH DO, IRKA K 780.8 GENERALIZED HYPERHIDROSIS 12/16/2009 CHURCH DO, RIKA K 786.05 Shortness Of Breath 12/16/2009 BRAVO CASHERO DELIVERY MOTORCYCLE DRIVER, CLARISSE N 780.8 GENERALIZED HYPERHIDROSIS 12/16/2009 BRAVO CASHERO DELIVERY MOTORCYCLE DRIVER, CLARISSE N 786.05 Shortness Of Breath 12/16/2009 [...] K 786.05 Shortness Of Breath 12/16/2009 ECHO DELIVERY MOTORCYCLE DRIVER, MATHEUS R 780.8 GENERALIZED HYPERHIDROSIS 12/16/2009 ECHO DELIVERY MOTORCYCLE DRIVER, MATHEUS R 786.05 Shortness Of Breath 12/16/2009 CHURCH DO, RIKA K 780.8 GENERALIZED HYPERHIDROSIS 12/16/2009 CHURCH DO, RIKA K 786.05 Shortness Of Breath 12/16/2009 ECHO DELIVERY MOTORCYCLE DRIVER, MATHEUS R 780.8 GENERALIZED HYPERHIDROSIS 12/16/2009 ECHO DELIVERY MOTORCYCLE DRIVER, MATHEUS R 786.05 Shortness Of Breath 12/16/2009 CHURCH DO, RIKA K 780.8 GENERALIZED HYPERHIDROSIS 12/16/2009 CHURCH DO, RIKA K 786.05 Shortness Of Breath 12/16/2009 ROSALVA DELIVERY MOTORCYCLE DRIVER, LINH S 780.8 GENERALIZED HYPERHIDROSIS 12/16/2009 ROSALVA DELIVERY MOTORCYCLE DRIVER, LINH S 786.05 Shortness Of Breath 01/04/2010 [...] 300.02 AN GEN ANXIETY 01/04/2010 SHELLY SOTELO DELIVERY MOTORCYCLE DRIVER, CLARISSE N 300.02 AN GEN ANXIETY 01/04/2010 CHURCH DO, RIKA K 300.02 AN GEN ANXIETY 01/04/2010 CHURCH DO, RIKA K 300.02 AN GEN ANXIETY 01/04/2010 CHURCH DO, RIKA K 300.02 AN GEN ANXIETY 01/04/2010 CHURCH DO, RIKA K 300.02 AN GEN ANXIETY 01/04/2010 CHURCH DO, RIKA K 300.02 AN GEN ANXIETY 01/04/2010 CEHO DELIVERY MOTORCYCLE DRIVER, MATHEUS R 300.02 AN GEN ANXIETY 01/04/2010 CHURCH DO, RIKA K 300.02 AN GEN ANXIETY 01/04/2010 ECHO DELIVERY MOTORCYCLE DRIVER, MATHEUS R 300.02 AN GEN ANXIETY 01/04/2010 [...] K 709.9 Skin Lesions 03/02/2010 SHELLY SOTELO DELIVERY MOTORCYCLE DRIVER, CLARISSE N 709.9 Skin Lesions 03/02/2010 CHURCH DO, RIKA K 709.9 Skin Lesions 03/02/2010 CHURCH DO, RIKA K 709.9 Skin Lesions 03/02/2010 CHURCH DO, RIKA K 709.9 Skin Lesions 03/02/2010 CHURCH DO, RIKA K 709.9 Skin Lesions 03/02/2010 CHURCH DO, RIKA K 709.9 Skin Lesions 03/02/2010 ECHO DELIVERY MOTORCYCLE DRIVER, MATHEUS R 709.9 Skin Lesions 03/02/2010 CHURCH DO, RIKA K 709.9 Skin Lesions 03/02/2010 ECHO DELIVERY MOTORCYCLE DRIVER, MATHEUS R 709.9 Skin Lesions 03/02/2010 CHURCH DO, RIKA K 709.9 Skin Lesions 03/02/2010 ROSALVA DELIVERY MOTORCYCLE DRIVER, LINH S 709.9 Skin Lesions 05/03/2010 CHURCH [...] Visit For: Issue Repeat Prescription 05/03/2010 ECHO DELIVERY MOTORCYCLE DRIVER, MATHEUS R V68.1 Visit For: Issue Repeat [...] K 729.5 Pain In Limb 05/19/2010 ECHO DELIVERY MOTORCYCLE DRIVER, MATHEUS R 724.2 Lower Back Pain 05/19/2010 ECHO DELIVERY MOTORCYCLE DRIVER, MATHEUS R 729.5 Pain In Limb 05/19/2010 CHURCH DO, RIKA K 724.2 Lower Back Pain 05/19/2010 CHURCH DO, RIKA K 729.5 Pain In Limb 05/19/2010 ECHO DELIVERY MOTORCYCLE DRIVER, MATHEUS R 724.2 Lower Back Pain 05/19/2010 ECHO DELIVERY MOTORCYCLE DRIVER, MATHEUS R 729.5 Pain In Limb 05/19/2010 CHURCH DO, RIKA K 724.2 Lower Back Pain 05/19/2010 CHURCH DO, RIKA K 729.5 Pain In Limb 05/19/2010 ROSALVA DELIVERY MOTORCYCLE DRIVER, LINH S 724.2 Lower Back Pain 05/19/2010 ROSALVA DELIVERY MOTORCYCLE DRIVER, LINH S 729.5 Pain In Limb 07/05/2010 [...] 294.9 OR COG DIS NOS 07/05/2010 ECHO DELIVERY MOTORCYCLE DRIVER, MATHEUS R 294.9 OR COG DIS NOS [...] K 401.1 HYPERTENSION, BENIGN ESSENTIAL 09/20/2010 ECHO DELIVERY MOTORCYCLE DRIVER, MATHEUS R 401.1 HYPERTENSION, BENIGN ESSENTIAL 09/20/2010 CHURCH DO, RIKA K 401.1 HYPERTENSION, BENIGN ESSENTIAL 09/20/2010 ECHO DELIVERY MOTORCYCLE DRIVER, MATHEUS R 401.1 HYPERTENSION, BENIGN ESSENTIAL 09/20/2010 [...] 296.32 MO DEPRESSIVE RECURRENT MODERATE 04/18/2011 ECHO DELIVERY MOTORCYCLE DRIVER, MATHEUS R 296.32 MO DEPRESSIVE RECURRENT MODERATE 04/18/2011 CHURCH DO, RIKA K 296.32 MO DEPRESSIVE RECURRENT MODERATE 04/18/2011 ECHO DELIVERY MOTORCYCLE DRIVER, MATHEUS R 296.32 MO DEPRESSIVE RECURRENT MODERATE [...] SOTELO APRN CLARISSE N 414.00 CAD 04/25/2011 BRAVO CASHJIGNA DELIVERY MOTORCYCLE DRIVER, CLARISSE N V45.81 POSTSURGICAL AORTOCORONARY BYPASS STATUS [...] V45.81 POSTSURGICAL AORTOCORONARY BYPASS STATUS 04/25/2011 ECHO DELIVERY MOTORCYCLE DRIVER, MATHEUS R 296.90 Episodic Mood Disorders 04/25/2011 ECHO DELIVERY MOTORCYCLE DRIVER, MATHEUS R 414.00 CAD 04/25/2011 EHCO DELIVERY MOTORCYCLE DRIVER, MATHEUS R V45.81 POSTSURGICAL AORTOCORONARY BYPASS STATUS 04/25/2011 CHURCH DO, RIKA K 296.90 Episodic Mood Disorders 04/25/2011 CHURCH DO, RIKA K 414.00 CAD 04/25/2011 CHURCH DO, RIKA K V45.81 POSTSURGICAL AORTOCORONARY BYPASS STATUS 04/25/2011 ECHO DELIVERY MOTORCYCLE DRIVER, MATHEUS R 296.90 Episodic Mood Disorders 04/25/2011 ECHO DELIVERY MOTORCYCLE DRIVER, MATHEUS R 414.00 CAD 04/25/2011 ECHO DELIVERY MOTORCYCLE DRIVER, MATHEUS R V45.81 POSTSURGICAL AORTOCORONARY BYPASS STATUS 04/25/2011 CHURCH DO, RIKA K 296.90 Episodic Mood Disorders 04/25/2011 CHURCH DO, RIKA K 414.00 CAD 04/25/2011 CHURCH DO, RIKA K V45.81 POSTSURGICAL AORTOCORONARY BYPASS STATUS 04/25/2011 ROSALVA DELIVERY MOTORCYCLE DRIVER, LINH S 296.90 Episodic Mood Disorders 04/25/2011 ROSALVA LIZARRAGAN, LINH S 414.00 CAD 04/25/2011 ROSALVA DELIVERY MOTORCYCLE DRIVER, LINH S V45.81 POSTSURGICAL AORTOCORONARY BYPASS STATUS [...] 296.30 MO DEPRESSIVE RECURRENT UNSPECIFIED 10/29/2011 ECHO DELIVERY MOTORCYCLE DRIVER, MATHEUS R 296.30 MO DEPRESSIVE RECURRENT UNSPECIFIED [...] RIKA K 530.81 GERD 02/04/2012 CHURCH DO, RIAK K 787.1 Heartburn 02/04/2012 CHURCH DO, RIKA [...] DO, RIKA K 787.20 Dysphagia, Unspecified 02/04/2012 [place] CASHERO DELIVERY MOTORCYCLE DRIVER, CLARISSE N 530.81 [facility]ERD 02/04/2012 [facility], CLARISSE N 787.1 Heartburn 02/04/2012 [place] CASHERO DELIVERY MOTORCYCLE DRIVER, CLARISSE N 787.20 Dysphagia, Unspecified 02/04/2012 CHURCH [...] RIKA K 787.20 Dysphagia, Unspecified 02/04/2012 ECHO DELIVERY MOTORCYCLE DRIVER, MATHEUS R 530.81 GERD 02/04/2012 ECHO DELIVERY MOTORCYCLE DRIVER, MATHEUS R 787.1 Heartburn 02/04/2012 ECHO DELIVERY MOTORCYCLE DRIVER, MATHEUS R 787.20 Dysphagia, Unspecified 02/04/2012 CHURCH DO, RIKA K 530.81 GERD 02/04/2012 CHURCH DO, RIKA K 787.1 Heartburn 02/04/2012 CHURCH DO, RIKA K 787.20 Dysphagia, Unspecified 02/04/2012 ECHO DELIVERY MOTORCYCLE DRIVER, MATHEUS R 530.81 GERD 02/04/2012 ECHO DELIVERY MOTORCYCLE DRIVER, MATHEUS R 787.1 Heartburn 02/04/2012 ECHO DELIVERY MOTORCYCLE DRIVER, MATHEUS R 787.20 Dysphagia, Unspecified 02/04/2012 CHURCH DO, RIKA K 530.81 GERD 02/04/2012 CHURCH DO, RIKA K 787.1 Heartburn 02/04/2012 CHURCH DO, RIKA K 787.20 Dysphagia, Unspecified 02/04/2012 ROSALVA DELIVERY MOTORCYCLE DRIVER, LINH S 530.81 GERD 02/04/2012 ROSALVA DELIVERY MOTORCYCLE DRIVER, LINH S 787.1 Heartburn 02/04/2012 ROSALVA DELIVERY MOTORCYCLE DRIVER, LINH S 787.20 Dysphagia, Unspecified 04/21/2012 CHURCH [...] Pain In Joint Site Unspecified 04/21/2012 ECHO DELIVERY MOTORCYCLE DRIVER, MATHEUS R 305.20 NONDEPENDENT CANNABIS ABUSE UNSPECIFIED USE 04/21/2012 ECHO DELIVERY MOTORCYCLE DRIVER, MATHEUS R 338.29 OTHER CHRONIC PAIN 04/21/2012 ECHO DELIVERY MOTORCYCLE DRIVER, MATHEUS R 461.9 Sinusitis Acute 04/21/2012 ECHO DELIVERY MOTORCYCLE DRIVER, MATHEUS R 719.40 Pain In Joint Site Unspecified 04/21/2012 CHURCH DO, RIKA K 305.20 NONDEPENDENT CANNABIS ABUSE UNSPECIFIED USE 04/21/2012 CHURCH DO, RIKA K 338.29 OTHER CHRONIC PAIN 04/21/2012 CHURCH DO, RIKA K 461.9 Sinusitis Acute 04/21/2012 CHURCH DO, RIKA K 719.40 Pain In Joint Site Unspecified 04/21/2012 ECHO DELIVERY MOTORCYCLE DRIVER, MATHEUS R 305.20 NONDEPENDENT CANNABIS ABUSE UNSPECIFIED USE 04/21/2012 ECHO DELIVERY MOTORCYCLE DRIVER, MATHEUS R 338.29 OTHER CHRONIC PAIN 04/21/2012 ECHO DELIVERY MOTORCYCLE DRIVER, MATHEUS R 461.9 Sinusitis Acute 04/21/2012 ECHO DELIVERY MOTORCYCLE DRIVER, MATHEUS R 719.40 Pain In Joint Site Unspecified 04/21/2012 CHURCH DO, RIKA K 305.20 NONDEPENDENT CANNABIS ABUSE UNSPECIFIED USE 04/21/2012 CHURCH DO, RIKA K 338.29 OTHER CHRONIC PAIN 04/21/2012 CHURCH DO, RIKA K 461.9 Sinusitis Acute 04/21/2012 CHURCH DO, RIKA K 719.40 Pain In Joint Site Unspecified 04/21/2012 ROSALVA DELIVERY MOTORCYCLE DRIVER, LINH S 305.20 NONDEPENDENT CANNABIS ABUSE UNSPECIFIED USE 04/21/2012 ROSALVA DELIVERY MOTORCYCLE DRIVER, LINH S 338.29 OTHER CHRONIC PAIN 04/21/2012 ROSALVA DELIVERY MOTORCYCLE DRIVER, LINH S 461.9 Sinusitis Acute 04/21/2012 ROSALVA DELIVERY MOTORCYCLE DRIVER, LINH S 719.40 Pain In Joint Site [...] RIKA K 389.9 Hearing Loss 05/19/2012 ECHO DELIVERY MOTORCYCLE DRIVER, MATHEUS R 389.9 Hearing Loss 05/19/2012 CHURCH DO, RIKA K 389.9 Hearing Loss 05/19/2012 ECHO DELIVERY MOTORCYCLE DRIVER, MATHEUS R 389.9 Hearing Loss 05/19/2012 CHURCH DO, RIKA K 389.9 Hearing Loss 05/19/2012 ROSALVA DELIVERY MOTORCYCLE DRIVER, LINH S 389.9 Hearing Loss 05/23/2012 CHURCH [...] RIKA K 309.81 AN PTSD 05/23/2012 ECHO DELIVERY MOTORCYCLE DRIVER, MATHEUS R 309.81 AN PTSD 05/23/2012 CHURCH DO, RIKA K 309.81 AN PTSD 05/23/2012 ECHO DELIVERY MOTORCYCLE DRIVER, MATHEUS R 309.81 AN PTSD 05/23/2012 CHURCH DO, RIKA K 309.81 AN PTSD 05/23/2012 BETH BLACKWELL APRNNDA S 309.81 AN PTSD 06/06/2012 RIKA CHURCH DO 381.4 OTITIS MEDIA NONSUPPURATIVE SEROUS 06/06/2012 RIKA CHURCH DO K 381.81 EUSTACHIAN TUBE DYSFUNCTION 06/06/2012 RIKA CHRUCH DO K 381.4 OTITIS MEDIA NONSUPPURATIVE SEROUS [...] 381.81 Eustachian Tube Dysfunction 06/06/2012 BRAVO CASHERO DELIVERY MOTORCYCLE DRIVER, CLARISSE N 381.4 Otitis Media Nonsuppurative Serous 06/06/2012 BRAVO CASHERO DELIVERY MOTORCYCLE DRIVER, CLARISSE N 381.81 Eustachian Tube Dysfunction 06/06/2012 [...] K 381.81 Eustachian Tube Dysfunction 06/06/2012 ECHO DELIVERY MOTORCYCLE DRIVER, MATHEUS R 381.4 Otitis Media Nonsuppurative Serous 06/06/2012 ECHO DELIVERY MOTORCYCLE DRIVER, MATHEUS R 381.81 Eustachian Tube Dysfunction 06/06/2012 CHURCH DO, RIKA K 381.4 Otitis Media Nonsuppurative Serous 06/06/2012 CHURCH DO, RIKA K 381.81 Eustachian Tube Dysfunction 06/06/2012 ECHO DELIVERY MOTORCYCLE DRIVER, MATHEUS R 381.4 Otitis Media Nonsuppurative Serous 06/06/2012 ECHO DELIVERY MOTORCYCLE DRIVER, MATHEUS R 381.81 Eustachian Tube Dysfunction 06/06/2012 [...] BAH APRN 780.57 SLEEP APNEA 08/23/2012 CHURCH DO, RIKA K 780.57 SLEEP APNEA 08/23/2012 CHURCH DO, RIKA K 780.57 SLEEP APNEA 08/23/2012 CHURCH DO, RIKA K 780.57 SLEEP APNEA 08/23/2012 CHURCH DO, RIKA K 780.57 SLEEP APNEA 08/23/2012 CHURCH DO, RIKA K 780.57 SLEEP APNEA 08/23/2012 ECHO DELIVERY MOTORCYCLE DRIVER, MATHEUS R 780.57 SLEEP APNEA 08/23/2012 CHURCH DO, RIKA K 780.57 SLEEP APNEA 08/23/2012 ECHO DELIVERY MOTORCYCLE DRIVER, MATHEUS R 780.57 SLEEP APNEA 08/23/2012 CHURCH [...] WITH INHIBITED SEXUAL EXCITEMENT 09/25/2012 CHURCH DO RIKA K 302.72 PSYCHOSEXUAL [...] DRUG ABUSE UNSPECIFIED USE 12/08/2012 CHURCH DO, RKIA K 305.90 OTHER MIXED OR UNSPECIFIED DRUG ABUSE UNSPECIFIED USE 12/08/2012 ECHO SWEENEY, MATHEUS R 305.90 OTHER MIXED OR UNSPECIFIED DRUG ABUSE UNSPECIFIED USE 12/08/2012 CHRUCH DO, RIKA K 305.90 OTHER MIXED OR [...] DO, RIKA K 786.07 WHEEZING 01/12/2013 ECHO DELIVERY MOTORCYCLE DRIVER, MATHEUS R 786.07 WHEEZING 01/12/2013 CHURCH DO, RIKA K 786.07 WHEEZING 01/12/2013 ECHO DELIVERY MOTORCYCLE DRIVER, MATHEUS R 786.07 WHEEZING 01/12/2013 CHURCH DO, [...] FACP CCDS Ot 414.01 CORONARY ATHEROSCLEROSIS OF [place] CORON 03/31/2013 LOUISA RUIZ FACC, RONDA FACP [...] 728.85 SPASM OF MUSCLE 04/22/2013 BRAVO CASHERO DELIVERY MOTORCYCLE DRIVER, CLARISSE N 466.0 BRONCHITIS, ACUTE 04/22/2013 BRAVOROBERTO GERARDOERO DELIVERY MOTORCYCLE DRIVER, CLARISSE N 728.85 SPASM OF MUSCLE 04/22/2013 [...] K 728.85 SPASM OF MUSCLE 04/22/2013 ECHO DELIVERY MOTORCYCLE DRIVER, MATHEUS R 466.0 BRONCHITIS, ACUTE 04/22/2013 ECHO DELIVERY MOTORCYCLE DRIVER, MATHEUS R 728.85 SPASM OF MUSCLE 04/22/2013 CHURCH DO, RIKA K 466.0 BRONCHITIS, ACUTE 04/22/2013 CHURCH DO, RIKA K 728.85 SPASM OF MUSCLE 04/22/2013 ECHO DELIVERY MOTORCYCLE DRIVER, MATHEUS R 466.0 BRONCHITIS, ACUTE 04/22/2013 ECHO DELIVERY MOTORCYCLE DRIVER, MATHEUS R 728.85 SPASM OF MUSCLE 04/22/2013 CHURCH DO, RIKA K 466.0 BRONCHITIS, ACUTE 04/22/2013 CHURCH DO, RIKA K 728.85 SPASM OF MUSCLE 04/22/2013 ROSALVA DELIVERY MOTORCYCLE DRIVER, LINH S 466.0 BRONCHITIS, ACUTE 04/22/2013 [place] DELIVERY MOTORCYCLE DRIVER, LINH S 728.85 SPASM OF MUSCLE 06/15/2013 [...] V65.42 COUNSELING - SMOKING CESSATION 06/15/2013 ECHO DELIVERY MOTORCYCLE DRIVERDARLENEMATHEUS R V65.42 COUNSELING - SMOKING CESSATION 06/15/2013 [...] 789.00 ABDOMINAL PAIN UNSPECIFIED SITE 09/10/2013 ECHO DELIVERY MOTORCYCLE DRIVER, MATHEUS R 487.1 INFLUENZA WITH OTHER RESPIRATORY MANIFESTATIONS 09/10/2013 ECHO DELIVERY MOTORCYCLE DRIVER, MATHEUS R 789.00 ABDOMINAL PAIN UNSPECIFIED SITE 09/10/2013 CHURCH DO, RIKA K 487.1 INFLUENZA WITH OTHER RESPIRATORY MANIFESTATIONS 09/10/2013 CHURCH DO, RIKA K 789.00 ABDOMINAL PAIN UNSPECIFIED SITE 09/10/2013 ECHO DELIVERY MOTORCYCLE DRIVER, MATHEUS R 487.1 INFLUENZA WITH OTHER RESPIRATORY MANIFESTATIONS 09/10/2013 ECHO DELIVERY MOTORCYCLE DRIVER, MATHEUS R 789.00 ABDOMINAL PAIN UNSPECIFIED SITE 09/10/2013 CHURCH DO, RIKA K 487.1 INFLUENZA WITH OTHER RESPIRATORY MANIFESTATIONS 09/10/2013 CHURCH DO, RIKA K 789.00 ABDOMINAL PAIN UNSPECIFIED SITE 09/10/2013 ROSALVA LIZARRAGAN, LINH S 487.1 INFLUENZA WITH OTHER RESPIRATORY MANIFESTATIONS 09/10/2013 ROSALVA DELIVERY MOTORCYCLE DRIVER, LINH S 789.00 ABDOMINAL PAIN UNSPECIFIED SITE 12/04/2013 CHURCH DO, RIKA K 466.0 BRONCHITIS, ACUTE 12/04/2013 CHURCH DO, RIKA K 466.0 BRONCHITIS, ACUTE 12/04/2013 ECHO DELIVERY MOTORCYCLE DRIVER, MATHEUS R 466.0 BRONCHITIS, ACUTE 12/04/2013 CHURCH DO, RIKA K 466.0 BRONCHITIS, ACUTE 12/04/2013 ECHO DELIVERY MOTORCYCLE DRIVER, MATHEUS R 466.0 BRONCHITIS, ACUTE 12/04/2013 CHURCH DO, RIKA K 466.0 BRONCHITIS, ACUTE 12/04/2013 ROSALVA DELIVERY MOTORCYCLE DRIVER, LINH S 466.0 BRONCHITIS, ACUTE 12/07/2013 CHURCH DO, RIKA K 729.5 PAIN IN LIMB 12/07/2013 CHURCH DO, RIKA K 780.52 INSOMNIA UNSPECIFIED 12/07/2013 CHURCH DO, RIKA K V76.44 SCREENING FOR MALIGNANT NEOPLASMS OF THE PROSTATE 12/07/2013 CHURCH DO, RIKA K V76.51 COLON CANCER SCREENING 12/07/2013 ECHO DELIVERY MOTORCYCLE DRIVER, MATHEUS R 729.5 PAIN IN LIMB 12/07/2013 ECHO DELIVERY MOTORCYCLE DRIVER, MATHEUS R 780.52 INSOMNIA UNSPECIFIED 12/07/2013 ECHO DELIVERY MOTORCYCLE DRIVER, MATHEUS R V76.44 SCREENING FOR MALIGNANT NEOPLASMS OF THE PROSTATE 12/07/2013 ECHO DELIVERY MOTORCYCLE DRIVER, MATHEUS R V76.51 COLON CANCER SCREENING 12/07/2013 CHURCH DO, RIKA K 729.5 PAIN IN LIMB 12/07/2013 CHURCH DO, RIKA K 780.52 INSOMNIA UNSPECIFIED 12/07/2013 CHURCH DO, RIKA K V76.44 SCREENING FOR MALIGNANT NEOPLASMS OF THE PROSTATE 12/07/2013 CHURCH DO, RIKA K V76.51 COLON CANCER SCREENING 12/07/2013 ECHO DELIVERY MOTORCYCLE DRIVER, MATHEUS R 729.5 PAIN IN LIMB 12/07/2013 ECHO DELIVERY MOTORCYCLE DRIVER, MATHEUS R 780.52 INSOMNIA UNSPECIFIED 12/07/2013 ECHO DELIVERY MOTORCYCLE DRIVER, MATHEUS R V76.44 SCREENING FOR MALIGNANT NEOPLASMS OF THE PROSTATE 12/07/2013 ECHO DELIVERY MOTORCYCLE DRIVER, MATHEUS R V76.51 COLON CANCER SCREENING 12/07/2013 [...] R 786.09 RESPIRATORY ABNORMALITY OTHER 12/22/2013 ECHO DELIVERY MOTORCYCLE DRIVER, MATHEUS R 786.2 COUGH 12/22/2013 CHURCH DO, [...] DISEASE 05/24/2016 Ot 414.01 CORONARY ATHEROSCLEROSIS OF [place] CORON 05/24/2016 Ot 416.8 CHR PULMON HEART [...] CARLENE ORTA Ot 414.01 CORONARY ATHEROSCLEROSIS OF [place] CORON 05/24/2016 CARLENE ORTA Ot 496 CHR [...] DISEASE 05/29/2016 Ot 414.01 CORONARY ATHEROSCLEROSIS OF [place] CORON 05/29/2016 Ot 416.8 CHR PULMON HEART [...] CARLENE ORTA Ot 414.01 CORONARY ATHEROSCLEROSIS OF [place] CORON 05/29/2016 CARLENE ORTA Ot 496 CHR [...] DISEASE 05/29/2016 Ot 414.01 CORONARY ATHEROSCLEROSIS OF [place] CORON 05/29/2016 Ot 416.8 CHR PULMON HEART [...] CARLENE ORTA Ot 414.01 CORONARY ATHEROSCLEROSIS OF [place] CORON 05/29/2016 CARLENE ORTA Ot 496 CHR [...] DISEASE 05/30/2016 Ot 414.01 CORONARY ATHEROSCLEROSIS OF [place] CORON 05/30/2016 Ot 416.8 CHR PULMON HEART [...] CARLENE ORTA Ot 414.01 CORONARY ATHEROSCLEROSIS OF [place] CORON 05/30/2016 CARLENE ORTA Ot 496 CHR AIRWAY OBSTRUCT NEC 05/30/2016 CARLENE ORAT Ot 530.81 ESOPHAGEAL REFLUX 05/30/2016 CARLENE ORTA Ot V58.69 OTH MED,LT,CURRENT USE 05/30/2016 BAIMA, JOSE ANTONIO L SHAKER FLATWORK Ot R07.9 CHEST PAIN, UNSPECIFIED 06/05/2016 BAIMA, JOSE ANTONIO L SHAKER FLATWORK Ot R07.9 CHEST PAIN, UNSPECIFIED 06/06/2016 BAIMA, JOSE ANTONIO L SHAKER FLATWORK Ot R07.9 CHEST PAIN, UNSPECIFIED 06/06/2016 BAIMA, JOSE ANTONIO L SHAKER FLATWORK Ot R07.9 CHEST PAIN, UNSPECIFIED 06/13/2016 BAIMA, JOSE ANTONIO L SHAKER FLATWORK Ot R07.9 CHEST PAIN, UNSPECIFIED 08/15/2016 BAIMA, JOSE ANTONIO L SHAKER FLATWORK Ot R20.0 ANESTHESIA OF SKIN 08/15/2016 BAIMA, JOSE ANTONIO L SHAKER FLATWORK Ot R22.43 LOCALIZED SWELLING, MASS AND LUMP, [...] DISEASE 08/30/2016 Ot 414.01 CORONARY ATHEROSCLEROSIS OF [place] CORON 08/30/2016 Ot 416.8 CHR PULMON HEART [...] CARLENE ORTA Ot 414.01 CORONARY ATHEROSCLEROSIS OF [place] CORON 08/30/2016 CARLENE ORTA Ot 496 CHR AIRWAY OBSTRUCT NEC 08/30/2016 CARLENE ORTA Ot 530.81 ESOPHAGEAL REFLUX 08/30/2016 CARLENE ORTA Ot V58.69 OTH MED,LT,CURRENT USE 08/30/2016 BAIMA, JOSE ANTONIO L SHAKER FLATWORK Ot R07.9 CHEST PAIN, UNSPECIFIED 08/30/2016 BAIMA, JOSE ANTONIO L SHAKER FLATWORK Ot R07.9 CHEST PAIN, UNSPECIFIED 08/30/2016 BAIMA, JOSE ANTONIO L SHAKER FLATWORK Ot R20.0 ANESTHESIA OF SKIN 08/30/2016 BAIMA, JOSE ANTONIO L SHAKER FLATWORK Ot R22.43 LOCALIZED SWELLING, MASS AND LUMP, LOWER 10/11/2016 BAIMA, JOSE ANTONIO L SHAKER FLATWORK Ot R20.0 ANESTHESIA OF SKIN 10/11/2016 BAIMA, JOSE ANTONIO L SHAKER FLATWORK Ot R22.43 LOCALIZED SWELLING, MASS AND LUMP, LOWER 10/19/2016 BAIMA, JOSE ANTONIO L SHAKER FLATWORK Ot R20.0 ANESTHESIA OF SKIN 10/19/2016 BAIMA, JOSE ANTONIO L SHAKER FLATWORK Ot R22.43 LOCALIZED SWELLING, MASS AND LUMP, [...] DISEASE 10/19/2016 Ot 414.01 CORONARY ATHEROSCLEROSIS OF [place] CORON 10/19/2016 Ot 416.8 CHR PULMON HEART [...] CARLENE ORTA Ot 414.01 CORONARY ATHEROSCLEROSIS OF [place] CORON 10/19/2016 CARLENE ORTA Ot 496 CHR AIRWAY OBSTRUCT NEC 10/19/2016 CARLENE ORTA Ot 530.81 ESOPHAGEAL REFLUX 10/19/2016 CARLENE ORTA Ot V58.69 OTH MED,LT,CURRENT USE 10/19/2016 BAIMA, JOSE ANTONIO L SHAKER FLATWORK Ot R07.9 CHEST PAIN, UNSPECIFIED 10/19/2016 BAIMA, JOSE ANTONIO L SHAKER FLATWORK Ot R07.9 CHEST PAIN, UNSPECIFIED 10/19/2016 BAIMA, JOSE ANTONIO L SHAKER FLATWORK Ot R20.0 ANESTHESIA OF SKIN 10/19/2016 BAIMA, JOSE ANTONIO L SHAKER FLATWORK Ot R22.43 LOCALIZED SWELLING, MASS AND LUMP, LOWER 10/19/2016 BAIMA, JOSE ANTONIO L SHAKER FLATWORK Ot R20.0 ANESTHESIA OF SKIN 10/19/2016 BAIMA, JOSE ANTONIO L SHAKER FLATWORK Ot R22.43 LOCALIZED SWELLING, MASS AND LUMP, LOWER 06/11/2017 Ot 327.23 OBSTRUCTIVE SLEEP APNEA (ADULT) (PEDIATR 06/11/2017 Ot 327.51 PERIODIC LIMB MOVEMENT DISORDER 06/11/2017 Ot 414.00 CORON ATHEROSCLER NOS TYPE VESSEL, NATIV 06/11/2017 Ot 786.50 CHEST PAIN NOS 06/11/2017 Ot V45.81 AORTOCORONARY BYPASS 06/11/2017 Ot 397.0 TRICUSPID VALVE DISEASE 06/11/2017 Ot 414.01 CORONARY ATHEROSCLEROSIS OF [place] CORON 06/11/2017 Ot 416.8 CHR PULMON HEART [...] CARLENE ORTA Ot 414.01 CORONARY ATHEROSCLEROSIS OF [place] CORON 06/11/2017 CARLENE ORTA Ot 496 CHR AIRWAY OBSTRUCT NEC 06/11/2017 CARLENE ORTA Ot 530.81 ESOPHAGEAL REFLUX 06/11/2017 CARLENE ORTA Ot V58.69 OTH MED,LT,CURRENT USE 06/11/2017 BAIMA, JOSE ANTONIO L SHAKER [employer]ATWORK Ot R07.9 CHEST PAIN, UNSPECIFIED 06/11/2017 BAIMA, JOSE ANTONIO L SHAKER [employer]ATWORK Ot R07.9 CHEST PAIN, UNSPECIFIED 06/11/2017 BAIMA, JOSE ANTONIO L SHAKER FLATWORK Ot R20.0 ANESTHESIA OF SKIN 06/11/2017 JOSE ANOTNIO JOSE ANTONIO L SHAKER FLATWORK Ot R22.43 LOCALIZED SWELLING, MASS AND LUMP, LOWER 06/11/2017 LAURA SÁNCHEZ APRN Ot E78.00 PURE HYPERCHOLESTEROLEMIA, UNSPECIFIED 06/11/2017 LAURA SÁNCHEZ APRN Ot F17.200 NICOTINE DEPENDENCE, UNSPECIFIED, UNCOMP 06/11/2017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
--- NOTE | 2018-05-09 16:29 | OPERATIVE REPORT ---
DATE OF SERVICE: 04/28/2018 ADDENDUM DATE OF THE SERVICE: 04/28/2018. DESCRIPTION OF PROCEDURE: The blank, fill this blank in with the words "when I was finished." Job ID: [id number] DocumentID: [id number] Dictated Date: 05/09/2018 10:21:04 [employer] Repairer Date: 05/09/2018 16:29:05 Dictated By: MICHELLE ESPINOSA DO
== END 2018-05-01 12:10 | disposition home or self-care (01) | DRG 558 ==
LOC: EDUNIT# 14:03 → ER 14:04 → 4TH 16:00 → UNDOADMOB 16:23 → 4TH 16:23 → UNDODISOB 05-01 12:10
PROVIDERS: ADMIT Family Medicine; ATTEND Family Medicine
PROC: 0M9P3ZZ Drainage of Left Knee Bursa and Ligament, Percutaneous Approach (ICD-10-PCS; principal; 2018-04-28)
DX: M70.42 Prepatellar bursitis, left knee (principal); L03.116 Cellulitis of left lower limb; B95.8 Unspecified staphylococcus as the cause of diseases classified elsewhere; S80.212A Abrasion, left knee, initial encounter; R60.0 Localized edema; F17.210 Nicotine dependence, cigarettes, uncomplicated; J43.9 Emphysema, unspecified; I25.10 Atherosclerotic heart disease of native coronary artery without angina pectoris; E78.2 Mixed hyperlipidemia; I10 Essential (primary) hypertension; M54.9 Dorsalgia, unspecified; G89.29 Other chronic pain; W19.XXXA Unspecified fall, initial encounter; I25.2 Old myocardial infarction; Y92.69 Other specified industrial and construction area as the place of occurrence of the external cause; Y99.0 Civilian activity done for income or pay; Z79.82 Long term (current) use of aspirin; Z95.1 Presence of aortocoronary bypass graft
CPT/HCPCS: 36415; 73562; 80053; 80202; 83605; 85007; 85025; 85027; 85610; 85652; 85730; 86141; 86606; 86612; 86628; 86635; 86698; 87040; 87070; 87075; 87077; 87101; 87116; 87186; 87205; 89051; 89060; 94640; 94760; 96374